=== PATIENT | male | born 1935 | race Caucasian/White ===

== ENCOUNTER 2017-10-14 17:50 | Inpatient (IN) ==
--- OUTSIDE RECORDS SUMMARY | 2017-10-14 18:04 | External Medical Summary | Referral Summary ---
:1935 Author Organization [facility] [place] [id number] Care Team Providers Name Role Phone Juan Luis Brewster Primary Care Physician Encounter VC Date(s): 11/13/14 - 11/13/14 [facility] [place] [phone] Discharge Diagnosis: Atrial fibrillation Discharge Diagnosis: Acute bronchitis Discharge Diagnosis: Benign essential hypertension Discharge Diagnosis: Disease Discharge Diagnosis: COPD (chronic obstructive pulmonary disease) Discharge Disposition: 01-Home or Self Care Attending Physician: Juan Luis Brewster MD Admitting Physician: Juan Luis Brewster MD Vital Signs Most recent to oldest [Reference Range]: 1 Temperature Tympanic [36.6-38.1 degC] 35.9 degC *LOW* (11/13/14 10:04 AM) Peripheral Pulse Rate [60-100 bpm] 80 bpm (11/13/14 10:04 AM) Respiratory Rate [14-20 br/min] 18 br/min (11/13/14 10:04 AM) Blood Pressure [90-140/60-90 mmHg] 100/64 mmHg (11/13/14 10:04 AM) Problem List Condition Effective Dates Status Health Status Informant Adenomatous colonic polyps(Confirmed) 2012 Active Arthritis(Confirmed) Active Benign essential hypertension Active (disorder)(Confirmed) BPH(Confirmed) Active Bronchitis, chronic(Confirmed) Active Cataracts(Confirmed) Active Chicken pox(Confirmed) Active Atrial fibrillation Active (disorder)(Confirmed) COPD (chronic obstructive pulmonary Active disease)(Confirmed) Colon diverticulosis(Confirmed) 2012 Active DDD (degenerative disc disease), Active lumbar(Confirmed) Depression(Confirmed) Active Depression(Confirmed) Active Cholesterolemia(Confirmed) Active Orthostasis(Confirmed) Active Emphysema(Confirmed) Active Generalised osteoarthritis(Confirmed) Active Hypertension(Confirmed) Active Hyperlipidemia(Confirmed) Active Obesity(Confirmed) Active patient Prostatitis(Confirmed) Active Pure hypercholesterolemia Active (disorder)(Confirmed) Recurrent sinus infections(Confirmed) Active RBBB(Confirmed) Active Scarlet fever(Confirmed) Active Syncope and collapse Active (disorder)(Confirmed) Allergies, Adverse Reactions, Alerts Substance Reaction Severity Status Camphor Swelling of face Active Menthol Active penicillin Active Phenol Swelling of face Active Salicylic Acid Swelling of face Active Medications alfuzosin 10 mg oral tablet, extended release 10 mg 1 tabs, Oral, Daily, # 90 tabs, 2 Refill(s), Pharmacy: [facility], 1 tabs Oral Daily Start Date: 03/07/15 Status: OrderedAspir 81 1 tabs, Oral, Daily, 0 Refill(s) Start Date: 12/25/13 Status: Orderedbudesonide 0.5 mg/2 mL inhalation suspension 2 mL, NEB, BID, # 120 mL, 0 Refill(s), Pharmacy: [facility], 2 mL NEB BID Start Date: 06/29/14 Status: OrderedDeep Sea Nasal 0.65% nasal spray 2 sprays, Nasal, QID, 0 Refill(s) Start Date: 06/29/14 Status: OrderedESOMEPRAZOLE MAG DR CAPS 40MG See Instructions, TAKE 1 CAPSULE DAILY, # 90 caps, 2 Refill(s), eRx: [facility], TAKE 1 CAPSULE DAILY Start Date: 10/25/14 Status: Orderedferrous sulfate 325 mg (65 mg elemental iron) oral tablet 325 mg 1 tabs, Oral, Daily, in place of the delayed release, # 90 tabs, 1 Refill (s), Pharmacy: [facility], 1 tabs Oral Daily,Instr:in place of the delayed release Start Date: 05/09/15 Status: Orderedfinasteride 5 mg oral tablet 5 mg 1 tabs, Oral, Daily, # 90 tabs, 4 Refill(s), Pharmacy: [facility], 1 tabs Oral Daily Start Date: 04/11/15 Status: OrderedHome Oxygen (DME) DME Item 2 LPM HS, See Instructions, # 1 Each, 0 Refill(s), Supply Start Date: 12/25/13 Status: OrderedHome Oxygen (DME) See Instructions, # 1 Each, 0 Refill(s), Supply Start Date: 02/13/15 Status: Orderedipratropium-albuterol 0.5 mg-2.5 mg/3 mLinhalation solution See Instructions, USE ONE VIAL IN NEBULIZER 4 TIMES DAILY, # 360 unknown unit, eRx: [facility], USE ONE VIAL IN NEBULIZER 4 TIMES DAILY Start Date: 10/18/14 Status: OrderedLasix 40 mg oral tablet 60 mg 1.5 tabs, Oral, Daily, # 135 tabs, 3 Refill(s), Pharmacy: [facility], 1.5 tabs Oral Daily Start Date: 12/27/14 Status: OrderedLipitor 10 mg oral tablet 1 tabs, Oral, Daily, # 30 tabs, 4 Refill(s), Pharmacy: [facility], 1 tabs Oral Daily Start Date: 06/28/14 Status: Orderedmetolazone 5 mg oral tablet 5 mg 1 tabs, Oral, Daily, # 30 tabs, 0 Refill(s), Pharmacy: [facility], 1 tabs Oral Daily Start Date: 11/23/14 Status: OrderedMiraLax 17 g, Oral, Daily, 0 Refill(s) Start Date: 06/29/14 Status: OrderedMiscellaneous DME DME Item Nebulizer with administration kit Use as directed, See Instructions, # 1 Each, 0 Refill(s), Supply Start Date: 06/29/14 Status: Orderedmultivitamins oral capsule 1 caps, Oral, Daily, # 30 caps, 0 Refill(s) Start Date: 12/25/13 Status: OrderedNexIUM 40 mg oral delayed release capsule 1 caps, Oral, Daily, # 30 caps, 0 Refill(s) Start Date: 12/25/13 Status: Orderedpotassium chloride 20 mEq oral tablet, extended release 20 mEq 1 tabs, Oral, Daily, # 30 tabs, 0 Refill(s), Pharmacy: [facility], 1 tabs Oral Daily Start Date: 11/23/14 Status: Orderedpotassium gluconate 595 mg oral tablet 1 tabs, Oral, Daily, 0 Refill(s) Start Date: 06/29/14 Status: OrderedpredniSONE 5 mg oral tablet 5 mg 1 tabs, Oral, Daily, 0 Refill(s) Start Date: 03/19/15 Status: Orderedsertraline 100 mg oral tablet See Instructions, TAKE 1 TABLET DAILY, # 120 tabs, 1 Refill(s), Pharmacy: [facility], TAKE 1 TABLET DAILY Start Date: 01/17/15 Status: OrderedSpiriva 18 mcg inhalation capsule 1 Each, Inhalation, Daily, use two inhalations of one capsule for each dose, # 30 Each, 10 Refill(s), Pharmacy: [facility], 1 Each Inhalation Daily,Instr:use two inhalations of one capsule for each dose Start Date: 06/06/14 Status: OrderedSymbicort 2 puffs, Inhalation, BID, 0 Refill(s) Start Date: 02/13/15 Status: OrderedViagra 100 mg oral tablet 1 tabs, Oral, Daily, as needed for erectile dysfunction, 0 Refill(s) Start Date: 12/25/13 Status: OrderedVitamin C 1000 mg oral tablet 1 tabs, Oral, Daily, # 30 tabs, 0 Refill(s) Start Date: 12/25/13 Status: OrderedVitamin D3 1000 intl units oral capsule 1 caps, Oral, Daily, # 100 caps, 0 Refill(s) Start Date: 12/25/13 Status: OrderedXarelto 20 mg oral tablet See Instructions, TAKE 1 TABLET DAILY WITH BREAKFAST, # 90 tabs, eRx: [facility],TAKE 1 TABLET DAILY WITH BREAKFAST Start Date: 05/13/15 Status: Ordered Results No data available for this section Immunizations Vaccine Date Refusal Reason influenza virus vaccine, inactivated 04/18/15 influenza virus vaccine, inactivated 04/19/14 influenza virus vaccine, live 04/20/13 influenza virus vaccine, live 04/15/11 pneumococcal 13-valent conjugate vaccine1 02/13/15 pneumococcal 23-polyvalent vaccine 04/28/10 pneumococcal 23-polyvalent vaccine 06/20/03 tetanus-diphth toxoids (Td) adult/adol 01/30/08 zoster vaccine live 09/07/13 1Early/Late Reason: Nursing Judgment Procedures Procedure Date Related Diagnosis Body Site Colonoscopy Repeat in 5 years 2012 Esophagogastroduodenoscopy 07/15/09 Biopsy of prostate Cataract extraction hernia repair Hiatal hernia left eye surgery Surgery, Lt eye Social History Social History Type Response Smoking Status Former smoker; Type: Cigarettes1 1Quit in 1981 Assessment and Plan Extracted from: Title: Office Visit Note Author: Juan Luis Brewster MD Date: 11/13/14 Assessment/Plan Acute bronchitis Begin Levaquin 500 mg daily for 10 days. If not improving he'll let me know. Ordered: Office Visit Level 4 Est 57211 Atrial fibrillation Stable chronic rate controlled. Continue current treatment plan. Ordered: Office Visit Level 4 Est 98630 Benign essential hypertension Blood pressure is adequately controlled no change in current treatment plan recommended. Ordered: Office Visit Level 4 Est 04559 COPD (chronic obstructive pulmonary disease) Overall stable perhaps very mild exacerbation with recent acute bronchitis. Continue current treatment without change. Ordered: Office Visit Level 4 Est 58156 Orders: levofloxacin, 1 tabs, Oral, q24hr, X 10 days, # 10 tabs, 0 Refill(s) , Pharmacy: [facility], 1 tabs Oral q24hr,x10 days
--- OUTSIDE RECORDS SUMMARY | 2017-10-14 18:04 | External Medical Summary | Referral Summary ---
:1935 Author Organization [facility] [place] [address] Care Team Providers Name Role Phone Juan Luis Brewster Primary Care Physician Encounter VC Date(s): 05/20/16 - 05/20/16 [facility] [place] [phone] [place] Discharge Diagnosis: Anemia Discharge Diagnosis: Chronic obstructive pulmonary disease Discharge Diagnosis: Mixed hyperlipidemia Discharge Diagnosis: Atrial fibrillation Discharge Diagnosis: Depression Discharge Diagnosis: Benign essential hypertension Discharge Disposition: 01-Home or Self Care Attending Physician: Juan Luis Brewster MD Admitting Physician: Juan Luis Brewster MD Vital Signs Most recent to oldest [Reference Range]: 1 Temperature Tympanic [36.6-38.1 degC] 36.3 degC *LOW* (05/20/16 8:39 AM) Peripheral Pulse Rate [60-100 bpm] 56 bpm *LOW* (05/20/16 8:39 AM) Respiratory Rate [14-20 br/min] 16 br/min (05/20/16 8:39 AM) Blood Pressure [90-140/60-90 mmHg] 130/62 mmHg (05/20/16 8:39 AM) SpO2 96 % (05/20/16 8:39 AM) Problem List Condition Effective Dates Status Health Status Informant Acute pain(Confirmed) Active Adenomatous colonic polyps(Confirmed) 2013 Active Arthritis(Confirmed) Active At risk for activity Active intolerance(Confirmed)1 At risk of pressure sore(Confirmed) Active Benign essential hypertension Active (disorder)(Confirmed) BPH(Confirmed) Active Bronchitis, chronic(Confirmed) Active Cataracts(Confirmed) Active Chicken pox(Confirmed) Active Atrial fibrillation Active (disorder)(Confirmed) COPD (chronic obstructive pulmonary Active disease)(Confirmed) Colon diverticulosis(Confirmed) 2012 Active DDD (degenerative disc disease), Active lumbar(Confirmed) Cholesterolemia(Confirmed) Active Orthostasis(Confirmed) Active Emphysema(Confirmed) Active Fluid imbalance(Confirmed)2 Active Generalised osteoarthritis(Confirmed) Active Hypertension(Confirmed) Active Impaired gas exchange(Confirmed)3 Active Knowledge deficit(Confirmed)4 Active Hyperlipidemia(Confirmed) Active Obesity(Confirmed) Active patient Prostatitis(Confirmed) Active Pure hypercholesterolemia Active (disorder)(Confirmed) Recurrent sinus infections(Confirmed) Active RBBB(Confirmed) Active Scarlet fever(Confirmed) Active Depression(Confirmed) Active Depression(Confirmed) Active Syncope and collapse Active (disorder)(Confirmed) Tissue perfusion Active alteration(Confirmed)5 Urinary retention(Confirmed)6 Active 1Problem added automatically by system based on initiation of At Risk for Activity Intolerance Plan of [id number] added automatically by system based on initiation of Fluid Volume Imbalance Plan of [id number] added automatically by system based on initiation of Impaired Gas Exchange Plan of [id number] added automatically by system based on initiation of Knowledge Deficit Plan of [id number] added automatically by system based on initiation of Tissue Perfusion Cerebral Plan of [id number] added automatically by system based on initiation of Urinary Retention Plan of Care Allergies, Adverse Reactions, Alerts Substance Reaction Severity Status Camphor Swelling of face Active Menthol Active penicillin Active Phenol Swelling of face Active Salicylic Acid Swelling of face Active Medications acetaminophen 325 mg oral tablet 650 mg 2 tabs, Oral, q4hr, Pain Mild (1-3), 0 Refill(s) Start Date: 05/30/15 Status: Orderedamiodarone 200 mg oral tablet See Instructions, TAKE ONE TABLET BY MOUTH TWICE DAILY, # 60 tabs, 2 Refill(s), eRx: [facility], TAKE ONE TABLET BY MOUTH TWICE DAILY Start Date: 02/12/16 Status: Orderedbudesonide 0.5 mg/2 mL inhalation suspension 0.5 mg 2 mL, NEB, BID, 0 Refill(s) Start Date: 05/30/15 Status: Ordereddoxepin 10 mg oral capsule 1-2 caps, Oral, Bedtime (once a day), as needed for sleep, 0 Refill(s) Start Date: 06/04/15 Status: Orderedesomeprazole 40 mg oral delayed release capsule See Instructions, TAKE 1 CAPSULE DAILY, # 90 caps, eRx: [facility], TAKE 1 CAPSULE DAILY Start Date: 10/15/15 Status: Orderedferrous sulfate 325 mg (65 mg elemental iron) oral tablet See Instructions, TAKE ONE TABLET BY MOUTH ONCE DAILY, # 90 tabs, 1 Refill(s), eRx: [facility], TAKE ONE TABLET BY MOUTH ONCE DAILY Start Date: 10/16/15 Status: Orderedfinasteride 5 mg oral tablet 5 mg 1 tabs, Oral, Daily, # 90 tabs, 4 Refill(s), Pharmacy: [facility], 1 tabs Oral Daily Start Date: 04/11/15 Status: OrderedFish Oil oral capsule 1 caps, Oral, Daily, # 100 caps, 0 Refill(s) Start Date: 08/29/15 Status: Orderedfolic acid 1 mg oral tablet 1 mg 1 tabs, Oral, Daily, # 90 tabs, 0 Refill(s) Start Date: 06/13/15 Status: Orderedfurosemide 40 mg oral tablet See Instructions, TAKE ONE TABLET BY MOUTH ONCE DAILY, # 30 tabs, 2 Refill(s), eRx: [facility], TAKE ONE TABLET BY MOUTH ONCE DAILY Start Date: 11/18/15 Status: OrderedHome Oxygen (DME) DME Item 2 LPM HS, See Instructions, # 1 Each, 0 Refill(s), Supply Start Date: 12/25/13 Status: OrderedKlor-Con M20 oral tablet, extended release See Instructions, TAKE ONE TABLET BY MOUTH ONCE DAILY, # 30 tabs, 2 Refill(s), eRx: [facility], TAKE ONE TABLET BY MOUTH ONCE DAILY Start Date: 01/28/16 Status: OrderedLipitor 10 mg oral tablet 10 mg 1 tabs, Oral, Daily, # 90 tabs, 4 Refill(s), Pharmacy: [facility], 1 tabs Oral Daily Start Date: 01/27/16 Status: Orderedlosartan 50 mg oral tablet 50 mg 1 tabs, Oral, Daily, 1/2 tab, # 30 tabs, 6 Refill(s), Pharmacy: [facility], 1 tabsOral Daily Start Date: 09/26/15 Status: Orderedmetoprolol tartrate 25 mg oral tablet 25 mg 1 tabs, Oral, BID, # 60 tabs, 1 Refill(s), Pharmacy: [facility] Start Date: 08/30/15 Status: OrderedPradaxa 150 mg oral capsule 150 mg 1 caps, Oral, BID, # 60 caps, 3 Refill(s), Pharmacy: [facility] Start Date: 07/01/15 Status: Orderedsertraline 100 mg oral tablet See Instructions, TAKE 1 TABLET DAILY, # 120 tabs, eRx: [facility], TAKE 1 TABLETDAILY Start Date: 01/27/16 Status: OrderedVitamin C 1000 mg oral tablet 1 tabs, Oral, Daily, # 30 tabs, 0 Refill(s) Start Date: 12/25/13 Status: OrderedVitamin D3 1000 intl units oral capsule 1 caps, Oral, Daily, # 100 caps, 0 Refill(s) Start Date: 12/25/13 Status: Ordered Results Hematology Most recent to oldest [Reference Range]: 1 WBC [4.8-10.8 10*3/uL] 7.8 10*3/uL (05/20/16 9:12 AM) RBC [4.60-6.20] 3.48 *LOW* (05/20/16 9:12 AM) Hgb [14.0-18.0 gm/dL] 12.3 gm/dL *LOW* (05/20/16 9:12 AM) Hct [42.0-52.0 %] 35.4 % *LOW* (05/20/16 9:12 AM) MCV [82.0-99.0 fL] 101.7 fL *HI* (05/20/16 9:12 AM) MCH [27.0-32.0 pg] 35.3 pg *HI* (05/20/16 9:12 AM) MCHC [32.0-36.0 gm/dL] 34.7 gm/dL (05/20/16 9:12 AM) RDW [11.5-14.5 %] 13.4 % (05/20/16 9:12 AM) Platelet [150-400 10*3/uL] 172 10*3/uL (05/20/16 9:12 AM) MPV [8.8-14.8 fL] 10.0 fL (05/20/16 9:12 AM) Immature Granulocytes [0.0-1.0 %] 0.1 % (05/20/16 9:12 AM) Neutrophils [51-75 %] 81 % *HI* (05/20/16 9:12 AM) Lymphocytes [20-46 %] 7 % *LOW* (05/20/16 9:12 AM) Monocytes [4-11 %] 11 % (05/20/16 9:12 AM) Eosinophils [0-4 %] 1 % (05/20/16 9:12 AM) Basophils [0-2 %] 0 % (05/20/16 9:12 AM) Neutro Absolute [1.90-7.00 10*3] 6.32 10*3 (05/20/16 9:12 AM) Lymph Absolute [0.80-3.30 10*3] 0.57 10*3 *LOW* (05/20/16 9:12 AM) Gonzales Absolute [0.30-1.00 10*3] 0.85 10*3 (05/20/16 9:12 AM) Eos Absolute [0.00-0.50 10*3] 0.09 10*3 (05/20/16 9:12 AM) Baso Absolute [0.00-0.20 10*3] 0.01 10*3 (05/20/16 9:12 AM) Chemistry Most recent to oldest [Reference Range]: 1 Sodium Lvl [135-144 mEq/L] 137 mEq/L (05/20/16 9:12 AM) Potassium Lvl [3.5-5.2 mEq/L] 4.5 mEq/L (05/20/16 9:12 AM) Chloride [99-111 mEq/L] 102 mEq/L (05/20/16 9:12 AM) CO2 [23-31 mEq/L] 27 mEq/L (05/20/16 9:12 AM) AGAP [3-20] 8 (05/20/16 9:12 AM) BUN [8-26 mg/dL] 11 mg/dL (05/20/16 9:12 AM) Glucose Lvl [70-99 mg/dL] 109 mg/dL *HI* (05/20/16 9:12 AM) Creatinine Lvl [0.72-1.25 mg/dL] 0.85 mg/dL (05/20/16 9:12 AM) eGFR [>60 mL/min] >60 mL/min 1 (05/20/16 9:12 AM) Calcium Lvl [8.9-10.5 mg/dL] 9.5 mg/dL (05/20/16 9:12 AM) Albumin Lvl [3.4-4.8 gm/dL] 3.7 gm/dL (05/20/16 9:12 AM) Total Protein [6.0-7.6 gm/dL] 6.6 gm/dL (05/20/16 9:12 AM) Globulin [1.8-4.0 gm/dL] 2.9 gm/dL (05/20/16 9:12 AM) ALT [0-55 U/L] 56 U/L *HI* (05/20/16 9:12 AM) AST [5-34 U/L] 62 U/L *HI* (05/20/16 9:12 AM) Alk Phos [40-150 U/L] 100 U/L (05/20/16 9:12 AM) Bili Total [0.2-1.2 mg/dL] 1.1 mg/dL (05/20/16 9:12 AM) 1Result Comment: Multiply eGFR results by 1.21 for race. Immunizations Vaccine Date Refusal Reason influenza virus vaccine, inactivated 04/06/16 influenza virus vaccine, inactivated 04/18/15 influenza virus vaccine, inactivated 04/19/14 influenza virus vaccine, live 04/20/13 influenza virus vaccine, live 04/15/11 pneumococcal 13-valent conjugate vaccine1 02/13/15 pneumococcal 23-polyvalent vaccine 04/28/10 pneumococcal 23-polyvalent vaccine 06/20/03 tetanus-diphth toxoids (Td) adult/adol 01/30/08 zoster vaccine live 09/07/13 1Early/Late Reason: Nursing Judgment Procedures Procedure Date Related Diagnosis Body Site Echo Transesophageal1 05/30/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 05/24/15 [place] Vein Endoscopic (Left)3 05/24/15 Catheterization Left Heart with Coronary 05/20/15 Angiography4 Catheterization Right Heart5 05/20/15 Colonoscopy Repeat in 5 years 2012 Esophagogastroduodenoscopy 07/15/09 Biopsy of prostate Cataract extraction hernia repair Hiatal hernia left eye surgery Surgery, Lt eye 1auto-populated from documented surgical [id number] from documented surgical [id number] from documented surgical [id number] from documented surgical [id number] from documented surgical case Social History Social History Type Response Smoking Status Former smoker; Type: Cigarettes1 1Quit in 1981 Assessment and Plan Extracted from: Title: Office Visit Note Author: Juan Luis Brewster MD Date: 05/20/16 Assessment/Plan 1.Benign essential hypertension Blood pressure appears to be well- controlled no change in current treatment is recommended. Recheck in 3 months. Ordered: Comprehensive Metabolic Panel Office Visit Level 4 Est 61798 2.Atrial fibrillation Chronic stable rate appears to be controlledno change in current treatmentcontinue chronic anticoagulation therapy. Recheck in 3 months. Ordered: Office Visit Level 4 Est 54886 3.Chronic obstructive pulmonary disease I think DuoNeb would be beneficial for him. We'll see if we can get him in a nebulizer and have him use his DuoNeb 3 times a day. She is not improving w e may have him follow up with Dr. Oseas weston. Recheck here in 3 months. Ordered: CBC w/ Differential Office Visit Level 4 Est 49621 4.Anemia Hemoglobin was 9.9 in mid March. We'll recheck a CBC today. Ordered: CBC w/ Differential Office Visit Level 4 Est 51171 5.Depression Chronic stable no change in current treatment. Ordered: Office Visit Level 4 Est 37058 6.Mixed hyperlipidemia Chronic and stable no change in current treatment. Ordered: Office Visit Level 4 Est 43529 He is up-to-date on all his vaccinations.
--- OUTSIDE RECORDS SUMMARY | 2017-10-14 18:05 | External Medical Summary | Summary of Care ---
:1935 Author Name Dennis Lyons M.D. Address [address] [place], [place] [address] Care Team Providers Name Role Phone Dennis Lyons M.D. Unavailable Unavailable Juan Luis Brewster Unavailable Unavailable Unavailable Unavailable Functional Status Functional Status Health Issues Name Dates Details Functional status health issues are not documented Status: Cognitive Status Health Issues Name Dates Details Cognitive status health issues are not documented Status: Problems Name Dates Details Prophylactic antibiotic (V58.62, Z79.2) Status: Active BPH (benign prostatic hypertrophy) (600.00, N40.0) Status: Active Prostate nodule (600.10, N40.2) Status: Active Medications Name Dates Details Acetaminophen 325 MG Oral Tablet TAKE 1 TO 2 TABLETS EVERY 4 HOURS NEEDED Refills: 0 Dennis Lyons M.D. Start 03-Dec-2015 Active Amiodarone HCl - 200 MG Oral Tablet TAKE 1 TABLET TWICE DAILY. Refills: 0 Dennis Lyons M.D. Start 03-Dec-2015 Active Budesonide 0.5 MG/2ML Inhalation Suspension USE DIRECTED. Refills: 0 Start 03-Dec-2015 Active Doxepin HCl - 10 MG Oral Capsule TAKE 1 TO 2 CAPSULES AT BEDTIME NEEDED FOR ITCHING. Refills: 0 Start 03-Dec-2015 Active Esomeprazole Magnesium 40 MG Oral Capsule Delayed Release TAKE 1 CAPSULE DAILY. Refills: 0 Start 03-Dec-2015 Active Ferrous Sulfate 325 (65 Fe) MG Oral Tablet TAKE 1 TABLET DAILY WITH FOOD. Refills: 0 Start 03-Dec-2015 Active Finasteride 5 MG Oral Tablet TAKE 1 TABLET DAILY DIRECTED. Refills: 0 Start 03-Dec-2015 Active Fish Oil 1000 MG Oral Capsule TAKE 1 CAPSULE DAILY. Refills: 0 Start 03-Dec-2015 Active Folic Acid 5 MG Oral Capsule TAKE 1 CAPSULE DAILY. Refills: 0 Start 03-Dec-2015 Active Furosemide 40 MG Oral Tablet TAKE 1 TABLET DAILY. Refills: 0 Start 03-Dec-2015 Active Oxygen Refills: 0 Start 03-Dec-2015 Active Lipitor 10 MG Oral Tablet TAKE 1 TABLET DAILY. Refills: 0 Start 03-Dec-2015 Active Losartan Potassium 50 MG Oral Tablet TAKE 1 TABLET DAILY. Refills: 0 Start 03-Dec-2015 Active Metoprolol Tartrate 25 MG Oral Tablet TAKE 1 TABLET DAILY. Refills: 0 Start 03-Dec-2015 Active Pradaxa 150 MG Oral Capsule TAKE 1 CAPSULE DAILY. Refills: 0 Start 03-Dec-2015 Active Sertraline HCl - 100 MG Oral Tablet TAKE 1 TABLET DAILY. Refills: 0 Start 03-Dec-2015 Active Vitamin C 1000 MG Oral Tablet TAKE 1 TABLET DAILY. Refills: 0 Start 03-Dec-2015 Active Vitamin D3 1000 UNIT Oral Capsule TAKE DIRECTED. Refills: 0 Start 03-Dec-2015 Active Potassium Gluconate 595 (99 K) MG Oral Tablet TAKE 1 TABLET DAILY. Refills: 0 Eloy Hagan.Dennis Noguera Start Active Sulfamethoxazole-Trimethoprim 800-160 MG Oral Tablet Take 1 tablet twice daily Quantity: 42 Refills: 0 Eloy M.DDennis Erickson Start 01-Dec-2016 End Active Allergies and Adverse Reactions Name Dates Details Camphor NUBIA (Allergy) Reaction: Swelling Status: Active Menthol Crystals (Allergy) Status: Active Penicillins (Allergy) Status: Active Phenol SOLN (Allergy) Reaction: Swelling Status: Active Salicylic Acid SOLN (Allergy) Reaction: Swelling Status: Active Past Medical History Name Dates Details History of arthritis (V13.4, Z87.39) Status: Resolved History of atrial fibrillation (V12.59, Z86.79) Status: Resolved History of Benign essential HTN (401.1, I10) Status: Resolved History of cataract (V12.49, Z86.69) Status: Resolved History of chronic bronchitis (V12.69, Z87.09) Status: Resolved History of chronic obstructive lung disease (V12.69, Z87.09) Status: Resolved History of Colon, diverticulosis (562.10, K57.30) Status: Resolved History of colonic polyps (V12.72, Z86.010) Status: Resolved History of degenerative disc disease (V13.59, Z87.39) Status: Resolved History of depression (V11.8, Z86.59) Status: Resolved 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, M15.9) Status: Resolved History of High cholesterol (272.0, E78.00) Status: Resolved History of hypercholesterolemia (V12.29, Z86.39) Status: Resolved History of hyperlipidemia (V12.29, Z86.39) Status: Resolved History of hypertension (V12.59, Z86.79) Status: Resolved History of osteoarthritis (V13.4, Z87.39) Status: Resolved History of prostatitis (V13.89, Z87.438) Status: Resolved History of pulmonary emphysema (V12.69, Z87.09) Status: Resolved History of Recurrent sinus infections (473.9, J32.9) Status: Resolved History of right bundle branch block (RBBB) (V15.1, Z98.890) Status: Resolved History of scarlet fever (V12.09, Z86.19) Status: Resolved History of Syncope and collapse (780.2, R55) Status: Resolved History of varicella (V12.09, Z86.19) Status: Resolved Procedures Procedure Dates Details History of Coronary Artery Surgery History of Arterial Catheterization History Of Prior Surgery History of Colonoscopy History of Diagnostic Esophagogastroduodenoscopy History of Needle Biopsy Of Prostate History of Cataract Surgery History of Hernia Repair History of Eye Surgery Procedures not documented Immunization Name Dates Details Immunizations not documented Family History Father Name Dates Details Family history of chronic obstructive pulmonary disease (V17.6, Z82.5) Status: Active Sister Name Dates Details Family history of Colon cancer (153.9, C18.9) Status: Active Family history of malignant neoplasm of kidney (V16.51, Z80.51) Status: Active Brother Name Dates Details Family history of CAD (coronary artery disease) (414.00, I25.10) Status: Active Family history of cardiac disorder (V17.49, Z82.49) Status: Active Social History Name Dates Details - Status: Smoking Status Name Dates Details Former smoker Vital Signs Date Test Result Details 01-Dec-2016 13:13 BP Systolic 99 mm[Hg] Status: Comments: Location: ; Position: BP Diastolic 56 mm[Hg] Status: Comments: Location: ; Position: Heart Rate 92 /min Status: Comments: Location: ; Results Date Description Value Details Results not documented Plan of Care Name Dates Details Planned Observations Planned Goals not documented Planned Encounters Appointment; Provider: Dennis Lyons M.D. On 10:00 Interventions Provided Medication ChangesSulfamethoxazole-Trimethoprim 800-160 MG Oral Tablet - Start Instructions Name Dates Details Instructions not documented Encounters Appointment; Dennis Lyons M.D. On Encounter Diagnosis: Problem not documented 09:00 Appointment; Dennis Lyons M.D. On Encounter Diagnosis: Problem not documented 14:30
--- OUTSIDE RECORDS SUMMARY | 2017-10-14 18:05 | External Medical Summary | Referral Summary ---
:1935 Author Organization [facility] [place] [address] Care Team Providers Name Role Phone Juan Luis Brewster Primary Care Physician Encounter VC Date(s): 11/13/14 - 11/13/14 [facility] [place] [address]- Discharge Diagnosis: Atrial fibrillation Discharge Diagnosis: Acute [...] Daily, # 90 tabs, 2 Refill(s), Pharmacy: [facility], 1 tabs Oral Daily Start Date: 03/07/15 Status: OrderedAspir 81 1 tabs, Oral, Daily, 0 Refill(s) Start Date: 12/25/13 Status: Orderedbudesonide 0.5 mg/2 mL inhalation suspension 2 mL, NEB, BID, # 120 mL, 0 Refill(s), Pharmacy: [id number], 2 mL NEB BID Start Date: 06/29/14 Status: OrderedDeep Sea Nasal 0.65% nasal spray 2 sprays, Nasal, QID, 0 Refill(s) Start Date: 06/29/14 Status: OrderedESOMEPRAZOLE MAG DR CAPS 40MG See Instructions, TAKE 1 CAPSULE DAILY, # 90 caps, 2 Refill(s), eRx: [facility], TAKE 1 CAPSULE DAILY Start Date: 10/25/14 Status: Orderedferrous sulfate 325 mg (65 mg elemental iron) oral tablet 325 mg 1 tabs, Oral, Daily, in place of the delayed release, # 90 tabs, 1 Refill (s), Pharmacy: [id number], 1 tabs Oral Daily,Instr:in place of the delayed release Start Date: 05/09/15 Status: Orderedfinasteride 5 mg oral tablet 5 mg 1 tabs, Oral, Daily, # 90 tabs, 4 Refill(s), Pharmacy: [facility], 1 tabs Oral Daily Start [...] TIMES DAILY, # 360 unknown unit, eRx: [id number], USE ONE VIAL IN NEBULIZER 4 TIMES DAILY Start Date: 10/18/14 Status: OrderedLasix 40 mg oral tablet 60 mg 1.5 tabs, Oral, Daily, # 135 tabs, 3 Refill(s), Pharmacy: [facility], 1.5 tabs Oral Daily Start Date: 12/27/14 Status: OrderedLipitor 10 mg oral tablet 1 tabs, Oral, Daily, # 30 tabs, 4 Refill(s), Pharmacy: [id number], 1 tabs Oral Daily Start Date: 06/28/14 Status: Orderedmetolazone 5 mg oral tablet 5 mg 1 tabs, Oral, Daily, # 30 tabs, 0 Refill(s), Pharmacy: [id number], 1 tabs Oral Daily Start [...] Daily, # 30 tabs, 0 Refill(s), Pharmacy: [id number], 1 tabs Oral Daily Start Date: 11/23/14 Status: Orderedpotassium gluconate 595 mg oral tablet 1 tabs, Oral, Daily, 0 Refill(s) Start Date: 06/29/14 Status: OrderedpredniSONE 5 mg oral tablet 5 mg 1 tabs, Oral, Daily, 0 Refill(s) Start Date: 03/19/15 Status: Orderedsertraline 100 mg oral tablet See Instructions, TAKE 1 TABLET DAILY, # 120 tabs, 1 Refill(s), Pharmacy: [facility], TAKE 1 TABLET DAILY Start Date: 01/17/15 Status: OrderedSpiriva 18 mcg inhalation capsule 1 Each, Inhalation, Daily, use two inhalations of one capsule for each dose, # 30 Each, 10 Refill(s), Pharmacy: [facility], 1 Each Inhalation Daily,Instr:use two [...] WITH BREAKFAST, # 90 tabs, eRx: [facility],TAKE 1 TABLET DAILY WITH BREAKFAST [...] know. Ordered: Office Visit Level 4 Est 15580 Atrial fibrillation Stable chronic rate controlled. Continue current treatment plan. Ordered: Office Visit Level 4 Est 96579 Benign essential hypertension Blood pressure is adequately controlled no change in current treatment plan recommended. Ordered: Office Visit Level 4 Est 87156 COPD (chronic obstructive pulmonary disease) Overall stable perhaps very mild exacerbation with recent acute bronchitis. Continue current treatment without change. Ordered: Office Visit Level 4 Est 46061 Orders: levofloxacin, 1 tabs, Oral, q24hr, X 10 days, # 10 tabs, 0 Refill(s) , Pharmacy: [facility], 1 tabs Oral q24hr,x10 days
--- OUTSIDE RECORDS SUMMARY | 2017-10-14 18:05 | External Medical Summary | Referral Summary ---
:1935 Author Organization [facility] [address] [place] [id number] Care Team Providers Name Role Phone Juan Luis Brwester Primary Care Physician Encounter VC Date(s): 11/23/14 - 11/23/14 [facility] [address] [place] [phone] Discharge Diagnosis: Bronchitis, chronic Discharge Diagnosis: Benign essential hypertension Discharge Diagnosis: Chronic CHF Discharge Diagnosis: Atrial fibrillation Discharge Diagnosis: COPD (chronic obstructive pulmonary disease) Discharge Disposition: 01-Home or Self Care Attending Physician: Juan Luis Brewster MD Admitting Physician: Juan Luis Brewster MD Vital Signs Most recent to oldest [Reference Range]: 1 Temperature Tympanic [36.6-38.1 degC] 36.0 degC *LOW* (11/23/14 9:36 AM) Peripheral Pulse Rate [60-100 bpm] 68 bpm (11/23/14 9:36 AM) Respiratory Rate [14-20 br/min] 16 br/min (11/23/14 9:36 AM) Blood Pressure [90-140/60-90 mmHg] 114/60 mmHg (11/23/14 9:36 AM) Problem List Condition Effective Dates Status [...] Active Cholesterolemia(Confirmed) Active Orthostasis(Confirmed) Active Emphysema(Confirmed) Active Fluid imbalance(Confirmed)2 Active Generalised osteoarthritis(Confirmed) Active Hypertension(Confirmed) Active Impaired gas exchange(Confirmed)3 Active Knowledge deficit(Confirmed)4 Active Hyperlipidemia(Confirmed) Active Obesity(Confirmed) Active patient Prostatitis(Confirmed) Active Pure hypercholesterolemia Active (disorder)(Confirmed) Recurrent sinus infections(Confirmed) Active RBBB(Confirmed) Active Scarlet fever(Confirmed) Active Syncope and collapse Active (disorder)(Confirmed) Tissue perfusion Active alteration(Confirmed)5 Urinary retention(Confirmed)6 Active 1Problem added automatically by system based on initiation of At Risk for Activity Intolerance Plan of [id number] added automatically by system based on initiation of Fluid Volume Imbalance Plan of [id number] added automatically by system based on initiation of Impaired Gas Exchange Plan of [id number] added automatically by system based on initiation of Knowledge Deficit Plan of [id number] added automatically by system based on initiation of Tissue Perfusion Cerebral Plan of [id number] added automatically by system based on initiation [...] Orderedamiodarone 200 mg oral tablet See Instructions, 200 mg Oral BID x 1 month then 200mg daily (to start 07/02/15) , 0 Refill(s) Start Date: 05/30/15 Status: OrderedAspir 81 1 tabs, Oral, Daily, 0 Refill(s) Start Date: 12/25/13 Status: Orderedbudesonide 0.5 mg/2 mL inhalation suspension 0.5 mg 2 mL, NEB, BID, 0 Refill(s) Start Date: 05/30/15 Status: Ordereddoxepin 10 mg oral capsule 1-2 caps, Oral, Bedtime (once a day), as needed for sleep, 0 Refill(s) Start Date: 06/04/15 Status: Orderedferrous sulfate 325 mg (65 mg elemental iron) oral tablet 325 mg 1 tabs, Oral, BID, in place of the delayed release, # 90 tabs, 1 Refill(s ), Pharmacy: [id number], 1 tabs Oral Daily,Instr:in place of the delayed release Start Date: 05/09/15 Status: Orderedfinasteride 5 mg oral tablet 5 mg 1 tabs, Oral, Daily, # 90 tabs, 4 Refill(s), Pharmacy: [facility], 1 tabs Oral Daily Start Date: 04/11/15 Status: Orderedfolic acid 1 mg oral tablet 1 mg 1 tabs, Oral, Daily, 0 Refill(s) Start Date: 05/30/15 Status: Orderedfurosemide 40 mg oral tablet 40 mg 1 tabs, Oral, Daily, # 30 tabs, 0 Refill(s), Pharmacy: [facility], 1 tabs Oral Daily Start Date: 05/30/15 Status: OrderedHome Oxygen (DME) DME Item 2 LPM HS, See Instructions, # 1 Each, 0 Refill(s), Supply Start Date: 12/25/13 Status: OrderedLipitor 10 mg oral tablet 1 tabs, Oral, Daily, # 30 tabs, 4 Refill(s), Pharmacy: [id number], 1 tabs Oral Daily Start Date: 06/28/14 Status: Orderedmetoprolol tartrate 25 mg oral tablet 25 mg 1 tabs, Oral, BID, 0 Refill(s) Start Date: 05/30/15 Status: OrderedMiraLax 17 g, Oral, Daily, 0 Refill(s) Start Date: 06/29/14 Status: OrderedNexIUM 40 mg oral delayed release capsule 1 caps, Oral, Daily, # 30 caps, 0 Refill(s) Start Date: 12/25/13 Status: Orderedpotassium chloride 20 mEq oral tablet, extended release 20 mEq 1 tabs, Oral, Daily, # 30 tabs, 0 Refill(s), Pharmacy: [id number], 1 tabs Oral Daily Start Date: 11/23/14 Status: Orderedpotassium gluconate 595 mg oral tablet 1 tabs, Oral, Daily, 0 Refill(s) Start Date: 06/29/14 Status: OrderedPradaxa 150 mg oral capsule 150 mg 1 caps, Oral, BID, 0 Refill(s) Start Date: 05/30/15 Status: Orderedsertraline 100 mg oral tablet See Instructions, TAKE 1 TABLET DAILY, # 120 tabs, 1 Refill(s), Pharmacy: [facility], TAKE 1 TABLET DAILY Start Date: 01/17/15 Status: OrderedVitamin C 1000 mg oral tablet 1 tabs, Oral, Daily, # 30 tabs, 0 Refill(s) Start Date: 12/25/13 Status: OrderedVitamin D3 1000 intl units oral capsule 1 caps, Oral, Daily, # 100 caps, 0 Refill(s) Start Date: 12/25/13 Status: Ordered Results No data available for [...] Transesophageal1 05/30/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 05/24/15 [place] Vein Endoscopic (Left)3 05/24/15 Catheterization Left Heart with Coronary 05/20/15 Angiography4 Catheterization Right Heart5 05/20/15 Colonoscopy Repeat in 5 years 2012 Esophagogastroduodenoscopy 07/15/09 Biopsy of prostate Cataract extraction hernia repair Hiatal hernia left eye surgery Surgery, Lt eye 1auto-populated from documented surgical [id number] from documented surgical [id number] from documented surgical [id number] from documented surgical [id number] from documented surgical case Social History Social History Type Response Smoking Status Former smoker; Type: Cigarettes1 1Quit in 1981 Assessment and Plan Extracted from: Title: Ambulatory Patient Education Author: Juan Luis Brewster MD Date: 11/23 Cardiovascular Heart Failure Heart failure is a condition in which the heart has trouble pumping blood. This means your heart does not pump blood efficiently for your body to work well. In some cases of heart failure, fluid may kamila k up into your lungs or you may have swelling (edema ) in your lower legs. Heart failure is usually a long-term (chronic ) condition. It is important for you to take good care of yourself and follow your caregiver's treatment plan. CAUSES Some health conditions can cause heart failure. Those health conditions include : High blood pressure (hypertension ) causes the heart muscle to work harder than normal. When pressure in the blood vessels is high, the heart needs to pump (contract ) with more force in order to c irculate blood throughout the body. High blood pressure eventually causes the heart to become stiff and weak. Coronary artery disease (CAD) is the buildup of cholesterol and fat ( plaque ) in the arteries of the heart. The blockage in the arteries deprives the heart muscle of oxygen and blood. This can caus e chest pain and may lead to a heart attack. High blood pressure can also contribute to CAD. Heart attack (myocardial infarction ) occurs when 1 or more arteries in the heart become blocked. The loss of oxygen damages the muscle tissue of the heart. When this happens, part of the heart mus herminio dies. The injured tissue does not contract as well and weakens the heart's ability to pump blood. Abnormal heart valves can cause heart failure when the heart valves do not open and close properly. This makes the heart muscle pump harder to keep the blood flowing. Heart muscle disease (cardiomyopathy or myocarditis ) is damage to the heart muscle from a variety of causes. These can include drug or alcohol abuse, infections, or unknown reasons. These can increase the risk of heart failure. Lung disease makes the heart work harder because the lungs do not work properly. This can cause a strain on the heart, leading it to fail. Diabetes increases the risk of heart failure. High blood sugar contributes to high fat (lipid ) levels in the blood. Diabetes can also cause slow damage to tiny blood vessels that carry important n utrients to the heart muscle. When the heart does not get enough oxygen and food, it can cause the heart to become weak and stiff. This leads to a heart that does not contract efficiently. Other conditions can contribute to heart failure. These include abnormal heart rhythms, thyroid problems, and low blood counts (anemia ). Certain unhealthy behaviors can increase the risk of heart failure. Those unhealthy behaviors include: Being overweight. Smoking or chewing tobacco. Eating foods high in fat and cholesterol. Abusing illicit drugs or alcohol. Lacking physical activity. SYMPTOMS Heart failure symptoms may vary and can be hard to detect. Symptoms may include : Shortness of breath with activity, such as climbing stairs. Persistent cough. Swelling of the feet, ankles, legs, or abdomen. Unexplained weight gain. Difficulty breathing when lying flat (orthopnea ). Waking from sleep because of the need to sit up and get more air. Rapid heartbeat. Fatigue and loss of energy. Feeling lightheaded, dizzy, or close to fainting. Loss of appetite. Nausea. Increased urination during the night (nocturia ). DIAGNOSIS A diagnosis of heart failure is based on your history, symptoms, physical examination, and diagnostic tests. Diagnostic tests for heart failure may include: Echocardiography. Electrocardiography. Chest X-ray. Blood tests. Exercise stress test. Cardiac angiography. Radionuclide scans. TREATMENT Treatment is aimed at managing the symptoms of heart failure. Medicines, behavioral changes, or surgical intervention may be necessary to treat heart failure. Medicines to help treat heart failure may include: Angiotensin-converting enzyme (PABLO) inhibitors. This type of medicine blocks the effects of a blood protein called angiotensin-converting enzyme. PABLO inhibitors relax (dilate ) the blood vessels and help lower blood pressure. Angiotensin receptor blockers. This type of medicine blocks the actions of a blood protein called angiotensin. Angiotensin receptor blockers dilate the blood vessels and help lower blood pressure. Water pills (diuretics ). Diuretics cause the kidneys to remove salt and water from the blood. The extra fluid is removed through urination. This loss of extra fluid lowers the volume of blood the heart pumps. Beta blockers. These prevent the heart from beating too fast and improve heart muscle strength. Digitalis. This increases the force of the heartbeat. Healthy behavior changes include: Obtaining and maintaining a healthy weight. Stopping smoking or chewing tobacco. Eating heart healthy foods. Limiting or avoiding alcohol. Stopping illicit drug use. Physical activity as directed by your caregiver. Surgical treatment for heart failure may include: A procedure to open blocked arteries, repair damaged heart valves, or remove damaged heart muscle tissue. A pacemaker to improve heart muscle function and control certain abnormal heart rhythms. An internal cardioverter defibrillator to treat certain serious abnormal heart rhythms. A left ventricular assist device to assist the pumping ability of the heart. HOME CARE INSTRUCTIONS Take your medicine as directed by your caregiver. Medicines are important in reducing the workload of your heart, slowing the progression of heart failure , and improving your symptoms. Do not stop taking your medicine unless directed by your caregiver. Do not skip any dose of medicine. Refill your prescriptions before you run out of medicine. Your medicines are needed every day. Take vnwx-qal-zjilqmb medicine only as directed by your caregiver or pharmacist. Engage in moderate physical activity if directed by your caregiver. Moderate physical activity can benefit some people. The elderly and people with severe heart failure should consult with a caregiver for physical activity recommendations. Eat heart healthy foods. Food choices should be free of trans fat and low in saturated fat, cholesterol, and salt (sodium ). Healthy choices include fresh or frozen fruits and vegetables, fish, ana lilia n meats, legumes, fat-free or low-fat dairy products, and whole grain or high fiber foods. Talk to a dietitian to learn more about heart healthy foods. Limit sodium if directed by your caregiver. Sodium restriction may reduce symptoms of heart failure in some people. Talk to a dietitian to learn more about heart healthy seasonings. Use healthy cooking methods. Healthy cooking methods include roasting, grilling, broiling, baking, poaching, steaming, or stir-frying. Talk to a dietitian to learn more about healthy cooking methods. Limit fluids if directed by your caregiver. Fluid restriction may reduce symptoms of heart failure in some people. Weigh yourself every day. Daily weights are important in the early recognition of excess fluid. You should weigh yourself every morning after you urinate and before you eat breakfast. Wear the same amount of clothing each time you weigh yourself. Record your daily weight. Provide your caregiver with your weight record. Monitor and record your blood pressure if directed by your caregiver. Check your pulse if directed by your caregiver. Lose weight if directed by your caregiver. Weight loss may reduce symptoms of heart failure in some people. Stop smoking or chewing tobacco. Nicotine makes your heart work harder by causing your blood vessels to constrict. Do not use nicotine gum or patches before talking to your caregiver. Schedule and attend follow-up visits as directed by your caregiver. It is important to keep all your appointments. Limit alcohol intake to no more than 1 drink per day for non women and 2 drinks per day for men. Drinking more than that is harmful to your heart. Tell your caregiver if you drink alcohol s everal times a week. Talk with your caregiver about whether alcohol is safe for you. If your heart has already been damaged by alcohol or you have severe heart failure, drinking alcohol should be stopped completely. Stop illicit drug use. Stay up-to-date with immunizations. It is especially important to prevent respiratory infections through current pneumococcal and influenza immunizations. Manage other health conditions such as hypertension, diabetes, thyroid disease, or abnormal heart rhythms as directed by your caregiver. Learn to manage stress. Plan rest periods when fatigued. Learn strategies to manage high temperatures. If the weather is extremely hot: Avoid vigorous physical activity. Use air conditioning or fans or seek a cooler location. Avoid caffeine and alcohol. Wear loose-fitting, lightweight, and light-colored clothing. Learn strategies to manage cold temperatures. If the weather is extremely cold: Avoid vigorous physical activity. Layer clothes. Wear mittens or gloves, a hat, and a scarf when going outside. Avoid alcohol. Obtain ongoing education and support as needed. Participate or seek rehabilitation as needed to maintain or improve independence and quality of life. SEEK MEDICAL CARE IF: Your weight increases by 03 lb/1.4 kg in 1 day or 05 lb/2.3 kg in a week. You have increasing shortness of breath that is unusual for you. You are unable to participate in your usual physical activities. You tire easily. You cough more than normal, especially with physical activity. You have any or more swelling in areas such as your hands, feet, ankles, or abdomen. You are unable to sleep because it is hard to breathe. You feel like your heart is beating fast (palpitations ). You become dizzy or lightheaded upon standing up. SEEK IMMEDIATE MEDICAL CARE IF: You have difficulty breathing. There is a change in mental status such as decreased alertness or difficulty with concentration. You have a pain or discomfort in your chest. You have an episode of fainting (syncope ). MAKE SURE YOU: Understand these instructions. Will watch your condition. Will get help right away if you are not doing well or get worse. Document Released: 06/28/2006 Document Revised: 10/23/2013 Document Reviewed: 07/20/2013 [facility] Information 2014 [employer]. No follow up information was provided. Extracted from: Title: Office Visit Note Author: Juan Luis Brewster MD Date: 11/23/14 Assessment/Plan Atrial fibrillation History appears to be stable. Continue anticoagulation therapy. Ordered: Office Visit Level 4 Est 55368 Benign essential hypertension Blood pressure is stable no change in treatment. Ordered: Office Visit Level 4 Est 66878 Bronchitis, chronic I've asked him to increase his breathing treatments with his ipratropium to 3 times a day and add Mucinex 1 tablet twice daily. Ordered: Office Visit Level 4 Est 83806 Chronic CHF He appears to be having increased problems with CHF. I'm going to begin metolazone 5 mg daily and potassium chloride 20 mEq daily recheck in 1 week. I've asked him to see Dr. Acuña in consultation. Ordered: Office Visit Level 4 Est 66557 COPD (chronic obstructive pulmonary disease) As mentioned above under chronic bronchitis. Ordered: Office Visit Level 4 Est 51836 Orders: metolazone, 5 mg 1 tabs, Oral, Daily, # 30 tabs, 0 Refill(s), Pharmacy: [facility], 1 tabs Oral Daily potassium chloride, 20 mEq 1 tabs, Oral, Daily, # 30 tabs, 0 Refill(s), Pharmacy: [facility], 1 tabs Oral Daily
--- OUTSIDE RECORDS SUMMARY | 2017-10-14 18:05 | External Medical Summary | Referral Summary ---
:1935 Author Organization [facility] [place] [address] Care Team Providers Name Role Phone Juan Luis Brewster Primary Care Physician Encounter VC Date(s): 04/25/15 - 04/25/15 [facility] [address] [place] [phone] [place] Discharge Diagnosis: Benign essential hypertension Discharge Diagnosis: Chronic CHF Discharge Diagnosis: Atrial fibrillation (disorder) Discharge Diagnosis: COPD (chronic obstructive pulmonary disease) Discharge Disposition: 01-Home or Self Care Attending Physician: Juan Luis Brewster MD Admitting Physician: Juan Luis Brewster MD Vital Signs Most recent to oldest [Reference Range]: 1 Temperature Tympanic [36.6-38.1 degC] 36.1 degC *LOW* (04/25/15 11:19 AM) Peripheral Pulse Rate [60-100 bpm] 88 bpm (04/25/15 11:19 AM) Respiratory Rate [14-20 br/min] 16 br/min (04/25/15 11:19 AM) Blood Pressure [90-140/60-90 mmHg] 70/46 mmHg *LOW* (04/25/15 11:19 AM) SpO2 98 % (04/25/15 11:19 AM) Problem List Condition Effective Dates Status [...] At Risk for Activity Intolerance Plan of [id number] added automatically by system based on initiation of Fluid Volume Imbalance Plan of [id number] added automatically by system based on initiation of Impaired Gas Exchange Plan of [id number] added automatically by system based on initiation of Knowledge Deficit Plan of [id number] added automatically by system based on initiation of Tissue Perfusion Cerebral Plan of [id number] added automatically by system based on initiation [...] 05/30/15 Status: Orderedamiodarone 200 mg oral tablet 200 mg 1 tabs, Oral, BID, # 60 tabs, 3 Refill(s), Pharmacy: [id number], 1 tabs Oral BID Start Date: 07/01/15 Status: Orderedbudesonide 0.5 mg/2 mL inhalation suspension [...] DAILY, # 90 tabs, 1 Refill(s), eRx: [id number], TAKE ONE TABLET BY MOUTH ONCE DAILY Start Date: 10/16/15 Status: Orderedfinasteride 5 mg oral tablet 5 mg 1 tabs, Oral, Daily, # 90 tabs, 4 Refill(s), Pharmacy: [facility], 1 tabs Oral Daily Start Date: 04/11/15 Status: OrderedFish Oil oral capsule 1 caps, Oral, Daily, # 100 caps, 0 Refill(s) Start Date: 08/29/15 Status: Orderedfolic acid 1 mg oral tablet 1 mg 1 tabs, Oral, Daily, # 90 tabs, 0 Refill(s) Start Date: 06/13/15 Status: Orderedfurosemide 40 mg oral tablet 40 mg 1 tabs, Oral, Daily, # 30 tabs, 0 Refill(s), Pharmacy: [facility], 1 tabs Oral Daily Start Date: 10/15/15 Status: Orderedfurosemide 40 mg oral tablet 40 mg 1 tabs, Oral, Daily, # 90 tabs, 4 Refill(s), Pharmacy: [facility], 1 tabs Oral Daily Start Date: 10/15/15 Status: OrderedHome Oxygen (DME) DME Item 2 LPM HS, See Instructions, # 1 Each, 0 Refill(s), Supply Start Date: 12/25/13 Status: OrderedLipitor 10 mg oral tablet 10 mg 1 tabs, Oral, Daily, # 30 tabs, 4 Refill(s), Pharmacy: [id number], 1 tabs Oral Daily Start Date: 07/01/15 Status: Orderedlosartan 50 mg oral tablet 50 mg 1 tabs, Oral, Daily, # 30 tabs, 6 Refill(s), Pharmacy: [facility], 1 tabs Oral Daily Start Date: 09/26/15 Status: Orderedmetoprolol tartrate 25 mg oral tablet 25 mg 1 tabs, Oral, BID, # 60 tabs, 1 Refill(s), Pharmacy: [facility] Start Date: 08/30/15 Status: Orderedpotassium chloride 20 mEq oral tablet, extended release 20 mEq 1 tabs, Oral, Daily, # 30 tabs, 3 Refill(s), Pharmacy: [facility], 1 tabs Oral Daily Start Date: 09/03/15 Status: OrderedPradaxa 150 mg oral capsule 150 mg 1 caps, Oral, BID, # 60 caps, 3 Refill(s), Pharmacy: [facility] Start Date: 07/01/15 Status: Orderedsertraline 100 mg oral tablet See Instructions, TAKE 1 TABLET DAILY, # 120 tabs, 1 Refill(s), eRx: [facility], TAKE 1 TABLET DAILY Start Date: 07/26/15 Status: OrderedVitamin C 1000 mg oral tablet [...] Transesophageal1 05/30/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 05/24/15 [place] [facility]in Endoscopic (Left)3 05/24/15 Catheterization Left Heart with Coronary 05/20/15 Angiography4 Catheterization Right Heart5 05/20/15 Colonoscopy Repeat in 5 years 2013 Esophagogastroduodenoscopy 07/15/09 Biopsy of prostate Cataract extraction hernia repair Hiatal hernia left eye surgery Surgery, Lt eye 1auto-populated from documented surgical [id number] from documented surgical [id number] from documented surgical [id number] from documented surgical [id number] from documented surgical case Social History Social History Type Response Smoking Status Former smoker; Type: Cigarettes1 1Quit in 1981 Assessment and Plan Extracted from: Title: Office Visit Note Author: Juan Luis Brewster MD Date: 04/25/15 Assessment/Plan Atrial fibrillation (disorder), Unspecified atrial fibrillation Chronic stable no change in current treatment at this time. Continue anticoagulation therapy Ordered: Office Visit Level 4 Est 21658 Benign essential hypertension, Essential (primary) hypertension Blood pressure is running low. I've asked him to reduce his benazepril and Bystolic dosage both in half. Recheck in 1 week. Ordered: Office Visit Level 4 Est 73373 Chronic CHF, Chronic diastolic (congestive) heart failure Appears to be compensated at this point no change in current treatment. Ordered: Office Visit Level 4 Est 26475 Chronic obstructive pulmonary disease, unspecified, COPD (chronic obstructive pulmonary disease) Chronic persistent and fairly advanced. Medications reviewed no changes recommended. Continue O2. Ordered: Office Visit Level 4 Est 37219
--- OUTSIDE RECORDS SUMMARY | 2017-10-14 18:05 | External Medical Summary | Referral Summary ---
:1935 Author Organization [facility] [place] [address] Care Team Providers Name Role Phone Juan Luis Brewster Primary Care Physician Encounter VC Date(s): 11/13/14 - 11/13/14 [facility] [place] [place] [phone] Discharge Diagnosis: [...] Daily, # 90 tabs, 2 Refill(s), [facility]: [facility], 1 tabs Oral Daily Start Date: 03/07/15 Status: OrderedAspir 81 1 tabs, Oral, Daily, 0 Refill(s) Start Date: 12/25/13 Status: Orderedbudesonide 0.5 mg/2 mL inhalation suspension 2 mL, NEB, BID, # 120 mL, 0 Refill(s), Pharmacy: [id number], 2 mL NEB BID Start Date: 06/29/14 Status: OrderedDeep Sea Nasal 0.65% nasal spray 2 sprays, Nasal, QID, 0 Refill(s) Start Date: 06/29/14 Status: OrderedESOMEPRAZOLE MAG DR CAPS 40MG See Instructions, TAKE 1 CAPSULE DAILY, # 90 caps, 2 Refill(s), [facility]: [facility], TAKE 1 CAPSULE DAILY Start Date: 10/25/14 Status: Orderedferrous sulfate 325 mg (65 mg elemental iron) oral tablet 325 mg 1 tabs, Oral, Daily, in place of the delayed release, # 90 tabs, 1 Refill (s), Pharmacy: [id number], 1 tabs Oral Daily,Instr:in place of the delayed release Start Date: 05/09/15 Status: Orderedfinasteride 5 mg oral tablet 5 mg 1 tabs, Oral, Daily, # 90 tabs, 4 Refill(s), [facility]: [facility], 1 tabs Oral Daily Start [...] TIMES DAILY, # 360 unknown unit, eRx: [id number], USE ONE VIAL IN NEBULIZER 4 TIMES DAILY Start Date: 10/18/14 Status: OrderedLasix 40 mg oral tablet 60 mg 1.5 tabs, Oral, Daily, # 135 tabs, 3 Refill(s), [facility]acy: [facility], 1.5 tabs Oral Daily Start Date: 12/27/14 Status: OrderedLipitor 10 mg oral tablet 1 tabs, Oral, Daily, # 30 tabs, 4 Refill(s), Pharmacy: [id number], 1 tabs Oral Daily Start Date: 06/28/14 Status: Orderedmetolazone 5 mg oral tablet 5 mg 1 tabs, Oral, Daily, # 30 tabs, 0 Refill(s), Pharmacy: [id number], 1 tabs Oral Daily [...] Daily, # 30 tabs, 0 Refill(s), Pharmacy: [facility], 1 tabs Oral Daily Start Date: 11/23/14 Status: Orderedpotassium gluconate 595 mg oral tablet 1 tabs, Oral, Daily, 0 Refill(s) Start Date: 06/29/14 Status: OrderedpredniSONE 5 mg oral tablet 5 mg 1 tabs, Oral, Daily, 0 Refill(s) Start Date: 03/19/15 Status: Orderedsertraline 100 mg oral tablet See Instructions, TAKE 1 TABLET DAILY, # 120 tabs, 1 Refill(s), Pharmacy: [facility], TAKE 1 TABLET DAILY Start Date: 01/17/15 Status: OrderedSpiriva 18 mcg inhalation capsule 1 Each, Inhalation, Daily, use two inhalations of one capsule for each dose, # 30 Each, 10 Refill(s), Pharmacy: [facility], 1 Each Inhalation Daily,Instr:use two [...] WITH BREAKFAST, # 90 tabs, eRx: [facility],TAKE 1 TABLET DAILY WITH BREAKFAST [...] know. Ordered: Office Visit Level 4 Est 98703 Atrial fibrillation Stable chronic rate controlled. Continue current treatment plan. Ordered: Office Visit Level 4 Est 43408 Benign essential hypertension Blood pressure is adequately controlled no change in current treatment plan recommended. Ordered: Office Visit Level 4 Est 90510 COPD (chronic obstructive pulmonary disease) Overall stable perhaps very mild exacerbation with recent acute bronchitis. Continue current treatment without change. Ordered: Office Visit Level 4 Est 30110 Orders: levofloxacin, 1 tabs, Oral, q24hr, X 10 days, # 10 tabs, 0 Refill(s) , Pharmacy: [id number], 1 tabs Oral q24hr,x10 days
--- OUTSIDE RECORDS SUMMARY | 2017-10-14 18:05 | External Medical Summary | Referral Summary ---
:1935 Author Organization [facility] [place] [place] [id number] Care Team Providers Name Role Phone Juan Luis Brewster Primary Care Physician Encounter VC Date(s): 12/23/16 - 12/23/16 [facility] [place] [place] [phone] [place] Discharge Diagnosis: Chronic respiratory failure Discharge Diagnosis: Benign essential hypertension Discharge Diagnosis: Atrial fibrillation Discharge Diagnosis: Chronic obstructive pulmonary disease Discharge Diagnosis: Diastolic CHF Discharge Diagnosis: Mixed hyperlipidemia Discharge Disposition: 01-Home or Self Care Attending Physician: Juan Luis Brewster MD Admitting Physician: Juan Luis Brewster MD Vital Signs Most recent to oldest [Reference Range]: 1 Temperature Tympanic [36.6-38.1 degC] 36.3 degC *LOW* (12/23/16 9:28 AM) Peripheral Pulse Rate [60-100 bpm] 68 bpm (12/23/16 9:28 AM) Respiratory Rate [14-20 br/min] 16 br/min (12/23/16 9:28 AM) Blood Pressure [90-140/60-90 mmHg] 120/60 mmHg (12/23/16 9:28 AM) SpO2 96 % (12/23/16 9:28 AM) Problem List Condition Effective Dates Status Health Status Informant Acute pain(Confirmed) Active Adenomatous colonic polyps(Confirmed) 2012 Active Arthritis(Confirmed) Active At risk for activity Active intolerance(Confirmed)1 At risk of pressure sore(Confirmed) Active Benign essential hypertension Active (disorder)(Confirmed) BPH(Confirmed) Active Bronchitis, chronic(Confirmed) Active Cataracts(Confirmed) Active Chicken pox(Confirmed) Active Atrial fibrillation Active (disorder)(Confirmed) Chronic respiratory failure(Confirmed) Active Colon diverticulosis(Confirmed) 2012 Active DDD (degenerative disc disease), Active lumbar(Confirmed) Diastolic CHF(Confirmed) Active Cholesterolemia(Confirmed) Active Orthostasis(Confirmed) Active Emphysema(Confirmed) Active Fluid imbalance(Confirmed)2 Active Generalised osteoarthritis(Confirmed) Active Hypertension(Confirmed) Active Impaired gas exchange(Confirmed)3 Active Knowledge deficit(Confirmed)4 Active Hyperlipidemia(Confirmed) Active Obesity(Confirmed) Active patient Prostatitis(Confirmed) Active COPD (chronic obstructive pulmonary Active disease)(Confirmed) Pure hypercholesterolemia Active (disorder)(Confirmed) Recurrent sinus infections(Confirmed) Active RBBB(Confirmed) Active Scarlet fever(Confirmed) Active Depression(Confirmed) Active Depression(Confirmed) Active Syncope and collapse Active (disorder)(Confirmed) Tissue perfusion Active alteration(Confirmed)5 Urinary retention(Confirmed)6 Active 1Problem added automatically by system based on initiation of At Risk for Activity Intolerance Plan of [id number] added automatically by system based on initiation of Fluid Volume Imbalance Plan of [id number] added automatically by system based on initiation of Impaired Gas Exchange Plan of [id number] added automatically by system based on initiation of Knowledge Deficit Plan of [id number] added automatically by system based on initiation of Tissue Perfusion Cerebral Plan of [id number] added automatically by system based on initiation of Urinary Retention Plan of Care Allergies, Adverse Reactions, Alerts Substance Reaction Severity Status Camphor Swelling of face Active Menthol Active penicillin Active Phenol Swelling of face Active Salicylic Acid Swelling of face Active Medications acetaminophen 325 mg oral tablet 650 mg 2 tabs, Oral, q4hr, Pain Mild (1-3), 0 Refill(s) Start Date: 05/30/15 Status: Orderedamiodarone 100 mg oral tablet 100 mg 1 tabs, Oral, Daily, # 30 tabs, 3 Refill(s), Pharmacy: [id number], 1 tabs Oral Daily Start Date: 08/17/16 Status: OrderedColace 100 mg oral capsule 100 mg 1 caps, Oral, BID, # 20 caps, 0 Refill(s) Start Date: 08/04/16 Status: OrderedDeep Sea Nasal 0.65% nasal spray 2 sprays, Nasal, QID, as needed for dry nasal passages, 0 Refill(s) Start Date: 08/04/16 Status: OrderedDuoNeb 0.5 mg-2.5 mg/3 mL inhalation solution 3 mL, NEB, QID, DX j44.9, # 20 Each, 1 Refill(s), Pharmacy: [facility] Start Date: 08/10/16 Status: Orderedesomeprazole 40 mg oral delayed release capsule See Instructions, TAKE 1 CAPSULE DAILY, # 90 caps, 1 Refill(s), [facility]Rx: [facility], TAKE 1 CAPSULE DAILY Start Date: 11/26/16 Status: Orderedferrous sulfate 325 mg (65 mg elemental iron) oral tablet 325 mg 1 tabs, Oral, Daily, # 90 tabs, 3 Refill(s), Pharmacy: [facility], 1 tabs Oral Daily Start Date: 09/08/16 Status: Orderedfinasteride 5 mg oral tablet See Instructions, TAKE 1 TABLET DAILY, # 90 tabs, 1 Refill(s), [facility]Rx: [facility] Start Date: 07/09/16 Status: Orderedfurosemide 20 mg oral tablet 20 mg 1 tabs, Oral, Daily, # 30 tabs, 3 Refill(s), Pharmacy: [facility], 1 tabs Oral Daily Start Date: 09/17/16 Status: OrderedHome Oxygen (DME) DME Item 2 LPM HS, See Instructions, # 1 Each, 0 Refill(s), Supply Start Date: 12/25/13 Status: OrderedKlor-Con M20 oral tablet, extended release See Instructions, TAKE ONE TABLET BY MOUTH ONCE DAILY, # 30 tabs, 2 Refill(s), eRx: [facility], TAKE ONE TABLET BY MOUTH ONCE DAILY Start Date: 12/17/16 Status: OrderedLipitor 10 mg oral tablet 10 mg 1 tabs, Oral, Daily, # 90 tabs, 3 Refill(s), Pharmacy: [facility], 1 tabs Oral Daily Start Date: 09/08/16 Status: Orderedmetoprolol tartrate 25 mg oral tablet 12.5 mg 0.5 tabs, Oral, Daily, take at noon, # 45 tabs, 3 Refill(s), Pharmacy: [facility] Start Date: 10/14/16 Status: Orderedmidodrine 5 mg oral tablet 5 mg 1 tabs, Oral, TID, # 270 tabs, 3 Refill(s), Pharmacy: [facility], 1 tabs Oral TID Start Date: 09/08/16 Status: OrderedMilk of Magnesia 30 mL, Oral, Bedtime (once a day), as needed for constipation, 0 Refill(s) Start Date: 08/04/16 Status: OrderedMucinex 600 mg oral tablet, extended release 600 mg, Oral, q12hr, # 180 tabs, 3 Refill(s), Pharmacy: [facility], 600 mg Oral q12hr Start Date: 09/08/16 Stop Date: 09/09/17 Status: Orderedsertraline 100 mg oral tablet See Instructions, TAKE 1 TABLET DAILY, # 120 tabs, 1 Refill(s), eRx: [facility] Start Date: 07/09/16 Status: OrderedSpiriva 18 mcg inhalation capsule 18 mcg 1 caps, Inhalation, Daily, use two inhalations of one capsule for each dose DX J44.9, # 90 Each, 3 Refill(s), Pharmacy: [facility] , 1 caps Inhalation Daily,Instr:use two inhalations of one capsule for each dose DX J44.9 Start Date: 08/03/16 Status: Ordered Results No data available for this section Immunizations Given and Recorded Vaccine Date Status Refusal Reason influenza virus vaccine, inactivated 04/06/16 Given influenza virus vaccine, inactivated 04/18/15 Recorded influenza virus vaccine, inactivated 04/19/14 Recorded influenza virus vaccine, live 04/20/13 Given influenza virus vaccine, live 04/15/11 Given pneumococcal 13-valent conjugate vaccine1 02/13/15 Given pneumococcal 23-polyvalent vaccine 04/28/10 Recorded pneumococcal 23-polyvalent vaccine 06/20/03 Recorded tetanus-diphth toxoids (Td) adult/adol 01/30/08 Given zoster vaccine live 09/07/13 Given 1Early/Late Reason: Nursing Judgment Procedures Procedure Date Related Diagnosis Body Site Echo Transesophageal1 05/30/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 05/24/15 Beecher Vein Endoscopic (Left)3 05/24/15 Catheterization Left Heart with Coronary 05/20/15 Angiography4 Catheterization Right Heart5 05/20/15 Colonoscopy 04/20/13 Colonoscopy Repeat in 5 years 2012 Esophagogastroduodenoscopy 07/15/09 Biopsy of prostate Cataract extraction hernia repair Hiatal hernia left eye surgery Surgery, Lt eye 1auto-populated from documented surgical [id number] from documented surgical [id number] from documented surgical [id number] from documented surgical [id number] from documented surgical case Social History Social History Type Response Smoking Status Former smoker; Type: Cigarettes1 1Quit in 1981 Assessment and Plan Extracted from: Title: Office Visit Note Author: Juan Luis Brewster MD Date: 12/23/16 Assessment/Plan 1.Benign essential hypertension Blood pressure is well controlled. Medications and treatments reviewed no changes are recommended. I suggested a follow-up in3 months. Fasting laboratory studies at that time. Ordered: Office Visit Level 4 Est 70011 2.Atrial fibrillation Rate is well-controlled no change in current treatment recommended. Three-month follow-up encouraged. Ordered: Office Visit Level 4 Est 55486 3.Chronic obstructive pulmonary disease Chronic stable no change in current treatment. Continue oxygen continuecurrent inhalers. Continue follow-up with pulmonarymedicine. Ordered: Office Visit Level 4 Est 16177 4.Chronic respiratory failure Overall stable no change in current treatment. Ordered: Office Visit Level 4 Est 29725 5.Diastolic CHF He appears euvolemic currently no change in current treatment. Encouraged to continue to avoid salt in his diet. Follow-up in 3 months. Ordered: Office Visit Level 4 Est 21912 6.Mixed hyperlipidemia Chronic relatively stable no change in current treatment. Follow-up in 3 months with fasting lab prior to that appointment. Ordered: Office Visit Level 4 Est 04369
--- OUTSIDE RECORDS SUMMARY | 2017-10-14 18:06 | External Medical Summary | Summary of Care ---
:1935 Author Name Dennis Lyons M.D. Address [address] [place] [address] Care Team Providers Name Role Phone Dennis Lyons M.D. Unavailable Unavailable Juan Luis Brewster Primary Care Provider Unavailable Unavailable Unavailable Unavailable Functional Status Functional Status Health Issues Name Dates Details Functional status health issues are not documented Status: Cognitive Status Health Issues Name Dates Details Cognitive status health issues are not documented Status: Problems Name Dates Details BPH (benign prostatic hypertrophy) (600.00, N40.0) Status: Active Prostate nodule (600.10, N40.2) Status: Active Prophylactic antibiotic (V58.62, Z79.2) Status: Active Medications Name Dates Details Acetaminophen 325 MG Oral Tablet TAKE 1 TO 2 TABLETS EVERY 4 HOURS NEEDED Refills: 0 Dennis Lyons M.D. Started 03-Dec-2015 ActiveAmiodarone HCl - 200 MG Oral Tablet TAKE 1 TABLET TWICE DAILY. Refills: 0 Dennis Lyons M.D. Started 03-Dec-2015 ActiveBudesonide 0.5 MG/2ML Inhalation Suspension USE DIRECTED. Refills: 0 Started 03-Dec-2015 ActiveDoxepin HCl - 10 MG Oral Capsule TAKE 1 TO 2 CAPSULES AT BEDTIME NEEDED FOR ITCHING. Refills: 0 Started 03-Dec-2015 ActiveEsomeprazole Magnesium 40 MG Oral Capsule Delayed Release TAKE 1 CAPSULE DAILY. Refills: 0 Started 03-Dec-2015 ActiveFerrous Sulfate 325 (65 Fe) MG Oral Tablet TAKE 1 TABLET DAILY WITH FOOD. Refills: 0 Started 03-Dec-2015 ActiveFinasteride 5 MG Oral Tablet TAKE 1 TABLET DAILY DIRECTED. Refills: 0 Started 03-Dec-2015 ActiveFish Oil 1000 MG Oral Capsule TAKE 1 CAPSULE DAILY. Refills: 0 Started 03-Dec-2015 ActiveFolic Acid 5 MG Oral Capsule TAKE 1 CAPSULE DAILY. Refills: 0 Started 03-Dec-2015 ActiveFurosemide 40 MG Oral Tablet TAKE 1 TABLET DAILY. Refills: 0 Started 03-Dec-2015 ActiveOxygen Refills: 0 Started 03-Dec-2015 ActiveLipitor 10 MG Oral Tablet TAKE 1 TABLET DAILY. Refills: 0 Started 03-Dec-2015 ActiveLosartan Potassium 50 MG Oral Tablet TAKE 1 TABLET DAILY. Refills: 0 Started 03-Dec-2015 ActiveMetoprolol Tartrate 25 MG Oral Tablet TAKE 1 TABLET DAILY. Refills: 0 Started 03-Dec-2015 ActivePradaxa 150 MG Oral Capsule TAKE 1 CAPSULE DAILY. Refills: 0 Started 03-Dec-2015 ActiveSertraline HCl - 100 MG Oral Tablet TAKE 1 TABLET DAILY. Refills: 0 Started 03-Dec-2015 ActiveVitamin C 1000 MG Oral Tablet TAKE 1 TABLET DAILY. Refills: 0 Started 03-Dec-2015 ActiveVitamin D3 1000 UNIT Oral Capsule TAKE DIRECTED. Refills: 0 Started 03-Dec-2015 ActivePotassium Gluconate 595 MG Oral Tablet TAKE 1 TABLET DAILY. Refills: 0 Dennis Lyons M.D. Started ActiveMinocycline HCl - 100 MG Oral Tablet TAKE 1 TABLET TWICE DAILY, STARTING 3 DAYS PRIOR TO BIOPSY WITH DR. LYONS. Quantity: 14 Refills: 0 Dennis Lyons M.D. Started Active Allergies and Adverse Reactions Name Dates Details Camphor NUBIA Reaction: Swelling Status: Active Menthol Crystals Status: Active Penicillins Status: Active Phenol SOLN Reaction: Swelling Status: Active Salicylic Acid SOLN Reaction: Swelling Status: Active Past Medical History [...] Status: Resolved History of High cholesterol (272.0, E78.0) Status: Resolved History Of Hypercholesterolemia (V12.29, Z86.39) Status: Resolved History of hyperlipidemia (V12.29, Z86.39) Status: Resolved History of hypertension (V12.59, Z86.79) Status: Resolved History of osteoarthritis (V13.4, Z87.39) Status: Resolved History of prostatitis (V13.89, Z87.438) Status: Resolved History of pulmonary emphysema (V12.69, Z87.09) Status: Resolved History of Recurrent sinus infections (473.9, J32.9) Status: Resolved History of right bundle branch block (RBBB) (V15.1, Z98.89) Status: Resolved History of scarlet fever (V12.09, Z86.19) Status: Resolved History of Syncope and collapse (780.2, R55) Status: Resolved History of varicella (V12.09, Z86.19) Status: Resolved Procedures Procedure Dates Details History of Coronary Artery Surgery History of Arterial Catheterization History Of Prior Surgery History of Colonoscopy History of Diagnostic Esophagogastroduodenoscopy History of Biopsy Of The Prostate Needle History of Cataract Surgery History of Hernia [...] Status: Active Social History Name Dates Details Smoking StatusFormer smoker Vital Signs Date Test Result Details 08:49 BP Systolic 187 mm[Hg] Status: BP Diastolic 93 mm[Hg] Status: Heart Rate 77 /min Status: Height 73 in Status: Weight 210 lb Status: Body Mass Index Calculated 27.71 kg/m2 Status: Body Surface Area Calculated 2.2 m2 Status: 14:43 BP Systolic 149 mm[Hg] Status: BP Diastolic 75 mm[Hg] Status: Heart Rate 57 /min Status: Height 73 in Status: Weight 210 lb Status: Body Mass Index Calculated 27.71 kg/m2 Status: Body Surface Area Calculated 2.2 m2 Status: Results Date Description Value Details Results not documented Plan of Care Planned Observations Name Dates Details Planned Goals not documented Goal Instructions Instructions not documented Encounters Appointment; Dennis Lyons On Encounter Diagnosis: Problem not documented 09:00 Appointment; Dennis Lyons On Encounter Diagnosis: Problem not documented 14:30
--- OUTSIDE RECORDS SUMMARY | 2017-10-14 18:06 | External Medical Summary | Referral Summary ---
:1935 Author Organization Via [facility] Address [address] [place] [address] Care Team Providers Name Role Phone Juan Luis Brewster Primary Care Physician Encounter VC Date(s): 05/20/15 - 05/30/15 [facility] [address] [place] [address] Discharge Disposition: 01-Home or Self Care Attending Physician: Flaquita Tolliver MD Admitting Physician: Robin Acuña MD Vital Signs Most recent to oldest [Reference Range]: 1 Temperature Oral [35.8-37.3 degC] 36.8 degC (05/30/15 2:00 PM) Temperature Tympanic [36.6-38.1 degC] 36.6 degC (05/20/15 8:41 AM) Temperature Temporal Artery [36.3-37.8 degC] 37.2 degC (05/28/15 8:00 PM) Peripheral Pulse Rate [60-100 bpm] 89 bpm (05/30/15 2:00 PM) Peripheral Pulse Rate with Activity 81 bpm (05/28/15 10:34 AM) Heart Rate Monitored [60-100 bpm] 80 bpm (05/30/15 10:12 AM) Respiratory Rate [14-20 br/min] 18 br/min (05/30/15 3:39 PM) Respiratory Rate with Activity 17 br/min (05/27/15 8:32 AM) Blood Pressure [90-140/60-90 mmHg] 95/61 mmHg (05/30/15 2:00 PM) Systolic Blood Pressure with Activity 108 mmHg (05/28/15 10:34 AM) Diastolic Blood Pressure with Activity 65 mmHg (05/28/15 10:34 AM) Mean Arterial Pressure, Cuff 92 mmHg (05/28/15 8:00 PM) Blood Pressure Invasive [90-140/60-90 mmHg] 97/48 mmHg (05/25/15 4:00 PM) Mean Arterial Pressure, Invasive 65 mmHg (05/25/15 4:00 PM) Pulse Rate [60-100 bpm] 72 bpm (05/30/15 3:39 PM) SpO2 80 % (05/30/15 2:00 PM) Problem List Condition Effective Dates Status Health [...] At Risk for Activity Intolerance Plan of [id number] added automatically by system based on initiation of Fluid Volume Imbalance Plan of [id number] added automatically by system based on initiation of Impaired Gas Exchange Plan of [id number] added automatically by system based on initiation of Knowledge Deficit Plan of [id number] added automatically by system based on initiation of Tissue Perfusion Cerebral Plan of [id number] added automatically by system based on initiation [...] Status: Orderedamiodarone 200 mg oral tablet 200 mg, Oral, BID, 0 Refill(s) Start Date: 05/30/15 Status: OrderedAspir 81 1 tabs, Oral, Daily, 0 Refill(s) Start Date: 12/25/13 Status: Orderedbudesonide 0.5 mg/2 mL inhalation suspension 0.5 mg 2 mL, NEB, BID, 0 Refill(s) Start Date: 05/30/15 Status: Orderedcalcium carbonate 1250 mg (500 mg elemental calcium) oral tablet 1,250 mg 1 tabs, Oral, TID, Other (See Comment), 0 Refill(s) Start Date: 05/30/15 Status: OrderedDulcolax Laxative 5 mg oral delayed release tablet 10 mg 2 tabs, Oral, Daily, Constipation, 0 Refill(s) Start Date: 05/30/15 Status: Orderedferrous sulfate 325 mg (65 mg elemental iron) oral tablet 325 mg 1 tabs, Oral, Daily, in place of the delayed release, # 90 tabs, 1 Refill (s), Pharmacy: [id number], 1 tabs Oral Daily,Instr:in place of the delayed release Start Date: 05/09/15 Status: Orderedfinasteride 5 mg oral tablet 5 mg 1 tabs, Oral, Daily, # 90 tabs, 4 Refill(s), Pharmacy: [facility], 1 tabs Oral Daily Start Date: 04/11/15 Status: Orderedfolic acid 1 mg oral tablet 1 mg 1 tabs, Oral, Daily, 0 Refill(s) Start Date: 05/30/15 Status: Orderedfurosemide 40 mg oral tablet 40 mg 1 tabs, Oral, Daily, # 30 tabs, 0 Refill(s), Pharmacy: [facility], 1 tabs Oral Daily Start Date: 05/30/15 Status: OrderedHome Oxygen (DME) DME Item 2 LPM HS, See Instructions, # 1 Each, 0 Refill(s), Supply Start Date: 12/25/13 Status: OrderedLipitor 10 mg oral tablet 1 tabs, Oral, Daily, # 30 tabs, 4 Refill(s), Pharmacy: [id number], 1 tabs Oral Daily Start [...] Daily, # 30 tabs, 0 Refill(s), [id number], 1 tabs Oral Daily Start Date: 11/23/14 Status: Orderedpotassium gluconate 595 mg oral tablet 1 tabs, Oral, Daily, 0 Refill(s) Start Date: 06/29/14 Status: OrderedPradaxa 150 mg oral capsule 150 mg 1 caps, Oral, BID, 0 Refill(s) Start Date: 05/30/15 Status: Orderedsertraline 100 mg oral tablet See Instructions, TAKE 1 TABLET DAILY, # 120 tabs, 1 Refill(s), Pharmacy: [facility], TAKE 1 TABLET DAILY Start Date: 01/17/15 Status: OrderedSymbicort 2 puffs, Inhalation, BID, 0 Refill(s) Start Date: 02/13/15 Status: OrderedVitamin C 1000 mg oral tablet 1 tabs, Oral, Daily, # 30 tabs, 0 Refill(s) Start Date: 12/25/13 Status: OrderedVitamin D3 1000 intl units oral capsule 1 caps, Oral, Daily, # 100 caps, 0 Refill(s) Start Date: 12/25/13 Status: OrderedZaroxolyn 5 mg oral tablet 5 mg 1 tabs, Oral, Daily, severe swelling, PRN SEVERE SWELLING, # 30 tabs, 0 Refill(s), [facility]: [facility], 1 tabs Oral Daily,PRN: severe swelling,Instr:PRN SEVERE SWELLING Start Date: 05/30/15 Status: Ordered Results Blood Gases Most recent to oldest [Reference Range]: 1 pH [7.35-7.45] 7.32 *LOW* (05/24/15 8:55 PM) PCO2 Arterial POC [35-45 mmHg] 48 mmHg *HI* (05/24/15 3:55 PM) pCO2 Art [35-45 mmHg] 48 mmHg *HI* (05/24/15 8:55 PM) CO2 Totl Art [23-27 mEq/L] 29 mEq/L *HI* (05/24/15 3:55 PM) Bicarbonate [22-26 mEq/L] 24 mEq/L (05/24/15 8:55 PM) Bicarbonate Arterial POC [22-26 mEq/L] 28 mEq/L *HI* (05/24/15 3:55 PM) Base Excess Arterial POC [0-2] 3 *HI* (05/24/15 3:55 PM) Base Excess Art [0-2] -2 *LOW* (05/24/15 8:55 PM) O2 Sat Art [90.0-97.0 %] 97.3 % *HI* (05/24/15 8:55 PM) pO2 Art [80-100 mmHg] 104 mmHg *HI* (05/24/15 8:55 PM) O2 Saturation Arterial POC [90.0-97.0 %] 100.0 % *HI* (05/24/15 3:55 PM) pH Arterial POC [7.35-7.45] 7.37 (05/24/15 3:55 PM) PO2 Arterial POC [80-100 mmHg] 197 mmHg *HI* (05/24/15 3:55 PM) O2 Panel Spont.Vent Mode (05/24/15 8:55 PM) Vent Mode AC (05/24/15 5:22 PM) Set Vt 500 mL (05/24/15 5:22 PM) Set Rate 14 br/min (05/24/15 5:22 PM) FiO2 Art [0-100] 40 (05/24/15 8:55 PM) PEEP 5.0 (05/24/15 8:55 PM) Inspiratory Time Art 0.90 seconds (05/24/15 5:22 PM) Tubing Compensation 100 % (05/24/15 8:55 PM) Total Rate 18 br/min (05/24/15 8:55 PM) Spon Vt 636 mL (05/24/15 8:55 PM) Spec Site A-Line (05/24/15 8:55 PM) Hematology Most recent to oldest [Reference Range]: 1 WBC [4.8-10.8 10*3/uL] 6.1 10*3/uL (05/29/15 5:37 AM) RBC [4.60-6.20] 2.52 *LOW* (05/29/15 5:37 AM) Hgb [14.0-18.0 gm/dL] 8.4 gm/dL *LOW* (05/29/15 5:37 AM) Hct [42.0-52.0 %] 24.6 % *LOW* (05/29/15 5:37 AM) MCV [82.0-99.0 fL] 97.6 fL (05/29/15 5:37 AM) MCH [27.0-32.0 pg] 33.3 pg *HI* (05/29/15 5:37 AM) MCHC [32.0-36.0 gm/dL] 34.1 gm/dL (05/29/15 5:37 AM) RDW [11.5-14.5 %] 15.0 % *HI* (05/29/15 5:37 AM) Platelet [150-400 10*3/uL] 172 10*3/uL (05/29/15 5:37 AM) MPV [9.4-12.3 fL] 9.1 fL *LOW* (05/29/15 5:37 AM) Immature Granulocytes [0.0-1.0 %] 0.4 % (05/25/15 3:44 AM) Neutrophils [51-75 %] 90 % *HI* (05/25/15 3:44 AM) Lymphocytes [20-46 %] 2 % *LOW* (05/25/15 3:44 AM) Monocytes [4-11 %] 8 % (05/25/15 3:44 AM) Eosinophils [0-4 %] 0 % (05/25/15 3:44 AM) Basophils [0-2 %] 0 % (05/25/15 3:44 AM) Neutro Absolute [1.90-7.00 10*3] 8.56 10*3 *HI* (05/25/15 3:44 AM) Lymph Absolute [0.80-3.30 10*3] 0.17 10*3 *LOW* (05/25/15 3:44 AM) Liberty Absolute [0.30-1.00 10*3] 0.78 10*3 (05/25/15 3:44 AM) Eos Absolute [0.00-0.50 10*3] 0.01 10*3 (05/25/15 3:44 AM) Baso Absolute [0.00-0.20 10*3] 0.00 10*3 (05/25/15 3:44 AM) Nucleated RBC Automated [0 /100 WBC] 0.0 /100 WBC (05/25/15 3:44 AM) Coagulation Most recent to oldest [Reference Range]: 1 INR [0.9-1.2] 1.4 *HI* (05/24/15 3:32 PM) PTT [25.0-35.0 seconds] 32.2 seconds (05/24/15 3:32 PM) Fibrinogen Lvl [187-520 mg/dL] 239 mg/dL (05/24/15 3:32 PM) Chemistry Most recent to oldest [Reference Range]: 1 Sodium Lvl [136-144 mEq/L] 136 mEq/L (05/29/15 5:37 AM) Potassium Lvl [3.6-5.1 mEq/L] 3.8 mEq/L (05/29/15 5:37 AM) Chloride [99-109 mEq/L] 103 mEq/L (05/29/15 5:37 AM) CO2 [22-32 mEq/L] 25 mEq/L (05/29/15 5:37 AM) AGAP [3-20] 8 (05/29/15 5:37 AM) BUN [4-20 mg/dL] 11 mg/dL (05/29/15 5:37 AM) Glucose Lvl [70-100 mg/dL] 117 mg/dL *HI* (05/29/15 5:37 AM) Creatinine Lvl [0.64-1.27 mg/dL] 0.91 mg/dL (05/29/15 5:37 AM) eGFR [>60] >60 1 (05/29/15 5:37 AM) Calcium Lvl [8.6-10.0 mg/dL] 8.7 mg/dL (05/29/15 5:37 AM) Albumin Lvl [3.5-4.8 gm/dL] 3.2 gm/dL *LOW* (05/23/15 2:14 PM) Total Protein [6.1-7.9 gm/dL] 6.0 gm/dL *LOW* (05/23/15 2:14 PM) Globulin [1.9-4.3 gm/dL] 2.8 gm/dL (05/23/15 2:14 PM) ALT [17-63 U/L] 12 U/L *LOW* (05/23/15 2:14 PM) AST [15-41 U/L] 17 U/L (05/23/15 2:14 PM) Alk Phos [26-104 U/L] 58 U/L (05/23/15 2:14 PM) Bili Total [0.2-1.2 mg/dL] 0.9 mg/dL 2 (05/23/15 2:14 PM) Magnesium Lvl [1.8-2.5 mg/dL] 1.9 mg/dL (05/29/15 5:37 AM) Calcium Ionized [1.19-1.41 mmol/L] 1.34 mmol/L (05/26/15 4:22 AM) Prealbumin [18-38 mg/dL] 19 mg/dL (05/23/15 2:14 PM) Sodium Arterial NPT [136-144 mEq/L] 140 mEq/L (05/24/15 3:55 PM) Potassium Arterial NPT [3.6-5.1 mEq/L] 4.5 mEq/L 3 (05/24/15 3:55 PM) Calcium Ionized Arterial NPT [1.19-1.41 mmol/L] 1.33 mmol/L (05/24/15 3:55 PM) HCT Arterial NPT 25.0 % (05/24/15 3:55 PM) HGB Arterial NPT 8.5 gm/dL (05/24/15 3:55 PM) Arterial Glucose NPT [70-100 mg/dL] 149 mg/dL *HI* (05/24/15 3:55 PM) Activated Clotting Time NPT [100-146 seconds] 122 seconds (05/24/15 3:35 PM) Blood Glucose, Capillary [70-100 mg/dL] 100 mg/dL (05/30/15 7:56 AM) Hgb A1c [4.1-5.6 %] 5.1 % (05/23/15 2:14 PM) eAvg Glucose 99.7 mg/dL (05/23/15 2:01 PM) 1Result Comment: Multiply eGFR results by 1.21 for race.2Result Comment: Naproxen, specifically the metabolite O-desmethylnaproxen, may cause spurious elevation in Total Bilirubin levels.3Result Comment: This test was performed on a whole blood specimen. The presence or absence of hemolysis cannot be assessed. Hemolysis can falsely elevate potassium levels. Normals are for venous specimens only.Urinalysis Most recent to oldest [Reference Range]: 1 UA Color Lt Yellow (05/23/15 2:21 PM) UA Appear Clear (05/23/15 2:21 PM) UA pH [5.0-8.0] 6.5 (05/23/15 2:21 PM) UA Leuk Est [Negative] Negative (05/23/15 2:21 PM) UA Nitrite [Negative] Negative (05/23/15 2:21 PM) UA Protein [Negative] Negative (05/23/15 2:21 PM) UA Glucose [Negative] Negative (05/23/15 2:21 PM) UA Ketones [Negative] Negative (05/23/15 2:21 PM) UA Urobilinogen [<1.0] Negative (05/23/15 2:21 PM) UA Bili [Negative] Negative (05/23/15 2:21 PM) UA Blood [Negative] Negative (05/23/15 2:21 PM) UA Spec Grav [1.003-1.030] 1.006 (05/23/15 2:21 PM) Type Clean Catch (05/23/15 2:21 PM) Blood Bank Results Most recent to oldest [Reference Range]: 1 ABO/Rh A POS (05/23/15 2:14 PM) Antibody Screen Tube NEG (05/23/15 2:14 PM) Microbiology Reports TEST:MRSA Screen Culture STATUS:Auth (Verified) BODY SITE: SOURCE:[facility]ares COLLECTED DATE/TIME:05/23/15 2:21 PMMRSA Screen CultureNo Methicillin Resistant Staphylococcus aureus isolated. Immunizations Vaccine Date Refusal Reason influenza virus [...] Transesophageal1 05/30/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 05/24/15 [place] [facility] Endoscopic (Left)3 05/24/15 Catheterization Left Heart with Coronary 05/20/15 Angiography4 Catheterization Right Heart5 05/20/15 Colonoscopy Repeat in 5 years 2012 Esophagogastroduodenoscopy 07/15/09 Biopsy of prostate Cataract extraction hernia repair Hiatal hernia left eye surgery Surgery, Lt eye 1auto-populated from documented surgical [id number] from documented surgical [id number]-svtyldrwv from documented surgical [id number] from documented surgical [id number] from documented surgical case Social History Social History Type Response Smoking Status Former smoker; Type: Cigarettes1 1Quit in 1981 Assessment and Plan No data available for this section
--- OUTSIDE RECORDS SUMMARY | 2017-10-14 18:06 | External Medical Summary | Referral Summary ---
:1935 Author Organization [facility] [place] [address] Care Team Providers Name Role Phone Juan Luis Brewster Primary Care Physician Encounter VC Date(s): 10/21/16 - 10/21/16 [facility] [place] [phone] [place] Discharge Diagnosis: Atrial fibrillation Discharge Diagnosis: Benign essential hypertension Discharge Diagnosis: Chronic obstructive pulmonary disease Discharge Diagnosis: Diastolic CHF Discharge Diagnosis: Chronic respiratory failure Discharge Disposition: 01-Home or Self Care Attending Physician: Juan Luis Brewster MD Admitting Physician: Juan Luis Brewster MD Vital Signs Most recent to oldest [Reference Range]: 1 Temperature Oral [35.8-37.3 degC] 36.9 degC (10/21/16 9:46 AM) Peripheral Pulse Rate [60-100 bpm] 74 bpm (10/21/16 9:46 AM) Respiratory Rate [14-20 br/min] 16 br/min (10/21/16 9:46 AM) Blood Pressure [90-140/60-90 mmHg] 116/78 mmHg (10/21/16 9:46 AM) Problem List Condition Effective Dates Status [...] At Risk for Activity Intolerance Plan of [id number] added automatically by system based on initiation of Fluid Volume Imbalance Plan of [id number] added automatically by system based on initiation of Impaired Gas Exchange Plan of [id number] added automatically by system based on initiation of Knowledge Deficit Plan of [id number] added automatically by system based on initiation of Tissue Perfusion Cerebral Plan of [id number] added automatically by system based on initiation [...] Daily, # 30 tabs, 3 Refill(s), Pharmacy: [facility], 1 tabs Oral Daily Start Date: 08/17/16 [...] j44.9, # 20 Each, 1 Refill(s), Pharmacy: [facility] Start Date: 08/10/16 Status: Orderedesomeprazole 40 mg oral delayed release capsule See Instructions, TAKE 1 CAPSULE DAILY, # 90 caps, eRx: [facility], TAKE 1 CAPSULE DAILY Start Date: 10/15/15 Status: Orderedferrous sulfate 325 mg (65 mg elemental iron) oral tablet 325 mg 1 tabs, Oral, Daily, # 90 tabs, 3 Refill(s), Pharmacy: [facility], 1 tabs Oral Daily Start Date: 09/08/16 Status: Orderedfinasteride 5 mg oral tablet See Instructions, TAKE 1 TABLET DAILY, # 90 tabs, 1 Refill(s), eRx: [facility] Start Date: 07/09/16 Status: Orderedfurosemide 20 mg oral tablet 20 mg 1 tabs, Oral, Daily, # 30 tabs, 3 Refill(s), Pharmacy: [facility], 1 tabs Oral Daily Start Date: 09/17/16 Status: OrderedHome Oxygen (DME) DME Item 2 LPM HS, See Instructions, # 1 Each, 0 Refill(s), Supply Start Date: 12/25/13 Status: OrderedLipitor 10 mg oral tablet 10 mg 1 tabs, Oral, Daily, # 90 tabs, 3 Refill(s), Pharmacy: [facility], 1 tabs Oral Daily Start Date: 09/08/16 Status: Orderedmetoprolol tartrate 25 mg oral tablet 12.5 mg 0.5 tabs, Oral, Daily, take at noon, # 45 tabs, 3 Refill(s), Pharmacy: [facility] Start Date: 10/14/16 Status: Orderedmidodrine 5 mg oral tablet 5 mg 1 tabs, Oral, TID, # 270 tabs, 3 Refill(s), Pharmacy: [facility], 1 tabs Oral TID Start Date: 09/08/16 Status: OrderedMilk of Magnesia 30 mL, Oral, Bedtime (once a day), as needed for constipation, 0 Refill(s) Start Date: 08/04/16 Status: OrderedMucinex 600 mg oral tablet, extended release 600 mg, Oral, q12hr, # 180 tabs, 3 Refill(s), Pharmacy: [facility], 600 mg Oral q12hr Start Date: 09/08/16 Stop Date: 09/09/17 Status: OrderedpredniSONE 10 mg oral tablet See Instructions, Take 5 tabs for 2 days, then 4 for 2 days, then 3 for 2 days then 2 for 2 days, then 1 for 2 days, # 30 Each, 0 Refill(s), Pharmacy: [id number], Take 5 tabs for 2 days, then 4 for 2 days, then 3 for 2 days then 2 for 2 da... Start Date: 09/09/16 Status: Orderedsertraline 100 mg oral tablet See Instructions, TAKE 1 TABLET DAILY, # 120 tabs, 1 Refill(s), [facility]: [facility] Start Date: 07/09/16 Status: OrderedSpiriva 18 mcg inhalation capsule 18 mcg 1 caps, Inhalation, Daily, use two inhalations of one capsule for each dose DX J44.9, # 90 Each, 3 Refill(s), Pharmacy: [facility] , 1 caps Inhalation Daily,Instr:use two inhalations of one capsule for each dose DX J44.9 Start Date: 08/03/16 Status: OrderedVitamin D3 1000 intl units oral capsule 1 caps, Oral, Daily, # 100 caps, 0 Refill(s) Start Date: 12/25/13 Status: Ordered Results Chemistry Most recent to oldest [Reference Range]: 1 Sodium Lvl [135-144 mEq/L] 143 mEq/L (10/21/16 10:25 AM) Potassium Lvl [3.5-5.2 mEq/L] 4.1 mEq/L (10/21/16 10:25 AM) Chloride [99-111 mEq/L] 106 mEq/L (10/21/16 10:25 AM) CO2 [23-31 mEq/L] 29 mEq/L (10/21/16 10:25 AM) AGAP [3-20] 8 (10/21/16 10:25 AM) BUN [8-26 mg/dL] 12 mg/dL (10/21/16 10:25 AM) Glucose Lvl [70-99 mg/dL] 101 mg/dL *HI* (10/21/16 10:25 AM) Creatinine Lvl [0.72-1.25 mg/dL] 0.79 mg/dL (10/21/16 10:25 AM) eGFR [>60 mL/min] >60 mL/min 1 (10/21/16 10:25 AM) Calcium Lvl [8.4-10.2 mg/dL] 9.0 mg/dL (10/21/16 10:25 AM) Albumin Lvl [3.4-4.8 gm/dL] 3.5 gm/dL (10/21/16 10:25 AM) Total Protein [6.0-7.6 gm/dL] 6.4 gm/dL (10/21/16 10:25 AM) Globulin [1.8-4.0 gm/dL] 2.9 gm/dL (10/21/16 10:25 AM) ALT [0-55 U/L] 75 U/L *HI* (10/21/16 10:25 AM) AST [5-34 U/L] 105 U/L *HI* (10/21/16 10:25 AM) Alk Phos [40-150 U/L] 105 U/L (10/21/16 10:25 AM) Bili Total [0.2-1.2 mg/dL] 0.7 mg/dL (10/21/16 10:25 AM) 1Result Comment: Multiply eGFR results by 1.21 for race. Immunizations Given and Recorded Vaccine Date Status [...] Transesophageal1 05/30/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 05/24/15 [place] [facility] Endoscopic (Left)3 05/24/15 Catheterization Left Heart with Coronary 05/20/15 Angiography4 Catheterization Right Heart5 05/20/15 Colonoscopy 04/20/13 Colonoscopy Repeat in 5 years 2012 Esophagogastroduodenoscopy 07/15/09 Biopsy of prostate Cataract extraction hernia repair Hiatal hernia left eye surgery Surgery, Lt eye 1auto-populated from documented surgical [id number] from documented surgical [id number] from documented surgical [id number] from documented surgical [id number] from documented surgical case Social History Social History Type Response Smoking Status Former smoker; Type: Cigarettes1 1Quit in 1981 Assessment and Plan Extracted from: Title: Office Visit Note Author: Juan Luis Brewster MD Date: 10/21/16 Assessment/Plan 1.Atrial fibrillation Chronic rate controlled on anticoagulationtherapy. Overall stable no change in current treatment at this time. Ordered: Office Visit Level 4 Est 08461 2.Benign essential hypertension Blood pressure appears to be adequately controlled no change in treatment at this time CMP ordered today. Recheck in 2 months. Ordered: Comprehensive Metabolic Panel Office Visit Level 4 Est 20056 3.Chronic obstructive pulmonary disease Chronic relatively stablecontinue oxygen therapy. Recheck in 2 months. Ordered: Comprehensive Metabolic Panel Office Visit Level 4 Est 29903 4.Chronic respiratory failure Chronic persistent overall stable no change in current treatment recommended. Continuecurrent medications. Ordered: Comprehensive Metabolic Panel Office Visit Level 4 Est 33485 5.Diastolic CHF Weight is been stable actually down 7 pounds from the last time we saw him a month ago. Continue current dose of diuretic. CMP ordered today recheck in 2 months. Ordered: Comprehensive Metabolic Panel Office Visit Level 4 Est 39799
--- OUTSIDE RECORDS SUMMARY | 2017-10-14 18:06 | External Medical Summary | Referral Summary ---
:1935 Author Organization [facility] [place] [address] Care Team Providers Name Role Phone Juan Luis Brewster Primary Care Physician Encounter VC Date(s): 05/02/15 - 05/02/15 [facility] [place] [phone]- Discharge Diagnosis: Atrial fibrillation (disorder) Discharge Diagnosis: Hyperlipidemia Discharge Diagnosis: COPD (chronic obstructive pulmonary disease) Discharge Diagnosis: Benign essential hypertension Discharge Disposition: 01-Home or Self Care Attending Physician: Juan Luis Brewster MD Admitting Physician: Juan Luis Brewster MD Vital Signs Most recent to oldest [Reference Range]: 1 Temperature Tympanic [36.6-38.1 degC] 36.3 degC *LOW* (05/02/15 10:15 AM) Peripheral Pulse Rate [60-100 bpm] 92 bpm (05/02/15 10:15 AM) Respiratory Rate [14-20 br/min] 18 br/min (05/02/15 10:15 AM) Blood Pressure [90-140/60-90 mmHg] 102/56 mmHg (05/02/15 10:15 AM) SpO2 95 % (05/02/15 10:15 AM) Problem List Condition Effective Dates Status [...] Daily, # 90 tabs, 2 Refill(s), Pharmacy: [id number], 1 tabs Oral Daily Start Date: 03/07/15 Status: OrderedAspir 81 1 tabs, Oral, Daily, 0 Refill(s) Start Date: 12/25/13 Status: Orderedbudesonide 0.5 mg/2 mL inhalation suspension 2 mL, NEB, BID, # 120 mL, 0 Refill(s), Pharmacy: [facility], 2 mL NEB BID Start Date: 06/29/14 Status: OrderedDeep Sea Nasal 0.65% nasal spray 2 sprays, Nasal, QID, 0 Refill(s) Start Date: 06/29/14 Status: OrderedESOMEPRAZOLE MAG DR CAPS 40MG See Instructions, TAKE 1 CAPSULE DAILY, # 90 caps, 2 Refill(s), eRx: [facility], TAKE 1 CAPSULE DAILY Start Date: 10/25/14 Status: Orderedferrous sulfate 325 mg (65 mg elemental iron) oral delayed release tablet 1 tabs, Oral, Daily, 0 Refill(s) Start Date: 12/25/13 Status: Orderedfinasteride 5 mg oral tablet 5 mg 1 tabs, Oral, Daily, # 90 tabs, 4 Refill(s), Pharmacy: [id number], 1 tabs Oral Daily Start [...] TIMES DAILY, # 360 unknown unit, eRx: [facility], USE ONE VIAL IN NEBULIZER 4 TIMES DAILY Start Date: 10/18/14 Status: OrderedLasix 40 mg oral tablet 60 mg 1.5 tabs, Oral, Daily, # 135 tabs, 3 Refill(s), Pharmacy: [id number], 1.5 tabs Oral Daily Start Date: 12/27/14 Status: OrderedLipitor 10 mg oral tablet 1 tabs, Oral, Daily, # 30 tabs, 4 Refill(s), Pharmacy: [facility], 1 tabs Oral Daily Start Date: 06/28/14 Status: Orderedmetolazone 5 mg oral tablet 5 mg 1 tabs, Oral, Daily, # 30 tabs, 0 Refill(s), Pharmacy: [facility], 1 tabs Oral Daily [...] Daily, # 30 tabs, 0 Refill(s), Pharmacy: [facility], 1 tabs Oral Daily Start Date: 11/23/14 Status: Orderedpotassium gluconate 595 mg oral tablet 1 tabs, Oral, Daily, 0 Refill(s) Start Date: 06/29/14 Status: OrderedpredniSONE 5 mg oral tablet 5 mg 1 tabs, Oral, Daily, 0 Refill(s) Start Date: 03/19/15 Status: Orderedsertraline 100 mg oral tablet See Instructions, TAKE 1 TABLET DAILY, # 120 tabs, 1 Refill(s), Pharmacy: [id number], TAKE 1 TABLET DAILY Start Date: 01/17/15 Status: OrderedSpiriva 18 mcg inhalation capsule 1 Each, Inhalation, Daily, use two inhalations of one capsule for each dose, # 30 Each, 10 Refill(s), Pharmacy: [id number], 1 Each Inhalation Daily,Instr:use two [...] TABLET DAILY WITH BREAKFAST, # 90 tabs, 1 Refill(s), eRx: [facility], TAKE 1 TABLET DAILY WITH BREAKFAST Start Date: 10/22/14 Status: Ordered Results Chemistry Most recent to oldest [Reference Range]: 1 Sodium Lvl [135-144 mEq/L] 138 mEq/L (05/02/15 10:55 AM) Potassium Lvl [3.5-5.2 mEq/L] 4.3 mEq/L (05/02/15 10:55 AM) Chloride [99-111 mEq/L] 105 mEq/L (05/02/15 10:55 AM) CO2 [23-31 mEq/L] 26 mEq/L (05/02/15 10:55 AM) AGAP [3-20] 7 (05/02/15 10:55 AM) BUN [8-26 mg/dL] 28 mg/dL *HI* (05/02/15 10:55 AM) Glucose Lvl [70-99 mg/dL] 126 mg/dL *HI* (05/02/15 10:55 AM) Creatinine Lvl [0.72-1.25 mg/dL] 1.08 mg/dL (05/02/15 10:55 AM) eGFR [>60 mL/min] >60 mL/min 1 (05/02/15 10:55 AM) Calcium Lvl [8.9-10.5 mg/dL] 9.8 mg/dL (05/02/15 10:55 AM) 1Result Comment: Multiply eGFR results by [...] Note Author: Juan Luis Brewster MD Date: 05/02/15 Assessment/Plan Atrial fibrillation (disorder), Chronic atrial fibrillation Chronic stable rate control. No change in current treatment at this time. Ordered: Office Visit Level 4 Est 83111 Benign essential hypertension, Essential (primary) hypertension Blood pressures shown some improvement off the benazepril and Bystolic. We'll keep him off of those for the time being. BMP and CBC ordered today. Recheck in 1 month. Ordered: Office Visit Level 4 Est 73204 Chronic obstructive pulmonary disease, unspecified, COPD (chronic obstructive pulmonary disease) Chronic stable relatively severe. Continue oxygen therapy continue other medications. Recheck in 1 month. Ordered: Office Visit Level 4 Est 04053 Hyperlipidemia, Mixed hyperlipidemia Chronic stable no change in current treatment. Ordered: Office Visit Level 4 Est 23912
--- OUTSIDE RECORDS SUMMARY | 2017-10-14 18:06 | External Medical Summary | Referral Summary ---
:1935 Author Organization [facility] Address [address] [place] [address] Care Team Providers Name Role Phone Juan Luis Brewster Primary Care Physician Encounter VC Date(s): 03/30/16 - 03/30/16 [facility] [address] [place] [address] [place] Discharge Disposition: 01-Home or Self Care Attending Physician: Familia Jarrell MD Admitting Physician: Familia Jarrell MD Vital Signs Most recent to oldest [Reference Range]: 1 Peripheral Pulse Rate [60-100 bpm] 61 bpm (03/30/16 7:09 PM) Respiratory Rate [14-20 br/min] 20 br/min (03/30/16 7:09 PM) Blood Pressure [90-140/60-90 mmHg] 114/72 mmHg (03/30/16 7:09 PM) SpO2 99 % (03/30/16 7:09 PM) Problem List Condition Effective Dates Status [...] At Risk for Activity Intolerance Plan of [id number] added automatically by system based on initiation of Fluid Volume Imbalance Plan of [id number] added automatically by system based on initiation of Impaired Gas Exchange Plan of [id number] added automatically by system based on initiation of Knowledge Deficit Plan of [id number] added automatically by system based on initiation of Tissue Perfusion Cerebral Plan of [id number] added automatically by system based on initiation [...] DAILY, # 60 tabs, 2 Refill(s), eRx: [facility], TAKE ONE TABLET BY MOUTH TWICE DAILY [...] DAILY, # 90 tabs, 1 Refill(s), eRx: [facility], TAKE ONE TABLET BY MOUTH ONCE DAILY Start Date: 10/16/15 Status: Orderedfinasteride 5 mg oral tablet 5 mg 1 tabs, Oral, Daily, # 90 tabs, 4 Refill(s), Pharmacy: [facility], 1 tabs Oral Daily Start [...] DAILY, # 30 tabs, 2 Refill(s), eRx: [place] [address], TAKE ONE TABLET BY MOUTH ONCE DAILY Start Date: 11/18/15 Status: OrderedHome Oxygen (DME) DME Item 2 LPM HS, See Instructions, # 1 Each, 0 Refill(s), Supply Start Date: 12/25/13 Status: OrderedKlor-Con M20 oral tablet, extended release See Instructions, TAKE ONE TABLET BY MOUTH ONCE DAILY, # 30 tabs, 2 Refill(s), eRx: [place] [address], TAKE ONE TABLET BY MOUTH ONCE DAILY Start Date: 01/28/16 Status: OrderedLipitor 10 mg oral tablet 10 mg 1 tabs, Oral, Daily, # 90 tabs, 4 Refill(s), Pharmacy: [facility], 1 tabs Oral Daily Start Date: 01/27/16 Status: Orderedlosartan 50 mg oral tablet 50 mg 1 tabs, Oral, Daily, # 30 tabs, 6 Refill(s), Pharmacy: [facility], 1 tabs Oral Daily Start Date: 09/26/15 Status: Orderedmetoprolol tartrate 25 mg oral tablet 25 mg 1 tabs, Oral, BID, # 60 tabs, 1 Refill(s), Pharmacy: [facility] Start Date: 08/30/15 Status: OrderedPradaxa 150 mg oral capsule 150 mg 1 caps, Oral, BID, # 60 caps, 3 Refill(s), Pharmacy: [place] [address] Start Date: 07/01/15 Status: Orderedsertraline 100 mg [...] oldest [Reference Range]: 1 WBC [4.8-10.8 10*3/uL] 6.3 10*3/uL (03/30/16 3:50 PM) RBC [4.60-6.20] 2.82 *LOW* (03/30/16 3:50 PM) Hgb [14.0-18.0 gm/dL] 9.9 gm/dL *LOW* (03/30/16 3:50 PM) Hct [42.0-52.0 %] 28.8 % *LOW* (03/30/16 3:50 PM) MCV [82.0-99.0 fL] 102.1 fL *HI* (03/30/16 3:50 PM) MCH [27.0-32.0 pg] 35.1 pg *HI* (03/30/16 3:50 PM) MCHC [32.0-36.0 gm/dL] 34.4 gm/dL (03/30/16 3:50 PM) RDW [11.5-14.5 %] 13.9 % (03/30/16 3:50 PM) Platelet [150-400 10*3/uL] 162 10*3/uL (03/30/16 3:50 PM) MPV [9.4-12.3 fL] 8.6 fL *LOW* (03/30/16 3:50 PM) Chemistry Most recent to oldest [Reference Range]: 1 Sodium Lvl [136-144 mEq/L] 137 mEq/L (03/30/16 3:50 PM) Potassium Lvl [3.6-5.1 mEq/L] 3.8 mEq/L 1 (03/30/16 3:50 PM) Chloride [99-109 mEq/L] 104 mEq/L (03/30/16 3:50 PM) CO2 [22-32 mEq/L] 21 mEq/L *LOW* (03/30/16 3:50 PM) AGAP [3-20] 12 (03/30/16 3:50 PM) BUN [4-20 mg/dL] 15 mg/dL (03/30/16 3:50 PM) Glucose Lvl [70-100 mg/dL] 92 mg/dL (03/30/16 3:50 PM) Creatinine Lvl [0.64-1.27 mg/dL] 1.44 mg/dL *HI* (03/30/16 3:50 PM) eGFR [>60] 47 2 *ABN* (03/30/16 3:50 PM) Calcium Lvl [8.6-10.0 mg/dL] 8.5 mg/dL *LOW* (03/30/16 3:50 PM) Lactic Acid Lvl [0.5-2.2 mEq/L] 2.3 mEq/L *HI* (03/30/16 6:29 PM) 1Result Comment: Hemolyzed specimen. The following tests may be affected: ALT, AST, Ammonia, Iron, Potassium, LDH, Amylase, CPK, and Total Bilirubin.2Result Comment : Multiply eGFR results by 1.21 for race.Toxicology Most recent to oldest [Reference Range]: 1 Ethanol Lvl 74 mg/dL (03/30/16 3:50 PM) Immunizations Vaccine Date Refusal Reason influenza virus [...] Transesophageal1 05/30/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 05/24/15 [place] [facility] Endoscopic (Left)3 05/24/15 Catheterization Left Heart with Coronary 05/20/15 Angiography4 Catheterization Right Heart5 05/20/15 Colonoscopy Repeat in 5 years 2012 Esophagogastroduodenoscopy 07/15/09 Biopsy of prostate Cataract extraction hernia repair Hiatal hernia left eye surgery Surgery, Lt eye 1auto-populated from documented surgical [id number] from documented surgical [id number] from documented surgical [id number] from documented surgical [id number] from documented surgical case Social History Social History Type Response Smoking Status Former smoker; Type: Cigarettes1 1Quit in 1981 Assessment and Plan No data available for this section
--- OUTSIDE RECORDS SUMMARY | 2017-10-14 18:06 | External Medical Summary | Referral Summary ---
:1935 Author Organization [facility] [place] [address] Care Team Providers Name Role Phone Juan Luis Brewster Primary Care Physician Encounter VC Date(s): 09/17/16 - 09/17/16 [facility] [place] [id number] [place] Discharge Diagnosis: Chronic diastolic (congestive) heart failure Discharge Diagnosis: Atrial fibrillation Discharge Diagnosis: Hypertension Discharge Diagnosis: Mixed hyperlipidemia Discharge Diagnosis: Chronic respiratory failure Discharge Diagnosis: Chronic obstructive pulmonary disease Discharge Diagnosis: Congestive heart failure Discharge Disposition: 01-Home or Self Care Attending Physician: Juan Luis Brewster MD Admitting Physician: Juan Luis Brewster MD Vital Signs Most recent to oldest [Reference Range]: 1 Temperature Tympanic [36.6-38.1 degC] 36.0 degC *LOW* (09/17/16 9:59 AM) Peripheral Pulse Rate [60-100 bpm] 56 bpm *LOW* (09/17/16 9:59 AM) Blood Pressure [90-140/60-90 mmHg] 138/76 mmHg (09/17/16 9:59 AM) SpO2 93 % (09/17/16 9:59 AM) Problem List Condition Effective Dates Status Health Status Informant Acute pain(Confirmed) Active Adenomatous colonic polyps(Confirmed) 2012 Active Arthritis(Confirmed) Active At risk for activity Active intolerance(Confirmed)1 At risk of pressure sore(Confirmed) Active Benign essential hypertension Active (disorder)(Confirmed) BPH(Confirmed) Active Bronchitis, chronic(Confirmed) Active Cataracts(Confirmed) Active Chicken pox(Confirmed) Active Atrial fibrillation Active (disorder)(Confirmed) Colon diverticulosis(Confirmed) 2012 Active DDD (degenerative disc [...] At Risk for Activity Intolerance Plan of [id number] added automatically by system based on initiation of Fluid Volume Imbalance Plan of [id number] added automatically by system based on initiation of Impaired Gas Exchange Plan of [id number] added automatically by system based on initiation of Knowledge Deficit Plan of Xhtr4Lrzhmcp added automatically by system based on initiation of Tissue Perfusion Cerebral Plan of Cljx6Megnnds added automatically by system based on initiation [...] Daily, # 30 tabs, 3 Refill(s), Pharmacy: [facility], 1 tabs Oral Daily Start Date: 08/17/16 Status: OrderedCeftin 500 mg oral tablet 500 mg 1 tabs, Oral, BID, X 10 days, # 20 tabs, 0 Refill(s), Pharmacy: [facility], 1 tabs Oral BID,x10 days Start Date: 09/09/16 Stop Date: 09/19/16 Status: OrderedColace 100 mg oral capsule 100 mg 1 caps, Oral, BID, # 20 caps, 0 Refill(s) Start Date: 08/04/16 Status: OrderedDeep Sea Nasal 0.65% nasal spray 2 sprays, Nasal, QID, as needed for dry nasal passages, 0 Refill(s) Start Date: 08/04/16 Status: OrderedDuoNeb 0.5 mg-2.5 mg/3 mL inhalation solution 3 mL, NEB, QID, DX j44.9, # 20 Each, 1 Refill(s), Pharmacy: [facility] Start Date: 08/10/16 Status: Orderedesomeprazole 40 mg oral delayed release capsule See Instructions, TAKE 1 CAPSULE DAILY, # 90 caps, eRx: [facility], TAKE 1 CAPSULE DAILY Start Date: 10/15/15 Status: Orderedferrous sulfate 325 mg (65 mg elemental iron) oral tablet 325 mg 1 tabs, Oral, Daily, # 90 tabs, 3 Refill(s), Pharmacy: [facility], 1 tabs Oral Daily Start Date: 09/08/16 Status: Orderedfinasteride 5 mg oral tablet See Instructions, TAKE 1 TABLET DAILY, # 90 tabs, 1 Refill(s), eRx: [facility] Start Date: 07/09/16 Status: Orderedfurosemide 20 mg oral tablet 20 mg 1 tabs, Oral, Daily, # 30 tabs, 3 Refill(s), Pharmacy: [facility], 1 tabs Oral Daily Start Date: 09/17/16 Status: OrderedHome Oxygen (DME) DME Item 2 LPM HS, See Instructions, # 1 Each, 0 Refill(s), Supply Start Date: 12/25/13 Status: OrderedLipitor 10 mg oral tablet 10 mg 1 tabs, Oral, Daily, # 90 tabs, 3 Refill(s), Pharmacy: [facility], 1 tabs Oral Daily Start Date: 09/08/16 Status: Orderedmetoprolol tartrate 25 mg oral tablet 12.5 mg 0.5 tabs, Oral, Daily, take at noon, # 45 tabs, 3 Refill(s), Pharmacy: [facility] Start Date: 09/08/16 Status: Orderedmidodrine 5 mg oral tablet 5 mg 1 tabs, Oral, TID, # 270 tabs, 3 Refill(s), Pharmacy: [facility], 1 tabs Oral TID Start Date: 09/08/16 Status: OrderedMilk of Magnesia 30 mL, Oral, Bedtime (once a day), as needed for constipation, 0 Refill(s) Start Date: 08/04/16 Status: OrderedMucinex 600 mg oral tablet, extended release 600 mg, Oral, q12hr, # 180 tabs, 3 Refill(s), Pharmacy: [facility], 600 mg Oral q12hr Start Date: 09/08/16 Stop Date: 09/09/17 Status: OrderedpredniSONE 10 mg oral tablet See Instructions, Take 5 tabs for 2 days, then 4 for 2 days, then 3 for 2 days then 2 for 2 days, then 1 for 2 days, # 30 Each, 0 Refill(s), Pharmacy: [facility], Take 5 tabs for 2 days, then 4 for 2 days, then 3 for 2 days then 2 for 2 da... Start Date: 09/09/16 Status: Orderedsertraline 100 mg oral tablet See Instructions, TAKE 1 TABLET DAILY, # 120 tabs, 1 Refill(s), eRx: [facility] Start Date: 07/09/16 Status: OrderedSpiriva 18 mcg inhalation capsule 18 mcg 1 caps, Inhalation, Daily, use two inhalations of one capsule for each dose DX J44.9, # 90 Each, 3 Refill(s), Pharmacy: [facility] , 1 caps Inhalation Daily,Instr:use [...] Transesophageal1 05/30/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 05/24/15 [facility] Endoscopic (Left)3 05/24/15 Catheterization Left Heart with Coronary 05/20/15 Angiography4 Catheterization Right Heart5 05/20/15 Colonoscopy 04/20/13 Colonoscopy Repeat in 5 years 2012 Esophagogastroduodenoscopy 07/15/09 Biopsy of prostate Cataract extraction hernia repair Hiatal hernia left eye surgery Surgery, Lt eye 1auto-populated from documented surgical [id number] from documented surgical [id number] from documented surgical [id number]-[id number] from documented surgical [id number] from documented surgical case Social History Social History Type Response Smoking Status Former smoker; Type: Cigarettes1 1Quit in 1981 Assessment and Plan Extracted from: Title: Office Visit Note Author: Juan Luis Brewster MD Date: 09/17/16 Assessment/Plan 1.Chronic obstructive pulmonary disease Overall this appears relatively stable. He'll finish up his prednisone and see his driller helper tomorrow no change in current treatment recommended. Recheck in 1 month. Ordered: Office Visit Level 4 Est 93300 2.Chronic respiratory failure Chronic relatively stable continue oxygen and his currentlevel continue current medications. Follow up with pulmonology as mentioned above. Recheck in 1 month. Ordered: Office Visit Level 4 Est 28708 3.Atrial fibrillation Chronic and stable on anticoagulation therapyrate controlled no change in current treatment. Ordered: Office Visit Level 4 Est 76921 4.Hypertension Blood pressures well-controlled no change in current treatment. Ordered: Office Visit Level 4 Est 48568 5.Mixed hyperlipidemia Chronic and stable on atorvastatin no change in current treatment. Ordered: Office Visit Level 4 Est 32974 6.Congestive heart failure, He has gained 45 poundswhich is concerning. I've asked him to be more careful with the salt and have elected to startfurosemide 20 mg by mouth every morning. Recheck in1 monthwithCMPas well. Chronic diastolic (congestive) heart failure Ordered: Office Visit Level 4 Est 69833
--- OUTSIDE RECORDS SUMMARY | 2017-10-14 18:06 | External Medical Summary | Referral Summary ---
:1935 Author Organization [facility] [place] [address] Care Team Providers Name Role Phone Juan Luis Brewster Primary Care Physician Encounter VC Date(s): 07/15/15 - 07/15/15 [facility] [place] [phone] Discharge Diagnosis: COPD (chronic obstructive pulmonary disease) Discharge Diagnosis: Depression Discharge Diagnosis: Chronic atrial fibrillation Discharge Diagnosis: Benign essential hypertension Discharge Diagnosis: Mixed hyperlipidemia Discharge Disposition: 01-Home or Self Care Attending Physician: Juan Luis Brewster MD Admitting Physician: Juan Luis Brewster MD Vital Signs Most recent to oldest [Reference Range]: 1 Temperature Tympanic [36.6-38.1 degC] 35.8 degC *LOW* (07/15/15 9:50 AM) Peripheral Pulse Rate [60-100 bpm] 56 bpm *LOW* (07/15/15 9:50 AM) Respiratory Rate [14-20 br/min] 18 br/min (07/15/15 9:50 AM) Blood Pressure [90-140/60-90 mmHg] 134/64 mmHg (07/15/15 9:50 AM) Problem List Condition Effective Dates Status [...] At Risk for Activity Intolerance Plan of [id number] added automatically by system based on initiation of Fluid Volume Imbalance Plan of [id number] added automatically by system based on initiation of Impaired Gas Exchange Plan of Iugn1Vbymoes added automatically by system based on initiation of Knowledge Deficit Plan of [id number] added automatically by system based on initiation of Tissue Perfusion Cerebral Plan of [id number] added automatically by system based on initiation [...] BID, # 60 tabs, 3 Refill(s), Pharmacy: [facility], 1 tabs Oral BID Start [...] # 90 tabs, 1 Refill(s ), Pharmacy: [facility], 1 tabs Oral Daily,Instr:in place of the delayed release Start Date: 05/09/15 Status: Orderedfinasteride 5 mg oral tablet 5 mg 1 tabs, Oral, Daily, # 90 tabs, 4 Refill(s), Pharmacy: [facility], 1 tabs Oral Daily Start Date: 04/11/15 Status: Orderedfolic acid 1 mg oral tablet 1 mg 1 tabs, Oral, Daily, # 90 tabs, 0 Refill(s) Start Date: 06/13/15 Status: Orderedfurosemide 40 mg oral tablet 40 mg 1 tabs, Oral, Daily, # 30 tabs, 0 Refill(s), Pharmacy: [facility], 1 tabs Oral Daily Start Date: 05/30/15 Status: OrderedHome Oxygen (DME) DME Item 2 LPM HS, See Instructions, # 1 Each, 0 Refill(s), Supply Start Date: 12/25/13 Status: OrderedLipitor 10 mg oral tablet 10 mg 1 tabs, Oral, Daily, # 30 tabs, 4 Refill(s), Pharmacy: [facility], 1 tabs Oral Daily Start Date: 07/01/15 Status: Orderedmetoprolol tartrate 25 mg oral tablet 25 mg 1 tabs, Oral, BID, # 60 tabs, 5 Refill(s), Pharmacy: [facility] Start Date: 07/01/15 Status: OrderedNexIUM 40 mg oral delayed release capsule 1 caps, Oral, Daily, # 30 caps, 0 Refill(s) Start Date: 12/25/13 Status: Orderedpotassium chloride 20 mEq oral tablet, extended release 20 mEq 1 tabs, Oral, Daily, # 30 tabs, 0 Refill(s), Pharmacy: [facility], 1 tabs Oral Daily Start Date: 11/23/14 Status: Orderedpotassium gluconate 595 mg oral tablet 1 tabs, Oral, Daily, 0 Refill(s) Start Date: 06/29/14 Status: OrderedPradaxa 150 mg oral capsule 150 mg 1 caps, Oral, BID, # 60 caps, 3 Refill(s), Pharmacy: [facility] Start Date: 07/01/15 Status: Orderedsertraline 100 mg oral tablet See Instructions, TAKE 1 TABLET DAILY, # 120 tabs, 1 Refill(s), Pharmacy: [facility], TAKE 1 TABLET [...] oldest [Reference Range]: 1 WBC [4.8-10.8 10*3/uL] 7.0 10*3/uL (07/15/15 10:20 AM) RBC [4.60-6.20] 3.55 *LOW* (07/15/15 10:20 AM) Hgb [14.0-18.0 gm/dL] 11.6 gm/dL *LOW* (07/15/15 10:20 AM) Hct [42.0-52.0 %] 34.8 % *LOW* (07/15/15 10:20 AM) MCV [82.0-99.0 fL] 98.0 fL (07/15/15 10:20 AM) MCH [27.0-32.0 pg] 32.7 pg *HI* (07/15/15 10:20 AM) MCHC [32.0-36.0 gm/dL] 33.3 gm/dL (07/15/15 10:20 AM) RDW [11.5-14.5 %] 15.9 % *HI* (07/15/15 10:20 AM) Platelet [150-400 10*3/uL] 214 10*3/uL (07/15/15 10:20 AM) MPV [8.8-14.8 fL] 10.6 fL (07/15/15 10:20 AM) Immature Granulocytes [0.0-1.0 %] 0.1 % (07/15/15 10:20 AM) Neutrophils [51-75 %] 71 % (07/15/15 10:20 AM) Lymphocytes [20-46 %] 12 % *LOW* (07/15/15 10:20 AM) Monocytes [4-11 %] 13 % *HI* (07/15/15 10:20 AM) Eosinophils [0-4 %] 3 % (07/15/15 10:20 AM) Basophils [0-2 %] 0 % (07/15/15 10:20 AM) Neutro Absolute [1.90-7.00 10*3] 4.94 10*3 (07/15/15 10:20 AM) Lymph Absolute [0.80-3.30 10*3] 0.86 10*3 (07/15/15 10:20 AM) Dawson Absolute [0.30-1.00 10*3] 0.93 10*3 (07/15/15 10:20 AM) Eos Absolute [0.00-0.50 10*3] 0.23 10*3 (07/15/15 10:20 AM) Baso Absolute [0.00-0.20 10*3] 0.01 10*3 (07/15/15 10:20 AM) Chemistry Most recent to oldest [Reference Range]: 1 Sodium Lvl [135-144 mEq/L] 140 mEq/L (07/15/15 10:20 AM) Potassium Lvl [3.5-5.2 mEq/L] 4.0 mEq/L (07/15/15 10:20 AM) Chloride [99-111 mEq/L] 104 mEq/L (07/15/15 10:20 AM) CO2 [23-31 mEq/L] 27 mEq/L (07/15/15 10:20 AM) AGAP [3-20] 9 (07/15/15 10:20 AM) BUN [8-26 mg/dL] 10 mg/dL (07/15/15 10:20 AM) Glucose Lvl [70-99 mg/dL] 91 mg/dL (07/15/15 10:20 AM) Creatinine Lvl [0.72-1.25 mg/dL] 0.90 mg/dL (07/15/15 10:20 AM) eGFR [>60 mL/min] >60 mL/min 1 (07/15/15 10:20 AM) Calcium Lvl [8.9-10.5 mg/dL] 9.2 mg/dL (07/15/15 10:20 AM) Albumin Lvl [3.4-4.8 gm/dL] 3.5 gm/dL (07/15/15 10:20 AM) Total Protein [6.2-8.1 gm/dL] 6.2 gm/dL (07/15/15 10:20 AM) Globulin [1.8-4.0 gm/dL] 2.7 gm/dL (07/15/15 10:20 AM) ALT [0-55 U/L] 14 U/L (07/15/15 10:20 AM) AST [5-34 U/L] 20 U/L (07/15/15 10:20 AM) Alk Phos [40-150 U/L] 80 U/L (07/15/15 10:20 AM) Bili Total [0.2-1.2 mg/dL] 0.7 mg/dL (07/15/15 10:20 AM) 1Result Comment: Multiply eGFR results by [...] Transesophageal1 05/30/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 05/24/15 [place] [facility]in Endoscopic (Left)3 05/24/15 Catheterization Left Heart with Coronary 05/20/15 Angiography4 Catheterization Right Heart5 05/20/15 Colonoscopy Repeat in 5 years 2012 Esophagogastroduodenoscopy 07/15/09 Biopsy of prostate Cataract extraction hernia repair Hiatal hernia left eye surgery Surgery, Lt eye 1auto-populated from documented surgical [id number] from documented surgical [id number]-wwntsuikd from documented surgical [id number]-[id number] from documented surgical [id number]-fdninlzxo from documented surgical case Social History Social History Type Response Smoking Status Former smoker; Type: Cigarettes1 1Quit in 1981 Assessment and Plan Extracted from: Title: Office Visit Note Author: Juan Luis Brewster MD Date: 07/15/15 Assessment/Plan Benign essential hypertension The pressureis a little high today but overall seems to be stable. He had been running low previously. We'll continue to monitor but make no changes at this time. Recheck in 2 months. Laboratory studies ordered today. Ordered: CBC w/ Differential Comprehensive Metabolic Panel Office Visit Level 4 Est 94842 Chronic atrial fibrillation Chronic stable rate controlled no change in current treatment recommended. Ordered: Office Visit Level 4 Est 06864 COPD (chronic obstructive pulmonary disease) Overall this appears cristi better controlled. No change in current treatment recommended recheck in 2 months. Ordered: Office Visit Level 4 Est 71587 Depression Chronic stable no change in current treatment. Ordered: Office Visit Level 4 Est 25174 Mixed hyperlipidemia Chronic and stable no change in current treatment.
--- OUTSIDE RECORDS SUMMARY | 2017-10-14 18:07 | External Medical Summary | Summary of Care ---
:1935 Author Name Dennis Lyons M.D. Address [address] [place] [address] Care Team Providers Name Role Phone Dennis [...] DAILY. Refills: 0 Dennis Lyons M.D. Started ActiveCiprofloxacin HCl - 500 MG Oral Tablet TAKE 1 TABLET Twice daily Start 2 days before biopsy Quantity: 10 Refills: 0 Dennis Lyons M.D. Started Active [...] smoker Vital Signs Date Test Result Details 14:43 BP Systolic 149 mm[Hg] Status: BP Diastolic 75 mm[Hg] Status: Heart Rate 57 /min Status: Height 73 in Status: Weight 210 lb Status: Body Mass Index Calculated 27.71 kg/m2 Status: Body Surface Area Calculated 2.2 m2 Status: Results Date Description Value Details Results not documented Plan of Care Planned Observations Name Dates Details Planned Goals not documented Goal Planned Encounters Appointment; Provider: eDnnis Lyons On 09:00 Instructions Instructions not documented Encounters Appointment; Dennis Lyons On Encounter Diagnosis: Problem not documented 14:30
--- OUTSIDE RECORDS SUMMARY | 2017-10-14 18:07 | External Medical Summary | Referral Summary ---
:1935 Author Organization [facility] [place] [address] Care Team Providers Name Role Phone Juan Luis Brewster Primary Care Physician Encounter VC Date(s): 11/01/15 - 11/01/15 [facility] [place] [phone] [place] Discharge Diagnosis: Chronic atrial fibrillation Discharge Diagnosis: Mixed hyperlipidemia Discharge Diagnosis: Chronic obstructive pulmonary disease Discharge Diagnosis: Benign essential hypertension Discharge Disposition: 01-Home or Self Care Attending Physician: Juan Luis Brewster MD Admitting Physician: Juan Luis Brewster MD Referring Physician: Juan Luis Brewster MD Vital Signs Most recent to oldest [Reference Range]: 1 Temperature Tympanic [36.6-38.1 degC] 36.4 degC *LOW* (11/01/15 10:04 AM) Peripheral Pulse Rate [60-100 bpm] 52 bpm *LOW* (11/01/15 10:04 AM) Respiratory Rate [14-20 br/min] 14 br/min (11/01/15 10:04 AM) Blood Pressure [90-140/60-90 mmHg] 136/66 mmHg (11/01/15 10:04 AM) Problem List Condition Effective Dates [...] At Risk for Activity Intolerance Plan of [id number] added automatically by system based on initiation of Fluid Volume Imbalance Plan of [id number] added automatically by system based on initiation of Impaired Gas Exchange Plan of [id number] added automatically by system based on initiation of Knowledge Deficit Plan of Wzvs3Iipilya added automatically by system based on initiation of Tissue Perfusion Cerebral Plan of [id number] added automatically by system based on initiation [...] BID, # 60 tabs, 3 Refill(s), Pharmacy: [facility], 1 tabs Oral BID [...] DAILY, # 90 tabs, 1 Refill(s), eRx: [facility], TAKE ONE TABLET BY MOUTH ONCE DAILY Start Date: 10/16/15 Status: Orderedfinasteride 5 mg oral tablet 5 mg 1 tabs, Oral, Daily, # 90 tabs, 4 Refill(s), Pharmacy: [facility], 1 tabs Oral Daily Start [...] Daily, # 30 tabs, 0 Refill(s), Pharmacy: [facility], 1 tabs Oral Daily Start Date: 10/15/15 Status: Orderedfurosemide 40 mg oral tablet 40 mg 1 tabs, Oral, Daily, # 90 tabs, 4 Refill(s), Pharmacy: [facility], 1 tabs Oral Daily Start Date: 10/15/15 Status: OrderedHome Oxygen (DME) DME Item 2 LPM HS, See Instructions, # 1 Each, 0 Refill(s), Supply Start Date: 12/25/13 Status: OrderedLipitor 10 mg oral tablet 10 mg 1 tabs, Oral, Daily, # 30 tabs, 4 Refill(s), Pharmacy: [facility], 1 tabs Oral Daily Start Date: 07/01/15 Status: Orderedlosartan 50 mg oral tablet 50 mg 1 tabs, Oral, Daily, # 30 tabs, 6 Refill(s), Pharmacy: [facility], 1 tabs Oral Daily Start Date: 09/26/15 Status: Orderedmetoprolol tartrate 25 mg oral tablet 25 mg 1 tabs, Oral, BID, # 60 tabs, 1 Refill(s), Pharmacy: [facility] Start Date: 08/30/15 Status: Orderedpotassium chloride 20 mEq oral tablet, extended release 20 mEq 1 tabs, Oral, Daily, # 30 tabs, 3 Refill(s), Pharmacy: [facility], 1 tabs Oral Daily Start Date: 09/03/15 Status: OrderedPradaxa 150 mg oral capsule 150 mg 1 caps, Oral, BID, # 60 caps, 3 Refill(s), Pharmacy: [facility] Start Date: 07/01/15 Status: [...] Transesophageal1 05/30/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 05/24/15 [place] Vein Endoscopic (Left)3 05/24/15 Catheterization Left Heart with Coronary 05/20/15 Angiography4 Catheterization Right Heart5 05/20/15 Colonoscopy Repeat in 5 years 2013 Esophagogastroduodenoscopy 07/15/09 Biopsy of prostate Cataract extraction hernia repair Hiatal hernia left eye surgery Surgery, Lt eye 1auto-populated from documented surgical [id number]-idzhqnqtv from documented surgical vyjc2xqzz-qfglnltrz from documented surgical nwaw8hbgx-jbxmjuvxq from documented surgical [id number]-dcuuhjone from documented surgical case Social History Social History Type Response Smoking Status Former smoker; Type: Cigarettes1 1Quit in 1981 Assessment and Plan Extracted from: Title: Office Visit Note Author: Juan Luis Brewster MD Date: 11/01/15 Assessment/Plan Benign essential hypertension Blood pressureshows improved control with the addition of losartan. No changes are recommended. Recheck in 3 months. Follow-up if further problems or concerns occur. Ordered: Office Visit Level 3 Est 21219 Chronic atrial fibrillation Chronic stable appears to be in normal sinus rhythm today. No change in current treatment. Ordered: Office Visit Level 3 Est 20002 Chronic obstructive pulmonary disease Chronic and stable. Lung nodule is new and a PET scan as scheduled. He'll continue to follow-up with Dr. Farooq. Ordered: Office Visit Level 3 Est 90459 Mixed hyperlipidemia Chronic stable no change in current treatment recommended. Ordered: Office Visit Level 3 Est 76272
--- OUTSIDE RECORDS SUMMARY | 2017-10-14 18:07 | External Medical Summary | Referral Summary ---
:1935 Author Organization [facility] [place] [address] Care Team Providers Name Role Phone Juan Luis Brewster Primary Care Physician Encounter VC Date(s): 02/13/15 - 02/13/15 [facility] [place] [phone] [place] Discharge Diagnosis: Benign essential hypertension Discharge Diagnosis: COPD (chronic obstructive pulmonary disease) Discharge Diagnosis: Atrial fibrillation Discharge Diagnosis: Pure hypercholesterolemia Discharge Diagnosis: Bronchitis, chronic Discharge Disposition: 01-Home or Self Care Attending Physician: Juan Luis Brewster MD Admitting Physician: Juan Luis Brewster MD Vital Signs Most recent to oldest [Reference Range]: 1 Temperature Tympanic [36.6-38.1 degC] 36.5 degC *LOW* (02/13/15 9:54 AM) Peripheral Pulse Rate [60-100 bpm] 92 bpm (02/13/15 9:54 AM) Respiratory Rate [14-20 br/min] 12 br/min *LOW* (02/13/15 9:54 AM) Blood Pressure [90-140/60-90 mmHg] 114/50 mmHg (02/13/15 9:54 AM) Problem List Condition Effective Dates Status [...] At Risk for Activity Intolerance Plan of [id number] added automatically by system based on initiation of Fluid Volume Imbalance Plan of Zegy0Wgvmqjc added automatically by system based on initiation of Impaired Gas Exchange Plan of [id number] added automatically by system based on initiation of Knowledge Deficit Plan of Noik9Oyckasc added automatically by system based on initiation of Tissue Perfusion Cerebral Plan of [id number] added automatically by system based on initiation [...] BID, # 60 tabs, 3 Refill(s), Pharmacy: [facility], 1 tabs Oral BID Start [...] # 90 tabs, 1 Refill(s ), Pharmacy: [facility], 1 tabs Oral Daily,Instr:in place of the delayed release Start Date: 05/09/15 Status: Orderedfinasteride 5 mg oral tablet 5 mg 1 tabs, Oral, Daily, # 90 tabs, 4 Refill(s), Pharmacy: [facility], 1 tabs Oral Daily Start Date: 04/11/15 Status: Orderedfolic acid 1 mg oral tablet 1 mg 1 tabs, Oral, Daily, # 90 tabs, 0 Refill(s) Start Date: 06/13/15 Status: Orderedfurosemide 40 mg oral tablet 40 mg 1 tabs, Oral, Daily, # 30 tabs, 0 Refill(s), Pharmacy: [facility], 1 tabs Oral Daily Start Date: 05/30/15 Status: OrderedHome Oxygen (DME) DME Item 2 LPM HS, See Instructions, # 1 Each, 0 Refill(s), Supply Start Date: 12/25/13 Status: OrderedLipitor 10 mg oral tablet 10 mg 1 tabs, Oral, Daily, # 30 tabs, 4 Refill(s), Pharmacy: [facility], 1 tabs Oral Daily Start Date: 07/01/15 Status: Orderedmetoprolol tartrate 25 mg oral tablet 25 mg 1 tabs, Oral, BID, # 60 tabs, 5 Refill(s), Pharmacy: [facility] Start Date: 07/01/15 Status: OrderedNexIUM 40 mg oral delayed release capsule 1 caps, Oral, Daily, # 30 caps, 0 Refill(s) Start Date: 12/25/13 Status: Orderedpotassium chloride 20 mEq oral tablet, extended release 20 mEq 1 tabs, Oral, Daily, # 30 tabs, 0 Refill(s), Pharmacy: [facility], 1 tabs Oral Daily Start Date: 11/23/14 Status: Orderedpotassium gluconate 595 mg oral tablet 1 tabs, Oral, Daily, 0 Refill(s) Start Date: 06/29/14 Status: OrderedPradaxa 150 mg oral capsule 150 mg 1 caps, Oral, BID, # 60 caps, 3 Refill(s), Pharmacy: [facility] Start Date: 07/01/15 Status: [...] Transesophageal1 05/30/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 05/24/15 [place] Vein Endoscopic (Left)3 05/24/15 Catheterization Left Heart with Coronary 05/20/15 Angiography4 Catheterization Right Heart5 05/20/15 Colonoscopy Repeat in 5 years 2012 Esophagogastroduodenoscopy 07/15/09 Biopsy of prostate Cataract extraction hernia repair Hiatal hernia left eye surgery Surgery, Lt eye 1auto-populated from documented surgical [id number]-awlybhohq from documented surgical [id number]-jlfbipvzn from documented surgical ihkj5qagg-ejsqkoicx from documented surgical jtds2glpj-dohsqmuqj from documented surgical case Social History Social History Type Response Smoking Status Former smoker; Type: Cigarettes1 1Quit in 1981 Assessment and Plan Extracted from: Title: Office Visit Note Author: Juan Luis Brewster MD Date: 02/13/15 Assessment/Plan Atrial fibrillation Chronic stable rate controlled. No change in current treatment is recommended. Ordered: Office Visit Level 4 Est 35458 Benign essential hypertension Blood pressures well-controlled no change in current treatment recommended. Ordered: pneumococcal 13-valent conjugate vaccine, 0.5 mL, IntraMuscular, Once, First Dose: 02/13/15 11:00:00 CDT, Stop Date: 02/13/15 11:00:00 CDT, Form: Injection Office Visit Level 4 Est 58648 Bronchitis, chronic He'll continue to follow-up with pulmonology. Upon return 1 month for recheck. No antibiotics needed at this time. Ordered: pneumococcal 13-valent conjugate vaccine, 0.5 mL, IntraMuscular, Once, First Dose: 02/13/15 11:00:00 CDT, Stop Date: 02/13/15 11:00:00 CDT, Form: Injection Office Visit Level 4 Est 30446 COPD (chronic obstructive pulmonary disease) Chronic and rather severe. Continue to follow-up with pulmonology recheck here in one month. Continue current prednisone dosage. Ordered: Office Visit Level 4 Est 14796 Pure hypercholesterolemia Chronic area lab check in 1 month. Ordered: Office Visit Level 4 Est 30699
--- OUTSIDE RECORDS SUMMARY | 2017-10-14 18:07 | External Medical Summary | Referral Summary ---
:1935 Author Organization [facility] [place] [address] Care Team Providers Name Role Phone Juan Luis Brewster Primary Care Physician Encounter VC Date(s): 08/20/16 - 08/20/16 [facility] [place] [phone] Discharge Diagnosis: Benign essential hypertension Discharge Diagnosis: Depression Discharge Diagnosis: Atrial fibrillation Discharge Diagnosis: Chronic obstructive pulmonary disease Discharge Diagnosis: Orthostatic hypotension Discharge Diagnosis: Mixed hyperlipidemia Discharge Disposition: 01-Home or Self Care Attending Physician: Juan Luis Brewster MD Admitting Physician: Juan Luis Brewster MD Vital Signs Most recent to oldest [Reference Range]: 1 Temperature Tympanic [36.6-38.1 degC] 36.0 degC *LOW* (08/20/16 10:27 AM) Peripheral Pulse Rate [60-100 bpm] 64 bpm (08/20/16 10:27 AM) Respiratory Rate [14-20 br/min] 16 br/min (08/20/16 10:27 AM) Blood Pressure [90-140/60-90 mmHg] 126/64 mmHg (08/20/16 10:27 AM) SpO2 100 % (08/20/16 10:27 AM) Problem List Condition Effective Dates Status [...] At Risk for Activity Intolerance Plan of [id number] added automatically by system based on initiation of Fluid Volume Imbalance Plan of [id number] added automatically by system based on initiation of Impaired Gas Exchange Plan of Vkxt2Mojepri added automatically by system based on initiation of Knowledge Deficit Plan of Rtpb4Kqpskhi added automatically by system based on initiation of Tissue Perfusion Cerebral Plan of Vtfb4Rvnuqfy added automatically by system based on initiation [...] Daily, # 30 tabs, 3 Refill(s), Pharmacy: [facility], 1 tabs Oral Daily Start [...] j44.9, # 20 Each, 1 Refill(s), Pharmacy: [facility] Start Date: 08/10/16 Status: Orderedesomeprazole 40 mg oral delayed release capsule See Instructions, TAKE 1 CAPSULE DAILY, # 90 caps, eRx: [facility], TAKE 1 CAPSULE DAILY Start Date: 10/15/15 Status: Orderedferrous sulfate 325 mg (65 mg elemental iron) oral tablet See Instructions, TAKE ONE TABLET BY MOUTH ONCE DAILY, # 90 tabs, 1 Refill(s), eRx: [facility], TAKE ONE TABLET BY MOUTH ONCE DAILY Start Date: 10/16/15 Status: Orderedfinasteride 5 mg oral tablet See Instructions, TAKE 1 TABLET DAILY, # 90 tabs, 1 Refill(s), [facility]Rx: [facility] Start Date: 07/09/16 Status: OrderedHome Oxygen (DME) DME Item 2 LPM HS, See Instructions, # 1 Each, 0 Refill(s), Supply Start Date: 12/25/13 Status: OrderedLipitor 10 mg oral tablet 10 mg 1 tabs, Oral, Daily, # 90 tabs, 4 Refill(s), Pharmacy: [facility], 1 tabs Oral Daily Start Date: 01/27/16 Status: Orderedmetoprolol tartrate 25 mg oral tablet 12.5 mg 0.5 tabs, Oral, BID, 0 Refill(s) Start Date: 08/04/16 Status: Orderedmidodrine 5 mg oral tablet 5 mg 1 tabs, Oral, TID, 0 Refill(s) Start Date: 08/04/16 Status: OrderedMilk of Magnesia 30 mL, Oral, Bedtime (once a day), as needed for constipation, 0 Refill(s) Start Date: 08/04/16 Status: OrderedMucinex 600 mg, Oral, q12hr, 0 Refill(s) Start Date: 08/04/16 Status: Orderedsertraline 100 mg oral tablet See Instructions, TAKE 1 TABLET DAILY, # 120 tabs, 1 Refill(s), eRx: [facility] Start Date: 07/09/16 Status: OrderedSpiriva 18 mcg inhalation capsule 18 mcg 1 caps, Inhalation, Daily, use two inhalations of one capsule for each dose DX J44.9, # 90 Each, 3 Refill(s), Pharmacy: [facility] , 1 caps Inhalation Daily,Instr:use [...] Transesophageal1 05/30/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 05/24/15 [facility] Endoscopic (Left)3 05/24/15 Catheterization Left Heart with Coronary 05/20/15 Angiography4 Catheterization Right Heart5 05/20/15 Colonoscopy 04/20/13 Colonoscopy Repeat in 5 years 2012 Esophagogastroduodenoscopy 07/15/09 Biopsy of prostate Cataract extraction hernia repair Hiatal hernia left eye surgery Surgery, Lt eye 1auto-populated from documented surgical [id number]-fpyrossbu from documented surgical [id number]-eqbfkoomg from documented surgical [id number]-[id number] from documented surgical [id number]-jpcduttqq from documented surgical case Social History Social History Type Response Smoking Status Former smoker; Type: Cigarettes1 1Quit in 1981 Assessment and Plan Extracted from: Title: Office Visit Note Author: Juan Luis Brewster MD Date: 08/20/16 Assessment/Plan 1.Atrial fibrillation Chronic and rate controlled. During recent hospitalization Pradaxa was discontinued because of concerns over increased fall risk. He does see Dr. Acuña is his cardiologistlast follow-up with him 2.Benign essential hypertension Blood pressure appears controlled and recently has had more trouble with orthostatic hypotension as mentioned below. For the time being no change in current treatment is recommended. 3.Chronic obstructive pulmonary disease This is fairly advanced and severe. Chronic oxygen therapyis ongoing. Other medications and treatments reviewed. Overall his respiratory status appearsrelatively stable for him. He mayo s see hispulmonologist tomorrow. No changes are recommended at this time. 4.Depression Chronic stable on current treatment no changes are recommended. 5.Orthostatic hypotension ContinueMidodrineat its current dosage. I encouraged him totake time when he goes from lying orsitting to standing before he starts walking. We emphasized importance of avoiding falls. She feels likehe is having worsening symptomswith dizziness or lightheadedness with standinghe should let me now. 6.Mixed hyperlipidemia Chronic relatively stable no change in current treatment. I've asked to see him back in one month. If he's having problems or concerns he'll let us know. Continue home healthassistance.
--- OUTSIDE RECORDS SUMMARY | 2017-10-14 18:07 | External Medical Summary | Referral Summary ---
:1935 Author Organization [facility] Address [address] [place] [address] Care Team Providers Name Role Phone Juan Luis Brewster Primary Care Physician Encounter VC Date(s): 11/11/16 - 11/11/16 [facility] [address] [place] [address] Discharge Disposition: 01-Home or Self Care Attending Physician: Boone Farooq MD Vital Signs No data available for this section Problem List Condition Effective Dates Status Health [...] At Risk for Activity Intolerance Plan of Awnr6Brrukqb added automatically by system based on initiation of Fluid Volume Imbalance Plan of Zdrr4Fwnwhzn added automatically by system based on initiation of Impaired Gas Exchange Plan of Wxmp5Lklkybn added automatically by system based on initiation of Knowledge Deficit Plan of Buxj0Lqtvfvr added automatically by system based on initiation of Tissue Perfusion Cerebral Plan of [id number] added automatically by system based on initiation [...] Daily, # 30 tabs, 3 Refill(s), Pharmacy: [facility], 1 tabs Oral Daily Start [...] j44.9, # 20 Each, 1 Refill(s), Pharmacy: [facility] Start Date: 08/10/16 Status: Orderedesomeprazole 40 mg oral delayed release capsule See Instructions, TAKE 1 CAPSULE DAILY, # 90 caps, [facility]Rx: [facility], TAKE 1 CAPSULE DAILY Start Date: 10/15/15 Status: Orderedferrous sulfate 325 mg (65 mg elemental iron) oral tablet 325 mg 1 tabs, Oral, Daily, # 90 tabs, 3 Refill(s), Pharmacy: [facility], 1 tabs Oral Daily Start Date: 09/08/16 Status: Orderedfinasteride 5 mg oral tablet See Instructions, TAKE 1 TABLET DAILY, # 90 tabs, 1 Refill(s), [facility]Rx: [facility] Start Date: 07/09/16 Status: Orderedfurosemide 20 mg oral tablet 20 mg 1 tabs, Oral, Daily, # 30 tabs, 3 Refill(s), Pharmacy: [facility], 1 tabs Oral Daily Start Date: 09/17/16 Status: OrderedHome Oxygen (DME) DME Item 2 LPM HS, See Instructions, # 1 Each, 0 Refill(s), Supply Start Date: 12/25/13 Status: OrderedKlor-Con M20 oral tablet, extended release 20 mEq 1 tabs, Oral, BID, # 60 tabs, 1 Refill(s), Pharmacy: [facility], 1 tabs Oral BID Start Date: 11/10/16 Status: OrderedLipitor 10 mg oral tablet 10 mg 1 tabs, Oral, Daily, # 90 tabs, 3 Refill(s), Pharmacy: [facility], 1 tabs Oral Daily Start Date: 09/08/16 Status: Orderedmetoprolol tartrate 25 mg oral tablet 12.5 mg 0.5 tabs, Oral, Daily, take at noon, # 45 tabs, 3 Refill(s), Pharmacy: [facility] Start Date: 10/14/16 Status: Orderedmidodrine 5 mg oral tablet 5 mg 1 tabs, Oral, TID, # 270 tabs, 3 Refill(s), Pharmacy: [facility], 1 tabs Oral TID Start Date: 09/08/16 Status: OrderedMilk of Magnesia 30 mL, Oral, Bedtime (once a day), as needed for constipation, 0 Refill(s) Start Date: 08/04/16 Status: OrderedMucinex 600 mg oral tablet, extended release 600 mg, Oral, q12hr, # 180 tabs, 3 Refill(s), Pharmacy: [facility], 600 mg Oral q12hr Start [...] Transesophageal1 05/30/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 05/24/15 [place] [facility] Endoscopic (Left)3 05/24/15 Catheterization Left Heart with Coronary 05/20/15 Angiography4 Catheterization Right Heart5 05/20/15 Colonoscopy 04/20/13 Colonoscopy Repeat in 5 years 2012 Esophagogastroduodenoscopy 07/15/09 Biopsy of prostate Cataract extraction hernia repair Hiatal hernia left eye surgery Surgery, Lt eye 1auto-populated from documented surgical pame4pjdf-bgrysmvfw from documented surgical ywvp2dmha-tczwwecnu from documented surgical nglr5pglm-qapbrlqqh from documented surgical oysb7quck-zyakjkobf from documented surgical case Social History Social History Type Response Smoking Status Former smoker; Type: Cigarettes1 1Quit in 1981 Assessment and Plan No data available for this section
--- OUTSIDE RECORDS SUMMARY | 2017-10-14 18:07 | External Medical Summary | Referral Summary ---
:1935 Author Organization [facility] [place] [address] Care Team Providers Name Role Phone Juan Luis Brewster Primary Care Physician Encounter VC Date(s): 11/30/14 - 11/30/14 [facility] [place] [phone] [place] Discharge Diagnosis: Benign essential hypertension Discharge Diagnosis: Bronchitis, chronic Discharge Diagnosis: Atrial fibrillation Discharge Diagnosis: Chronic CHF Discharge Diagnosis: COPD (chronic obstructive pulmonary disease) Discharge Disposition: 01-Home or Self Care Attending Physician: Juan Luis Brewster MD Admitting Physician: Juan Luis Brewster MD Vital Signs Most recent to oldest [Reference Range]: 1 Temperature Tympanic [36.6-38.1 degC] 36.2 degC *LOW* (11/30/14 9:44 AM) Peripheral Pulse Rate [60-100 bpm] 84 bpm (11/30/14 9:44 AM) Blood Pressure [90-140/60-90 mmHg] 104/66 mmHg (11/30/14 9:44 AM) Problem List Condition Effective Dates Status [...] At Risk for Activity Intolerance Plan of Xsuo2Ihnmqzn added automatically by system based on initiation of Fluid Volume Imbalance Plan of Cdzx6Thatnyw added automatically by system based on initiation of Impaired Gas Exchange Plan of Bcbu4Pvswwtl added automatically by system based on initiation of Knowledge Deficit Plan of Igva0Irihftz added automatically by system based on initiation of Tissue Perfusion Cerebral Plan of Eqee1Rbrxfrf added automatically by system based on initiation [...] # 90 tabs, 1 Refill(s ), Pharmacy: [facility], 1 tabs Oral Daily,Instr:in place of the delayed release Start Date: 05/09/15 Status: Orderedfinasteride 5 mg oral tablet 5 mg 1 tabs, Oral, Daily, # 90 tabs, 4 Refill(s), Pharmacy: [facility], 1 tabs Oral Daily Start Date: 04/11/15 Status: Orderedfolic acid 1 mg oral tablet 1 mg 1 tabs, Oral, Daily, 0 Refill(s) Start Date: 05/30/15 Status: Orderedfurosemide 40 mg oral tablet 40 mg 1 tabs, Oral, Daily, # 30 tabs, 0 Refill(s), Pharmacy: [facility], 1 tabs Oral Daily Start Date: 05/30/15 Status: OrderedHome Oxygen (DME) DME Item 2 LPM HS, See Instructions, # 1 Each, 0 Refill(s), Supply Start Date: 12/25/13 Status: OrderedLipitor 10 mg oral tablet 1 tabs, Oral, Daily, # 30 tabs, 4 Refill(s), Pharmacy: [facility], 1 tabs Oral Daily Start [...] Daily, # 30 tabs, 0 Refill(s), Pharmacy: [facility], 1 tabs Oral Daily Start Date: 11/23/14 Status: Orderedpotassium gluconate 595 mg oral tablet 1 tabs, Oral, Daily, 0 Refill(s) Start Date: 06/29/14 Status: OrderedPradaxa 150 mg oral capsule 150 mg 1 caps, Oral, BID, 0 Refill(s) Start Date: 05/30/15 Status: Orderedsertraline 100 mg oral tablet See Instructions, TAKE 1 TABLET DAILY, # 120 tabs, 1 Refill(s), Pharmacy: [facility], TAKE 1 TABLET DAILY Start Date: 01/17/15 Status: OrderedVitamin C 1000 mg oral tablet 1 tabs, Oral, Daily, # 30 tabs, 0 Refill(s) Start Date: 12/25/13 Status: OrderedVitamin D3 1000 intl units oral capsule 1 caps, Oral, Daily, # 100 caps, 0 Refill(s) Start Date: 12/25/13 Status: Ordered Results Chemistry Most recent to oldest [Reference Range]: 1 Sodium Lvl [135-144 mEq/L] 142 mEq/L (11/30/14 10:12 AM) Potassium Lvl [3.5-5.2 mEq/L] 3.9 mEq/L (11/30/14 10:12 AM) Chloride [99-111 mEq/L] 102 mEq/L (11/30/14 10:12 AM) CO2 [23-31 mEq/L] 28 mEq/L (11/30/14 10:12 AM) AGAP [3-20] 12 (11/30/14 10:12 AM) BUN [8-26 mg/dL] 36 mg/dL *HI* (11/30/14 10:12 AM) Glucose Lvl [70-99 mg/dL] 100 mg/dL *HI* (11/30/14 10:12 AM) Creatinine Lvl [0.72-1.25 mg/dL] 1.81 mg/dL *HI* (11/30/14 10:12 AM) eGFR [>60 mL/min] 36 mL/min 1 *ABN* (11/30/14 10:12 AM) Calcium Lvl [8.9-10.5 mg/dL] 9.9 mg/dL (11/30/14 10:12 AM) BNP [0-99 pg/mL] 95 pg/mL (11/30/14 10:12 AM) 1Result Comment: Multiply eGFR results by [...] Transesophageal1 05/30/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 05/24/15 [facility] Endoscopic (Left)3 05/24/15 Catheterization Left Heart with Coronary 05/20/15 Angiography4 Catheterization Right Heart5 05/20/15 Colonoscopy Repeat in 5 years 2012 Esophagogastroduodenoscopy 07/15/09 Biopsy of prostate Cataract extraction hernia repair Hiatal hernia left eye surgery Surgery, Lt eye 1auto-populated from documented surgical hjny6fjjt-azzewppgn from documented surgical fmbl4pbnu-dhxvxfqtt from documented surgical bays0ixep-osannxwos from documented surgical nsni6yjfd-gbseddqnf from documented surgical case Social History Social History Type Response Smoking Status Former smoker; Type: Cigarettes1 1Quit in 1981 Assessment and Plan Extracted from: Title: Ambulatory Patient Education Author: Juan Luis Brewster MD Date: 11/30 Family Medicine Chronic Obstructive Pulmonary Disease Chronic obstructive pulmonary disease (COPD) is a common lung condition in which airflow from the lungs is limited. COPD is a general term that can be used to describe many different lung problems that limit airflow, including both chronic bronchitis and emphysema. If you have COPD, your lung function will probably never return to normal, but there are measures you can take to improve lung function and make yourself feel better. CAUSES Smoking (common). Exposure to secondhand smoke. Genetic problems. Chronic inflammatory lung diseases or recurrent infections. SYMPTOMS Shortness of breath, especially with physical activity. Deep, persistent (chronic ) cough with a large amount of thick mucus. Wheezing. Rapid breaths (tachypnea ). Madrigal or bluish discoloration (cyanosis ) of the skin, especially in fingers, toes, or lips. Fatigue. Weight loss. Frequent infections or episodes when breathing symptoms become much worse (exacerbations ). Chest tightness. DIAGNOSIS Your healthcare provider will take a medical history and perform a physical examination to make the initial diagnosis. Additional tests for COPD may include: Lung (pulmonary ) function tests. Chest X-ray. CT scan. Blood tests. TREATMENT Treatment available to help you feel better when you have COPD include: Inhaler and nebulizer medicines. These help manage the symptoms of COPD and make your breathing more comfortable Supplemental oxygen. Supplemental oxygen is only helpful if you have a low oxygen level in your blood. Exercise and physical activity. These are beneficial for nearly all people with COPD. Some people may also benefit from a pulmonary rehabilitation program. HOME CARE INSTRUCTIONS Take all medicines (inhaled or pills) as directed by your health care provider. Only take sjhh-lna-aaksotx or prescription medicines for pain, fever, or discomfort as directed by your health care provider. Avoid imgw-koj-pptjhtj medicines or cough syrups that dry up your airway ( such as antihistamines) and slow down the elimination of secretions unless instructed otherwise by your healthcare provider. If you are a smoker, the most important thing that you can do is stop smoking. Continuing to smoke will cause further lung damage and breathing trouble. Ask your health care provider for help with quitting smoking. He or she can direct you to community resources or hospitals that provide support. Avoid exposure to irritants such as smoke, chemicals, and fumes that aggravate your breathing. Use oxygen therapy and pulmonary rehabilitation if directed by your health care provider. If you require home oxygen therapy, ask your healthcare provider whether you should purchase a pulse oximeter to measure your oxygen level at home. Avoid contact with individuals who have a contagious illness. Avoid extreme temperature and humidity changes. Eat healthy foods. Eating smaller, more frequent meals and resting before meals may help you maintain your strength. Stay active, but balance activity with periods of rest. Exercise and physical activity will help you maintain your ability to do things you want to do. Preventing infection and hospitalization is very important when you have COPD. Make sure to receive all the vaccines your health care provider recommends , especially the pneumococcal and influenza vaccines. Ask your healthcare provider whether you need a pneumonia vaccine. Learn and use relaxation techniques to manage stress. Learn and use controlled breathing techniques as directed by your health care provider. Controlled breathing techniques include: Pursed lip breathing. Start by breathing in (inhaling ) through your nose for 1 second. Then, purse your lips as if you were going to whistle and breathe out (exhale ) through the pursed lips for 2 seconds. Diaphragmatic breathing. Start by putting one hand on your abdomen just above your waist. Inhale slowly through your nose. The hand on your abdomen should move out. Then purse your lips and exhale slowly. You should be able to feel the hand on your abdomen moving in as you exhale. Learn and use controlled coughing to clear mucus from your lungs. Controlled coughing is a series of short, progressive coughs. The steps of controlled coughing are: 1. Lean your head slightly forward. 2. Breathe in deeply using diaphragmatic breathing. 3. Try to hold your breath for 3 seconds. 4. Keep your mouth slightly open while coughing twice. 5. Spit any mucus out into a tissue. 6. Rest and repeat the steps once or twice as needed. SEEK MEDICAL CARE IF: You are coughing up more mucus than usual. There is a change in the color or thickness of your mucus. Your breathing is more labored than usual. Your breathing is faster than usual. SEEK IMMEDIATE MEDICAL CARE IF: You have shortness of breath while you are resting. You have shortness of breath that prevents you from: Being able to talk. Performing your usual physical activities. You have chest pain lasting longer than 5 minutes. Your skin color is more cyanotic than usual. You measure low oxygen saturations for longer than 5 minutes with a pulse oximeter. MAKE SURE YOU: Understand these instructions. Will watch your condition. Will get help right away if you are not doing well or get worse. Document Released: 04/07/2006 Document Revised: 04/18/2014 Document Reviewed: 02/22/2014 [facility] [place] Patient Information 2014 Z2. No follow up information was provided. Extracted from: Title: Office Visit Note Author: Juan Luis Brewster MD Date: 11/30/14 Assessment/Plan Atrial fibrillation Rate is controlled no change in current treatment. Ordered: Office Visit Level 4 Est 25997 Benign essential hypertension Blood pressure appears to be stable no change in current treatment Ordered: Basic Metabolic Panel Office Visit Level 4 Est 77951 Bronchitis, chronic Continues to have productive cough. Recommended Ceftin 500 mg twice a day 10 days. Continue current dose of prednisone. Follow-up in 2 weeks. Ordered: Office Visit Level 4 Est 40262 Chronic CHF Laboratory studies ordered for today. See what show. He has an appointment with Dr. Acuña early December. BNP and BMP ordered today. Ordered: Office Visit Level 4 Est 54533 COPD (chronic obstructive pulmonary disease) Chronic relatively stable recheck in 2 weeks. Ordered: Office Visit Level 4 Est 96836 Orders: cefuroxime, 500 mg 1 tabs, Oral, BID, X 10 days, # 20 tabs, 0 Refill( s), Pharmacy: [facility], 1 tabs Oral BID,x10 days
[2017-10-14] MEDS ORDERED: ALBUTEROL/IPRATROPIUM 2.5mg-0.5mg/3ml NEB AEROSOL ONE ×2 (18:08)
--- OUTSIDE RECORDS SUMMARY | 2017-10-14 18:08 | External Medical Summary | Referral Summary ---
:1935 Author [facility] Address [address] [place] [address] [place] [address] Care Team Providers Name Role Phone Juan Luis Brewster Primary Care Physician Encounter VC Date(s): 12/14/14 - 12/14/14 [facility] [place] [phone] Discharge Diagnosis: Atrial fibrillation Discharge Diagnosis: Benign essential hypertension Discharge Diagnosis: Bronchitis, chronic Discharge Diagnosis: COPD (chronic obstructive pulmonary disease) Discharge Disposition: 01-Home or Self Care Attending Physician: Juan Luis Brewster MD Admitting Physician: Juan Luis Brewster MD Vital Signs Most recent to oldest [Reference Range]: 1 Temperature Tympanic [36.6-38.1 degC] 36.2 degC *LOW* (12/14/14 9:59 AM) Peripheral Pulse Rate [60-100 bpm] 84 bpm (12/14/14 9:59 AM) Respiratory Rate [14-20 br/min] 16 br/min (12/14/14 9:59 AM) Blood Pressure [90-140/60-90 mmHg] 132/70 mmHg (12/14/14 9:59 AM) Problem List Condition Effective Dates [...] At Risk for Activity Intolerance Plan of [id number] added automatically by system based on initiation of Fluid Volume Imbalance Plan of Jtni1Yjlimkz added automatically by system based on initiation of Impaired Gas Exchange Plan of Ircf4Anklpcc added automatically by system based on initiation of Knowledge Deficit Plan of Dqug6Tsulbbc added automatically by system based on initiation of Tissue Perfusion Cerebral Plan of [id number] added automatically by system based on initiation of Urinary Retention Plan of Care Allergies, Adverse Reactions, Alerts Substance Reaction Severity Status Camphor Swelling of face Active Menthol Active penicillin Active Phenol Swelling of face Active Salicylic Acid Swelling of face Active Medications acetaminophen 325 mg oral tablet 650 mg 2 tabs, Oral, q4hr, Pain Mild (1-3), 0 Refill(s) Start Date: 05/30/15 Status: Orderedaspirin 81 mg oral tablet, chewable 81 mg 1 tabs, Oral, Daily, # 90 tabs, 0 Refill(s) Start Date: 06/13/15 Status: Orderedbudesonide 0.5 mg/2 mL inhalation suspension [...] # 90 tabs, 1 Refill(s ), Pharmacy: [id number], 1 tabs Oral Daily,Instr:in place of the delayed release Start Date: 05/09/15 Status: Orderedfinasteride 5 mg oral tablet 5 mg 1 tabs, Oral, Daily, # 90 tabs, 4 Refill(s), Pharmacy: [facility], 1 tabs Oral Daily Start Date: 04/11/15 Status: Orderedfolic acid 1 mg oral tablet 1 mg 1 tabs, Oral, Daily, # 90 tabs, 0 Refill(s) Start Date: 06/13/15 Status: Orderedfurosemide 40 mg oral tablet 40 mg 1 tabs, Oral, Daily, # 30 tabs, 0 Refill(s), Pharmacy: [facility], 1 tabs Oral Daily Start Date: 05/30/15 Status: OrderedHome Oxygen (DME) DME Item 2 LPM HS, See Instructions, # 1 Each, 0 Refill(s), Supply Start Date: 12/25/13 Status: OrderedLipitor 10 mg oral tablet 1 tabs, Oral, Daily, # 30 tabs, 4 Refill(s), Pharmacy: [facility], 1 tabs Oral Daily Start Date: 06/28/14 Status: Orderedmetoprolol tartrate 25 mg oral tablet 25 mg 1 tabs, Oral, BID, # 180 tabs, 0 Refill(s) Start Date: 06/13/15 Status: OrderedNexIUM 40 mg oral delayed release capsule 1 caps, Oral, Daily, # 30 caps, 0 Refill(s) Start Date: 12/25/13 Status: Orderedpotassium chloride 20 mEq oral tablet, extended release 20 mEq 1 tabs, Oral, Daily, # 30 tabs, 0 Refill(s), Pharmacy: [facility], 1 tabs Oral Daily Start Date: 11/23/14 Status: Orderedpotassium gluconate 595 mg oral tablet 1 tabs, Oral, Daily, 0 Refill(s) Start Date: 06/29/14 Status: OrderedPradaxa 150 mg oral capsule 150 mg 1 caps, Oral, BID, 0 Refill(s) Start Date: 05/30/15 Status: Orderedsertraline 100 mg oral tablet See Instructions, TAKE 1 TABLET DAILY, # 120 tabs, 1 Refill(s), Pharmacy: [facility], TAKE 1 TABLET DAILY Start [...] Transesophageal1 05/30/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 05/24/15 [place] [facility] Endoscopic (Left)3 05/24/15 Catheterization Left Heart with Coronary 05/20/15 Angiography4 Catheterization Right Heart5 05/20/15 Colonoscopy Repeat in 5 years 2012 Esophagogastroduodenoscopy 07/15/09 Biopsy of prostate Cataract extraction hernia repair Hiatal hernia left eye surgery Surgery, Lt eye 1auto-populated from documented surgical afiv5qjpy-exwooaoam from documented surgical fvvu9ader-dphgalobh from documented surgical ioyb1zucf-qbafuyjrh from documented surgical wyhv9yodx-nuebgzgqr from documented surgical case Social History Social History Type Response Smoking Status Former smoker; Type: Cigarettes1 1Quit in 1981 Assessment and Plan Extracted from: Title: Ambulatory Patient Education Author: Juan Luis Brewster MD Date: Family Medicine Chronic Obstructive Pulmonary Disease Chronic [...] by your health care provider. Only take proa-vqb-rrnjbav or prescription medicines for pain, fever, or discomfort as directed by your health care provider. Avoid quzg-ecv-pftbvqv medicines or cough syrups that dry up [...] 04/07/2006 Document Revised: 04/18/2014 Document Reviewed: 02/22/2014 [employer] Patient Information 2014 [employer]. No follow up information was provided. Extracted from: Title: Office Visit Note Author: Juan Luis Brewster MD Date: 12/14/14 Assessment/Plan Atrial fibrillation This appears to be stable rate controlled continue anticoagulation. Ordered: Office Visit Level 4 Est 01627 Benign essential hypertension Blood pressures well-controlled no change in current treatment. Ordered: Office Visit Level 4 Est 85404 Bronchitis, chronic I think he continues to have ongoing problems with his chronic bronchitis and COPD. We tried several rounds of antibiotics and steroids. He is on a number of medications to h mati. I've recommended a pulmonary consultation and will see if we can get that scheduled. Ordered: Office Visit Level 4 Est 69892 COPD (chronic obstructive pulmonary disease) Continue current treatment pulmonary consult as mentioned above. Ordered: Office Visit Level 4 Est 86180
--- OUTSIDE RECORDS SUMMARY | 2017-10-14 18:08 | External Medical Summary | Referral Summary ---
:1935 Author Organization [facility]3] Address [address] [place] [address] Care Team Providers Name Role Phone Juan Luis Brewster Primary Care Physician Encounter [facility] [id number] Date(s): 02/22/15 - 02/22/15 [facility]3] [address] [place] [address] Final: SHORTNESS OF BREATH Final: CHRONIC AIRWAY OBSTRUCTION, NOT ELSEWHERE CLASSIFIED Discharge Disposition: 01-Home or Self Care Attending Physician: Boone Farooq MD Admitting Physician: Boone Farooq MD Vital Signs No [...] At Risk for Activity Intolerance Plan of [id number] added automatically by system based on initiation of Fluid Volume Imbalance Plan of [id number] added automatically by system based on initiation of Impaired Gas Exchange Plan of Kzky7Hiiiuvt added automatically by system based on initiation of Knowledge Deficit Plan of Zlqo4Cnjzwzh added automatically by system based on initiation of Tissue Perfusion Cerebral Plan of Utqv8Vjtqhxq added automatically by system based on initiation [...] BID, # 60 tabs, 3 Refill(s), Pharmacy: [facility], 1 tabs Oral BID Start [...] # 90 tabs, 1 Refill(s ), Pharmacy: [facility], 1 tabs Oral Daily,Instr:in place of the delayed release Start Date: 05/09/15 Status: Orderedfinasteride 5 mg oral tablet 5 mg 1 tabs, Oral, Daily, # 90 tabs, 4 Refill(s), Pharmacy: [facility], 1 tabs Oral Daily Start [...] Daily, # 30 tabs, 0 Refill(s), Pharmacy: [facility], 1 tabs Oral Daily Start Date: 05/30/15 Status: OrderedHome Oxygen (DME) DME Item 2 LPM HS, See Instructions, # 1 Each, 0 Refill(s), Supply Start Date: 12/25/13 Status: OrderedLipitor 10 mg oral tablet 10 mg 1 tabs, Oral, Daily, # 30 tabs, 4 Refill(s), Pharmacy: [facility], 1 tabs Oral Daily Start Date: 07/01/15 Status: Orderedmetoprolol tartrate 25 mg oral tablet 25 mg 1 tabs, Oral, BID, # 60 tabs, 1 Refill(s), Pharmacy: [facility] Start Date: 08/30/15 Status: OrderedNexIUM 40 mg oral delayed release capsule 1 caps, Oral, Daily, # 30 caps, 0 Refill(s) Start Date: 12/25/13 Status: Orderedpotassium chloride 20 mEq oral tablet, extended release 20 mEq 1 tabs, Oral, Daily, # 30 tabs, 3 Refill(s), Pharmacy: [facility], 1 tabs Oral Daily Start Date: 09/03/15 Status: OrderedPradaxa 150 mg oral capsule 150 mg 1 caps, Oral, BID, # 60 caps, 3 Refill(s), Pharmacy: [facility] Start Date: 07/01/15 Status: Orderedsertraline 100 mg oral tablet See Instructions, TAKE 1 TABLET DAILY, # 120 tabs, 1 Refill(s), eRx: [facility], TAKE 1 TABLET DAILY Start [...] Transesophageal1 05/30/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 05/24/15 [place] [facility]in Endoscopic (Left)3 05/24/15 Catheterization Left Heart with Coronary 05/20/15 Angiography4 Catheterization Right Heart5 05/20/15 Colonoscopy Repeat in 5 years 2012 Esophagogastroduodenoscopy 07/15/09 Biopsy of prostate Cataract extraction hernia repair Hiatal hernia left eye surgery Surgery, Lt eye 1auto-populated from documented surgical ekhs0sana-lpnfxvugf from documented surgical yczr0yiwf-mhvotpver from documented surgical dtrm8ygcv-jakzdeovz from documented surgical ocbq5wvmz-ebvallqby from documented surgical case Social History Social History Type Response Smoking Status Former smoker; Type: Cigarettes1 1Quit in 1981 Assessment and Plan No data available for this section
--- OUTSIDE RECORDS SUMMARY | 2017-10-14 18:08 | External Medical Summary | Summary of Care ---
:1935 Author Name Dennis Lyons M.D. Address [address] [place] [address] Care Team Providers Name Role Phone Dennis Lyons M.D. Unavailable Unavailable Juan Luis Brewster Unavailable Unavailable Unavailable Unavailable Unavailable Functional Status Functional Status Health Issues Name Dates Details Functional status health issues are not documented Status: Cognitive Status Health Issues Name Dates Details Cognitive status health issues are not documented Status: Problems Name Dates Details Prophylactic antibiotic (V58.62, Z79.2) Status: Active BPH (benign prostatic hypertrophy) (600.00, N40.0) Status: Active Prostate nodule (600.10, N40.2) Status: Active BPH with obstruction/lower urinary tract symptoms (600.01, N40.1) Status: Active Incomplete bladder emptying (788.21, R33.9) Status: Active Medications Name Dates Details Acetaminophen [...] TAKE 1 TABLET DAILY. Refills: 0 Dennis Loyns M.D. Start Active Sulfamethoxazole-Trimethoprim 800-160 MG Oral Tablet Take 1 tablet twice daily Quantity: 42 Refills: 0 Eloy Hagan.Dennis Noguera Start 01-Dec-2016 End Active Allergies and Adverse [...] Encounters Appointment; Provider: Dennis Lyons M.D. On 16-Jun-2017 09:15 Instructions Name Dates Details Instructions not documented Encounters Appointment; Dennis Lyons M.D. On 01-Dec-2016 Encounter Diagnosis: Problem not documented 13:15 Appointment; Dennis Lyons M.D. On Encounter Diagnosis: Problem not documented 09:00 Appointment; Dennis Lyons M.D. On Encounter Diagnosis: Problem not documented 14:30
--- OUTSIDE RECORDS SUMMARY | 2017-10-14 18:08 | External Medical Summary | Referral Summary ---
:1935 Author Organization [facility] [place] [address] Care Team Providers Name Role Phone Juan Luis Brewster Primary Care Physician Encounter [facility] Date(s): 11/05/16 - 11/05/16 [facility] [place] [address] [place] Discharge Diagnosis: Effusion of left olecranon bursa Discharge Disposition: 01-Home or Self Care Attending Physician: Leisa Manzanares APRN Admitting Physician: Leisa Manzanares APRN Vital Signs Most recent to oldest [Reference Range]: 1 Temperature Tympanic [36.6-38.1 degC] 36.4 degC *LOW* (11/05/16 9:33 AM) Peripheral Pulse Rate [60-100 bpm] 80 bpm (11/05/16 9:33 AM) Blood Pressure [90-140/60-90 mmHg] 118/76 mmHg (11/05/16 9:33 AM) Problem List Condition Effective Dates Status [...] At Risk for Activity Intolerance Plan of Qivx5Plzpjgo added automatically by system based on initiation of Fluid Volume Imbalance Plan of Mfpo8Mfummhf added automatically by system based on initiation of Impaired Gas Exchange Plan of Puyx6Bvrcxdf added automatically by system based on initiation of Knowledge Deficit Plan of Marj2Bqkcuuq added automatically by system based on initiation of Tissue Perfusion Cerebral Plan of Xgrg0Rcabnvc added automatically by system based on initiation [...] Daily, # 30 tabs, 3 Refill(s), Pharmacy: [facility], 1 tabs Oral Daily Start [...] j44.9, # 20 Each, 1 Refill(s), Pharmacy: [facility] Start Date: 08/10/16 Status: Orderedesomeprazole 40 mg oral delayed release capsule See Instructions, TAKE 1 CAPSULE DAILY, # 90 caps, eRx: [facility], TAKE 1 CAPSULE DAILY Start Date: 10/15/15 Status: Orderedferrous sulfate 325 mg (65 mg elemental iron) oral tablet 325 mg 1 tabs, Oral, Daily, # 90 tabs, 3 Refill(s), Pharmacy: [facility], 1 tabs Oral Daily Start Date: 09/08/16 Status: Orderedfinasteride 5 mg oral tablet See Instructions, TAKE 1 TABLET DAILY, # 90 tabs, 1 Refill(s), [facility]Rx: [facility] Start Date: 07/09/16 Status: Orderedfurosemide 20 mg oral tablet 20 mg 1 tabs, Oral, Daily, # 30 tabs, 3 Refill(s), Pharmacy: [facility], 1 tabs Oral Daily Start Date: 09/17/16 Status: OrderedHome Oxygen (DME) DME Item 2 LPM HS, See Instructions, # 1 Each, 0 Refill(s), Supply Start Date: 12/25/13 Status: OrderedLipitor 10 mg oral tablet 10 mg 1 tabs, Oral, Daily, # 90 tabs, 3 Refill(s), Pharmacy: [facility], 1 tabs Oral Daily Start Date: 09/08/16 Status: Orderedmetoprolol tartrate 25 mg oral tablet 12.5 mg 0.5 tabs, Oral, Daily, take at noon, # 45 tabs, 3 Refill(s), Pharmacy: [facility] Start Date: 10/14/16 Status: Orderedmidodrine 5 mg oral tablet 5 mg 1 tabs, Oral, TID, # 270 tabs, 3 Refill(s), Pharmacy: [facility], 1 tabs Oral TID Start Date: 09/08/16 Status: OrderedMilk of Magnesia 30 mL, Oral, Bedtime (once a day), as needed for constipation, 0 Refill(s) Start Date: 08/04/16 Status: OrderedMucinex 600 mg oral tablet, extended release 600 mg, Oral, q12hr, # 180 tabs, 3 Refill(s), Pharmacy: [facility], 600 mg Oral q12hr Start [...] J44.9, # 90 Each, 3 Refill(s), Pharmacy: [facility] , 1 caps Inhalation Daily,Instr:use [...] Transesophageal1 05/30/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 05/24/15 [place] [employer] [employer] Vein Endoscopic (Left)3 05/24/15 Catheterization Left Heart with Coronary 05/20/15 Angiography4 Catheterization Right Heart5 05/20/15 Colonoscopy 04/20/13 Colonoscopy Repeat in 5 years 2012 Esophagogastroduodenoscopy 07/15/09 Biopsy of prostate Cataract extraction hernia repair Hiatal hernia left eye surgery Surgery, Lt eye 1auto-populated from documented surgical omsq1lpuc-cnzalblnu from documented surgical jiwp8tcdg-hrnqvyfqc from documented surgical bskz8abss-qbygaxzuc from documented surgical ncgj3sdzq-bnbfyiqpv from documented surgical case Social History Social History Type Response Smoking Status Former smoker; Type: Cigarettes1 1Quit in 1981 Assessment and Plan Extracted from: Title: Office Visit Note-olecranon Author: Leisa Manzanares APRN Date: 11/05 effusion Assessment/Plan 1.Effusion of left olecranon bursa Patient counseled regarding diagnosis, natural history, pathophysiology, typical treatment, and expected results. Questions and concerns answered. Sahil wrap with mild compression applied. Encouraged him to wear this in the morning and take off at night. Avoid utilizing the elbow to change positions with. Monitor it closely for any signs o f increased redness, warmth, tenderness. If that occurs needs to return to the office for recheck. This will gradually improve over the next month. Discussed at timesthis needs to be drained.He voices understanding.
--- OUTSIDE RECORDS SUMMARY | 2017-10-14 18:08 | External Medical Summary | Referral Summary ---
:1935 Author Organization [facility] Address [address] [place] [address] Care Team Providers Name Role Phone Juan Luis Brewster Primary Care Physician Encounter [facility] Date(s): 10/22/15 - 10/22/15 [facility] [address] [place] [address] Discharge Disposition: 01-Home or Self Care Attending [...] At Risk for Activity Intolerance Plan of Mcqz3Cbfincb added automatically by system based on initiation of Fluid Volume Imbalance Plan of Rgsh9Memdsnm added automatically by system based on initiation of Impaired Gas Exchange Plan of Mtvc4Mteuubm added automatically by system based on initiation of Knowledge Deficit Plan of Zfcu4Andoemr added automatically by system based on initiation of Tissue Perfusion Cerebral Plan of Dtku7Stfexbh added automatically by system based on initiation [...] BID, # 60 tabs, 3 Refill(s), Pharmacy: [facility], 1 tabs Oral BID Start [...] 1 CAPSULE DAILY, # 90 caps, eRx: [facility], TAKE 1 CAPSULE DAILY Start Date: 10/15/15 Status: Orderedferrous sulfate 325 mg (65 mg elemental iron) oral tablet See Instructions, TAKE ONE TABLET BY MOUTH ONCE DAILY, # 90 tabs, 1 Refill(s), eRx: [facility], TAKE ONE TABLET BY MOUTH ONCE DAILY Start Date: 10/16/15 Status: Orderedfinasteride 5 mg oral tablet 5 mg 1 tabs, Oral, Daily, # 90 tabs, 4 Refill(s), Pharmacy: [facility], 1 tabs Oral Daily Start [...] Daily, # 30 tabs, 0 Refill(s), Pharmacy: [facility], 1 tabs Oral Daily Start Date: 10/15/15 Status: Orderedfurosemide 40 mg oral tablet 40 mg 1 tabs, Oral, Daily, # 90 tabs, 4 Refill(s), Pharmacy: [facility], 1 tabs Oral Daily Start Date: 10/15/15 Status: OrderedHome Oxygen (DME) DME Item 2 LPM HS, See Instructions, # 1 Each, 0 Refill(s), Supply Start Date: 12/25/13 Status: OrderedLipitor 10 mg oral tablet 10 mg 1 tabs, Oral, Daily, # 30 tabs, 4 Refill(s), Pharmacy: [facility], 1 tabs Oral Daily Start Date: 07/01/15 Status: Orderedlosartan 50 mg oral tablet 50 mg 1 tabs, Oral, Daily, # 30 tabs, 6 Refill(s), Pharmacy: [facility], 1 tabs Oral Daily Start Date: 09/26/15 Status: Orderedmetoprolol tartrate 25 mg oral tablet 25 mg 1 tabs, Oral, BID, # 60 tabs, 1 Refill(s), Pharmacy: [facility] [address] Start Date: 08/30/15 Status: Orderedpotassium chloride 20 mEq oral tablet, extended release 20 mEq 1 tabs, Oral, Daily, # 30 tabs, 3 Refill(s), Pharmacy: [facility], 1 tabs Oral Daily Start Date: 09/03/15 Status: OrderedPradaxa 150 mg oral capsule 150 mg 1 caps, Oral, BID, # 60 caps, 3 Refill(s), Pharmacy: [facility] Start Date: 07/01/15 Status: Orderedsertraline 100 mg oral tablet See Instructions, TAKE 1 TABLET DAILY, # 120 tabs, 1 Refill(s), eRx: [facility], TAKE 1 TABLET DAILY Start Date: 07/26/15 Status: OrderedVitamin C 1000 mg oral tablet 1 tabs, Oral, Daily, # 30 tabs, 0 Refill(s) Start Date: 12/25/13 Status: OrderedVitamin D3 1000 intl units oral capsule 1 caps, Oral, Daily, # 100 caps, 0 Refill(s) Start Date: 12/25/13 Status: Ordered Results Chemistry Most recent to oldest [Reference Range]: 1 BUN [4-20 mg/dL] 21 mg/dL *HI* (10/22/15 10:38 AM) Creatinine Lvl [0.64-1.27 mg/dL] 1.30 mg/dL *HI* (10/22/15 10:38 AM) eGFR [>60] 53 1 *ABN* (10/22/15 10:38 AM) 1Result Comment: Multiply eGFR results by [...] Procedures Procedure Date Related Diagnosis Body Site Collection of venous blood by venipuncture 10/22/15 Echo Transesophageal1 05/30/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 05/24/15 [place] [facility]in Endoscopic (Left)3 05/24/15 Catheterization Left Heart with Coronary 05/20/15 Angiography4 Catheterization Right Heart5 05/20/15 Colonoscopy Repeat in 5 years 2012 Esophagogastroduodenoscopy 07/15/09 Biopsy of prostate Cataract extraction hernia repair Hiatal hernia left eye surgery Surgery, Lt eye 1auto-populated from documented surgical etgw0lgya-xjhgbvzat from documented surgical mikj8yiri-bknyreelf from documented surgical xoff0mqni-jjztidhed from documented surgical sjhq9wyfe-berekudnq from documented surgical case Social History Social History Type Response Smoking Status Former smoker; Type: Cigarettes1 1Quit in 1982 Assessment and Plan No data available for this section
--- OUTSIDE RECORDS SUMMARY | 2017-10-14 18:08 | External Medical Summary | Referral Summary ---
:1935 Author Organization [facility] [address] [place] [address] Care Team Providers Name Role Phone Juan Luis Brewster Primary Care Physician Encounter VC Date(s): 11/13/14 - 11/13/14 [facility] [address] [place] [id number] [place] Discharge Diagnosis: [...] At Risk for Activity Intolerance Plan of [id number] added automatically by system based on initiation of Fluid Volume Imbalance Plan of [id number] added automatically by system based on initiation of Impaired Gas Exchange Plan of [id number] added automatically by system based on initiation of Knowledge Deficit Plan of [id number] added automatically by system based on initiation of Tissue Perfusion Cerebral Plan of [id number] added automatically by system based on initiation of Urinary Retention Plan of Care Allergies, Adverse Reactions, Alerts Substance Reaction Severity Status Camphor Swelling of face Active Menthol Active penicillin Active Phenol Swelling of face Active Salicylic Acid Swelling of face Active Medications alfuzosin 10 mg oral tablet, extended release 10 mg 1 tabs, Oral, Daily, # 90 tabs, 2 Refill(s), Pharmacy: [facility], 1 tabs Oral Daily Start Date: 03/07/15 Status: OrderedAspir 81 1 tabs, Oral, Daily, 0 Refill(s) Start Date: 12/25/13 Status: Orderedbudesonide 0.5 mg/2 mL inhalation suspension 2 mL, NEB, BID, # 120 mL, 0 Refill(s), Pharmacy: [facility], 2 mL NEB BID Start Date: 06/29/14 Status: OrderedDeep Sea Nasal 0.65% nasal spray 2 sprays, Nasal, QID, 0 Refill(s) Start Date: 06/29/14 Status: OrderedESOMEPRAZOLE MAG DR CAPS 40MG See Instructions, TAKE 1 CAPSULE DAILY, # 90 caps, 2 Refill(s), eRx: [facility], TAKE 1 CAPSULE DAILY Start Date: 10/25/14 Status: Orderedferrous sulfate 325 mg (65 mg elemental iron) oral tablet 325 mg 1 tabs, Oral, Daily, in place of the delayed release, # 90 tabs, 1 Refill (s), Pharmacy: [facility], 1 tabs Oral Daily,Instr:in place of the delayed release Start Date: 05/09/15 Status: Orderedfinasteride 5 mg oral tablet 5 mg 1 tabs, Oral, Daily, # 90 tabs, 4 Refill(s), Pharmacy: [facility], 1 tabs Oral Daily Start [...] TIMES DAILY, # 360 unknown unit, eRx: [facility], USE ONE VIAL IN NEBULIZER 4 TIMES DAILY Start Date: 10/18/14 Status: OrderedLasix 40 mg oral tablet 60 mg 1.5 tabs, Oral, Daily, # 135 tabs, 3 Refill(s), Pharmacy: [facility], 1.5 tabs Oral Daily Start Date: 12/27/14 Status: OrderedLipitor 10 mg oral tablet 1 tabs, Oral, Daily, # 30 tabs, 4 Refill(s), Pharmacy: [facility], 1 tabs Oral Daily Start Date: 06/28/14 Status: Orderedmetolazone 5 mg oral tablet 5 mg 1 tabs, Oral, Daily, # 30 tabs, 0 Refill(s), Pharmacy: [facility], 1 tabs Oral Daily [...] Daily, # 30 tabs, 0 Refill(s), Pharmacy: [facility], 1 tabs Oral Daily Start Date: 11/23/14 Status: Orderedpotassium gluconate 595 mg oral tablet 1 tabs, Oral, Daily, 0 Refill(s) Start Date: 06/29/14 Status: OrderedpredniSONE 5 mg oral tablet 5 mg 1 tabs, Oral, Daily, 0 Refill(s) Start Date: 03/19/15 Status: Orderedsertraline 100 mg oral tablet See Instructions, TAKE 1 TABLET DAILY, # 120 tabs, 1 Refill(s), Pharmacy: [facility], TAKE 1 TABLET DAILY Start Date: 01/17/15 Status: OrderedSpiriva 18 mcg inhalation capsule 1 Each, Inhalation, Daily, use two inhalations of one capsule for each dose, # 30 Each, 10 Refill(s), Pharmacy: [facility], 1 Each Inhalation Daily,Instr:use two [...] DAILY WITH BREAKFAST, # 90 tabs, eRx: [facility],TAKE 1 TABLET DAILY WITH BREAKFAST Start Date: 05/13/15 Status: Ordered Results No data available for this section Immunizations Vaccine Date Refusal Reason influenza virus vaccine, inactivated 10/8/15 influenza virus vaccine, inactivated 04/19/14 influenza virus vaccine, live 04/20/13 influenza virus vaccine, live 04/15/11 pneumococcal 13-valent conjugate vaccine1 02/13/15 pneumococcal 23-polyvalent vaccine 04/28/10 pneumococcal 23-polyvalent vaccine 06/20/03 tetanus-diphth toxoids (Td) adult/adol 01/30/08 zoster vaccine live 09/07/13 1Early/Late Reason: Nursing Judgment Procedures Procedure Date Related Diagnosis Body Site Bypass Graft Coronary Artery1 05/24/15 [place] Vein Endoscopic (Left)2 05/24/15 Catheterization Left Heart with Coronary 05/20/15 Angiography3 Catheterization Right Heart4 05/20/15 Colonoscopy Repeat in 5 years 2012 Esophagogastroduodenoscopy 07/15/09 Biopsy of prostate Cataract extraction hernia repair Hiatal hernia left eye surgery Surgery, Lt eye 1auto-populated from documented surgical [id number] from documented surgical [id number] from documented surgical [id number] from documented surgical case Social History Social History Type Response Smoking Status Former smoker; Type: Cigarettes1 1Quit in 1981 Assessment and Plan Extracted from: Title: Office Visit Note Author: Juan Luis Brewster MD Date: 11/13/14 Assessment/Plan Acute bronchitis Begin Levaquin 500 mg daily for 10 days. If not improving he'll let me know. Ordered: Office Visit Level 4 Est 69186 Atrial fibrillation Stable chronic rate controlled. Continue current treatment plan. Ordered: Office Visit Level 4 Est 32351 Benign essential hypertension Blood pressure is adequately controlled no change in current treatment plan recommended. Ordered: Office Visit Level 4 Est 91776 COPD (chronic obstructive pulmonary disease) Overall stable perhaps very mild exacerbation with recent acute bronchitis. Continue current treatment without change. Ordered: Office Visit Level 4 Est 93262 Orders: levofloxacin, 1 tabs, Oral, q24hr, X 10 days, # 10 tabs, 0 Refill(s) , Pharmacy: [facility], 1 tabs Oral q24hr,x10 days
--- OUTSIDE RECORDS SUMMARY | 2017-10-14 18:08 | External Medical Summary | Referral Summary ---
:1935 Author Care Team Providers Name Role Phone Juan Luis Brewster Primary Care Physician Encounter VC Date(s): 10/24/14 - 10/24/14 [facility], [address] [place] [id number] Discharge Diagnosis: Benign essential hypertension Discharge Diagnosis: CHF, chronic Discharge Diagnosis: COPD (chronic obstructive pulmonary disease) Discharge Diagnosis: Pure hypercholesterolemia Discharge Diagnosis: Atrial fibrillation Discharge Disposition: Home or Self Care Attending Physician: Juan Luis Brewster MD Admitting Physician: Juan Luis Brewster MD Vital Signs Most recent to oldest [Reference Range]: 1 Temperature Tympanic [36.6-38.1 degC] 36.1 degC *LOW* (10/24/14 9:36 AM) Peripheral Pulse Rate [60-100 bpm] 84 bpm (10/24/14 9:36 AM) Respiratory Rate [14-20 br/min] 14 br/min (10/24/14 9:36 AM) Blood Pressure [90-140/60-90 mmHg] 104/70 mmHg (10/24/14 9:36 AM) Most recent to oldest [Reference Range]: 1 SpO2 94 % (10/24/14 9:36 AM) Problem List Condition Effective Dates Status Health Status Informant Adenomatous colonic polyps(Confirmed) 2012 Active Arthritis(Confirmed) Active Atrial fibrillation Active (disorder)(Confirmed) Benign essential hypertension Active (disorder)(Confirmed) BPH(Confirmed) Active Bronchitis, chronic(Confirmed) Active Cataracts(Confirmed) Active Chicken pox(Confirmed) Active COPD (chronic obstructive pulmonary Active disease)(Confirmed) Colon diverticulosis(Confirmed) 2012 Active DDD (degenerative disc disease), Active lumbar(Confirmed) Depression(Confirmed) Active Depression(Confirmed) Active Cholesterolemia(Confirmed) Active Orthostasis(Confirmed) Active Emphysema(Confirmed) Active Generalised osteoarthritis(Confirmed) Active Hyperlipidemia(Confirmed) Active Hypertension(Confirmed) Active Obesity(Confirmed) Active patient Prostatitis(Confirmed) Active Pure hypercholesterolemia Active (disorder)(Confirmed) Recurrent sinus infections(Confirmed) Active RBBB(Confirmed) Active Scarlet fever(Confirmed) Active Syncope and collapse Active (disorder)(Confirmed) Allergies, Adverse Reactions, Alerts Substance Reaction Severity Status Camphor Swelling of face Active Menthol Active penicillin Active Phenol Swelling of face Active Salicylic Acid Swelling of face Active Medications alfuzosin 10 mg oral tablet, extended release 1 tabs, Oral, Daily, 0 Refill(s) Start Date: 06/29/14 Status: OrderedamLODIPine 10 mg oral tablet 1 tabs, Oral, Daily, 0 Refill(s) Start Date: 06/29/14 Status: OrderedAspir 81 1 tabs, Oral, Daily, 0 Refill(s) Start Date: 12/25/13 Status: Orderedbenazepril 20 mg oral tablet 1 tabs, Oral, Daily, # 90 tabs, 4 Refill(s), Pharmacy: [facility], 1 tabs Oral Daily,x90 days Start Date: 01/10/14 Stop Date: 04/05/15 Status: Orderedbudesonide 0.5 mg/2 mL inhalation suspension 2 mL, NEB, BID, # 120 mL, 0 Refill(s), Pharmacy: [facility], 2 mL NEB BID Start Date: 06/29/14 Status: OrderedDeep Sea Nasal 0.65% nasal spray 2 sprays, Nasal, QID, 0 Refill(s) Start Date: 06/29/14 Status: Orderedferrous sulfate 325 mg (65 mg elemental iron) oral delayed release tablet 1 tabs, Oral, Daily, 0 Refill(s) Start Date: 12/25/13 Status: Orderedfinasteride 1 mg oral tablet 1 tabs, Oral, Daily, # 30 tabs, 0 Refill(s) Start Date: 12/25/13 Status: OrderedHome Oxygen (DME) DME Item 2 LPM HS, See Instructions, # 1 Each, 0 Refill(s), Supply Special Instructions: 2 LPM HS Start Date: 12/25/13 Status: Orderedipratropium-albuterol 0.5 mg-2.5 mg/3 mLinhalation solution See Instructions, USE ONE VIAL IN NEBULIZER 4 TIMES DAILY, # 360 unknown unit, eRx: [facility], USE ONE VIAL IN NEBULIZER 4 TIMES DAILY Special Instructions: USE ONE VIAL IN NEBULIZER 4 TIMES DAILY Start Date: 10/18/14 Status: OrderedLasix 40 mg oral tablet 1 tabs, Oral, Daily, # 30 tabs, 3 Refill(s), Pharmacy: [facility], 1 tabs Oral Daily Start Date: 10/09/14 Status: OrderedLipitor 10 mg oral tablet 1 tabs, Oral, Daily, # 30 tabs, 4 Refill(s), Pharmacy: [facility], 1 tabs Oral Daily Start Date: 06/28/14 Status: Orderedmetoprolol succinate 50 mg oral tablet, extended release 1 tabs, Oral, BID, 0 Refill(s) Start Date: 12/25/13 Status: OrderedMiraLax 17 g, Oral, Daily, 0 Refill(s) Start Date: 06/29/14 Status: OrderedMiscellaneous DME DME Item Nebulizer with administration kit Use as directed, See Instructions, # 1 Each, 0 Refill(s), Supply Special Instructions: Nebulizer with administration kit Use as directed Start Date: 06/29/14 Status: Orderedmultivitamins oral capsule 1 caps, Oral, Daily, # 30 caps, 0 Refill(s) Start Date: 12/25/13 Status: OrderedNexIUM 40 mg oral delayed release capsule 1 caps, Oral, Daily, # 30 caps, 0 Refill(s) Start Date: 12/25/13 Status: Orderedpotassium gluconate 595 mg oral tablet 1 tabs, Oral, Daily, 0 Refill(s) Start Date: 06/29/14 Status: OrderedpredniSONE 10 mg oral tablet 1 tabs, Oral, Daily, # 90 tabs, 1 Refill(s), Pharmacy: [facility], 1 tabs Oral Daily Start Date: 09/05/14 Stop Date: 09/05/15 Status: Orderedsertraline 100 mg oral tablet See Instructions, TAKE 1 TABLET DAILY, # 120 tabs, eRx: [facility], TAKE 1 TABLETDAILY Special Instructions: TAKE 1 TABLET DAILY Start Date: 08/14/14 Status: OrderedSpiriva 18 mcg inhalation capsule 1 Each, Inhalation, Daily, use two inhalations of one capsule for each dose, # 30 Each, 10 Refill(s), Pharmacy: [facility], 1 Each Inhalation Daily,Instr:use two inhalations of one capsule for each dose Special Instructions: use two inhalations of one capsule for each dose Start Date: 06/06/14 Status: OrderedViagra 100 mg oral tablet 1 [...] BREAKFAST, # 90 tabs, 1 Refill(s), eRx: [facility], TAKE 1 TABLET DAILY WITH BREAKFAST Special Instructions: TAKE 1 TABLET DAILY WITH BREAKFAST Start Date: 10/22/14 Status: Ordered Results No data available for this section Immunizations Vaccine Date Refusal Reason influenza virus vaccine, inactivated 04/19/14 influenza virus vaccine, live 04/20/13 influenza virus vaccine, live 04/15/11 pneumococcal 23-polyvalent vaccine 04/28/10 pneumococcal 23-polyvalent vaccine 06/20/03 tetanus-diphth toxoids (Td) adult/adol 01/30/08 zoster vaccine live 09/07/13 Procedures Procedure Date Related Diagnosis Body Site Colonoscopy Repeat in 5 years 2012 Esophagogastroduodenoscopy 07/15/09 Biopsy of prostate Cataract extraction hernia repair Hiatal hernia left eye surgery Surgery, Lt eye Social History Social History Type Response Smoking Status Former smoker; Type: Cigarettes1 1Quit in 1981 Assessment and Plan Extracted from: Title: Ambulatory Patient Education Author: Juan Luis Brewster MD Date: 10/24 Family Medicine Chronic Obstructive Pulmonary Disease Chronic obstructive pulmonary disease (COPD) is a common lung problem. In COPD , the flow of air from the lungs is limited. The way your lungs work will probably never return to normal, but there are thi ngs you can do to improve you lungs and make yourself feel better. HOME CARE Take all medicines as told by your doctor. Only take knwi-aof-uyiktko or prescription medicines as told by your doctor. Avoid medicines or cough syrups that dry up your airway (such as antihistamines) and do not allow you to get rid of thick spit. You do not need to avoid them if told differently by your doctor. If you smoke, stop. Smoking makes the problem worse. Avoid being around things that make your breathing worse (like smoke, chemicals, and fumes). Use oxygen therapy and therapy to help improve your lungs (pulmonary rehabilitation ) if told by your doctor. If you need home oxygen therapy, ask your doctor if you should buy a tool to measure your oxygen level (oximeter ). Avoid people who have a sickness you can catch (contagious ). Avoid going outside when it is very hot, cold, or humid. Eat healthy foods. Eat smaller meals more often. Rest before meals. Stay active, but remember to also rest. Make sure to get all the shots (vaccines ) your doctor recommends. Ask your doctor if you need a pneumonia shot. Learn and use tips on how to relax. Learn and use tips on how to control your breathing as told by your doctor. Try: Breathing in (inhaling ) through your nose for 1 second. Then, pucker your lips and breath out (exhale ) through your lips for 2 seconds. Putting one hand on your belly (abdomen ). Breathe in slowly through your nose for 1 second. Your hand on your belly should move out. Pucker your lips and breathe out slowly through your lips. You r hand on your belly should move in as you breathe out. Learn and use controlled coughing to clear thick spit from your lungs. 1. Lean your head a little forward. 2. Breathe in deeply. 3. Try to hold your breath for 3 seconds. 4. Keep your mouth slightly open while coughing 2 times. 5. Spit any thick spit out into a tissue. 6. Rest and do the steps again 1 or 2 times as needed. GET HELP IF: You cough up more thick spit than usual. There is a change in the color or thickness of the spit. It is harder to breathe than usual. Your breathing is faster than usual. GET HELP RIGHT AWAY IF: You have shortness of breath while resting. You have shortness of breath that stops you from: Being able to talk. Doing normal activities. You chest hurts for longer than 5 minutes. Your skin color is more blue than usual. Your pulse oximeter shows that you have low oxygen for longer than 5 minutes. MAKE SURE YOU: Understand these instructions. Will watch your condition. Will get help right away if you are not doing well or get worse. Document Released: 12/14/2008 Document Revised: 04/18/2014 Document Reviewed: 02/22/2014 [id number]. No follow up information was provided. Extracted from: Title: Office Visit Note Author: Juan Luis Brewster MD Date: 10/24/14 Assessment/Plan Atrial fibrillation Rate is controlled and stable. Continue current treatment without change. Ordered: Office Visit Level 4 Est 78721 Benign essential hypertension The pressures adequately controlled. No change in current treatment. Follow-up in one month. Ordered: Office Visit Level 4 Est 89431 CHF, chronic Overall stable. With his ongoing edema on going to increase his furosemide to 1-1/2 tablets or 60 mg daily. Recheck in 1 month. Ordered: Office Visit Level 4 Est 33649 COPD (chronic obstructive pulmonary disease) Stable continue current treatment plan without change. If his cough worsens or is becomes more productive or starts running a fever he'll let me know. Ordered: Office Visit Level 4 Est 45409 Pure hypercholesterolemia Stable no change in current treatment. Ordered: Office Visit Level 4 Est 58693
--- OUTSIDE RECORDS SUMMARY | 2017-10-14 18:09 | External Medical Summary | Referral Summary ---
:1935 Author Organization [facility] [place] [place] [address] Care Team Providers Name Role Phone Juan Luis Brewster Primary Care Physician Encounter VC Date(s): 11/13/14 - 11/13/14 [facility] [address] [place] [id number]- Discharge Diagnosis: Atrial fibrillation Discharge Diagnosis: Acute [...] Daily, # 90 tabs, 2 Refill(s), Pharmacy: [facility], 1 tabs Oral Daily Start Date: 03/07/15 Status: OrderedAspir 81 1 tabs, Oral, Daily, 0 Refill(s) Start Date: 12/25/13 Status: Orderedbudesonide 0.5 mg/2 mL inhalation suspension 2 mL, NEB, BID, # 120 mL, 0 Refill(s), Pharmacy: [facility], 2 mL NEB BID Start Date: 06/29/14 Status: OrderedDeep Sea Nasal 0.65% nasal spray 2 sprays, Nasal, QID, 0 Refill(s) Start Date: 06/29/14 Status: OrderedESOMEPRAZOLE MAG DR CAPS 40MG See Instructions, TAKE 1 CAPSULE DAILY, # 90 caps, 2 Refill(s), eRx: [facility], TAKE 1 CAPSULE DAILY Start Date: 10/25/14 Status: Orderedferrous sulfate 325 mg (65 mg elemental iron) oral tablet 325 mg 1 tabs, Oral, Daily, in place of the delayed release, # 90 tabs, 1 Refill (s), Pharmacy: [facility], 1 tabs Oral Daily,Instr:in place of the delayed release Start Date: 05/09/15 Status: Orderedfinasteride 5 mg oral tablet 5 mg 1 tabs, Oral, Daily, # 90 tabs, 4 Refill(s), Pharmacy: [facility], 1 tabs Oral Daily [...] TIMES DAILY, # 360 unknown unit, eRx: [facility], USE ONE VIAL IN NEBULIZER 4 TIMES DAILY Start Date: 10/18/14 Status: OrderedLasix 40 mg oral tablet 60 mg 1.5 tabs, Oral, Daily, # 135 tabs, 3 Refill(s), Pharmacy: [facility], 1.5 tabs Oral Daily Start Date: 12/27/14 Status: OrderedLipitor 10 mg oral tablet 1 tabs, Oral, Daily, # 30 tabs, 4 Refill(s), Pharmacy: [facility], 1 tabs Oral Daily Start Date: 06/28/14 Status: Orderedmetolazone 5 mg oral tablet 5 mg 1 tabs, Oral, Daily, # 30 tabs, 0 Refill(s), Pharmacy: [facility], 1 tabs Oral Daily [...] # 30 tabs, 0 Refill(s), Pharmacy: [facility], 1 tabs Oral Daily Start Date: 11/23/14 Status: Orderedpotassium gluconate 595 mg oral tablet 1 tabs, Oral, Daily, 0 Refill(s) Start Date: 06/29/14 Status: OrderedpredniSONE 5 mg oral tablet 5 mg 1 tabs, Oral, Daily, 0 Refill(s) Start Date: 03/19/15 Status: Orderedsertraline 100 mg oral tablet See Instructions, TAKE 1 TABLET DAILY, # 120 tabs, 1 Refill(s), Pharmacy: [facility], TAKE 1 TABLET DAILY Start Date: 01/17/15 Status: OrderedSpiriva 18 mcg inhalation capsule 1 Each, Inhalation, Daily, use two inhalations of one capsule for each dose, # 30 Each, 10 Refill(s), Pharmacy: [facility], 1 Each Inhalation Daily,Instr:use two [...] WITH BREAKFAST, # 90 tabs, eRx: [facility],TAKE 1 TABLET DAILY WITH BREAKFAST [...] know. Ordered: Office Visit Level 4 Est 79805 Atrial fibrillation Stable chronic rate controlled. Continue current treatment plan. Ordered: Office Visit Level 4 Est 20970 Benign essential hypertension Blood pressure is adequately controlled no change in current treatment plan recommended. Ordered: Office Visit Level 4 Est 34128 COPD (chronic obstructive pulmonary disease) Overall stable perhaps very mild exacerbation with recent acute bronchitis. Continue current treatment without change. Ordered: Office Visit Level 4 Est 99681 Orders: levofloxacin, 1 tabs, Oral, q24hr, X 10 days, # 10 tabs, 0 Refill(s) , Pharmacy: [facility], 1 tabs Oral q24hr,x10 days
--- OUTSIDE RECORDS SUMMARY | 2017-10-14 18:09 | External Medical Summary | Referral Summary ---
:1935 Author [facility] Address [address] [place] [address] [place] [address] Care Team Providers Name Role Phone Juan Luis Brewster Primary Care Physician Encounter VC Date(s): 08/29/15 - 08/29/15 [facility] [place] [phone] Discharge Diagnosis: Chronic obstructive pulmonary disease Discharge Diagnosis: Chronic atrial fibrillation Discharge Diagnosis: Mixed hyperlipidemia Discharge Diagnosis: Benign essential hypertension Discharge Disposition: 01-Home or Self Care Attending Physician: Juan Luis Brewster MD Admitting Physician: Juan Luis Brewster MD Vital Signs Most recent to oldest [Reference Range]: 1 Temperature Tympanic [36.6-38.1 degC] 36.6 degC (08/29/15 2:29 PM) Peripheral Pulse Rate [60-100 bpm] 72 bpm (08/29/15 2:29 PM) Respiratory Rate [14-20 br/min] 16 br/min (08/29/15 2:29 PM) Blood Pressure [90-140/60-90 mmHg] 144/70 mmHg *HI* (08/29/15 2:29 PM) Problem List Condition Effective Dates Status [...] At Risk for Activity Intolerance Plan of [id number] added automatically by system based on initiation of Fluid Volume Imbalance Plan of [id number] added automatically by system based on initiation of Impaired Gas Exchange Plan of Kunn9Knlaome added automatically by system based on initiation of Knowledge Deficit Plan of Gmzu7Vhfxwlm added automatically by system based on initiation of Tissue Perfusion Cerebral Plan of [id number] added automatically by system based on initiation [...] BID, # 60 tabs, 3 Refill(s), Pharmacy: [facility], 1 tabs Oral BID Start [...] # 90 tabs, 1 Refill(s ), Pharmacy: [facility], 1 tabs Oral Daily,Instr:in place of the delayed release Start Date: 05/09/15 Status: Orderedfinasteride 5 mg oral tablet 5 mg 1 tabs, Oral, Daily, # 90 tabs, 4 Refill(s), Pharmacy: [facility], 1 tabs Oral Daily Start [...] Daily, # 30 tabs, 0 Refill(s), Pharmacy: [facility], 1 tabs Oral Daily Start Date: 05/30/15 Status: OrderedHome Oxygen (DME) DME Item 2 LPM HS, See Instructions, # 1 Each, 0 Refill(s), Supply Start Date: 12/25/13 Status: OrderedLipitor 10 mg oral tablet 10 mg 1 tabs, Oral, Daily, # 30 tabs, 4 Refill(s), Pharmacy: [facility], 1 tabs Oral Daily Start Date: 07/01/15 Status: OrderedNexIUM 40 mg oral delayed release capsule 1 caps, Oral, Daily, # 30 caps, 0 Refill(s) Start Date: 12/25/13 Status: Orderedpotassium chloride 20 mEq oral tablet, extended release 20 mEq 1 tabs, Oral, Daily, # 30 tabs, 0 Refill(s), Pharmacy: [facility], 1 tabs Oral Daily Start Date: 11/23/14 Status: OrderedPradaxa 150 mg oral capsule 150 mg 1 caps, Oral, BID, # 60 caps, 3 Refill(s), Pharmacy: [facility] Start Date: 07/01/15 Status: Orderedsertraline 100 mg oral tablet See Instructions, TAKE 1 TABLET DAILY, # 120 tabs, 1 Refill(s), eRx: [facility], TAKE 1 TABLET DAILY Start [...] Transesophageal1 05/30/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 05/24/15 [place] [facility] Endoscopic (Left)3 05/24/15 Catheterization Left Heart with Coronary 05/20/15 Angiography4 Catheterization Right Heart5 05/20/15 Colonoscopy Repeat in 5 years 2012 Esophagogastroduodenoscopy 07/15/09 Biopsy of prostate Cataract extraction hernia repair Hiatal hernia left eye surgery Surgery, Lt eye 1auto-populated from documented surgical bucl2vrlf-mcjjqikir from documented surgical [id number]-brncdkoaq from documented surgical wpur3jfim-yubpietqb from documented surgical hlvl6nfvl-grfkwuwdb from documented surgical case Social History Social History Type Response Smoking Status Former smoker; Type: Cigarettes1 1Quit in 1981 Assessment and Plan Extracted from: Title: Office Visit Note Author: Juan Luis Brewster MD Date: 08/29/15 Assessment/Plan Benign essential hypertension Blood pressure is running high here today as well. Had back and metoprolol 50 mg daily. He'll monitor over the next few weeks and let me know how that's working. Keep his regular scheduled appointment for early October. If he needs to be seen before then he'll let us now. Continue with cardiac rehabilitation. Ordered: Office Visit Level 4 Est 24988 Chronic atrial fibrillation Chronic stable on anticoagulation therapy no change in current treatment. Ordered: Office Visit Level 4 Est 13506 Chronic obstructive pulmonary disease Overall this appears to be relatively stable no change in current treatment recommended. Ordered: Office Visit Level 4 Est 45500 Mixed hyperlipidemia Chronic and stable no change in current treatment. Ordered: Office Visit Level 4 Est 57603
--- OUTSIDE RECORDS SUMMARY | 2017-10-14 18:09 | External Medical Summary | Referral Summary ---
:1935 Author Organization [facility] Address [address] [place] [address] Care Team Providers Name Role Phone Ney Juan Luis Lizz Primary Care Physician Encounter Date(s): 09/18/16 - 09/18/16 [facility] [address] [place] [address] Discharge Disposition: 01-Home or Self Care Attending [...] At Risk for Activity Intolerance Plan of [id number] added automatically by system based on initiation of Fluid Volume Imbalance Plan of [id number] added automatically by system based on initiation of Impaired Gas Exchange Plan of Lcnz7Vxbufhn added automatically by system based on initiation of Knowledge Deficit Plan of [id number] added automatically by system based on initiation of Tissue Perfusion Cerebral Plan of [id number] added automatically by system based on initiation [...] Daily, # 30 tabs, 3 Refill(s), Pharmacy: [facility], 1 tabs Oral Daily Start Date: 08/17/16 Status: OrderedCeftin 500 mg oral tablet 500 mg 1 tabs, Oral, BID, X 10 days, # 20 tabs, 0 Refill(s), Pharmacy: [facility], 1 tabs Oral BID,x10 days [...] j44.9, # 20 Each, 1 Refill(s), Pharmacy: [facility] Start Date: 08/10/16 Status: Orderedesomeprazole 40 mg oral delayed release capsule See Instructions, TAKE 1 CAPSULE DAILY, # 90 caps, eRx: [facility], TAKE 1 CAPSULE DAILY Start Date: 10/15/15 Status: Orderedferrous sulfate 325 mg (65 mg elemental iron) oral tablet 325 mg 1 tabs, Oral, Daily, # 90 tabs, 3 Refill(s), Pharmacy: [facility], 1 tabs Oral Daily Start Date: 09/08/16 Status: Orderedfinasteride 5 mg oral tablet See Instructions, TAKE 1 TABLET DAILY, # 90 tabs, 1 Refill(s), eRx: [facility] Start Date: 07/09/16 Status: Orderedfurosemide 20 mg oral tablet 20 mg 1 tabs, Oral, Daily, # 30 tabs, 3 Refill(s), Pharmacy: [facility], 1 tabs Oral Daily Start Date: 09/17/16 Status: OrderedHome Oxygen (DME) DME Item 2 LPM HS, See Instructions, # 1 Each, 0 Refill(s), Supply Start Date: 12/25/13 Status: OrderedLipitor 10 mg oral tablet 10 mg 1 tabs, Oral, Daily, # 90 tabs, 3 Refill(s), Pharmacy: [facility], 1 tabs Oral Daily Start Date: 09/08/16 Status: Orderedmetoprolol tartrate 25 mg oral tablet 12.5 mg 0.5 tabs, Oral, Daily, take at noon, # 45 tabs, 3 Refill(s), Pharmacy: [facility] Start Date: 09/08/16 Status: Orderedmidodrine 5 mg oral tablet 5 mg 1 tabs, Oral, TID, # 270 tabs, 3 Refill(s), Pharmacy: [facility], 1 tabs Oral TID Start Date: 09/08/16 Status: OrderedMilk of Magnesia 30 mL, Oral, Bedtime (once a day), as needed for constipation, 0 Refill(s) Start Date: 08/04/16 Status: OrderedMucinex 600 mg oral tablet, extended release 600 mg, Oral, q12hr, # 180 tabs, 3 Refill(s), Pharmacy: [facility], 600 mg Oral q12hr Start Date: 09/08/16 Stop Date: 09/09/17 Status: OrderedpredniSONE 10 mg oral tablet See Instructions, Take 5 tabs for 2 days, then 4 for 2 days, then 3 for 2 days then 2 for 2 days, then 1 for 2 days, # 30 Each, 0 Refill(s), Pharmacy: [facility], Take 5 tabs for 2 days, then [...] # 90 Each, 3 Refill(s), [facility]acy: [facility] , 1 caps Inhalation Daily,Instr:use [...] Transesophageal1 05/30/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 05/24/15 [place] [facility]in Endoscopic (Left)3 05/24/15 Catheterization Left Heart with Coronary 05/20/15 Angiography4 Catheterization Right Heart5 05/20/15 Colonoscopy 04/20/13 Colonoscopy Repeat in 5 years 2012 Esophagogastroduodenoscopy 07/15/09 Biopsy of prostate Cataract extraction hernia repair Hiatal hernia left eye surgery Surgery, Lt eye 1auto-populated from documented surgical ggzu1vtum-rmvaurqpc from documented surgical dbkc1lkbv-zatgfspwu from documented surgical fhtd9elhc-cxaxtfziw from documented surgical ggyn8dkog-gfznvevdb from documented surgical case Social History Social History Type Response Smoking Status Former smoker; Type: Cigarettes1 1Quit in 1981 Assessment and Plan No data available for this section
--- OUTSIDE RECORDS SUMMARY | 2017-10-14 18:09 | External Medical Summary | Referral Summary ---
:1935 Author Organization [facility] [place] [address] Care Team Providers Name Role Phone Juan Luis Brewster Primary Care Physician Encounter VC Date(s): 09/26/15 - 09/26/15 [facility] [place] [phone] Discharge Diagnosis: Muscle soreness Discharge Diagnosis: Hypertension Discharge Diagnosis: Chronic atrial fibrillation Discharge Diagnosis: Arthritis Discharge Diagnosis: Chronic obstructive pulmonary disease Discharge Disposition: 01-Home or Self Care Attending Physician: Juan Luis Brewster MD Admitting Physician: Juan Luis Brewster MD Vital Signs Most recent to oldest [Reference Range]: 1 Temperature Tympanic [36.6-38.1 degC] 36.0 degC *LOW* (09/26/15 8:43 AM) Peripheral Pulse Rate [60-100 bpm] 56 bpm *LOW* (09/26/15 8:43 AM) Respiratory Rate [14-20 br/min] 14 br/min (09/26/15 8:43 AM) Blood Pressure [90-140/60-90 mmHg] 160/74 mmHg *HI* (09/26/15 8:43 AM) Problem List Condition Effective Dates Status [...] At Risk for Activity Intolerance Plan of Loih2Vhhatai added automatically by system based on initiation of Fluid Volume Imbalance Plan of Rfem4Pqhnglp added automatically by system based on initiation of Impaired Gas Exchange Plan of Ydeg9Oxdwysb added automatically by system based on initiation of Knowledge Deficit Plan of Smpr7Temfmir added automatically by system based on initiation of Tissue Perfusion Cerebral Plan of Meqj0Ksotmro added automatically by system based on initiation [...] BID, # 60 tabs, 3 Refill(s), Pharmacy: [facility], 1 tabs Oral BID Start [...] # 90 tabs, 1 Refill(s ), Pharmacy: [facility], 1 tabs Oral Daily,Instr:in place of the delayed release Start Date: 05/09/15 Status: Orderedfinasteride 5 mg oral tablet 5 mg 1 tabs, Oral, Daily, # 90 tabs, 4 Refill(s), Pharmacy: [facility], 1 tabs Oral Daily Start [...] Daily, # 30 tabs, 0 Refill(s), Pharmacy: [facility], 1 tabs Oral Daily Start Date: 05/30/15 Status: OrderedHome Oxygen (DME) DME Item 2 LPM HS, See Instructions, # 1 Each, 0 Refill(s), Supply Start Date: 12/25/13 Status: OrderedLipitor 10 mg oral tablet 10 mg 1 tabs, Oral, Daily, # 30 tabs, 4 Refill(s), [facility]: [facility], 1 tabs Oral Daily Start Date: 07/01/15 Status: Orderedlosartan 50 mg oral tablet 50 mg 1 tabs, Oral, Daily, # 30 tabs, 6 Refill(s), Pharmacy: [facility], 1 tabs Oral Daily Start Date: 09/26/15 Status: Orderedmetoprolol tartrate 25 mg oral tablet 25 mg 1 tabs, Oral, BID, # 60 tabs, 1 Refill(s), [facility] Start Date: 08/30/15 Status: OrderedNexIUM 40 mg oral delayed release capsule 1 caps, Oral, Daily, # 30 caps, 0 Refill(s) Start Date: 12/25/13 Status: Orderedpotassium chloride 20 mEq oral tablet, extended release 20 mEq 1 tabs, Oral, Daily, # 30 tabs, 3 Refill(s), Pharmacy: [facility], 1 tabs Oral Daily Start Date: 09/03/15 Status: OrderedPradaxa 150 mg oral capsule 150 mg 1 caps, Oral, BID, # 60 caps, 3 Refill(s), Pharmacy: [id number] Start Date: 07/01/15 Status: Orderedsertraline 100 mg [...] Most recent to oldest [Reference Range]: 1 Sed Rate [0-15] 23 *HI* (09/26/15 9:06 AM) Chemistry Most recent to oldest [Reference Range]: 1 Sodium Lvl [135-144 mEq/L] 139 mEq/L (09/26/15 9:06 AM) Potassium Lvl [3.5-5.2 mEq/L] 4.2 mEq/L (09/26/15 9:06 AM) Chloride [99-111 mEq/L] 104 mEq/L (09/26/15 9:06 AM) CO2 [23-31 mEq/L] 29 mEq/L (09/26/15 9:06 AM) AGAP [3-20] 6 (09/26/15 9:06 AM) BUN [8-26 mg/dL] 17 mg/dL (09/26/15 9:06 AM) Glucose Lvl [70-99 mg/dL] 93 mg/dL (09/26/15 9:06 AM) Creatinine Lvl [0.72-1.25 mg/dL] 1.06 mg/dL (09/26/15 9:06 AM) eGFR [>60 mL/min] >60 mL/min 1 (09/26/15 9:06 AM) Calcium Lvl [8.9-10.5 mg/dL] 9.7 mg/dL (09/26/15 9:06 AM) 1Result Comment: Multiply eGFR results by [...] Transesophageal1 05/30/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 05/24/15 [place] Vein Endoscopic (Left)3 05/24/15 Catheterization Left Heart with Coronary 05/20/15 Angiography4 Catheterization Right Heart5 05/20/15 Colonoscopy Repeat in 5 years 2012 Esophagogastroduodenoscopy 07/15/09 Biopsy of prostate Cataract extraction hernia repair Hiatal hernia left eye surgery Surgery, Lt eye 1auto-populated from documented surgical cuwj5usqo-fbyipxhxx from documented surgical zyoe3rkzv-qgmgqhefh from documented surgical uutl8qklc-rgtwdtdzd from documented surgical odvp3hzsg-kefcbackd from documented surgical case Social History Social History Type Response Smoking Status Former smoker; Type: Cigarettes1 1Quit in 1981 Assessment and Plan Extracted from: Title: Office Visit Note Author: Juan Luis Brewster MD Date: 09/26/15 Assessment/Plan Arthritis Chronic may well be contributing to his muscular pain or discomfort. We'll check a sedimentation rate today and see what that shows. Chronic atrial fibrillation Chronic stable no change in current treatment recommended. Continueanticoagulation therapy Ordered: Office Visit Level 4 Est 83188 Chronic obstructive pulmonary disease Chronic appears relatively stable no change in current treatment. Ordered: Office Visit Level 4 Est 02222 Hypertension Blood pressure is high here and at high at home. I've recommended adding losartan 50 mg daily. Recheck in 1 month. Continue other medications without change Ordered: Basic Metabolic Panel Office Visit Level 4 Est 24534 Muscle soreness I've recommended a sedimentation rate. He has a history of PMR in the past we will seeif that may berecurring. Ordered: Office Visit Level 4 Est 84912 Sedimentation Rate Orders: losartan, 50 mg 1 tabs, Oral, Daily, # 30 tabs, 6 Refill(s), Pharmacy : [facility], 1 tabs Oral Daily
--- OUTSIDE RECORDS SUMMARY | 2017-10-14 18:09 | External Medical Summary | Referral Summary ---
:1935 Author Organization [facility] [place] [address] Care Team Providers Name Role Phone Juan Luis Brewster Primary Care Physician Encounter VC Date(s): 01/31/16 - 01/31/16 [facility] [place] [phone] Discharge Diagnosis: Mixed hyperlipidemia Discharge Diagnosis: Chronic atrial fibrillation Discharge Diagnosis: Atrial fibrillation Discharge Diagnosis: Chronic obstructive pulmonary disease Discharge Diagnosis: CAD (coronary artery disease) Discharge Diagnosis: Iron deficiency anemia Discharge Diagnosis: Benign essential hypertension Discharge Disposition: 01-Home or Self Care Attending Physician: Juan Luis Brewster MD Admitting Physician: Juan Luis Brewster MD Vital Signs Most recent to oldest [Reference Range]: 1 Temperature Tympanic [36.6-38.1 degC] 36 degC *LOW* (01/31/16 9:01 AM) Peripheral Pulse Rate [60-100 bpm] 67 bpm (01/31/16 9:01 AM) Blood Pressure [90-140/60-90 mmHg] 136/62 mmHg (01/31/16 9:01 AM) SpO2 91 % (01/31/16 9:01 AM) Problem List Condition Effective Dates Status [...] At Risk for Activity Intolerance Plan of [id number] added automatically by system based on initiation of Fluid Volume Imbalance Plan of [id number] added automatically by system based on initiation of Impaired Gas Exchange Plan of [id number] added automatically by system based on initiation of Knowledge Deficit Plan of [id number] added automatically by system based on initiation of Tissue Perfusion Cerebral Plan of Evav6Hiedwaf added automatically by system based on initiation [...] BID, # 60 tabs, 3 Refill(s), Pharmacy: [facility], 1 tabs Oral BID Start [...] DAILY, # 90 tabs, 1 Refill(s), eRx: [facility], TAKE ONE TABLET BY MOUTH ONCE DAILY Start Date: 10/16/15 Status: Orderedfinasteride 5 mg oral tablet 5 mg 1 tabs, Oral, Daily, # 90 tabs, 4 Refill(s), Pharmacy: [facility], 1 tabs Oral Daily Start [...] DAILY, # 30 tabs, 2 Refill(s), eRx: [place] [id number], TAKE ONE TABLET BY MOUTH ONCE DAILY Start Date: 11/18/15 Status: OrderedHome Oxygen (DME) DME Item 2 LPM HS, See Instructions, # 1 Each, 0 Refill(s), Supply Start Date: 12/25/13 Status: OrderedKlor-Con M20 oral tablet, extended release See Instructions, TAKE ONE TABLET BY MOUTH ONCE DAILY, # 30 tabs, 2 Refill(s), eRx: [facility], TAKE ONE TABLET BY MOUTH ONCE DAILY Start Date: 01/28/16 Status: OrderedLipitor 10 mg oral tablet 10 mg 1 tabs, Oral, Daily, # 90 tabs, 4 Refill(s), Pharmacy: [place] [id number], 1 tabs Oral Daily Start Date: 01/27/16 Status: Orderedlosartan 50 mg oral tablet 50 mg 1 tabs, Oral, Daily, # 30 tabs, 6 Refill(s), Pharmacy: [facility], 1 tabs Oral Daily Start Date: 09/26/15 Status: Orderedmetoprolol tartrate 25 mg oral tablet 25 mg 1 tabs, Oral, BID, # 60 tabs, 1 Refill(s), Pharmacy: [place] [id number] Start Date: 08/30/15 Status: OrderedPradaxa 150 mg oral capsule 150 mg 1 caps, Oral, BID, # 60 caps, 3 Refill(s), Pharmacy: [facility] Start Date: 07/01/15 Status: Orderedsertraline 100 mg [...] oldest [Reference Range]: 1 WBC [4.8-10.8 10*3/uL] 7.1 10*3/uL (01/31/16 9:37 AM) RBC [4.60-6.20] 3.22 *LOW* (01/31/16 9:37 AM) Hgb [14.0-18.0 gm/dL] 11.5 gm/dL *LOW* (01/31/16 9:37 AM) Hct [42.0-52.0 %] 32.4 % *LOW* (01/31/16 9:37 AM) MCV [82.0-99.0 fL] 100.6 fL *HI* (01/31/16 9:37 AM) MCH [27.0-32.0 pg] 35.7 pg *HI* (01/31/16 9:37 AM) MCHC [32.0-36.0 gm/dL] 35.5 gm/dL (01/31/16 9:37 AM) RDW [11.5-14.5 %] 13.2 % (01/31/16 9:37 AM) Platelet [150-400 10*3/uL] 207 10*3/uL (01/31/16 9:37 AM) MPV [8.8-14.8 fL] 9.6 fL (01/31/16 9:37 AM) Immature Granulocytes [0.0-1.0 %] 0.6 % (01/31/16 9:37 AM) Neutrophils [51-75 %] 77 % *HI* (01/31/16 9:37 AM) Lymphocytes [20-46 %] 12 % *LOW* (01/31/16 9:37 AM) Monocytes [4-11 %] 9 % (01/31/16 9:37 AM) Eosinophils [0-4 %] 2 % (01/31/16 9:37 AM) Basophils [0-2 %] 0 % (01/31/16 9:37 AM) Neutro Absolute [1.90-7.00 10*3] 5.50 10*3 (01/31/16 9:37 AM) Lymph Absolute [0.80-3.30 10*3] 0.83 10*3 (01/31/16 9:37 AM) [place] Absolute [0.30-1.00 10*3] 0.62 10*3 (01/31/16 9:37 AM) Eos Absolute [0.00-0.50 10*3] 0.11 10*3 (01/31/16 9:37 AM) Baso Absolute [0.00-0.20 10*3] 0.01 10*3 (01/31/16 9:37 AM) Chemistry Most recent to oldest [Reference Range]: 1 Sodium Lvl [135-144 mEq/L] 139 mEq/L (01/31/16 9:37 AM) Potassium Lvl [3.5-5.2 mEq/L] 3.7 mEq/L (01/31/16 9:37 AM) Chloride [99-111 mEq/L] 103 mEq/L (01/31/16 9:37 AM) CO2 [23-31 mEq/L] 26 mEq/L (01/31/16 9:37 AM) AGAP [3-20] 10 (01/31/16 9:37 AM) BUN [8-26 mg/dL] 20 mg/dL (01/31/16 9:37 AM) Glucose Lvl [70-99 mg/dL] 101 mg/dL *HI* (01/31/16 9:37 AM) Creatinine Lvl [0.72-1.25 mg/dL] 1.38 mg/dL *HI* (01/31/16 9:37 AM) eGFR [>60 mL/min] 49 mL/min 1 *ABN* (01/31/16 9:37 AM) Calcium Lvl [8.9-10.5 mg/dL] 9.4 mg/dL (01/31/16 9:37 AM) Albumin Lvl [3.4-4.8 gm/dL] 3.8 gm/dL (01/31/16 9:37 AM) Total Protein [6.0-7.6 gm/dL] 6.4 gm/dL 2 (01/31/16 9:37 AM) Globulin [1.8-4.0 gm/dL] 2.6 gm/dL (01/31/16 9:37 AM) ALT [0-55 U/L] 66 U/L *HI* (01/31/16 9:37 AM) AST [5-34 U/L] 76 U/L *HI* (01/31/16 9:37 AM) Alk Phos [40-150 U/L] 91 U/L (01/31/16 9:37 AM) Bili Total [0.2-1.2 mg/dL] 0.7 mg/dL (01/31/16 9:37 AM) Chol [0-199 mg/dL] 197 mg/dL (01/31/16 9:37 AM) Trig [0-149 mg/dL] 90 mg/dL (01/31/16 9:37 AM) HDL [40-84 mg/dL] 77 mg/dL (01/31/16 9:37 AM) LDL [0-130 mg/dL] 102 mg/dL (01/31/16 9:37 AM) VLDL Cholesterol [0-28 mg/dL] 18 mg/dL (01/31/16 9:37 AM) Cardiac Risk [0.0-5.7] 2.6 (01/31/16 9:37 AM) 1Result Comment: Multiply eGFR results by 1.21 for race.2Result Comment: Please note new reference range for adult Protein. Immunizations Vaccine Date Refusal Reason influenza virus [...] Transesophageal1 05/30/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 05/24/15 [place] [facility] Endoscopic (Left)3 05/24/15 Catheterization Left Heart with Coronary 05/20/15 Angiography4 Catheterization Right Heart5 05/20/15 Colonoscopy Repeat in 5 years 2012 Esophagogastroduodenoscopy 07/15/09 Biopsy of prostate Cataract extraction hernia repair Hiatal hernia left eye surgery Surgery, Lt eye 1auto-populated from documented surgical [id number] from documented surgical [id number]-[id number] from documented surgical [id number]-[id number] from documented surgical [id number]-[id number] from documented surgical case Social History Social History Type Response Smoking Status Former smoker; Type: Cigarettes1 1Quit in 1981 Assessment and Plan Extracted from: Title: Office Visit Note Author: Juan Luis Brewster MD Date: 01/31/16 Assessment/Plan 1.Benign essential hypertension, Essential (primary) hypertension Blood pressure shows good control. Continue losartan at its current dosage. Fasting laboratory studies ordered today. Follow-up in 3 months. Ordered: Comprehensive Metabolic Panel Lipid Panel Office Visit Level 4 Est 78136 2.Chronic obstructive pulmonary disease, Chronic obstructive pulmonary disease, unspecified Chronic and relatively stable no change in current treatment at this time. Follow-up in 3 months. Ordered: CBC w/ Differential Comprehensive Metabolic Panel Office Visit Level 4 Est 15265 3.Mixed hyperlipidemia, Mixed hyperlipidemia Laboratory studies fasting are ordered today will see what those show and make further recommendations if needed from there. Ordered: Comprehensive Metabolic Panel Lipid Panel Office Visit Level 4 Est 88392 4.Chronic atrial fibrillation, Atrial fibrillation, Chronic atrial fibrillation Chronic stable. Rate controlled. He is on anticoagulation therapy no change in that at this time. Ordered: Comprehensive Metabolic Panel Lipid Panel Office Visit Level 4 Est 54748 6.CAD (coronary artery disease), Atherosclerotic heart disease of [place] coronary artery without angina pectoris No signs of angina no change in current treatment recommended. Recheck in 3 months. Ordered: Comprehensive Metabolic Panel Lipid Panel 7.Iron deficiency anemia, Iron deficiency anemia, unspecified CBC is ordered today will see what that shows.Perhaps we can Discontinue iron therapy Ordered: CBC w/ Differential Extracted from: Title: Ambulatory Patient Education Author: Juan Luis Brewster MD Date: 01/30 Emergency Medicine Chronic Obstructive Pulmonary Disease Chronic obstructive [...] breath, especially with physical activity. Deep, persistent (chronic) cough with a large amount of thick mucus. Wheezing. Rapid breaths (tachypnea). Madrigal or bluish discoloration (cyanosis) of the skin, especially in your fingers, toes, or lips. Fatigue. Weight loss. Frequent infections or episodes when breathing symptoms become much worse (exacerbations). Chest tightness. DIAGNOSIS Your health care provider will take a medical history and perform a physical examination to diagnose COPD. Additional tests for COPD may include: Lung (pulmonary) function tests. Chest X-ray. CT scan. Blood tests. TREATMENT Treatment for COPD may include: Inhaler and nebulizer medicines. These help manage the symptoms of COPD and make your breathing more comfortable. Supplemental oxygen. Supplemental oxygen is only helpful if you have a low oxygen level in your blood. Exercise and physical activity. These are beneficial for nearly all people with COPD. Lung surgery or transplant. Nutrition therapy to gain weight, if you are underweight. Pulmonary rehabilitation. This may involve working with a team of health care providers and specialists, such as respiratory, occupational, and physical therapists. HOME CARE INSTRUCTIONS Take all medicines (inhaled or pills) as directed by your health care provider. Avoid kbay-tjy-lxdxwfe medicines or cough syrups that dry up your airway (such as antihistamines) and slow down the elimination of secretions unless instructed otherwise by your health care provider. If you are a smoker, the most important thing that you can do is stop smoking. Continuing to smoke will cause further lung damage and breathing trouble. Ask your health care provider for help wit h quitting smoking. He or she can direct you to community resources or hospitals that provide support. Avoid exposure to irritants such as smoke, chemicals, and fumes that aggravate your breathing. Use oxygen therapy and pulmonary rehabilitation if directed by your health care provider. If you require home oxygen therapy, ask your health care provider whether you should purchase a pulse [...] all the vaccines your health care provider recommends, especially the pneumococcal and influenz a vaccines. Ask your health care provider whether you need a pneumonia vaccine. Learn and use relaxation techniques to manage stress. Learn and use controlled breathing techniques as directed by your health care provider. Controlled breathing techniques include: Pursed lip breathing. Start by breathing in (inhaling) through your nose for 1 second. Then, purse your lips as if you were going to whistle and breathe out (exhale) through the pursed lips for 2 seconds. Diaphragmatic breathing. Start by putting one hand on your abdomen just above your waist. Inhale slowly through your nose. The hand on your abdomen should move out. Then purse your lips and exhal e slowly. You should be able to feel the hand on your abdomen moving in as you exhale. Learn and use controlled coughing to clear mucus from your lungs. Controlled coughing is a series of short, progressive coughs. The steps of controlled coughing are: 1.Lean your head slightly forward. 2.Breathe in deeply using diaphragmatic breathing. 3.Try to hold your breath for 3 seconds. 4.Keep your mouth slightly open while coughing twice. 5.Spit any mucus out into a tissue. 6.Rest and repeat the steps once or twice [...] are not doing well or get worse. This information is not intended to replace advice given to you by your health care provider. Make sure you discuss any questions you have with your health care provider. Document Released: 04/07/2006 Document Revised: 07/19/2015 Document Reviewed: 02/22/2014 [facility] [place] Patient Information 2016 [facility], [facility]. No follow up information was provided.
--- OUTSIDE RECORDS SUMMARY | 2017-10-14 18:09 | External Medical Summary | Referral Summary ---
:1935 Author [facility] [address] [place] [address] [place] [address] Care Team Providers Name Role Phone Juan Luis Brewster Primary Care Physician Encounter VC Date(s): 11/23/14 - 11/23/14 [facility] [place] [phone] [place] Discharge Diagnosis: Bronchitis, chronic Discharge Diagnosis: Benign essential hypertension Discharge Diagnosis: Chronic CHF Discharge Diagnosis: Atrial fibrillation Discharge Diagnosis: COPD (chronic obstructive pulmonary disease) Discharge Disposition: 01-Home or Self Care Attending Physician: Juna Luis Brewster MD Admitting Physician: Juan Luis [...] Daily, # 90 tabs, 2 Refill(s), Pharmacy: [facility], 1 tabs Oral Daily Start Date: 03/07/15 Status: OrderedAspir 81 1 tabs, Oral, Daily, 0 Refill(s) Start Date: 12/25/13 Status: Orderedbudesonide 0.5 mg/2 mL inhalation suspension 2 mL, NEB, BID, # 120 mL, 0 Refill(s), Pharmacy: [facility], 2 mL NEB BID Start Date: 06/29/14 Status: OrderedDeep Sea Nasal 0.65% nasal spray 2 sprays, Nasal, QID, 0 Refill(s) Start Date: 06/29/14 Status: OrderedESOMEPRAZOLE MAG DR CAPS 40MG See Instructions, TAKE 1 CAPSULE DAILY, # 90 caps, 2 Refill(s), eRx: [facility], TAKE 1 CAPSULE DAILY Start Date: 10/25/14 Status: Orderedferrous sulfate 325 mg (65 mg elemental iron) oral tablet 325 mg 1 tabs, Oral, Daily, in place of the delayed release, # 90 tabs, 1 Refill (s), Pharmacy: [facility], 1 tabs Oral Daily,Instr:in place of the delayed release Start Date: 05/09/15 Status: Orderedfinasteride 5 mg oral tablet 5 mg 1 tabs, Oral, Daily, # 90 tabs, 4 Refill(s), Pharmacy: [facility], 1 tabs Oral Daily Start [...] TIMES DAILY, # 360 unknown unit, eRx: [facility], USE ONE VIAL IN NEBULIZER 4 TIMES DAILY Start Date: 10/18/14 Status: OrderedLasix 40 mg oral tablet 60 mg 1.5 tabs, Oral, Daily, # 135 tabs, 3 Refill(s), Pharmacy: [facility], 1.5 tabs Oral Daily Start Date: 12/27/14 Status: OrderedLipitor 10 mg oral tablet 1 tabs, Oral, Daily, # 30 tabs, 4 Refill(s), Pharmacy: [facility], 1 tabs Oral Daily Start Date: 06/28/14 Status: Orderedmetolazone 5 mg oral tablet 5 mg 1 tabs, Oral, Daily, # 30 tabs, 0 Refill(s), Pharmacy: [facility], 1 tabs Oral Daily [...] Daily, # 30 tabs, 0 Refill(s), Pharmacy: [facility], 1 tabs Oral Daily Start Date: 11/23/14 Status: Orderedpotassium gluconate 595 mg oral tablet 1 tabs, Oral, Daily, 0 Refill(s) Start Date: 06/29/14 Status: OrderedpredniSONE 5 mg oral tablet 5 mg 1 tabs, Oral, Daily, 0 Refill(s) Start Date: 03/19/15 Status: Orderedsertraline 100 mg oral tablet See Instructions, TAKE 1 TABLET DAILY, # 120 tabs, 1 Refill(s), Pharmacy: [facility], TAKE 1 TABLET DAILY Start Date: 01/17/15 Status: OrderedSpiriva 18 mcg inhalation capsule 1 Each, Inhalation, Daily, use two inhalations of one capsule for each dose, # 30 Each, 10 Refill(s), Pharmacy: [facility], 1 Each Inhalation Daily,Instr:use two [...] WITH BREAKFAST, # 90 tabs, eRx: [facility],TAKE 1 TABLET DAILY WITH BREAKFAST [...] Body Site Colonoscopy Repeat in 5 years 2013 Esophagogastroduodenoscopy [...] Your medicines are needed every day. Take iejh-ebk-jdhlglm medicine only as directed by your caregiver [...] 06/28/2006 Document Revised: 10/23/2013 Document Reviewed: 07/20/2013 [employer] Patient Information 2014 [facility]. No follow up information was provided. Extracted from: Title: Office Visit Note Author: Juan Luis Brewster MD Date: 11/23/14 Assessment/Plan Atrial fibrillation History appears to be stable. Continue anticoagulation therapy. Ordered: Office Visit Level 4 Est 92011 Benign essential hypertension Blood pressure is stable no change in treatment. Ordered: Office Visit Level 4 Est 04879 Bronchitis, chronic I've asked him to increase his breathing treatments with his ipratropium to 3 times a day and add Mucinex 1 tablet twice daily. Ordered: Office Visit Level 4 Est 51544 Chronic CHF He appears to be having increased problems with CHF. I'm going to begin metolazone 5 mg daily and potassium chloride 20 mEq daily recheck in 1 week. I've asked him to see Dr. Acuña in consultation. Ordered: Office Visit Level 4 Est 75616 COPD (chronic obstructive pulmonary disease) As mentioned above under chronic bronchitis. Ordered: Office Visit Level 4 Est 35690 Orders: metolazone, 5 mg 1 tabs, Oral, Daily, # 30 tabs, 0 Refill(s), Pharmacy: [facility], 1 tabs Oral Daily potassium chloride, 20 mEq 1 tabs, Oral, Daily, # 30 tabs, 0 Refill(s), Pharmacy: [facility], 1 tabs Oral Daily
--- OUTSIDE RECORDS SUMMARY | 2017-10-14 18:09 | External Medical Summary | Referral Summary ---
:1935 Author Organization [facility] [place] [address] Care Team Providers Name Role Phone Juan Luis Brewster Primary Care Physician Encounter VC Date(s): 06/13/15 - 06/13/15 [facility] [place] [phone] [place] Discharge Diagnosis: Chronic atrial fibrillation Discharge Diagnosis: Benign essential hypertension Discharge Diagnosis: Mixed hyperlipidemia Discharge Diagnosis: CAD (coronary artery disease) Discharge Diagnosis: Chronic obstructive pulmonary disease Discharge Disposition: 01-Home or Self Care Attending Physician: Juan Luis Brewster MD Admitting Physician: Juan Luis Brewster MD Vital Signs Most recent to oldest [Reference Range]: 1 Temperature Tympanic [36.6-38.1 degC] 36.7 degC (06/13/15 3:00 PM) Peripheral Pulse Rate [60-100 bpm] 68 bpm (06/13/15 3:00 PM) Blood Pressure [90-140/60-90 mmHg] 104/60 mmHg (06/13/15 3:00 PM) SpO2 99 % (06/13/15 3:00 PM) Problem List Condition Effective Dates Status [...] At Risk for Activity Intolerance Plan of [id number] added automatically by system based on initiation of Fluid Volume Imbalance Plan of Rypn1Lpbgqcu added automatically by system based on initiation of Impaired Gas Exchange Plan of Ofqc2Uwefker added automatically by system based on initiation of Knowledge Deficit Plan of Ngnf3Wqsbbam added automatically by system based on initiation of Tissue Perfusion Cerebral Plan of Ddzr5Otwfisz added automatically by system based on initiation [...] # 90 tabs, 1 Refill(s ), Pharmacy: [facility], 1 tabs Oral Daily,Instr:in place of the delayed release Start Date: 05/09/15 Status: Orderedfinasteride 5 mg oral tablet 5 mg 1 tabs, Oral, Daily, # 90 tabs, 4 Refill(s), Pharmacy: [facility], 1 tabs Oral Daily Start Date: 04/11/15 Status: Orderedfolic acid 1 mg oral tablet 1 mg 1 tabs, Oral, Daily, # 90 tabs, 0 Refill(s) Start Date: 06/13/15 Status: Orderedfurosemide 40 mg oral tablet 40 mg 1 tabs, Oral, Daily, # 30 tabs, 0 Refill(s), Pharmacy: [facility], 1 tabs Oral Daily Start Date: 05/30/15 Status: OrderedHome Oxygen (DME) DME Item 2 LPM HS, See Instructions, # 1 Each, 0 Refill(s), Supply Start Date: 12/25/13 Status: OrderedLipitor 10 mg oral tablet 1 tabs, Oral, Daily, # 30 tabs, 4 Refill(s), [facility]: [facility], 1 tabs Oral Daily Start [...] Daily, # 30 tabs, 0 Refill(s), Pharmacy: [facility], 1 tabs Oral Daily Start Date: 11/23/14 Status: Orderedpotassium gluconate 595 mg oral tablet 1 tabs, Oral, Daily, 0 Refill(s) Start Date: 06/29/14 Status: OrderedPradaxa 150 mg oral capsule 150 mg 1 caps, Oral, BID, 0 Refill(s) Start Date: 05/30/15 Status: Orderedsertraline 100 mg oral tablet See Instructions, TAKE 1 TABLET DAILY, # 120 tabs, 1 Refill(s), Pharmacy: [facility], TAKE 1 TABLET DAILY Start [...] Transesophageal1 05/30/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 05/24/15 [place] [facility] Endoscopic (Left)3 05/24/15 Catheterization Left Heart with Coronary 05/20/15 Angiography4 Catheterization Right Heart5 05/20/15 Colonoscopy Repeat in 5 years 2012 Esophagogastroduodenoscopy 07/15/09 Biopsy of prostate Cataract extraction hernia repair Hiatal hernia left eye surgery Surgery, Lt eye 1auto-populated from documented surgical [id number]-aulogbdre from documented surgical [id number]-wneshblwi from documented surgical ppkl2ayif-bmfjkulbr from documented surgical [id number]-stsnnjlxj from documented surgical case Social History Social History Type Response Smoking Status Former smoker; Type: Cigarettes1 1Quit in 1981 Assessment and Plan Extracted from: Title: Office Visit Note Author: Juan Luis Brewster MD Date: 06/13/15 Assessment/Plan Benign essential hypertension No changes in current treatment recommended. Ordered: Office Visit Level 4 Est 05602 CAD (coronary artery disease) He seems to be recovering fairly well from his surgery. We'll see if we can get him plugged into cardiac rehabilitation. I encouraged follow-up with Dr. Acuña and will call schedule for him. Ordered: Office Visit Level 4 Est 05467 Chronic atrial fibrillation He appears to be in normal sinus rhythm today continue to monitor and follow. Ordered: Office Visit Level 4 Est 97349 Chronic obstructive pulmonary disease Chronic relatively stable no change in current treatment recommended. Ordered: Office Visit Level 4 Est 58139 Mixed hyperlipidemia Chronic stable lab work with next appointment.
--- OUTSIDE RECORDS SUMMARY | 2017-10-14 18:10 | External Medical Summary | Referral Summary ---
:1935 Author Organization [facility] [address] [place] [address] Care Team Providers Name Role Phone Juan Luis Brewster Primary Care Physician Encounter VC Date(s): 03/19/15 - 03/19/15 [facility] [place] [address] Discharge Diagnosis: Pure hypercholesterolemia Discharge Diagnosis: Atrial fibrillation Discharge Diagnosis: COPD (chronic obstructive pulmonary disease) Discharge Diagnosis: Benign essential hypertension Discharge Diagnosis: Hypertension Discharge Disposition: 01-Home or Self Care Attending Physician: Juan Luis Brewster MD Admitting Physician: Juan Luis Brewster MD Vital Signs Most recent to oldest [Reference Range]: 1 Temperature Tympanic [36.6-38.1 degC] 36.5 degC *LOW* (03/19/15 8:16 AM) Peripheral Pulse Rate [60-100 bpm] 80 bpm (03/19/15 8:16 AM) Respiratory Rate [14-20 br/min] 16 br/min (03/19/15 8:16 AM) Blood Pressure [90-140/60-90 mmHg] 152/80 mmHg *HI* (03/19/15 8:16 AM) Problem List Condition Effective Dates Status [...] At Risk for Activity Intolerance Plan of [id number] added automatically by system based on initiation of Fluid Volume Imbalance Plan of Aazi1Aelmfmb added automatically by system based on initiation of Impaired Gas Exchange Plan of Tqdk2Ngpauhs added automatically by system based on initiation of Knowledge Deficit Plan of Enhr5Utjreio added automatically by system based on initiation of Tissue Perfusion Cerebral Plan of Gcld0Pzhcaqv added automatically by system based on initiation [...] BID, # 60 tabs, 3 Refill(s), Pharmacy: [facility], 1 tabs Oral BID Start [...] # 90 tabs, 1 Refill(s ), Pharmacy: [facility], 1 tabs Oral Daily,Instr:in place of the delayed release Start Date: 05/09/15 Status: Orderedfinasteride 5 mg oral tablet 5 mg 1 tabs, Oral, Daily, # 90 tabs, 4 Refill(s), Pharmacy: [facility], 1 tabs Oral Daily Start [...] Daily, # 30 tabs, 0 Refill(s), Pharmacy: [facility], 1 tabs Oral Daily Start Date: 05/30/15 Status: OrderedHome Oxygen (DME) DME Item 2 LPM HS, See Instructions, # 1 Each, 0 Refill(s), Supply Start Date: 12/25/13 Status: OrderedLipitor 10 mg oral tablet 10 mg 1 tabs, Oral, Daily, # 30 tabs, 4 Refill(s), [facility], 1 tabs Oral Daily Start Date: 07/01/15 Status: Orderedlosartan 50 mg oral tablet 50 mg 1 tabs, Oral, Daily, # 30 tabs, 6 Refill(s), Pharmacy: [facility], 1 tabs Oral Daily Start Date: 09/26/15 Status: Orderedmetoprolol tartrate 25 mg oral tablet 25 mg 1 tabs, Oral, BID, # 60 tabs, 1 Refill(s), [facility] Start Date: 08/30/15 Status: OrderedNexIUM 40 mg oral delayed release capsule 1 caps, Oral, Daily, # 30 caps, 0 Refill(s) Start Date: 12/25/13 Status: Orderedpotassium chloride 20 mEq oral tablet, extended release 20 mEq 1 tabs, Oral, Daily, # 30 tabs, 3 Refill(s), Pharmacy: [facility], 1 tabs Oral Daily Start Date: 09/03/15 Status: OrderedPradaxa 150 mg oral capsule 150 mg 1 caps, Oral, BID, # 60 caps, 3 Refill(s), Pharmacy: [facility] Start Date: 07/01/15 Status: Orderedsertraline 100 mg [...] Transesophageal1 05/30/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 05/24/15 [place] [facility] Endoscopic (Left)3 05/24/15 Catheterization Left Heart with Coronary 05/20/15 Angiography4 Catheterization Right Heart5 05/20/15 Colonoscopy Repeat in 5 years 2012 Esophagogastroduodenoscopy 07/15/09 Biopsy of prostate Cataract extraction hernia repair Hiatal hernia left eye surgery Surgery, Lt eye 1auto-populated from documented surgical fuze7klbf-jcluvlixm from documented surgical ctsu1hauu-jkokpqkrz from documented surgical [id number]-sfmfixudy from documented surgical qrcw3pmss-inqergmkh from documented surgical case Social History Social History Type Response Smoking Status Former smoker; Type: Cigarettes1 1Quit in 1981 Assessment and Plan Extracted from: Title: Office Visit Note Author: Juan Luis Brewster MD Date: 03/19/15 Assessment/Plan Atrial fibrillation Chronic stable no change in current treatment is recommended. Recheck in 3 months. Ordered: Office Visit Level 4 Est 31792 Benign essential hypertension I'm going to switch from metoprolol to Bystolic and see if that doesn't help some with his COPD. Hopefully will continue to control his blood pressure. It him sampl es of 10 mg tablets to be taken once daily. Rest and stop in for blood pressure check in a couple weeks. Recheck in 3 months. Ordered: Office Visit Level 4 Est 03649 COPD (chronic obstructive pulmonary disease) Continue current treatment including oxygen. Follow-up with his radiator core tester next week. If he has further problems or concerns he will let us know. Follow-up in 3 months. Ordered: Office Visit Level 4 Est 20777 Pure hypercholesterolemia Chronic stable. Laboratory studies ordered prior to next visit. Ordered: Office Visit Level 4 Est 87047 Depression Continue current treatment plan without change.
--- OUTSIDE RECORDS SUMMARY | 2017-10-14 18:10 | External Medical Summary | Referral Summary ---
:1935 [facility] Address [address] [place] [address] [place] [address] Care Team Providers Name Role Phone Juan Luis Brewster Primary Care Physician Encounter VC Date(s): 02/20/16 - 02/20/16 [facility] [place] [place] [address] [place] Discharge Diagnosis: Right hip pain Discharge Disposition: 01-Home or Self Care Attending Physician: Juan Luis Brewster MD Admitting Physician: Juan Luis Brewster MD Vital Signs Most recent to oldest [Reference Range]: 1 Temperature Tympanic [36.6-38.1 degC] 36.0 degC *LOW* (02/20/16 10:17 AM) Peripheral Pulse Rate [60-100 bpm] 72 bpm (02/20/16 10:17 AM) Respiratory Rate [14-20 br/min] 16 br/min (02/20/16 10:17 AM) Blood Pressure [90-140/60-90 mmHg] 130/64 mmHg (02/20/16 10:17 AM) Problem List Condition Effective Dates Status [...] At Risk for Activity Intolerance Plan of [id number] added automatically by system based on initiation of Fluid Volume Imbalance Plan of [id number] added automatically by system based on initiation of Impaired Gas Exchange Plan of Xnfm4Ivrimxw added automatically by system based on initiation of Knowledge Deficit Plan of Nhxa1Vbjipuu added automatically by system based on initiation of Tissue Perfusion Cerebral Plan of Zvyn6Cczfqtw added automatically by system based on initiation [...] DAILY, # 60 tabs, 2 Refill(s), eRx: [facility], TAKE ONE TABLET BY MOUTH TWICE DAILY [...] DAILY, # 90 tabs, 1 Refill(s), eRx: [facility], TAKE ONE TABLET BY MOUTH ONCE DAILY Start Date: 10/16/15 Status: Orderedfinasteride 5 mg oral tablet 5 mg 1 tabs, Oral, Daily, # 90 tabs, 4 Refill(s), Pharmacy: [facility], 1 tabs Oral Daily Start [...] DAILY, # 30 tabs, 2 Refill(s), eRx: [place] [address], TAKE ONE TABLET BY MOUTH ONCE DAILY Start Date: 11/18/15 Status: OrderedHome Oxygen (DME) DME Item 2 LPM HS, See Instructions, # 1 Each, 0 Refill(s), Supply Start Date: 12/25/13 Status: OrderedKlor-Con M20 oral tablet, extended release See Instructions, TAKE ONE TABLET BY MOUTH ONCE DAILY, # 30 tabs, 2 Refill(s), eRx: [place] [address], TAKE ONE TABLET BY MOUTH ONCE DAILY Start Date: 01/28/16 Status: OrderedLipitor 10 mg oral tablet 10 mg 1 tabs, Oral, Daily, # 90 tabs, 4 Refill(s), Pharmacy: [place] [address], 1 tabs Oral Daily Start Date: 01/27/16 Status: Orderedlosartan 50 mg oral tablet 50 mg 1 tabs, Oral, Daily, # 30 tabs, 6 Refill(s), Pharmacy: [place] [address], 1 tabs Oral Daily Start Date: 09/26/15 Status: Orderedmetoprolol tartrate 25 mg oral tablet 25 mg 1 tabs, Oral, BID, # 60 tabs, 1 Refill(s), Pharmacy: [place] [address] Start Date: 08/30/15 Status: OrderedPradaxa 150 mg oral capsule 150 mg 1 caps, Oral, BID, # 60 caps, 3 Refill(s), Pharmacy: [facility]68 Start Date: 07/01/15 Status: Orderedsertraline 100 mg [...] Most recent to oldest [Reference Range]: 1 Estimated Creatinine Clearance 44.53 mL/min (02/20/16 10:22 AM) Immunizations Vaccine Date Refusal Reason influenza virus [...] Transesophageal1 05/30/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 05/24/15 [place] [facility] Endoscopic (Left)3 05/24/15 Catheterization Left Heart with Coronary 05/20/15 Angiography4 Catheterization Right Heart5 05/20/15 Colonoscopy Repeat in 5 years 2012 Esophagogastroduodenoscopy 07/15/09 Biopsy of prostate Cataract extraction hernia repair Hiatal hernia left eye surgery Surgery, Lt eye 1auto-populated from documented surgical qlcw7auai-oyepdtppf from documented surgical xcin7kvzd-cjqsljvej from documented surgical vfaf3wdwf-xqhpifqmt from documented surgical wczv1vxql-gvrqiatfp from documented surgical case Social History Social History Type Response Smoking Status Former smoker; Type: Cigarettes1 1Quit in 1981 Assessment and Plan Extracted from: Title: Office Visit Note Author: Juan Luis Brewster MD Date: 02/20/16 Assessment/Plan 1.Right hip pain Pelvic x-ray was done and no obvious fracture is noted. Treatment isactivity as tolerated. He wants to just use Tylenol for pain. Some heat to the area may be beneficial. If symptoms persist or worsen or he's having further problems she'll let us know. Continue other medications and treatments without change. Ordered: Office Visit Level 3 Est 68168 XR Pelvis 1 or 2 Views
--- OUTSIDE RECORDS SUMMARY | 2017-10-14 18:10 | External Medical Summary | Referral Summary ---
:1935 Author Organization [facility] [place] [place] [address] Care Team Providers Name Role Phone Juan Luis Brewster Primary Care Physician Encounter VC Date(s): 11/13/14 - 11/13/14 [facility] [place] [place] [address] [place] Discharge Diagnosis: [...] Daily, # 90 tabs, 2 Refill(s), Pharmacy: [facility], 1 tabs Oral Daily Start Date: 03/07/15 Status: OrderedAspir 81 1 tabs, Oral, Daily, 0 Refill(s) Start Date: 12/25/13 Status: Orderedbudesonide 0.5 mg/2 mL inhalation suspension 2 mL, NEB, BID, # 120 mL, 0 Refill(s), Pharmacy: [facility], 2 mL NEB BID Start Date: 06/29/14 Status: OrderedDeep Sea Nasal 0.65% nasal spray 2 sprays, Nasal, QID, 0 Refill(s) Start Date: 06/29/14 Status: OrderedESOMEPRAZOLE MAG DR CAPS 40MG See Instructions, TAKE 1 CAPSULE DAILY, # 90 caps, 2 Refill(s), eRx: [facility], TAKE 1 CAPSULE DAILY Start Date: 10/25/14 Status: Orderedferrous sulfate 325 mg (65 mg elemental iron) oral tablet 325 mg 1 tabs, Oral, Daily, in place of the delayed release, # 90 tabs, 1 Refill (s), Pharmacy: [facility], 1 tabs Oral Daily,Instr:in place of the delayed release Start Date: 05/09/15 Status: Orderedfinasteride 5 mg oral tablet 5 mg 1 tabs, Oral, Daily, # 90 tabs, 4 Refill(s), Pharmacy: [facility], 1 tabs Oral Daily Start [...] TIMES DAILY, # 360 unknown unit, eRx: [facility], USE ONE VIAL IN NEBULIZER 4 TIMES DAILY Start Date: 10/18/14 Status: OrderedLasix 40 mg oral tablet 60 mg 1.5 tabs, Oral, Daily, # 135 tabs, 3 Refill(s), Pharmacy: [facility], 1.5 tabs Oral Daily Start Date: 12/27/14 Status: OrderedLipitor 10 mg oral tablet 1 tabs, Oral, Daily, # 30 tabs, 4 Refill(s), Pharmacy: [facility], 1 tabs Oral Daily Start Date: 06/28/14 Status: Orderedmetolazone 5 mg oral tablet 5 mg 1 tabs, Oral, Daily, # 30 tabs, 0 Refill(s), Pharmacy: [facility], 1 tabs Oral Daily [...] Daily, # 30 tabs, 0 Refill(s), Pharmacy: [facility], 1 tabs Oral Daily Start Date: 11/23/14 Status: Orderedpotassium gluconate 595 mg oral tablet 1 tabs, Oral, Daily, 0 Refill(s) Start Date: 06/29/14 Status: OrderedpredniSONE 5 mg oral tablet 5 mg 1 tabs, Oral, Daily, 0 Refill(s) Start Date: 03/19/15 Status: Orderedsertraline 100 mg oral tablet See Instructions, TAKE 1 TABLET DAILY, # 120 tabs, 1 Refill(s), Pharmacy: [facility], TAKE 1 TABLET DAILY Start Date: 01/17/15 Status: OrderedSpiriva 18 mcg inhalation capsule 1 Each, Inhalation, Daily, use two inhalations of one capsule for each dose, # 30 Each, 10 Refill(s), Pharmacy: [facility], 1 Each Inhalation Daily,Instr:use two [...] WITH BREAKFAST, # 90 tabs, eRx: [facility],TAKE 1 TABLET DAILY WITH BREAKFAST [...] know. Ordered: Office Visit Level 4 Est 63136 Atrial fibrillation Stable chronic rate controlled. Continue current treatment plan. Ordered: Office Visit Level 4 Est 53707 Benign essential hypertension Blood pressure is adequately controlled no change in current treatment plan recommended. Ordered: Office Visit Level 4 Est 62024 COPD (chronic obstructive pulmonary disease) Overall stable perhaps very mild exacerbation with recent acute bronchitis. Continue current treatment without change. Ordered: Office Visit Level 4 Est 45487 Orders: levofloxacin, 1 tabs, Oral, q24hr, X 10 days, # 10 tabs, 0 Refill(s) , Pharmacy: [facility], 1 tabs Oral q24hr,x10 days
--- OUTSIDE RECORDS SUMMARY | 2017-10-14 18:10 | External Medical Summary | Referral Summary ---
:1935 Author Organization [facility] [place] [address] Care Team Providers Name Role Phone Juan Luis Brewster Primary Care Physician Encounter VC Date(s): 11/13/14 - 11/13/14 [facility] [place] [place] [phone] [place] Discharge Diagnosis: [...] Daily, # 90 tabs, 2 Refill(s), Pharmacy: [facility], 1 tabs Oral Daily Start Date: 03/07/15 Status: OrderedAspir 81 1 tabs, Oral, Daily, 0 Refill(s) Start Date: 12/25/13 Status: Orderedbudesonide 0.5 mg/2 mL inhalation suspension 2 mL, NEB, BID, # 120 mL, 0 Refill(s), Pharmacy: [facility], 2 mL NEB BID Start Date: 06/29/14 Status: OrderedDeep Sea Nasal 0.65% nasal spray 2 sprays, Nasal, QID, 0 Refill(s) Start Date: 06/29/14 Status: OrderedESOMEPRAZOLE MAG DR CAPS 40MG See Instructions, TAKE 1 CAPSULE DAILY, # 90 caps, 2 Refill(s), eRx: [facility], TAKE 1 CAPSULE DAILY Start Date: 10/25/14 Status: Orderedferrous sulfate 325 mg (65 mg elemental iron) oral tablet 325 mg 1 tabs, Oral, Daily, in place of the delayed release, # 90 tabs, 1 Refill (s), Pharmacy: [facility], 1 tabs Oral Daily,Instr:in place of the delayed release Start Date: 05/09/15 Status: Orderedfinasteride 5 mg oral tablet 5 mg 1 tabs, Oral, Daily, # 90 tabs, 4 Refill(s), Pharmacy: [facility], 1 tabs Oral Daily Start [...] TIMES DAILY, # 360 unknown unit, [facility]Rx[facility], USE ONE VIAL IN NEBULIZER 4 TIMES DAILY Start Date: 10/18/14 Status: OrderedLasix 40 mg oral tablet 60 mg 1.5 tabs, Oral, Daily, # 135 tabs, 3 Refill(s), Pharmacy: [facility], 1.5 tabs Oral Daily Start Date: 12/27/14 Status: OrderedLipitor 10 mg oral tablet 1 tabs, Oral, Daily, # 30 tabs, 4 Refill(s), Pharmacy: [facility], 1 tabs Oral Daily Start Date: 06/28/14 Status: Orderedmetolazone 5 mg oral tablet 5 mg 1 tabs, Oral, Daily, # 30 tabs, 0 Refill(s), Pharmacy: [facility], 1 tabs Oral [...] Daily, # 30 tabs, 0 Refill(s), Pharmacy: [facility], 1 tabs Oral Daily Start Date: 11/23/14 Status: Orderedpotassium gluconate 595 mg oral tablet 1 tabs, Oral, Daily, 0 Refill(s) Start Date: 06/29/14 Status: OrderedpredniSONE 5 mg oral tablet 5 mg 1 tabs, Oral, Daily, 0 Refill(s) Start Date: 03/19/15 Status: Orderedsertraline 100 mg oral tablet See Instructions, TAKE 1 TABLET DAILY, # 120 tabs, 1 Refill(s), Pharmacy: [facility], TAKE 1 TABLET DAILY Start Date: 01/17/15 Status: OrderedSpiriva 18 mcg inhalation capsule 1 Each, Inhalation, Daily, use two inhalations of one capsule for each dose, # 30 Each, 10 Refill(s), Pharmacy: [facility], 1 Each Inhalation Daily,Instr:use two [...] WITH BREAKFAST, # 90 tabs, eRx: [facility],TAKE 1 TABLET DAILY WITH BREAKFAST [...] know. Ordered: Office Visit Level 4 Est 34480 Atrial fibrillation Stable chronic rate controlled. Continue current treatment plan. Ordered: Office Visit Level 4 Est 66033 Benign essential hypertension Blood pressure is adequately controlled no change in current treatment plan recommended. Ordered: Office Visit Level 4 Est 90884 COPD (chronic obstructive pulmonary disease) Overall stable perhaps very mild exacerbation with recent acute bronchitis. Continue current treatment without change. Ordered: Office Visit Level 4 Est 84139 Orders: levofloxacin, 1 tabs, Oral, q24hr, X 10 days, # 10 tabs, 0 Refill(s) , Pharmacy: [facility], 1 tabs Oral q24hr,x10 days
--- OUTSIDE RECORDS SUMMARY | 2017-10-14 18:10 | External Medical Summary | Referral Summary ---
:1935 Author Organization [facility] [place] [address] Care Team Providers Name Role Phone Juan Luis Brewster Primary Care Physician Encounter VC Date(s): 09/09/16 - 09/09/16 [facility] [place] [place] [address] [place] Discharge Diagnosis: Acute bronchitis Discharge Diagnosis: Acute bronchitis due to other specified organisms Discharge Diagnosis: Benign essential hypertension Discharge Diagnosis: COPD exacerbation Discharge Diagnosis: Atrial fibrillation Discharge Disposition: 01-Home or Self Care Attending Physician: Juan Luis Brewster MD Admitting Physician: Juan Luis Brewster MD Vital Signs Most recent to oldest [Reference Range]: 1 Temperature Tympanic [36.6-38.1 degC] 36.6 degC (09/09/16 10:22 AM) Peripheral Pulse Rate [60-100 bpm] 76 bpm (09/09/16 10:22 AM) Respiratory Rate [14-20 br/min] 18 br/min (09/09/16 10:22 AM) Blood Pressure [90-140/60-90 mmHg] 130/64 mmHg (09/09/16 10:22 AM) SpO2 94 % (09/09/16 10:22 AM) Problem List Condition Effective Dates Status [...] At Risk for Activity Intolerance Plan of Iglr1Nygbnwu added automatically by system based on initiation of Fluid Volume Imbalance Plan of Jxup5Jbjzvam added automatically by system based on initiation of Impaired Gas Exchange Plan of Eakd1Nqtsfbm added automatically by system based on initiation of Knowledge Deficit Plan of Fwsa3Oujafww added automatically by system based on initiation of Tissue Perfusion Cerebral Plan of Cjwh6Lpgpkxj added automatically by system based on initiation [...] Daily, # 30 tabs, 3 Refill(s), Pharmacy: [facility], 1 tabs Oral Daily Start Date: 08/17/16 Status: OrderedCeftin 500 mg oral tablet 500 mg 1 tabs, Oral, BID, X 10 days, # 20 tabs, 0 Refill(s), Pharmacy: [facility], 1 tabs Oral BID,x10 days [...] j44.9, # 20 Each, 1 Refill(s), Pharmacy: [facility] Start Date: 08/10/16 Status: Orderedesomeprazole 40 mg oral delayed release capsule See Instructions, TAKE 1 CAPSULE DAILY, # 90 caps, eRx: [facility], TAKE 1 CAPSULE DAILY Start Date: 10/15/15 Status: Orderedferrous sulfate 325 mg (65 mg elemental iron) oral tablet 325 mg 1 tabs, Oral, Daily, # 90 tabs, 3 Refill(s), Pharmacy: [facility], 1 tabs Oral Daily Start Date: 09/08/16 Status: Orderedfinasteride 5 mg oral tablet See Instructions, TAKE 1 TABLET DAILY, # 90 tabs, 1 Refill(s), eRx: [facility] Start Date: 07/09/16 Status: OrderedHome Oxygen (DME) DME Item 2 LPM HS, See Instructions, # 1 Each, 0 Refill(s), Supply Start Date: 12/25/13 Status: OrderedLipitor 10 mg oral tablet 10 mg 1 tabs, Oral, Daily, # 90 tabs, 3 Refill(s), Pharmacy: [facility], 1 tabs Oral Daily Start Date: 09/08/16 Status: Orderedmetoprolol tartrate 25 mg oral tablet 12.5 mg 0.5 tabs, Oral, Daily, take at noon, # 45 tabs, 3 Refill(s), Pharmacy: [facility] Start Date: 09/08/16 Status: Orderedmidodrine 5 mg oral tablet 5 mg 1 tabs, Oral, TID, # 270 tabs, 3 Refill(s), Pharmacy: [facility], 1 tabs Oral TID Start Date: 09/08/16 Status: OrderedMilk of Magnesia 30 mL, Oral, Bedtime (once a day), as needed for constipation, 0 Refill(s) Start Date: 08/04/16 Status: OrderedMucinex 600 mg oral tablet, extended release 600 mg, Oral, q12hr, # 180 tabs, 3 Refill(s), Pharmacy: [facility], 600 mg Oral q12hr Start Date: 09/08/16 Stop Date: 09/09/17 Status: OrderedpredniSONE 10 mg oral tablet See Instructions, Take 5 tabs for 2 days, then 4 for 2 days, then 3 for 2 days then 2 for 2 days, then 1 for 2 days, # 30 Each, 0 Refill(s), Pharmacy: [facility], Take 5 tabs for 2 days, then 4 for 2 days, then 3 for 2 days then 2 for 2 da... Start Date: 09/09/16 Status: Orderedsertraline 100 mg oral tablet See Instructions, TAKE 1 TABLET DAILY, # 120 tabs, 1 Refill(s), eRx: [facility] Start Date: 07/09/16 Status: OrderedSpiriva 18 mcg inhalation capsule 18 mcg 1 caps, Inhalation, Daily, use two inhalations of one capsule for each dose DX J44.9, # 90 Each, 3 Refill(s), Pharmacy: [facility] , 1 caps Inhalation Daily,Instr:use [...] Transesophageal1 05/30/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 05/24/15 [place] [facility] Endoscopic (Left)3 05/24/15 Catheterization Left Heart with Coronary 05/20/15 Angiography4 Catheterization Right Heart5 05/20/15 Colonoscopy 04/20/13 Colonoscopy Repeat in 5 years 2012 Esophagogastroduodenoscopy 07/15/09 Biopsy of prostate Cataract extraction hernia repair Hiatal hernia left eye surgery Surgery, Lt eye 1auto-populated from documented surgical nmnl7knbz-oldffnunc from documented surgical fkse2emje-zbijqaadv from documented surgical pxar8wpus-nhopmnuhd from documented surgical ugbl7pslf-souifhanq from documented surgical case Social History Social History Type Response Smoking Status Former smoker; Type: Cigarettes1 1Quit in 1981 Assessment and Plan Extracted from: Title: Office Visit Note Author: Juan Luis Brewster MD Date: 09/09/16 Assessment/Plan 1.Acute bronchitis, I think he has a bronchitis possibly early pneumonitis. His sats are stable. I've recommended beginning cefuroxime 500 mg by mouth twice a day 10 days. If not improving or symptoms progress or worsen he should follow-up. Acute bronchitis due to other specified organisms Ordered: Office Visit Level 4 Est 36805 2.COPD exacerbation I think his COPD is exacerbated withthis infection. I'm placing him on a round of prednisone will hopefully calm things down again if symptoms progress or worsen follow-up. Ordered: Office Visit Level 4 Est 65926 3.Atrial fibrillation Chronic relatively stable rate isreasonable no change in current treatment. Ordered: Office Visit Level 4 Est 22499 4.Benign essential hypertension Blood pressures reasonably well-controlled no change in current treatment at this time. Ordered: Office Visit Level 4 Est 17378
--- OUTSIDE RECORDS SUMMARY | 2017-10-14 18:10 | External Medical Summary | Referral Summary ---
:1935 Author Organization [facility] Address [address] [place] [address] Care Team Providers Name Role Phone Juan Luis Brewster Primary Care Physician Encounter VC Date(s): 03/05/16 - 03/05/16 [facility] [address] [place] [address] Discharge Disposition: 01-Home or Self Care Attending [...] At Risk for Activity Intolerance Plan of [id number] added automatically by system based on initiation of Fluid Volume Imbalance Plan of Sedh4Pemponx added automatically by system based on initiation of Impaired Gas Exchange Plan of [id number] added automatically by system based on initiation of Knowledge Deficit Plan of [id number] added automatically by system based on initiation of Tissue Perfusion Cerebral Plan of Vywu1Enylbhm added automatically by system based on initiation [...] DAILY, # 60 tabs, 2 Refill(s), eRx: [facility], TAKE ONE TABLET BY MOUTH [...] 1 CAPSULE DAILY, # 90 caps, eRx: [facility], TAKE 1 CAPSULE DAILY Start Date: 10/15/15 Status: Orderedferrous sulfate 325 mg (65 mg elemental iron) oral tablet See Instructions, TAKE ONE TABLET BY MOUTH ONCE DAILY, # 90 tabs, 1 Refill(s), eRx: [facility], TAKE ONE TABLET BY MOUTH ONCE DAILY Start Date: 10/16/15 Status: Orderedfinasteride 5 mg oral tablet 5 mg 1 tabs, Oral, Daily, # 90 tabs, 4 Refill(s), Pharmacy: [facility], 1 tabs Oral Daily Start [...] DAILY, # 30 tabs, 2 Refill(s), eRx: [place] [facility] [id number], TAKE ONE TABLET BY MOUTH ONCE DAILY Start Date: 11/18/15 Status: OrderedHome Oxygen (DME) DME Item 2 LPM HS, See Instructions, # 1 Each, 0 Refill(s), Supply Start Date: 12/25/13 Status: OrderedKlor-Con M20 oral tablet, extended release See Instructions, TAKE ONE TABLET BY MOUTH ONCE DAILY, # 30 tabs, 2 Refill(s), eRx: [facility] [id number], TAKE ONE TABLET BY MOUTH ONCE DAILY Start Date: 01/28/16 Status: OrderedLipitor 10 mg oral tablet 10 mg 1 tabs, Oral, Daily, # 90 tabs, 4 Refill(s), Pharmacy: [facility] [id number], 1 tabs Oral Daily Start Date: 01/27/16 Status: Orderedlosartan 50 mg oral tablet 50 mg 1 tabs, Oral, Daily, # 30 tabs, 6 Refill(s), Pharmacy: [facility] [address], 1 tabs Oral Daily Start Date: 09/26/15 Status: Orderedmetoprolol tartrate 25 mg oral tablet 25 mg 1 tabs, Oral, BID, # 60 tabs, 1 Refill(s), Pharmacy: [facility] [id number] Start Date: 08/30/15 Status: OrderedPradaxa 150 mg oral capsule 150 mg 1 caps, Oral, BID, # 60 caps, 3 Refill(s), Pharmacy: [facility] [id number] Start Date: 07/01/15 Status: Orderedsertraline 100 mg [...] Transesophageal1 05/30/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 05/24/15 [facility] Endoscopic (Left)3 05/24/15 Catheterization Left Heart with Coronary 05/20/15 Angiography4 Catheterization Right Heart5 05/20/15 Colonoscopy Repeat in 5 years 2012 Esophagogastroduodenoscopy 07/15/09 Biopsy of prostate Cataract extraction hernia repair Hiatal hernia left eye surgery Surgery, Lt eye 1auto-populated from documented surgical eixo0rgik-lzzbtulog from documented surgical [id number]-[id number] from documented surgical [id number] from documented surgical [id number]-[id number] from documented surgical case Social History Social History Type Response Smoking Status Former smoker; Type: Cigarettes1 1Quit in 1981 Assessment and Plan No data available for this section
--- OUTSIDE RECORDS SUMMARY | 2017-10-14 18:10 | External Medical Summary | Referral Summary ---
:1935 Author Organization [facility] [place] [address] Care Team Providers Name Role Phone Juan Luis Brewster Primary Care Physician Encounter VC Date(s): 04/25/15 - 04/25/15 [facility] [place] [id number]- Discharge Diagnosis: Benign essential hypertension Discharge Diagnosis: [...] Daily, # 90 tabs, 2 Refill(s), Pharmacy: [facility], 1 tabs Oral Daily Start Date: 03/07/15 Status: OrderedAspir 81 1 tabs, Oral, Daily, 0 Refill(s) Start Date: 12/25/13 Status: Orderedbenazepril 20 mg oral tablet 20 mg 1 tabs, Oral, Daily, # 90 tabs, 1 Refill(s), Pharmacy: [facility], 1 tabs Oral Daily,x90 days Start Date: 02/11/15 Stop Date: 08/10/15 Status: Orderedbudesonide 0.5 mg/2 mL inhalation suspension 2 mL, NEB, BID, # 120 mL, 0 Refill(s), Pharmacy: [facility], 2 mL NEB BID Start Date: 06/29/14 Status: OrderedDeep Sea Nasal 0.65% nasal spray 2 sprays, Nasal, QID, 0 Refill(s) Start Date: 06/29/14 Status: OrderedESOMEPRAZOLE MAG DR CAPS 40MG See Instructions, TAKE 1 CAPSULE DAILY, # 90 caps, 2 Refill(s), eRx: [facility], TAKE 1 CAPSULE DAILY Start Date: 10/25/14 Status: Orderedferrous sulfate 325 mg (65 mg elemental iron) oral delayed release tablet 1 tabs, Oral, Daily, 0 Refill(s) Start Date: 12/25/13 Status: Orderedfinasteride 5 mg oral tablet 5 mg 1 tabs, Oral, Daily, # 90 tabs, 4 Refill(s), Pharmacy: [facility], 1 tabs Oral Daily [...] TIMES DAILY, # 360 unknown unit, eRx: [facility], USE ONE VIAL IN NEBULIZER 4 TIMES DAILY Start Date: 10/18/14 Status: OrderedLasix 40 mg oral tablet 60 mg 1.5 tabs, Oral, Daily, # 135 tabs, 3 Refill(s), Pharmacy: [facility], 1.5 tabs Oral Daily Start Date: 12/27/14 Status: OrderedLipitor 10 mg oral tablet 1 tabs, Oral, Daily, # 30 tabs, 4 Refill(s), Pharmacy: [facility], 1 tabs Oral Daily Start Date: 06/28/14 Status: Orderedmetolazone 5 mg oral tablet 5 mg 1 tabs, Oral, Daily, # 30 tabs, 0 Refill(s), Pharmacy: [facility], 1 tabs Oral Daily Start Date: 11/23/14 Status: Orderedmetoprolol succinate 50 mg oral tablet, [...] Daily, # 30 tabs, 0 Refill(s), Pharmacy: [facility], 1 tabs Oral Daily Start Date: 11/23/14 Status: Orderedpotassium gluconate 595 mg oral tablet 1 tabs, Oral, Daily, 0 Refill(s) Start Date: 06/29/14 Status: OrderedpredniSONE 5 mg oral tablet 5 mg 1 tabs, Oral, Daily, 0 Refill(s) Start Date: 03/19/15 Status: Orderedsertraline 100 mg oral tablet See Instructions, TAKE 1 TABLET DAILY, # 120 tabs, 1 Refill(s), Pharmacy: [facility], TAKE 1 TABLET DAILY Start Date: 01/17/15 Status: OrderedSpiriva 18 mcg inhalation capsule 1 Each, Inhalation, Daily, use two inhalations of one capsule for each dose, # 30 Each, 10 Refill(s), Pharmacy: [facility], 1 Each Inhalation Daily,Instr:use two [...] BREAKFAST, # 90 tabs, 1 Refill(s), eRx: [facility], TAKE 1 TABLET DAILY WITH [...] Title: Office Visit Note Author: Juan Luis rBewster MD Date: 04/25/15 Assessment/Plan Atrial fibrillation (disorder), Unspecified atrial fibrillation Chronic stable no change in current treatment at this time. Continue anticoagulation therapy Ordered: Office Visit Level 4 Est 65524 Benign essential hypertension, Essential (primary) hypertension Blood pressure is running low. I've asked him to reduce his benazepril and Bystolic dosage both in half. Recheck in 1 week. Ordered: Office Visit Level 4 Est 87344 Chronic CHF, Chronic diastolic (congestive) heart failure Appears to be compensated at this point no change in current treatment. Ordered: Office Visit Level 4 Est 52943 Chronic obstructive pulmonary disease, unspecified, COPD (chronic obstructive pulmonary disease) Chronic persistent and fairly advanced. Medications reviewed no changes recommended. Continue O2. Ordered: Office Visit Level 4 Est 08923
--- OUTSIDE RECORDS SUMMARY | 2017-10-14 18:10 | External Medical Summary | Referral Summary ---
:1935 Author Organization [facility] [place] [address] Care Team Providers Name Role Phone Juan Luis Brewster Primary Care Physician Encounter VC Date(s): 04/06/16 - 04/06/16 [facility] [place] [address] [place] Discharge Diagnosis: Syncope and collapse (disorder) Discharge Diagnosis: Tachycardia Discharge Diagnosis: Atrial fibrillation Discharge Diagnosis: Poor Balance Discharge Diagnosis: Anemia Discharge Diagnosis: Laceration of scalp Discharge Diagnosis: Renal insufficiency Discharge Disposition: 01-Home or Self Care Attending Physician: Leisa Manzanares APRN Admitting Physician: Leisa Manzanares APRN Vital Signs Most recent to oldest [Reference Range]: 1 Temperature Tympanic [36.6-38.1 degC] 36.1 degC *LOW* (04/06/16 8:38 AM) Peripheral Pulse Rate [60-100 bpm] 66 bpm (04/06/16 8:38 AM) Blood Pressure [90-140/60-90 mmHg] 122/72 mmHg (04/06/16 8:38 AM) SpO2 95 % (04/06/16 8:38 AM) Problem List Condition Effective Dates Status [...] At Risk for Activity Intolerance Plan of [id number] added automatically by system based on initiation of Fluid Volume Imbalance Plan of [id number] added automatically by system based on initiation of Impaired Gas Exchange Plan of [id number] added automatically by system based on initiation of Knowledge Deficit Plan of Lmtv8Kbixmpt added automatically by system based on initiation of Tissue Perfusion Cerebral Plan of Dgam1Gslsczp added automatically by system based on initiation [...] DAILY, # 60 tabs, 2 Refill(s), eRx: [facility], TAKE ONE TABLET BY MOUTH TWICE DAILY [...] DAILY, # 90 tabs, 1 Refill(s), eRx: [facility], TAKE ONE TABLET BY MOUTH ONCE DAILY Start Date: 10/16/15 Status: Orderedfinasteride 5 mg oral tablet 5 mg 1 tabs, Oral, Daily, # 90 tabs, 4 Refill(s), Pharmacy: [facility], 1 tabs Oral Daily Start [...] DAILY, # 30 tabs, 2 Refill(s), eRx: [place] [address], TAKE ONE TABLET BY MOUTH ONCE DAILY Start Date: 11/18/15 Status: OrderedHome Oxygen (DME) DME Item 2 LPM HS, See Instructions, # 1 Each, 0 Refill(s), Supply Start Date: 12/25/13 Status: OrderedKlor-Con M20 oral tablet, extended release See Instructions, TAKE ONE TABLET BY MOUTH ONCE DAILY, # 30 tabs, 2 Refill(s), eRx: [place] [address], TAKE ONE TABLET BY MOUTH ONCE DAILY Start Date: 01/28/16 Status: OrderedLipitor 10 mg oral tablet 10 mg 1 tabs, Oral, Daily, # 90 tabs, 4 Refill(s), Pharmacy: [facility] [address], 1 tabs Oral Daily Start Date: 01/27/16 Status: Orderedlosartan 50 mg oral tablet 50 mg 1 tabs, Oral, Daily, 1/2 tab, # 30 tabs, 6 Refill(s), Pharmacy: [place] [address], 1 tabsOral Daily Start Date: 09/26/15 Status: Orderedmetoprolol tartrate 25 mg oral tablet 25 mg 1 tabs, Oral, BID, # 60 tabs, 1 Refill(s), Pharmacy: [place] [address] Start Date: 08/30/15 Status: OrderedPradaxa 150 mg oral capsule 150 mg 1 caps, Oral, BID, # 60 caps, 3 Refill(s), Pharmacy: [facility] Start Date: 07/01/15 Status: Orderedsertraline 100 mg [...] Transesophageal1 05/30/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 05/24/15 [place] [facility] Endoscopic (Left)3 05/24/15 Catheterization Left Heart with Coronary 05/20/15 Angiography4 Catheterization Right Heart5 05/20/15 Colonoscopy Repeat in 5 years 2012 Esophagogastroduodenoscopy 07/15/09 Biopsy of prostate Cataract extraction hernia repair Hiatal hernia left eye surgery Surgery, Lt eye 1auto-populated from documented surgical ywxv0slqf-hadnohlfl from documented surgical dteq2kkqt-yyplnromx from documented surgical rucv2fqvr-alqmwtvfa from documented surgical ayrg4eeor-sfdfeasou from documented surgical case Social History Social History Type Response Smoking Status Former smoker; Type: Cigarettes1 1Quit in 1981 Assessment and Plan Extracted from: Title: Office Visit Note-syncope/staple Author: Leisa Manzanares SALES ORDER ADMINISTRATOR Date : 04/06/16 removal Assessment/Plan 1. Syncope and collapse (disorder) Unknown etiology. Suspect more cardiac in nature. 24-hour Holter monitor. Carotid Doppler Appointment made for patient to see Dr. Acuña on for evaluation. Patient call the office with any problems. 2. Tachycardia Episodic. 3. Laceration of scalp Has healed well. 3 tee removed without difficulty. No bleeding. Incisions did well approximated. 4. Atrial fibrillation Managed by Dr. Acuña. 5. Poor Balance Recommend physical therapy for strengthening and balance. May decrease his risk for falls in the future. Referral sent to advanced physical therapy. 6. Renal insufficiency Decrease losartan to 25 mg daily. Encourage patient to continue checking his blood pressures taken Dr. Acuña later this week. Patient has follow-up in the office with Dr. Topher contreras on April 26. They'll be a good time to recheck renal function and blood pressures. 7. Anemia Decreased from last check in January. Plan to recheck in 2 weeks for stability. Need for influenza vaccination Counseled on flu vaccine. Given by nursing.
--- OUTSIDE RECORDS SUMMARY | 2017-10-14 18:11 | External Medical Summary | Referral Summary ---
:1935 [facility] Address [address] [place] [address] [place] [address] Care Team Providers Name Role Phone Juan Luis Brewster Primary Care Physician Encounter VC Date(s): 05/02/15 - 05/02/15 [facility] [place] [address] [place] Discharge Diagnosis: Atrial fibrillation (disorder) Discharge Diagnosis: [...] At Risk for Activity Intolerance Plan of [id number] added automatically by system based on initiation of Fluid Volume Imbalance Plan of Yiws7Bigrzop added automatically by system based on initiation of Impaired Gas Exchange Plan of Lbah7Rxhfmsy added automatically by system based on initiation of Knowledge Deficit Plan of Nhuq3Djovzqs added automatically by system based on initiation of Tissue Perfusion Cerebral Plan of Hodr2Xrpsexz added automatically by system based on initiation [...] BID, # 60 tabs, 3 Refill(s), Pharmacy: [facility], 1 tabs Oral BID [...] DAILY, # 90 tabs, 1 Refill(s), eRx: [facility], TAKE ONE TABLET BY MOUTH ONCE DAILY Start Date: 10/16/15 Status: Orderedfinasteride 5 mg oral tablet 5 mg 1 tabs, Oral, Daily, # 90 tabs, 4 Refill(s), Pharmacy: [facility], 1 tabs Oral Daily Start [...] Daily, # 30 tabs, 0 Refill(s), Pharmacy: [facility], 1 tabs Oral Daily Start Date: 10/15/15 Status: Orderedfurosemide 40 mg oral tablet 40 mg 1 tabs, Oral, Daily, # 90 tabs, 4 Refill(s), Pharmacy: [facility], 1 tabs Oral Daily Start Date: 10/15/15 Status: OrderedHome Oxygen (DME) DME Item 2 LPM HS, See Instructions, # 1 Each, 0 Refill(s), Supply Start Date: 12/25/13 Status: OrderedLipitor 10 mg oral tablet 10 mg 1 tabs, Oral, Daily, # 30 tabs, 4 Refill(s), Pharmacy: [facility], 1 tabs Oral Daily Start Date: 07/01/15 Status: Orderedlosartan 50 mg oral tablet 50 mg 1 tabs, Oral, Daily, # 30 tabs, 6 Refill(s), Pharmacy: [facility], 1 tabs Oral Daily Start Date: 09/26/15 Status: Orderedmetoprolol tartrate 25 mg oral tablet 25 mg 1 tabs, Oral, BID, # 60 tabs, 1 Refill(s), Pharmacy: [facility] Start Date: 08/30/15 Status: Orderedpotassium chloride 20 mEq oral tablet, extended release 20 mEq 1 tabs, Oral, Daily, # 30 tabs, 3 Refill(s), Pharmacy: [facility], 1 tabs Oral Daily Start Date: 09/03/15 Status: OrderedPradaxa 150 mg oral capsule 150 mg 1 caps, Oral, BID, # 60 caps, 3 Refill(s), Pharmacy: [facility] Start Date: 07/01/15 Status: [...] Transesophageal1 05/30/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 05/24/15 [place] [facility] Endoscopic (Left)3 05/24/15 Catheterization Left Heart with Coronary 05/20/15 Angiography4 Catheterization Right Heart5 05/20/15 Colonoscopy Repeat in 5 years 2012 Esophagogastroduodenoscopy 07/15/09 Biopsy of prostate Cataract extraction hernia repair Hiatal hernia left eye surgery Surgery, Lt eye 1auto-populated from documented surgical eycw9cwks-atgmfhmgu from documented surgical gmgz2hrzy-lixnrmpwu from documented surgical auxf8smvw-dkmhslvfc from documented surgical ydxv4zild-ocfohdahs from documented surgical case Social History Social History Type Response Smoking Status Former smoker; Type: Cigarettes1 1Quit in 1981 Assessment and Plan Extracted from: Title: Office Visit Note Author: Juan Luis Brewster MD Date: 05/02/15 Assessment/Plan Atrial fibrillation (disorder), Chronic atrial fibrillation Chronic stable rate control. No change in current treatment at this time. Ordered: Office Visit Level 4 Est 96147 Benign essential hypertension, Essential (primary) hypertension Blood pressures shown some improvement off the benazepril and Bystolic. We'll keep him off of those for the time being. BMP and CBC ordered today. Recheck in 1 month. Ordered: Office Visit Level 4 Est 35899 Chronic obstructive pulmonary disease, unspecified, COPD (chronic obstructive pulmonary disease) Chronic stable relatively severe. Continue oxygen therapy continue other medications. Recheck in 1 month. Ordered: Office Visit Level 4 Est 00545 Hyperlipidemia, Mixed hyperlipidemia Chronic stable no change in current treatment. Ordered: Office Visit Level 4 Est 22251
--- OUTSIDE RECORDS SUMMARY | 2017-10-14 18:11 | External Medical Summary | Continuity of Care Document ---
:1935 Author Organization [facility] Allergies Active Description Code Type Severity Reaction Onset Reported/ Identified Relationship Clinical to Patient Status Yes CAMPHOR 1952 N/A N/A Yes MENTHOL 6750 N/A N/A Yes PENICILLINS N/A N/A Yes PHENOL 93874 N/A N/A Yes SALICYLIC 9525 N/A N/A ACID Yes penicillin NKMA N/A N/A 11/09/2013 Yes penicillin NKMA N/A N/A 11/09/2013 Yes Camphor Other N/A AZEGxwEmL 03/20/2014 [id number] gAAg Yes Menthol Other N/A N/A 03/20/2014 Yes Phenol NKMA N/A AZEGxwEmL 03/20/2014 [id number] gAAg Yes Salicylic NKMA N/A AZEGxwEmL 03/20/2014 Acid [id number] gAAg Yes Camphor 403 N/A AZEGxwEmL 03/20/2014 [id number] gAAg Yes Menthol 403 N/A N/A 03/20/2014 Yes Phenol NKMA N/A AZEGxwEmL 03/20/2014 [id number] gAAg Yes Salicylic NKMA N/A AZEGxwEmL 03/20/2014 Acid [id number] gAAg Yes camphor-ment Drug Unknown N/A 12/10/2015 hol Aller gy Yes penicillin Drug Unknown N/A 12/10/2015 Aller gy Yes salicylic Drug Unknown N/A 12/10/2015 acid Aller gy Medications Medication Packaging Start Stop Route Dosage Sig Date Date Nexium 07/15/19 PO 40 mg 10 DAILY 07/15/19 PO 100 mg Sertraline HCl 10 DAILY 1 tabs 12/26/19 Oral 325 mg 1 ferrous 14 015 tabs, Oral, sulfate(ferrous Daily sulfate 325 mg (65 mg elemental iron) oral delayed release tablet) 1 tabs 12/26/19 Oral 1 mg 1 finasteride(finast 14 015 tabs, Oral, eride 1 mg oral Daily, 30 tabs tablet) 1 tabs 12/26/19 Oral 10 mg 1 atorvastatin(Lipit 14 014 tabs, Oral, or 10 mg oral Daily, 30 tabs tablet) 1 tabs 12/26/19 Oral 100 mg 1 sertraline(sertral 14 015 tabs, Oral, ine 100 mg oral Daily, 30 tabs tablet) 1 tabs 12/26/19 Oral 2.5 mg 1 amLODIPine(amLODIP 14 014 tabs, Oral, ine 2.5 mg oral Daily, 30 tabs tablet) 1 tabs 12/26/19 Oral 20 mg 1 rivaroxaban(Xarelt 14 015 tabs, Oral, o 20 mg oral qPM, 30 tabs tablet) 1 tabs 12/26/19 Oral 50 mg 1 metoprolol(metopro 14 015 tabs, Oral, BID lol succinate 50 mg oral tablet, extended release) 1 Each 12/26/19 Inhalation 18 mcg 1 tiotropium(Spiriva 14 014 Each, 18 mcg inhalation Inhalation, capsule) Daily, use two inhalations of one capsule for each dose, 30 Each 1 tabs 12/26/19 Oral 1 benazepril-hydroch 14 014 tabs, Oral, lorothiazide(benaz Daily, 30 tabs epril-hydrochlorot hiazide 20 mg-12.5 mg oral tablet) 1 caps 12/26/19 Oral 40 mg 1 esomeprazole(NexIU 14 016 caps, Oral, M 40 mg oral Daily, 30 caps delayed release capsule) 0.5 tabs 12/26/19 Oral 2.5 mg 0.5 predniSONE(predniS 14 014 tabs, Oral, ONE 5 mg oral Daily tablet) 1 tabs 12/26/19 Oral 100 mg 1 sildenafil(Viagra 14 015 tabs, Oral, 100 mg oral Daily, PRN: as tablet) needed for erectile dysfunction 1 tabs 12/30/19 Oral 1 mg 1 bumetanide(bumetan 14 014 tabs, Oral, brian 1 mg oral Daily, 30 tabs tablet) 1 tabs 01/11/20 Oral 20 mg 1 benazepril(benazep 14 014 tabs, Oral, ril 20 mg oral Daily, 90 tabs tablet) 1 tabs 01/11/20 Oral 20 mg 1 benazepril(benazep 14 014 tabs, Oral, ril 20 mg oral Daily, 14 tabs tablet) 1 tabs 01/11/20 Oral 20 mg 1 benazepril(benazep 14 015 tabs, Oral, ril 20 mg oral Daily, 90 tabs tablet) 1 tabs 01/18/20 Oral 1 benazepril-hydroch 14 014 tabs, Oral, lorothiazide(benaz Daily, 90 tabs epril-hydrochlorot hiazide 20 mg-12.5 mg oral tablet) 1 tabs 02/07/20 Oral 2.5 mg 1 amLODIPine(amLODIP 14 014 tabs, Oral, ine 2.5 mg oral Daily, express tablet) rx [phone], 90 tabs 1 tabs 02/17/20 Oral 5 mg 1 amLODIPine(amLODIP 14 014 tabs, Oral, ine 5 mg oral Daily, 30 tabs tablet) 06/06/20 See predniSONE(predniS 14 014 Instructions, ONE 10 mg oral Take 2 tablets tablet) daily, 60 tabs 1 Each 06/06/20 Inhalation 18 mcg 1 tiotropium(Spiriva 14 015 Each, 18 mcg inhalation Inhalation, capsule) Daily, use two inhalations of one capsule for each dose, 30 Each 1 tabs 07/16/19 Oral 10 mg 1 predniSONE(predniS 15 015 tabs, Oral, ONE 10 mg oral Once, 30 tabs tablet) 1 tabs 09/05/19 Oral 10 mg 1 predniSONE(predniS 15 015 tabs, Oral, ONE 10 mg oral Daily, 90 tabs tablet) 09/28/19 See predniSONE(predniS 15 015 Instructions, ONE 10 mg oral Take 5 tabs for tablet) 2 days, then 4 for 2 days, then 3 for 2 days then 2 for 2 days, then 1 for 2 days, 30 Each 1 tabs 10/10/19 Oral 40 mg 40 furosemide(Lasix 15 015 mg=1 tabs, 40 mg oral tablet) Oral, Daily, 30 tabs, 3 Refill(s) 1 tabs 11/14/19 Oral 500 mg 1 levofloxacin(Levaq 15 015 tabs, Oral, uin 500 mg oral q24hr, 10 tabs tablet) 1 tabs 11/24/19 Oral 5 mg 5 metolazone(metolaz 15 015 mg=1 tabs, one 5 mg oral Oral, Daily, 30 tablet) tabs, 0 Refill(s) 1 tabs 11/24/19 Oral 20 mEq 20 potassium 15 016 mEq=1 tabs, chloride(potassium Oral, Daily, 30 chloride 20 mEq tabs, 0 oral tablet, Refill(s) extended release) 1 tabs 12/01/19 Oral 500 mg 500 cefuroxime(Ceftin 15 015 mg=1 tabs, 500 mg oral Oral, BID, for tablet) 10 days, 20 tabs, 0 Refill(s) Tablet 01/22/20 10 mg predniSONE 10 mg 15 017 take 1 (one) tablet Tablet by Oral route daily 1 tabs 02/12/20 Oral 20 mg 20 benazepril(benazep 15 015 mg=1 tabs, ril 20 mg oral Oral, Daily, tablet) for 90 days, 90 tabs, 1 Refill(s) 2 puffs 02/14/20 Inhalation 2 budesonide-formote 15 015 puffs, rol(Symbicort) Inhalation, BID, 0 Refill(s) 0.5 mL 02/14/20 IntraMuscular 0.5 pneumococcal 15 015 mL, 13-valent IntraMuscular, conjugate Once vaccine(Prevnar 13 intramuscular suspension) 1 tabs 03/19/20 Oral 5 mg 5 predniSONE(predniS 15 015 mg=1 tabs, ONE 5 mg oral Oral, Daily, 0 tablet) Refill(s) Sodium 1,000 mL 05/20/20 IV 75 Chloride 15 015 mL/hr, IV 0.9%(Sodium Chloride 0.9% 1,000 mL) 40 mL 05/20/20 IV Piggyback 120 mg 120 adenosine(adenosin 15 015 mg=40 mL, IV e) Piggyback, Once 1 tabs 05/20/20 Oral 81 mg 81 aspirin(aspirin) 15 015 mg=1 tabs, Oral, Daily 2.5 mL 05/20/20 NEB 0.5 mg 0.5 ipratropium(ipratr 15 015 mg=2.5 mL, NEB, opium 500 mcg/2.5 Once mL inhalation solution) 1 tabs 05/20/20 Oral 10 mg 10 atorvastatin(atorv 15 015 mg=1 tabs, astatin) Oral, Daily 0.5 mL 05/20/20 NEB 2.5 mg 2.5 albuterol(albutero 15 015 mg=0.5 mL, NEB, l 5 mg/mL Once (0.5%) inhalation solution) 1 mL 05/20/20 SubCutaneous 5,000 heparin(heparin) 15 015 units 5,000 units=1 mL, SubCutaneous, q8hr (scheduled) 3 tabs 05/20/20 Oral 60 mg 60 furosemide(furosem 15 015 mg=3 tabs, brian) Oral, Daily 1 tabs 05/20/20 Oral 100 mg 100 sertraline(sertral 15 015 mg=1 tabs, ine) Oral, qAM 1 tabs 05/20/20 Oral 5 mg 5 metolazone(metolaz 15 015 mg=1 tabs, one 5 mg oral Oral, Once tablet) 1 tabs 05/20/20 Oral 5 mg 5 finasteride(finast 15 015 mg=1 tabs, eride) Oral, Daily 1 tabs 05/20/20 Oral 20 mEq 20 potassium 15 015 mEq=1 tabs, chloride(potassium Oral, Daily chloride 20 mEq oral tablet, extended release) 1 tabs 05/20/20 Oral 325 mg 325 ferrous 15 015 mg=1 tabs, sulfate(ferrous Oral, Daily sulfate) 1 tabs 05/20/20 Oral 81 mg 81 aspirin(aspirin) 15 015 mg=1 tabs, Oral, Daily 1 tabs 05/20/20 Oral 5 mg 5 predniSONE(predniS 15 015 mg=1 tabs, ONE) Oral, Daily sodium 2 sprays 05/20/20 Nasal 2 chloride 15 015 sprays, Nasal, nasal(sodium q6hr, PRN: Dry chloride 0.65% Nasal Passages nasal spray) 1 tabs 05/20/20 Oral 40 mg 40 pantoprazole(Lisa 15 015 mg=1 tabs, nix) Oral, Once 1 packets 05/20/20 Oral 17 g 17 polyethylene 15 015 g=1 packets, glycol Oral, Daily 3350(MiraLax) 1 tabs 05/20/20 Oral 1,000 cholecalciferol(ch 15 015 Intl_Unit 1,000 olecalciferol) s Intl_Units=1 tabs, Oral, Daily 2.5 mL 05/20/20 NEB 0.5 mg 0.5 ipratropium(ipratr 15 015 mg=2.5 mL, NEB, opium 500 mcg/2.5 q2hr mL inhalation (scheduled), solution) PRN: Other (See Comment) 2 mL 05/20/20 NEB 0.5 mg 0.5 budesonide(budeson 15 015 mg=2 mL, NEB, brian 0.5 mg/2 mL BID inhalation suspension) 0.5 mL 05/20/20 NEB 2.5 mg 2.5 albuterol(albutero 15 015 mg=0.5 mL, NEB, l 5 mg/mL q2hr (0.5%) (scheduled), inhalation PRN: Other (See solution) Comment) 1 tabs 05/20/20 Oral 5 mg 5 lisinopril(lisinop 15 015 mg=1 tabs, ril) Oral, Daily 1 mL 05/21/20 SubCutaneous 100 mg 100 enoxaparin(Lovenox 15 015 mg=1 mL, ) SubCutaneous, q12hr 11/10/20 11/13/2 Oral metoprolol(Lopress 15 015 12.5, Oral, BID or) 1 ronald 05/23/20 Nasal 1 mupirocin 15 015 ronald, Nasal, BID topical(Bactroban) 2 tabs 05/23/20 Oral 600 mg 600 allopurinol(Zylopr 15 015 mg=2 tabs, im) Oral, Daily 1 supp 05/23/20 Rectal 650 mg 650 acetaminophen(acet 15 015 mg=1 supp, aminophen) Rectal, q4hr, PRN: Pain Mild (1-3) 1 tabs 05/23/20 Oral 5 mg 5 zolpidem(Ambien) 15 015 mg=1 tabs, Oral, Bedtime (once a day), PRN: Insomnia 2 mL 05/24/20 IV Push 10 mg 10 metoclopramide(Reg 15 015 mg=2 mL, IV ana) Push, q6hr, PRN: Nausea 05/24/20 Oral 1-2 HYDROcodone-acetam 15 015 tabs, Oral, inophen([place] 5 q4hr, PRN: Pain mg-325 mg oral Moderate (4-6) tablet) 6 puffs 05/24/20 Inhalation 540 mcg 540 albuterol(albutero 15 015 mcg=6 puffs, l CFC free 90 Inhalation, mcg/inh inhalation q4hr aerosol) (scheduled), PRN: Wheezing 1 mL 05/24/20 IV Push 2 mg 2 morphine(morphine) 15 015 mg=1 mL, IV Push, q2hr, PRN: Pain Severe (7-10) 2 mL 05/24/20 IV Push 4 mg 4 ondansetron(Zofran 15 015 mg=2 mL, IV ) Push, q6hr, PRN: Nausea 1 mL 05/24/20 IntraMuscular 1 mg 1 glucagon(glucagon) 15 015 mg=1 mL, IntraMuscular, As Indicated, PRN: Hypoglycemia/Lo w Blood Sugar Al 15 mL 05/24/20 Oral 15 hydroxide/Mg 15 015 mL, Oral, q4hr, hydroxide/simethic PRN: one(Maalox GERD/Heartburn Advanced Maximum Strength oral suspension) Sodium 250 mL 05/24/20 IV 10 Chloride 15 015 mL/hr, IV 0.9%(Sodium Chloride 0.9% 250 mL) 0.5 mL 05/24/20 NEB 2.5 mg 2.5 albuterol(albutero 15 015 mg=0.5 mL, NEB, l 5 mg/mL q4hr (0.5%) (scheduled), inhalation PRN: Wheezing solution) 25 mL 05/24/20 IV Push 12.5 g Dextrose 50% 15 015 12.5 g=25 mL, in Water(Dextrose IV Push, 50% in Water q15min, PRN: Injection) Hypoglycemia/Lo w Blood Sugar 250 mL 05/24/20 IV 50 Dextrose 10% 15 015 mL/hr, IV in Water(Dextrose 10% in Water 250 mL) 1 mL 05/24/20 SubCutaneous 5,000 heparin(heparin) 15 015 units 5,000 units=1 mL, SubCutaneous, TID 1 tabs 05/24/20 Oral 8.6 mg 8.6 senna(Senokot) 15 015 mg=1 tabs, Oral, BID 2 mL 05/24/20 IV Push 20 mg 20 famotidine(Pepcid) 15 015 mg=2 mL, IV Push, q12hr 1 supp 05/24/20 Rectal 650 mg 650 acetaminophen(acet 15 015 mg=1 supp, aminophen) Rectal, q4hr, PRN: Fever 1 tabs 05/24/20 Oral 81 mg 81 aspirin(aspirin) 15 015 mg=1 tabs, Oral, Daily 500 mL 05/24/20 IV Piggyback 25 g 25 albumin 15 015 g=500 mL, 500 human(albumin mL/hr, IV human 5% Piggyback, Once intravenous solution) 2 mL 05/24/20 NEB 0.5 mg 0.5 budesonide(budeson 15 015 mg=2 mL, NEB, brian 0.5 mg/2 mL BID inhalation suspension) 0.5 mL 05/24/20 NEB 2.5 mg 2.5 albuterol(albutero 15 015 mg=0.5 mL, NEB, l 5 mg/mL TID (0.5%) inhalation solution) 0.5 mL 05/24/20 NEB 2.5 mg 2.5 albuterol(albutero 15 015 mg=0.5 mL, NEB, l 5 mg/mL q2hr (0.5%) (scheduled), inhalation PRN: solution) Bronchospasms 250 mL 05/25/20 IV Piggyback 12.5 g albumin 15 015 12.5 g=250 mL, human(albumin IV Piggyback, human 5% Once intravenous solution) folic 1 tabs 05/25/20 Oral 1 mg 1 acid(folic acid) 15 015 mg=1 tabs, Oral, Daily 1 tabs 05/25/20 Oral 325 mg 325 ferrous 15 015 mg=1 tabs, sulfate(ferrous Oral, BID sulfate) 2 mL 05/25/20 IV Push 20 mg 20 furosemide(furosem 15 015 mg=2 mL, IV brian) Push, Daily 1 tabs 05/25/20 Oral 3.125 mg carvedilol(Coreg) 15 015 3.125 mg=1 tabs, Oral, BIDWM 1 tabs 05/25/20 Oral 20 mg 20 famotidine(famotid 15 015 mg=1 tabs, ine) Oral, q12hr 2 packets 05/27/20 Oral 40 mEq 40 potassium 15 015 mEq=2 packets, chloride(potassium Oral, q2hr, chloride 20 mEq PRN: Other (See oral powder for Comment) reconstitution) 2 tabs 05/27/20 Oral 40 mEq 40 potassium 15 015 mEq=2 tabs, chloride(potassium Oral, q2hr, chloride 20 mEq PRN: Other (See oral tablet, Comment) extended release) 2 tabs 05/27/20 Oral 2,500 mg calcium 15 015 2,500 mg=2 carbonate(calcium tabs, Oral, carbonate) TID, PRN: Other (See Comment) 2 tabs 05/27/20 Oral 2 potassium 15 015 tabs, Oral, phosphate-sodium TID, PRN: Other phosphate(K-Phos (See Comment) Neutral oral tablet) 3 mL 05/27/20 IV Piggyback 150 mg 150 amiodarone(amiodar 15 015 mg=3 mL, 618 one) mL/hr, IV Piggyback, Once 1 tabs 05/28/20 Oral 200 mg 200 amiodarone(amiodar 15 015 mg=1 tabs, one) Oral, BID 50 mL 05/28/20 IV Piggyback 2 g 2 magnesium 15 015 g=50 mL, 25 sulfate(magnesium mL/hr, IV sulfate) Piggyback, Once 1 tabs 05/28/20 Oral 25 mg 25 metoprolol(metopro 15 015 mg=1 tabs, lol tartrate 25 mg Oral, BID oral tablet) 2 mL 05/28/20 IV Push 20 mg 20 furosemide(furosem 15 015 mg=2 mL, IV brian) Push, BID 1 tabs 05/28/20 Oral 20 mEq 20 potassium 15 015 mEq=1 tabs, chloride(potassium Oral, Daily chloride 20 mEq oral tablet, extended release) 1 tabs 05/28/20 SubLingual 0.4 mg 0.4 nitroglycerin(Nitr 15 015 mg=1 tabs, ostat 0.4 mg SubLingual, sublingual tablet) q5min, PRN: Angina/Chest Pain 1 caps 05/29/20 Oral 150 mg 150 dabigatran(Pradaxa 15 015 mg=1 caps, ) Oral, BID 2 mL 05/30/20 NEB 0.5 mg 0.5 budesonide(budeson 15 017 mg=2 mL, NEB, brian 0.5 mg/2 mL BID, 0 inhalation Refill(s) suspension) 2 tabs 05/30/20 Oral 650 mg 650 acetaminophen(acet 15 mg=2 tabs, aminophen 325 mg Oral, q4hr, oral tablet) PRN: Pain Mild (1-3), 0 Refill(s) 05/30/20 See amiodarone(amiodar 15 015 Instructions, one 200 mg oral 200 mg Oral BID tablet) x 1 month then 200mg daily (to start 07/02/15), 0 Refill(s) 1 tabs 05/30/20 Oral 1,250 mg calcium 15 015 1,250 mg=1 carbonate(calcium tabs, Oral, carbonate 1250 mg TID, PRN: Other (500 mg elemental (See Comment), calcium) oral 0 Refill(s) tablet) 2 tabs 05/30/20 Oral 10 mg 10 bisacodyl(Dulcolax 15 015 mg=2 tabs, Laxative 5 mg oral Oral, Daily, delayed release PRN: tablet) Constipation, 0 Refill(s) 1 tabs 05/30/20 Oral 25 mg 25 metoprolol(metopro 15 015 mg=1 tabs, lol tartrate 25 mg Oral, BID, 0 oral tablet) Refill(s) folic 1 tabs 05/30/20 Oral 1 mg 1 acid(folic acid 1 15 015 mg=1 tabs, mg oral tablet) Oral, Daily, 0 Refill(s) 1 caps 05/30/20 Oral 150 mg 150 dabigatran(Pradaxa 15 015 mg=1 caps, 150 mg oral Oral, BID, 0 capsule) Refill(s) 1 tabs 05/30/20 Oral 40 mg 40 furosemide(furosem 15 016 mg=1 tabs, brian 40 mg oral Oral, Daily, 30 tablet) tabs, 0 Refill(s) 1 tabs 05/30/20 Oral 5 mg 5 metolazone(Zaroxol 15 015 mg=1 tabs, yn 5 mg oral Oral, Daily, tablet) PRN SEVERE SWELLING, PRN: severe swelling, 30 tabs, 0 Refill(s) Vit. 05/31/20 PO 1,000 D-3 15 unit DAILY 05/31/20 PO 5 mg Finasteride 15 DAILY 05/31/20 PO 10 mg HS Lipitor 15 1 tabs 06/13/20 Oral 200 mg 200 amiodarone(Paceron 15 015 mg=1 tabs, e 200 mg oral Oral, BID, 180 tablet) tabs, 0 Refill(s) 1 tabs 06/13/20 Oral 81 mg 81 aspirin(aspirin 81 15 016 mg=1 tabs, mg oral tablet, Oral, Daily, 90 chewable) tabs, 0 Refill(s) folic 1 tabs 06/13/20 Oral 1 mg 1 acid(folic acid 1 15 017 mg=1 tabs, mg oral tablet) Oral, Daily, 90 tabs, 0 Refill(s) 1 tabs 06/13/20 Oral 25 mg 25 metoprolol(metopro 15 015 mg=1 tabs, lol tartrate 25 mg Oral, BID, 180 oral tablet) tabs, 0 Refill(s) 1 tabs 09/26/19 Oral 50 mg 50 losartan(losartan 16 017 mg=1 tabs, 50 mg oral tablet) Oral, Daily, 1/2 tab, 30 tabs, 6 Refill(s) 1 tabs 10/08/19 Oral 10 mg 10 predniSONE(predniS 16 016 mg=1 tabs, ONE 10 mg oral Oral, Daily, tablet) for 14 days, with food, 14 tabs, 0 Refill(s) Fish Capsule 12/10/19 100-160-1 Oil 100 mg-160 16 ,000 mg take 1 (one) mg-1,000 mg Capsule by Oral capsule route every morning 12/10/19 595 mg 1 potassium 16 (99 mg) (one) by Oral gluconate 595 mg route every (99 mg) tablet morning Tablet 12/10/19 25 mg metoprolol 16 take 1 (one) tartrate 25 mg Tablet by Oral tablet route two times per day Capsule 12/10/19 150 mg Pradaxa 150 mg 16 take 1 (one) capsule Capsule by Oral route every morning 12/10/19 325 mg 1 ferrous sulfate 16 (65 mg (one) by Oral 325 mg (65 mg iron) route two times iron) tablet per day NexIUM 12/10/19 40 mg 40 mg 16 take 1 (one) by capsule,delayed Oral route release every morning Tablet 12/10/19 10 mg atorvastatin 10 mg 16 take 1 (one) tablet Tablet by Oral route every evening 12/10/19 20 mEq 1 Klor-Con M20 mEq 16 (one) by Oral tablet,extended route every release evening 12/10/19 1,000 1 Vitamin D3 1,000 16 unit (one) by Oral unit capsule route every morning Tablet 12/10/19 100 mg sertraline 100 mg 16 take 1 (one) tablet Tablet by Oral route every morning Tablet 12/10/19 200 mg amiodarone 200 mg 16 take 1 (one) tablet Tablet by Oral route every morning Tablet 12/10/19 5 mg finasteride 5 mg 16 take 1 (one) tablet Tablet by Oral route every evening 12/10/19 0.5 mg/2 1 budesonide 0.5 16 mL (one) daily mg/2 mL suspension for nebulization Tablet 12/10/19 40 mg furosemide 40 mg 16 take 1 (one) tablet Tablet by Oral route every morning 1,000 mL 03/30/20 Bolus IV Electrolyte 16 016 1,000 mL, Bolus Solution IV, Once (Plasma-Lyte/Normo s(Normosol-R Bolus) 0.5 mL 04/06/20 IntraMuscular 0.5 influenza virus 16 016 mL, vaccine, IntraMuscular, inactivated(influe Once nza virus vaccine, inactivated) 07/15/19 ORAL INH Spiriva 17 DAILY 07/15/19 PO 325 mg Ferrous Sulfate 17 DAILY MG 07/20/19 100 Sertraline Hcl 17 DAILY MEQ 07/20/19 20 Potassium Chloride 17 DAILY MG 07/20/19 600 Guaifenesin 17 Q12HR Colace MG 07/20/19 PO 100 mg BID 17 MG 07/20/19 PO 600 mg Mucinex 17 Q12HR UNIT 07/20/19 1000 Cholecalciferol 17 DAILY Deep SPRAY 07/20/19 EA NOSTRIL 2 QID Sea 17 CAP 07/20/19 1 Tiotropium [place] 17 DAILY MG 07/20/19 10 Bisacodyl 17 DAILY MG 07/20/19 PO 500 mg Q6H Tylenol Extra 17 Strength CAP 07/20/19 PO 40 mg ACB Omeprazole 17 MG 07/20/19 10 Alfuzosin HCl 17 DAILY MG 07/20/19 12.5 Metoprolol 17 DAILY Tartrate MG 07/20/19 100 Amiodarone HCl 17 DAILY MG 07/20/19 325 Ferrous Sulfate 17 DAILY MG 07/20/19 40 Esomeprazole Mag 17 DAILY Trihydrate MG 07/20/19 0.5 BID Budesonide 17 MG 07/20/19 5 Metolazone 17 DAILY MG 07/20/19 5 Midodrine HCl 17 TIDWM Milk ML 07/20/19 PO 400 mg/5 of Magnesia 17 ml DAILY MG 07/20/19 200 Amiodarone HCl 17 DAILY MG 07/20/19 5 Finasteride 17 DAILY ML 07/20/19 3 QID Ipratropium/[place] 17 rol Sulfate MG 07/20/19 300 BID Cefdinir 17 MG 07/20/19 40 Enoxaparin Sodium 17 DAILY MG 07/20/19 10 HS Atorvastatin 17 Calcium MG 07/20/19 20 WB Prednisone 17 MG 07/31/19 100 Sertraline Hcl 17 DAILY MG 07/31/19 600 Guaifenesin 17 Q12HR MG 07/31/19 100 BID Docusate Sodium 17 UNIT 07/31/19 1000 Cholecalciferol 17 DAILY Sodium SPRAY 07/31/19 2 QID Chloride 17 CAP 07/31/19 1 Tiotropium [place] 17 DAILY MG 07/31/19 500 Q6H Acetaminophen 17 CAP 07/31/19 1 ACB Omeprazole 17 MG 07/31/19 PO 25 mg Metoprolol 17 DAILY Tartrate MG 07/31/19 PO 200 mg Pacerone 17 DAILY MG 07/31/19 325 Ferrous Sulfate 17 DAILY MG 07/31/19 40 Esomeprazole Mag 17 DAILY Trihydrate MG 07/31/19 PO 5 mg Midodrine HCl 17 TIDWM ML 07/31/19 30 Magnesium 17 DAILY Hydroxide MG 07/31/19 5 Finasteride 17 DAILY MG 07/31/19 10 HS Atorvastatin 17 Calcium MG 07/31/19 PO 20 mg WB Deltasone 20 mg 17 1 tabs 09/10/19 Oral 500 mg 500 cefuroxime(Ceftin 17 017 mg=1 tabs, 500 mg oral Oral, BID, for tablet) 10 days, 20 tabs, 0 Refill(s) 09/10/19 See predniSONE(predniS 17 017 Instructions, ONE 10 mg oral Take 5 tabs for tablet) 2 days, then 4 for 2 days, then 3 for 2 days then 2 for 2 days, then 1 for 2 days, 30 Each, 0 Refill(s) 1 tabs 09/18/19 Oral 20 mg 20 furosemide(furosem 17 mg=1 tabs, brian 20 mg oral Oral, Daily, 30 tablet) tabs, 3 Refill(s) Tablet 12/02/19 Tablet 42 Sulfamethoxazole-T 17 017 Take 1 tablet rimethoprim twice daily 800-160 MG Oral Tablet 09/28/19 1 Q1D fluticasone 18 furoate 0.2 MG/ACTUAT / vilanterol 0.025 MG/ACTUAT Dry Powder Inhaler Problems Date Dx Attending Type Code Diagnosis Diagnosed By Coded 01/29/2015 OSEAS COLE, SON 496 Chronic Airway OSEAS COLE, SON Obstruction Not Elsewhere Classified 01/29/2015 OSEAS COLE, SON 518.84 Acute And Chronic OSEAS COLE, SON Respiratory Failure 01/29/2015 OSEAS COLE, SON 786.05 Shortness Of Breath OSEAS COLE, SON 01/29/2015 OSEAS COLE, SON 799.02 Hypoxemia OSEAS COLE, SON 02/09/2015 OSEAS COLE, SON 496 Chronic Airway OSEAS COLE, SON Obstruction Not Elsewhere Classified 02/26/2015 Oseas COLE, Son Final 496 CHRONIC AIRWAY OBSTRUCTION, NOT ELSEWHERE CLASSIFIED 02/26/2015 Oseas COLE, Son Reason 786.05 SHORTNESS OF BREATH 03/02/2015 OSEAS COLE, SON 428.0 Congestive Heart OSEAS COLE, SON Failure Unspecified 03/02/2015 OSEAS COLE, SON 486 Pneumonia Organism OSEAS COLE, SON Unspecified 03/02/2015 OSEAS COLE, SON 496 Chronic Airway OSEAS COLE, SON Obstruction Not Elsewhere Classified 03/02/2015 OSEAS COLE, SON 786.2 Cough OSEAS COLE, SON 03/30/2015 OSEAS COLE, SON 496 Chronic Airway OSEAS COLE, SON Obstruction Not Elsewhere Classified 03/30/2015 OSEAS COLE, SON 518.84 Acute And Chronic OSEAS COLE, SON Respiratory Failure 03/30/2015 OSEAS COLE, SON 786.05 Shortness Of Breath OSEAS COLE, SON 03/30/2015 OSEAS COLE, SON 799.02 Hypoxemia OSEAS COLE, SON 04/05/2015 OSEAS COLE, SON 496 Chronic Airway OSEAS COLE, SON Obstruction Not Elsewhere Classified 04/05/2015 OSEAS COLE, SON 518.84 Acute And Chronic OSEAS COLE, SON Respiratory Failure 04/05/2015 OSEAS COLE, SON 786.05 Shortness Of Breath OSEAS COLE, SON 04/05/2015 OSEAS COLE, SON 799.02 Hypoxemia OSEAS COLE, SON 05/24/2015 OSEAS COLE, SON J44.9 Chronic obstructive OSEAS COLE, SON pulmonary disease, unspecified 05/24/2015 OSEAS COLE, SON J96.10 Chronic respiratory OSEAS COLE, SON failure, unspecified whether with hypoxia or hypercapnia 05/24/2015 OSEAS COLE, SON R09.02 Hypoxemia OSEAS COLE, SON 05/24/2015 OSEAS COLE, SON R91.8 Other nonspecific OSEAS COLE, SON abnormal finding of lung field 05/27/2015 OSEAS COLE, SON J44.9 Chronic obstructive OSEAS COLE, SON pulmonary disease, unspecified 05/31/2015 Unruly COLE, Final D62 Acute Abid K posthemorrhagic anemia 05/31/2015 Unruly COLE, Final D64.9 Anemia, unspecified Abid K 05/31/2015 Unruly COLE, Final 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 05/31/2015 Unruly COLE, Final 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 05/31/2015 Unruly COLE, Final 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 05/31/2015 Unruly COLE, Final I48.2 Chronic atrial Abid K fibrillation 05/31/2015 Unruly COLE, Final I50.32 Chronic diastolic Abid K (congestive) heart failure 05/31/2015 Unruly COLE, Final I95.81 Postprocedural Abid K hypotension 05/31/2015 Unruly COLE, Final J44.9 Chronic obstructive Abid K pulmonary disease, unspecified 05/31/2015 Unruly COLE, Final M19.90 Unspecified Abid K osteoarthritis, unspecified site 05/31/2015 Unruly COLE, Final N18.9 Chronic kidney Abid K disease, unspecified 05/31/2015 Unruly COLE, Admitting R06.00 Dyspnea, unspecified Abid K 05/31/2015 Unruyl COLE, Final Z98.49 Cataract extraction Abid K status, unspecified eye 05/31/2015 Unruly COLE, Final 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 08/13/2015 OSEAS COLE, SON J44.9 Chronic obstructive OSEAS COLE, SON pulmonary disease, unspecified 08/13/2015 OSEAS COLE, SON J69.0 Pneumonitis due to OSEAS COLE, SON inhalation of food and vomit 08/13/2015 OSEAS COLE, SON J96.11 Chronic respiratory OSEAS COLE, SON failure with hypoxia 08/13/2015 OSEAS COLE, SON R91.8 Other nonspecific OSEAS COLE, SON abnormal finding of lung field 10/24/2015 Oseas COLE, Son Final J43.8 Other emphysema 10/24/2015 Oseas COLE, Son Final J92.9 Pleural plaque 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 10/24/2015 Oseas COLE, Son Final J94.8 Other specified pleural conditions 10/24/2015 Oseas COLE, Son Reason J98.4 Other disorders of lung 10/24/2015 Oseas COLE, Son Final R91.8 Other nonspecific abnormal finding of lung field 11/08/2015 OSEAS COLE, SON J18.9 Pneumonia, OSEAS COLE, SON unspecified organism 11/08/2015 OSEAS COLE, SON J44.9 Chronic obstructive OSEAS COLE, SON pulmonary disease, unspecified 11/08/2015 OSEAS COLE, SON J96.10 Chronic respiratory OSEAS COLE, SON failure, unspecified whether with hypoxia or hypercapnia 11/08/2015 OSEAS COLE, SON R91.8 Other nonspecific OSEAS COLE, SON abnormal finding of lung field 12/03/2015 Dennis Lyons Working N40.0 BPH (benign Dennis Lyons prostatic hypertrophy) 12/05/2015 OSEAS COLE, SON J18.9 Pneumonia, OSEAS COLE, SON unspecified organism 12/05/2015 OSEAS COLE, SON J44.9 Chronic obstructive OSEAS COLE, SON pulmonary disease, unspecified 12/05/2015 OSEAS COLE, SON J96.10 Chronic respiratory OSEAS COLE, SON failure, unspecified whether with hypoxia or hypercapnia 12/05/2015 OSEAS COLE, SON R09.02 Hypoxemia OSEAS COLE, SON 12/05/2015 OSEAS COLE, SON R91.8 Other nonspecific OSEAS COLE, SON abnormal finding of lung field 12/10/2015 OSEAS COLE, SON J44.9 Chronic obstructive OSEAS COLE, SON pulmonary disease, unspecified 12/13/2015 Eloy, Dennis Working N40.2 Prostate nodule Cho, Dennis 12/13/2015 Cho, Dennis Working Z79.2 Prophylactic Cho, Dennis antibiotic 12/13/2015 Cho, Dennis Working N40.2 Nodular prostate Cho, Dennis without lower urinary tract symptoms 12/31/2015 Ben Cheek I10 Essential (primary) Khicha, Jorge C hypertension 12/31/2015 Ben Cheek 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, 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 12/31/2015 Ben Cheek I48.91 Unspecified atrial Khicha, Jorge C fibrillation 12/31/2015 Ben Cheek R91.8 Other nonspecific Khicha, Jorge C abnormal finding of lung field 01/01/2016 Eloy, Dennis Working N40.2 Prostate nodule Cho, Dennis 01/01/2016 Cho, Dennis Working Z79.2 Prophylactic Cho, Dennis antibiotic 01/01/2016 Eloy, Dennis Working Z79.2 Prophylactic Eloy, Dennis antibiotic 01/01/2016 Eloy, Dennis Working N40.2 Nodular prostate Eloy, Dennis without lower urinary tract symptoms 01/01/2016 Eloy, Dennis Working Z79.2 oil heaterman (current) Dennis Lyons use of antibiotics 01/02/2016 Ben Cheek I10 Essential (primary) Khicha, Jorge C hypertension 01/02/2016 Ben Cheek 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, 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 01/02/2016 Ben Cheek I48.91 Unspecified atrial Khicha, Jorge C fibrillation 01/02/2016 Ben Cheek R91.8 Other nonspecific Khicha, Jorge C abnormal finding of lung field 01/24/2016 Ben Cheek 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, Joreg C heart disease of inupiat coronary artery without angina pectoris 01/24/2016 Ben Cheek I48.91 Unspecified atrial Khicha, Jorge C fibrillation 01/24/2016 Ben Cheek R91.1 Solitary pulmonary Khicha, Jorge C nodule 01/24/2016 Ben Cheek Z87.891 Personal history of Khicha, Jorge C nicotine dependence 01/27/2016 Ben Cheek 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, 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 01/27/2016 Ben Cheek I48.91 Unspecified atrial Khicha, Jorge C fibrillation 01/27/2016 Ben Cheek R91.1 Solitary pulmonary Khicha, Jorge C nodule 01/27/2016 Ben Cheek Z87.891 Personal history of Khicha, Jorge C nicotine dependence 01/31/2016 Ney, Final E78.2 Mixed hyperlipidemia Annetta K 01/31/2016 Ney, Final I10 Essential (primary) Annetta K hypertension 01/31/2016 Ney, Final I48.2 Chronic atrial Annetta K fibrillation 01/31/2016 Ney, Final J44.9 Chronic obstructive Annetta K pulmonary disease, unspecified 01/31/2016 Ney, Final 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 01/31/2016 Ney, Final I48.2 Chronic atrial Annetta K fibrillation 01/31/2016 Ney, Final I48.91 Unspecified atrial Annetta K fibrillation 01/31/2016 Ney, Final D50.9 Iron deficiency Annetta K anemia, unspecified 02/20/2016 Ney, Final M25.551 Pain in right hip Annetta K 03/06/2016 Oseas,, Son Final J43.9 Emphysema, unspecified 03/06/2016 Oseas,, Son Reason R05 Cough 03/13/2016 OSEAS COLE, SON J18.9 Pneumonia, OSEAS COLE, SON unspecified organism 03/13/2016 OSEAS COLE, SON J44.9 Chronic obstructive OSEAS COLE, SON pulmonary disease, unspecified 03/13/2016 OSEAS COLE, SON J96.10 Chronic respiratory OSEAS COLE, SON failure, unspecified whether with hypoxia or hypercapnia 03/13/2016 OSEAS COLE, SON R09.02 Hypoxemia OSEAS COLE, SON 03/13/2016 OSEAS COLE, SON R91.8 Other nonspecific OSEAS COLE, SON abnormal finding of lung field 04/02/2016 Jarrell Todd Final I10 Essential (primary) hypertension 04/02/2016 Jarrell Todd Final 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 angina pect 04/02/2016 Jarrell Todd Final J44.9 Chronic obstructive pulmonary disease, unspecified 04/02/2016 Jarrell Todd Final M43.02 Spondylolysis, cervical region 04/02/2016 Jarrell Todd Reason S01.01XA Laceration without foreign body of scalp, initial encounter 04/02/2016 Jarrell Todd Final W01.198A Fall on same level from slipping, tripping and stumbling with subsequent st 04/02/2016 Jarrell Todd Final Y92.[address] in unspecified non-institutional (private) residence [place] 04/02/2016 Jarrell Todd Final Z79.899 Other oil heaterman (current) drug therapy 04/02/2016 Jarrell Todd Final Z87.891 Personal history of nicotine dependence 04/02/2016 Jarrell Todd Final Z95.1 Presence of aortocoronary bypass graft 04/06/2016 Leighton, Final R55 Syncope and collapse Leisa D 04/06/2016 Leighton, Final I48.2 Chronic atrial Leisa D fibrillation 04/06/2016 Leighton, Final R00.0 Tachycardia, Leisa D unspecified 04/06/2016 Leighton, Final R26.89 Other abnormalities Leisa D of gait and mobility 04/06/2016 Leighton, Final S01.01XA Laceration without Leisa D foreign body of scalp, initial encounter 04/06/2016 Leighton, Final D64.9 Anemia, unspecified Leisa D 04/06/2016 Leighton, Final 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, unspecified 04/21/2016 Ben Cheek S01.00XA Unspecified open Alirio Cheek wound of scalpBen initial encounter 04/21/2016 Ben Cheek W19.XXXA Unspecified fallHam C initial encounter Ben Amezquita 04/24/2016 Ben Cheek S01.00XA Unspecified open Alirio Cheek wound of scalpBen initial encounter 04/24/2016 Ben Cheek W19.XXXA Unspecified fall, Ham, C initial encounter Ben C 05/20/2016 Ney, Final I10 Essential (primary) Annetta K hypertension 05/20/2016 Ney, Final D50.9 Iron deficiency Annetta K anemia, unspecified 05/20/2016 Ney, Final D64.9 Anemia, unspecified Annetta K 05/20/2016 Ney, Final E78.2 Mixed hyperlipidemia Annetta K 05/20/2016 Ney, Final 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, single episode, mild 05/20/2016 Ney, Final I48.2 Chronic atrial Annetta K fibrillation 05/20/2016 Ney, Final J44.9 Chronic obstructive Annetta K pulmonary disease, unspecified 08/20/2016 Ney, Final 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, single episode, mild 08/20/2016 Ney, Final I10 Essential (primary) Annetta K hypertension 08/20/2016 Ney, Final I48.2 Chronic atrial Annetta K fibrillation 08/20/2016 Ney, Final I95.1 Orthostatic Annetta K hypotension 08/20/2016 Ney, Final J44.9 Chronic obstructive Annetta K pulmonary disease, unspecified 08/20/2016 Ney, Final E78.2 Mixed hyperlipidemia Annetta K 09/02/2016 OSEAS COLE, SON I50.9 Heart failure, OSEAS COLE, SON unspecified 09/02/2016 FAROOQKRISTYN COLE, SON J18.9 Pneumonia, OSEAS COLE, SON unspecified organism 09/02/2016 OSEAS COLE, SON J44.9 Chronic obstructive OSEAS COLE, SON pulmonary disease, unspecified 09/02/2016 OSEAS COLE, SON J96.21 Acute and chronic OSEAS COLE, SON respiratory failure with hypoxia 09/02/2016 OSEAS COLE, SON R05 Cough OSEAS COLE, SON 09/02/2016 OSEAS COLE, SON R91.8 Other nonspecific OSEAS COLE, SON abnormal finding of lung field 09/09/2016 Ney, Final J20.8 Acute bronchitis due Annetta K to other specified organisms 09/09/2016 Ney, Final J44.1 Chronic obstructive Annetta K pulmonary disease with (acute) exacerbation 09/09/2016 Ney, Final I10 Essential (primary) Annetta K hypertension 09/09/2016 Ney, Final I48.2 Chronic atrial Annetta K fibrillation 09/09/2016 Ney, Final J20.8 Acute bronchitis due Annetta K to other specified organisms 09/17/2016 Ney, Final J43.8 Other emphysema Annetta K 09/17/2016 Ney, Final E78.2 Mixed hyperlipidemia Annetta K 09/17/2016 Ney, Final I10 Essential (primary) Annetta K hypertension 09/17/2016 Ney, Final I48.2 Chronic atrial Annetta K fibrillation 09/17/2016 Ney, Final J96.11 Chronic respiratory Annetta K failure with hypoxia 09/17/2016 Ney, Final I50.32 Chronic diastolic Annetta K (congestive) heart failure 09/17/2016 Ney, Final I50.32 Chronic diastolic Annetta K (congestive) heart failure 09/22/2016 OSEAS COLE, SON J44.9 Chronic obstructive OSEAS COLE, SON pulmonary disease, unspecified 09/23/2016 Oseas,, Son Final J94.8 Other specified pleural conditions 09/23/2016 Oseas, Son Reason R91.1 Solitary pulmonary nodule 09/23/2016 Oseas,, Son Final R91.8 Other nonspecific abnormal finding of lung field 09/28/2016 OSEAS COLE, SON J44.9 Chronic obstructive OSEAS COLE, SON pulmonary disease, unspecified 09/28/2016 OSEAS COLE, SON J90 Pleural effusion, OSEAS COLE, SON not elsewhere classified 09/28/2016 OSEAS COLE, SON J96.20 Acute and chronic OSEAS COLE, SON respiratory failure, unspecified whether with hypoxia or hypercapnia 09/28/2016 OSEAS COLE, SON R91.8 Other nonspecific OSEAS COLE, SON abnormal finding of lung field 10/05/2016 Jarrell Todd Final Y92.[address] in unspecified non-institutional (private) residence as the [facility] 10/21/2016 Ney, Final I48.2 Chronic atrial Annetta K fibrillation 10/21/2016 Ney, Final I10 Essential (primary) Annetta K hypertension 10/21/2016 Ney, Final I50.32 Chronic diastolic Annetta K (congestive) heart failure 10/21/2016 Ney, Final J43.8 Other emphysema Annetta K 10/21/2016 Ney, Final J96.11 Chronic respiratory Annetta K failure with hypoxia 11/05/2016 Leighton, Final M25.422 Effusion, left elbow Leisa D 11/18/2016 OSEAS COLE, SON J18.9 Pneumonia, OSEAS COLE, SON unspecified organism 11/18/2016 OSEAS COLE, SON J44.9 Chronic obstructive OSEAS COLE, SON pulmonary disease, unspecified 11/18/2016 OSEAS COLE, SON J96.11 Chronic respiratory OSEAS COLE, SON failure with hypoxia 11/18/2016 OSEAS COLE, SON R91.8 Other nonspecific OSEAS COLE, SON abnormal finding of lung field 11/26/2016 Ney, Final H61.23 Impacted cerumen, Annetta K bilateral 11/26/2016 Ney, Final M70.22 Olecranon bursitis, Annetta K left elbow 11/26/2016 Ney, Final I10 Essential (primary) Annetta K hypertension 11/26/2016 Ney, Final J43.8 Other emphysema Annetta K 11/26/2016 Ney, Final J96.10 Chronic respiratory Annetta K failure, unspecified whether with hypoxia or hypercapnia 11/26/2016 Ney, Final N40.0 Benign prostatic Annetta Zamudio hyperplasia without lower urinary tract symptoms 12/01/2016 Dennis Lyons Working N40.0 BPH (benign Gale Rosmery prostatic hypertrophy) 12/01/2016 Dennis Lyons Working N40.2 Prostate nodule Baljinder Rosmery 12/01/2016 Dennis Lyons Working N40.0 Benign prostatic Dennis Lyons hyperplasia without lower urinry tract symp 12/01/2016 Dennis Lyons Working N40.2 Nodular prostate Dennis Lyons without lower urinary tract symptoms 12/01/2016 Dennis Lyons Working Z87.438 Personal history of Dennis Lyons other diseases of male genital organs 12/23/2016 Ney, Final I10 Essential (primary) Annetta K hypertension 12/23/2016 Ney, Final I48.2 Chronic atrial Annetta K fibrillation 12/23/2016 Ney, Final J43.8 Other emphysema Annetta K 12/23/2016 Ney, Final J96.10 Chronic respiratory Annetta K failure, unspecified whether with hypoxia or hypercapnia 12/23/2016 Ney, Final E78.2 Mixed hyperlipidemia Annetta K 12/23/2016 Ney, Final I50.30 Unspecified Annetta K diastolic (congestive) heart failure 03/31/2017 Ney, Final 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, single episode, mild 03/31/2017 Ney, Final I10 Essential (primary) Annetta K hypertension 03/31/2017 Ney, Final I48.2 Chronic atrial Annetta K fibrillation 03/31/2017 Ney, Final I50.30 Unspecified Annetta Zamudio diastolic (congestive) heart failure 03/31/2017 Ney, Final J43.8 Other emphysema Annetta Zamudio 03/31/2017 Ney, Final J96.10 Chronic respiratory Annetta Zamudio failure, unspecified whether with hypoxia or hypercapnia 03/31/2017 Ney, Final E78.2 Mixed hyperlipidemia Annetta Zamudio 09/27/2017 F J44.9 Chronic obstructive pulmonary disease, unspecified Procedures Code Description Performed By Performed On Performance of 05/24/2015 [id number] Cardiac Output, Continuous Bronchodilation APURVA FAROOQ MD 12/10/2015 97703 responsiveness[place] [address], pre- and post-bronchodilator administration Gas dilution or APURVA FAROOQ MD 12/10/2015 75961 washout for determination of lung volumes and, when performed, distribution of venti Diffusing capacity APURVA FAROOQ MD 12/10/2015 63099 (eg, carbon monoxide, membrane) (List separately in addition to code for primary Demonstration APURVA FAROOQ MD 12/10/2015 76896 and/or evaluation of patient utilization of an aerosol generator, nebulizer, metered d Office or other APURVA FAROOQ MD 12/10/2015 72607 outpatient visit for the evaluation and management of an established patient, which APURVA Jiménez MD 12/12/2015 32787 and/or evaluation of patient utilization of an aerosol generator, nebulizer, metered d Office or other APURVA FAROOQ MD 12/12/2015 68466 outpatient visit for the evaluation and management of an established patient, which Urinalysis,Complete Dennis Lyons 12/16/2015 50258 Office or other Jorge Aguilar 12/31/2015 13673 outpatient visit for the evaluation and management of an established patient, which APURVA Jiménez MD 12/31/2015 05462 and/or evaluation of patient utilization of an aerosol generator, nebulizer, metered d Office or other APURVA FAROOQ MD 12/31/2015 76488 outpatient visit for the evaluation and management of an established patient, which Needle Dennis Lyons 01/01/2016 45846 Biopsy,Prostate Echography,Prostate [facility] Dennis 01/01/2016 52188 Ultrasound Guidance Eloy Dennis 01/01/2016 35488 Therapeutic [facility] 01/01/2016 58564 Injection Garamycin Up To 80 Cho, Dennis 01/01/2016 J1580 Mg [id number] Bronchodilation [facility] 01/01/2016 32406 responsiveness[place] [address], pre- and post-bronchodilator administration Gas dilution or [facility] 01/01/2016 27129 washout for determination of lung volumes and, when performed, distribution of venti Diffusing capacity [facility] 01/01/2016 30107 (eg, carbon monoxide, membrane) (List separately in addition to code for primary Demonstration [facility] 01/14/2016 82012 and/or evaluation of patient utilization of an aerosol generator, nebulizer, metered d Office or other [facility] 01/14/2016 95191 outpatient visit for the evaluation and management of an established patient, which Bronchodilation [facility] 01/14/2016 43189 responsiveness[place] [address], pre- and post-bronchodilator administration Gas dilution or [facility] 01/14/2016 34061 washout for determination of lung volumes and, when performed, distribution of venti Diffusing capacity [facility] 01/14/2016 93782 (eg, carbon monoxide, membrane) (List separately in addition to code for primary Office or other Pending Sale To [facility] 01/24/2016 79422 outpatient visit for the evaluation and management of an established patient, which Office or other 01/31/2016 91827 outpatient visit for the evaluation and management of an established patient, which requires at least 2 of these 3 huber components: A detailed history; A detailed examination; Medical d Office or other [facility] 02/03/2016 57653 outpatient visit for the evaluation and management of an established patient, which Radiologic 02/20/2016 39855 examination, pelvis; 1 or 2 views Office or other 02/20/2016 outpatient visit for the evaluation and management of an established patient, which requires at least 2 of these 3 huber components: An expanded problem focused history; An expanded prob Office or other Pending [facility] To [facility] 02/25/2016 23909 outpatient visit for the evaluation and management of an established patient, which Demonstration [facility] 03/13/2016 43575 and/or evaluation of patient utilization of an aerosol generator, nebulizer, metered d Office or other [facility] 03/13/2016 97924 outpatient visit for the evaluation and management of an established patient, which Office or other 04/06/2016 69144 outpatient visit for the evaluation and management of an established patient, which requires at least 2 of these 3 huber components: A detailed history; A detailed examination; Medical d Conrad FAROOQ [facility] 04/07/2016 17050 and/or evaluation of patient utilization of an aerosol generator, nebulizer, metered d Office or other [facility] 04/07/2016 17796 outpatient visit for the evaluation and management of an established patient, which eBn Caballero 04/21/2016 29449 department visit for the evaluation and management of a patient, which requires these thre Conrad FAROOQ MD [facility] 04/22/2016 97792 and/or evaluation of patient utilization of an aerosol generator, nebulizer, metered d Office or other [facility] 04/22/2016 58038 outpatient visit for the evaluation and management of an established patient, which External 05/14/2016 09604 electrocardiographic recording up to 48 hours by continuous rhythm recording and storage; scanning analysis with report External 05/14/2016 95696 electrocardiographic recording up to 48 hours by continuous rhythm recording and storage; review and interpretation by a physician or other qualified health hospice spiritual care coordinator Office or other 05/20/2016 41587 outpatient visit for the evaluation and management of an established patient, which requires at least 2 of these 3 huber components: A detailed history; A detailed examination; Medical d Ben Caballero 05/27/2016 37738 department visit for the evaluation and management of a patient, which requires these thre [facility] 08/20/2016 36307 Management Services with the following required elements: Communication (direct contact, telephone, electronic) with the patient and/or caregiver within 2 business days of discharge APURVA Jiménez MD 09/02/2016 01566 and/or evaluation of patient utilization of an aerosol generator, nebulizer, metered d Office or APURVA Kimball MD 09/02/2016 92460 outpatient visit for the evaluation and management of an established patient, which Office or other 09/09/2016 86665 outpatient visit for the evaluation and management of an established patient, which requires at least 2 of these 3 huber components: A detailed history; A detailed examination; Medical d Office or other 09/17/2016 83610 outpatient visit for the evaluation and management of an established patient, which requires at least 2 of these 3 huber components: A detailed history; A detailed examination; Medical d Conrad FAROOQ [facility] 09/21/2016 09000 and/or evaluation of patient utilization of an aerosol generator, nebulizer, metered d Office or other [facility] 09/21/2016 99776 outpatient visit for the evaluation and management of an established patient, which Leopoldo FAROOQ MD [facility] 09/22/2016 75344 responsiveness[place] [address], pre- and post-bronchodilator administration Conrad FAROOQ [facility] 09/28/2016 46994 and/or evaluation of patient utilization of an aerosol generator, nebulizer, metered d Office or other [facility] 09/28/2016 10649 outpatient visit for the evaluation and management of an established patient, which Conrad FAROOQ MD [facility] 10/07/2016 92767 and/or evaluation of patient utilization of an aerosol generator, nebulizer, metered d Office or other [facility] 10/07/2016 24419 outpatient visit for the evaluation and management of an established patient, which Leopoldo FAROOQ MD [facility] 10/13/2016 56172 responsiveness[place] [address], pre- and post-bronchodilator administration Bronchodilpatricia FAROOQ MD [facility] 10/17/2016 06051 responsiveness[place] [address], pre- and post-bronchodilator administration Office or other 10/21/2016 38313 outpatient visit for the evaluation and management of an established patient, which requires at least 2 of these 3 huber components: A detailed history; A detailed examination; Medical d Conrad FAROOQ MD [facility] 10/22/2016 37795 and/or evaluation of patient utilization of an aerosol generator, nebulizer, metered d Office or radu FAROOQ MD [facility] 10/22/2016 33429 outpatient visit for the evaluation and management of an established patient, which Conrad FAROOQ MD [facility] 10/23/2016 21821 and/or evaluation of patient utilization of an aerosol generator, nebulizer, metered d Office or radu FAROOQ MD [facility] 10/23/2016 27692 outpatient visit for the evaluation and management of an established patient, which Bronchodilation APURVA FAROOQ MD 11/04/2016 80785 responsiveness[place] [address], pre- and post-bronchodilator administration Office or other 11/05/2016 40708 outpatient visit for the evaluation and management of an established patient, which requires at least 2 of these 3 huber components: An expanded problem focused history; An expanded prob Conrad FAROOQ [facility] 11/18/2016 43984 and/or evaluation of patient utilization of an aerosol generator, nebulizer, metered d Office or other [facility] 11/18/2016 62783 outpatient visit for the evaluation and management of an established patient, which Conrad FAROOQ MD [facility] 11/18/2016 93065 and/or evaluation of patient utilization of an aerosol generator, nebulizer, metered d Office or radu FAROOQ MD [facility] 11/18/2016 68160 outpatient visit for the evaluation and management of an established patient, which Office or other 11/26/2016 74627 outpatient visit for the evaluation and management of an established patient, which requires at least 2 of these 3 huber components: A detailed history; A detailed examination; Medical d Ultrasound For Dennis Lyons 12/02/2016 91973 Urine Capacity [facility] Dennis 12/02/2016 95462 Urinalysis,Chemistries Conrad FAROOQ MD [facility] 12/10/2016 10996 and/or evaluation of patient utilization of an aerosol generator, nebulizer, metered d Office or APURVA Kimball MD 12/10/2016 07867 outpatient visit for the evaluation and management of an established patient, which Conrad FAROOQ [facility] 12/20/2016 06328 and/or evaluation of patient utilization of an aerosol generator, nebulizer, metered d Office or radu FAROOQ MD [facility] 12/20/2016 53442 outpatient visit for the evaluation and management of an established patient, which Office or other 12/23/2016 85427 outpatient visit for the evaluation and management of an established patient, which requires at least 2 of these 3 huber components: A detailed history; A detailed examination; Medical d Radiologic 03/30/2017 83878 examination, chest, 2 views, frontal and lateral; Conrad FAROOQ [facility] 04/12/2017 00411 and/or evaluation of patient utilization of an aerosol generator, nebulizer, metered d Rebecca FAROOQ MD, [facility] 04/12/2017 46423 pulse oximetry for oxygen saturation; single determination Rebecca FAROOQ MD, [facility] 04/12/2017 38376 pulse oximetry for oxygen saturation; multiple determinations (eg, during exercis Office or other [facility] 04/12/2017 15633 outpatient visit for the evaluation and management of a new patient, which requires Office or other [facility] 04/12/2017 62825 outpatient visit for the evaluation and management of an established patient, which Office consultation [facility] 04/12/2017 20787 for a new or established patient, which requires these 3 huber components: A compr Bronchodilation [facility] 04/12/2017 76785 responsiveness[place] [address], pre- and post-bronchodilator administration Demonstration [facility] 04/12/2017 67361 and/or evaluation of patient utilization of an aerosol generator, nebulizer, metered d Gas dilution or [facility] 04/12/2017 89932 washout for determination of lung volumes and, when performed, distribution of venti Diffusing capacity [facility] 04/12/2017 88626 (eg, carbon monoxide, membrane) (List separately in addition to code for primary Rebecca FAROOQ [facility] 04/12/2017 36384 pulse oximetry for oxygen saturation; multiple determinations (eg, during exercis Office or radu FAROOQ [facility] 04/12/2017 08784 outpatient visit for the evaluation and management of an established patient, which Bronchodilpatricia FAROOQ MD[facility] 04/12/2017 31836 responsiveness[place] [address], pre- and post-bronchodilator administration Demonstration [facility] 04/12/2017 76902 and/or evaluation of patient utilization of an aerosol generator, nebulizer, metered d Office or radu FAROOQ MD[facility] 04/12/2017 89655 outpatient visit for the evaluation and management of an established patient, which Bronchodilpatricia FAROOQ [facility] 04/12/2017 69223 responsiveness[place] [id number], pre- and post-bronchodilator administration Demonstration AP[facility] FAROOQ MD 04/12/2017 00766 and/or evaluation of patient utilization of an aerosol generator, nebulizer, metered d Gas dilution or APURVA FAROOQ MD 04/12/2017 91835 washout for determination of lung volumes and, when performed, distribution of venti Diffusing capacity APURVA FAROOQ MD 04/12/2017 23188 (eg, carbon monoxide, membrane) (List separately in addition to code for primary Office or other APURVA FAROOQ MD 04/12/2017 68158 outpatient visit for the evaluation and management of an established patient, which Bronchodilation APURVA FAROOQ MD 04/12/2017 16732 responsiveness[place] [address], pre- and post-bronchodilator administration Demonstration APURVA FAROOQ MD 04/12/2017 88931 and/or evaluation of patient utilization of an aerosol generator, nebulizer, metered d Office or other APURVA FAROOQ MD 04/12/2017 89724 outpatient visit for the evaluation and management of an established patient, which EVALUATION OF 09/27/2017 90872 WHEE[facility]I Results Test Result Range BB Specimen to Hold - 03/30/16 15:38 BB Specimen to Hold NA CBC With Platelet No Differential - 03/30/16 15:50 HCT 28.8 % 42.0-52.0 HGB 9.9 g/dL 14.0-18.0 MCH 35.1 pg 27.0-32.0 MCHC 34.4 g/dL 32.0-36.0 MCV 102.1 fL 82.0-99.0 MPV 8.6 fL 9.4-12.3 Platelet Count 162 K/uL 150-400 RBC 2.82 10*6/uL 4.60-6.20 RDW 13.9 % 11.5-14.5 WBC 6.3 K/uL 4.8-10.8 Lactic Acid Venous - 03/30/16 15:50 Lactic Acid Venous 3.8 mEq/L 0.5-2.2 Basic Metabolic Panel (BMP) - 03/30/16 15:50 Anion Gap 12 NA 3-20 BUN 15 mg/dL 4-20 Calcium 8.5 mg/dL 8.6-10.0 Chloride 104 mEq/L 99-109 CO2 21 mEq/L 22-32 Creatinine 1.44 mg/dL 0.64-1.27 Glucose 92 mg/dL 70-100 Potassium 3.8 mEq/L 3.6-5.1 Sodium 137 mEq/L 136-144 Alcohol, Blood - 03/30/16 15:50 Alcohol, Blood 74 mg/dL eGFR - 03/30/16 15:50 eGFR 47 NA >60 Lactic Acid Venous - 03/30/16 18:29 Lactic Acid Venous 2.3 mEq/L 0.5-2.2 CBC With Platelet and Differential - 05/20/16 09:12 Absolute Basophils 0.01 10*3 0.00-0.20 Absolute Eosinophils 0.09 10*3 0.00-0.50 Absolute Lymphocytes 0.57 10*3 0.80-3.30 Absolute Monocytes 0.85 10*3 0.30-1.00 Absolute Neutrophils 6.32 10*3 1.90-7.00 Basophils 0 % 0-2 Eosinophils 1 % 0-4 HCT 35.4 % 42.0-52.0 HGB 12.3 g/dL 14.0-18.0 Immature Granulocytes 0.1 % 0.0-1.0 Lymphocytes 7 % 20-46 MCH 35.3 pg 27.0-32.0 MCHC 34.7 g/dL 32.0-36.0 MCV 101.7 fL 82.0-99.0 Monocytes 11 % 4-11 MPV 10.0 fL 8.8-14.8 Neutrophils 81 % 51-75 Platelet Count 172 K/uL 150-400 RBC 3.48 10*6/uL 4.60-6.20 RDW 13.4 % 11.5-14.5 WBC 7.8 K/uL 4.8-10.8 Comprehensive Metabolic Panel (CMP) - 05/20/16 09:12 Albumin 3.7 g/dL 3.4-4.8 Alkaline Phosphatase 100 U/L 40-150 ALT (SGPT) 56 U/L 0-55 Anion Gap 8 NA 3-20 AST (SGOT) 62 U/L 5-34 Bilirubin Total 1.1 mg/dL 0.2-1.2 BUN 11 mg/dL 8-26 Calcium 9.5 mg/dL 8.9-10.5 Chloride 102 mEq/L 99-111 CO2 27 mEq/L 23-31 Creatinine 0.85 mg/dL 0.72-1.25 Globulin 2.9 g/dL 1.8-4.0 Glucose 109 mg/dL 70-99 Potassium 4.5 mEq/L 3.5-5.2 Protein 6.6 g/dL 6.0-7.6 Sodium 137 mEq/L 135-144 eGFR - 05/20/16 09:12 eGFR >60 mL/min >60 M110.0195 - 07/15/16 14:04 ANTI-D NO GROWTH AFTER 5 DAYS L100.0050 - 07/15/16 14:04 WBC - WHITE BLOOD COUNT 5.2 T/MM3 4.5-11.0 RED BLOOD COUNT 3.48 M/MM3 4.50-5.90 HGB - HEMOGLOBIN 12.0 GM/DL 13.5-17.5 HCT - HEMATOCRIT 34.3 % 41-53 MEAN CORPUSCULAR VOLUME 98.6 UM3 80-100 MEAN CORPUSCULAR HGB 34.5 UUG 26-34 MEAN CORPUSCULAR HGB CONC(MCHC 35.0 GM/DL 31-37 RDW STANDARD DEVIATION 43.5 FL 36.9-50.2 PLT - PLATELET COUNT 168 T/MM3 130-400 MEAN PLATELET VOLUME 8.8 UM3 9.4-12.4 NEUTROPHILS % (AUTO) 78.5 % 33-66 LYMPHOCYTES % (AUTO) 12.2 % 23-45 MONOCYTES % (AUTO) 7.6 % 0-9.0 EOSINOPHILS % (AUTO) 1.5 % 0-4 BASOPHILS % (AUTO) 0.2 % 0-2 IMMATURE GRANULOCYTE % (AUTO) 0.0 % 0.0-0.5 NEUTROPHILS # (AUTO) 4.1 T/MM3 1.8-7.7 LYMPHOCYTES # (AUTO) 0.6 T/MM3 1-4.8 MONOCYTES # (AUTO) 0.4 T/MM3 0-0.8 EOSINOPHILS # (AUTO) 0.1 T/MM3 0-0.5 BASOPHILS # (AUTO) 0.0 T/MM3 0-0.2 IMMATURE GRANULOCYTE # (AUTO) 0.00 T/MM3 0.00-0.03 L200.002 - 07/15/16 14:04 ICTERUS < 2 0-7 HEMOLYSIS < 15 0-25 TURBIDITY < 20 0-20 SODIUM 134 MEQ/L 134-144 POTASSIUM 3.9 MEQ/L 3.6-5 CHLORIDE 94 MEQ/L 98-107 CO2 - CARBON DIOXIDE 31 MEQ/L 22-30 ANION GAP 9 MEQ/L 5-15 BLOOD UREA NITROGEN 21.0 MG/DL 9-20 CREATININE 1.4 MG/DL 0.8-1.5 BUN/CREATININE RATIO 15 RATIO 6-26 GLOMERULAR FILTRATION RATE 49 GLUCOSE 114 MG/DL 75-110 OSMOLALITY,CALCULATED 262 MOSM/KG 261-280 CALCIUM 9.8 MG/DL 8.4-10.2 BILIRUBIN,TOTAL 1.00 MG/DL 0.20-1.30 ALKALINE PHOSPHATASE 105 U/L 38-126 TOTAL PROTEIN 7.6 G/DL 6.3-8.2 ALBUMIN 3.8 G/DL 3.5-5.0 GLOBULIN 3.8 G/DL 2.4-3.6 ALBUMIN/GLOBULIN RATIO 1.0 RATIO 1.1-2.2 AST (SGOT) 87 U/L 17-59 ALT (SGPT) 73 U/L 21-72 L200.2066 - 07/15/16 14:04 LACTATE - LACTIC ACID, VENOUS 1.2 MMOL/L 0.6-2.2 L200.1847 - 07/15/16 14:04 TROPONIN I 0.016 ng/ml 0-0.12 L200.2067 - 07/15/16 14:04 PROCALCITONIN 0.12 NG/ML L200.188 - 07/15/16 14:04 PROBNP 556 PG/ML 0-175 L200.385 - 07/15/16 14:04 THYROID STIM HORMONE-TSH 1.19 MIU/L 0.47-4.68 L200.19 - 07/16/16 04:37 ICTERUS < 2 0-7 HEMOLYSIS < 15 0-25 TURBIDITY < 20 0-20 SODIUM 134 MEQ/L 134-144 POTASSIUM 3.2 MEQ/L 3.6-5 CHLORIDE 93 MEQ/L 98-107 CO2 - CARBON DIOXIDE 31 MEQ/L 22-30 ANION GAP 10 MEQ/L 5-15 BLOOD UREA NITROGEN 23.0 MG/DL 9-20 CREATININE 1.3 MG/DL 0.8-1.5 BUN/CREATININE RATIO 18 RATIO 6-26 GLOMERULAR FILTRATION RATE 53 GLUCOSE 109 MG/DL 75-110 OSMOLALITY,CALCULATED 263 MOSM/KG 261-280 CALCIUM 9.1 MG/DL 8.4-10.2 BILIRUBIN,TOTAL 0.70 MG/DL 0.20-1.30 ALKALINE PHOSPHATASE 77 U/L 38-126 TOTAL PROTEIN 6.1 G/DL 6.3-8.2 ALBUMIN 3.0 G/DL 3.5-5.0 GLOBULIN 3.1 G/DL 2.4-3.6 ALBUMIN/GLOBULIN RATIO 1.0 RATIO 1.1-2.2 AST (SGOT) 81 U/L 17-59 ALT (SGPT) 61 U/L 21-72 L200.4150 - 07/16/16 04:37 PREALBUMIN 12.3 MG/DL 17.6-36.0 L100.0050 - 07/16/16 04:37 WBC - WHITE BLOOD COUNT 5.6 T/MM3 4.5-11.0 RED BLOOD COUNT 2.95 M/MM3 4.50-5.90 HGB - HEMOGLOBIN 9.9 GM/DL 13.5-17.5 HCT - HEMATOCRIT 29.2 % 41-53 MEAN CORPUSCULAR VOLUME 99.0 UM3 80-100 MEAN CORPUSCULAR HGB 33.6 UUG 26-34 MEAN CORPUSCULAR HGB CONC(MCHC 33.9 GM/DL 31-37 RDW STANDARD DEVIATION 42.3 FL 36.9-50.2 PLT - PLATELET COUNT 165 T/MM3 130-400 MEAN PLATELET VOLUME 9.2 UM3 9.4-12.4 NEUTROPHILS % (AUTO) 81.2 % 33-66 LYMPHOCYTES % (AUTO) 8.0 % 23-45 MONOCYTES % (AUTO) 8.3 % 0-9.0 EOSINOPHILS % (AUTO) 2.1 % 0-4 BASOPHILS % (AUTO) 0.2 % 0-2 IMMATURE GRANULOCYTE % (AUTO) 0.2 % 0.0-0.5 NEUTROPHILS # (AUTO) 4.6 T/MM3 1.8-7.7 LYMPHOCYTES # (AUTO) 0.5 T/MM3 1-4.8 MONOCYTES # (AUTO) 0.5 T/MM3 0-0.8 EOSINOPHILS # (AUTO) 0.1 T/MM3 0-0.5 BASOPHILS # (AUTO) 0.0 T/MM3 0-0.2 IMMATURE GRANULOCYTE # (AUTO) 0.01 T/MM3 0.00-0.03 L200.1999 - 07/16/16 04:37 MAGNESIUM 1.5 MG/DL 1.6-2.3 L100.0298 - 07/16/16 13:38 HGB - HEMOGLOBIN 10.8 GM/DL 13.5-17.5 L100.0050 - 07/17/16 04:45 WBC - WHITE BLOOD COUNT 4.6 T/MM3 4.5-11.0 RED BLOOD COUNT 2.92 M/MM3 4.50-5.90 HGB - HEMOGLOBIN 9.7 GM/DL 13.5-17.5 HCT - HEMATOCRIT 29.1 % 41-53 MEAN CORPUSCULAR VOLUME 99.7 UM3 80-100 MEAN CORPUSCULAR HGB 33.2 UUG 26-34 MEAN CORPUSCULAR HGB CONC(MCHC 33.3 GM/DL 31-37 RDW STANDARD DEVIATION 44.0 FL 36.9-50.2 PLT - PLATELET COUNT 150 T/MM3 130-400 MEAN PLATELET VOLUME 8.6 UM3 9.4-12.4 NEUTROPHILS % (AUTO) 78.2 % 33-66 LYMPHOCYTES % (AUTO) 8.2 % 23-45 MONOCYTES % (AUTO) 10.4 % 0-9.0 EOSINOPHILS % (AUTO) 2.8 % 0-4 BASOPHILS % (AUTO) 0.2 % 0-2 IMMATURE GRANULOCYTE % (AUTO) 0.2 % 0.0-0.5 NEUTROPHILS # (AUTO) 3.6 T/MM3 1.8-7.7 LYMPHOCYTES # (AUTO) 0.4 T/MM3 1-4.8 MONOCYTES # (AUTO) 0.5 T/MM3 0-0.8 EOSINOPHILS # (AUTO) 0.1 T/MM3 0-0.5 BASOPHILS # (AUTO) 0.0 T/MM3 0-0.2 IMMATURE GRANULOCYTE # (AUTO) 0.01 T/MM3 0.00-0.03 L200.005 - 07/17/16 04:45 ICTERUS < 2 0-7 HEMOLYSIS < 15 0-25 TURBIDITY < 20 0-20 SODIUM 135 MEQ/L 134-144 POTASSIUM 3.4 MEQ/L 3.6-5 CREATININE 1.1 MG/DL 0.8-1.5 BUN/CREATININE RATIO 17 RATIO 6-26 GLOMERULAR FILTRATION RATE 64 GLUCOSE 109 MG/DL 75-110 OSMOLALITY,CALCULATED 263 MOSM/KG 261-280 CALCIUM 9.1 MG/DL 8.4-10.2 L200.1000 - 07/17/16 04:45 TOTAL PROTEIN 6.1 G/DL 6.3-8.2 L200.1855 - 07/17/16 04:45 LDH 321 U/L 313-618 L160.010 - 07/17/16 09:14 INR 1.02 0.76-1.04 L200.215 - 07/17/16 09:28 IRON 45 UG/DL 49-181 L200.236 - 07/17/16 09:28 VITAMIN B12 343 PG/ML 239-931 L200.2364 - 07/17/16 09:28 FOLATE 3.4 NG/ML 2.76-20 M110.0401 - 07/17/16 15:36 GRAM STAIN W BF - REPORTABLE BODY FLUID CULTURE NO GROWTH AFTER 5 DAYS L750.152 - 07/17/16 15:36 FLUID TYPE [facility] AMYLASE, FLUID 26 U/L L500.199907/17/16 15:36 COLOR, BODY FLUID RED TURBIDITY, BODY FLUID CLOUDY WBC-TOTAL NUCLEATED CELLS, BF 1396 /MM3 RED BLOOD CELL, BODY FLUID 194302 /MM3 NEUTROPHILS,BODY FLUID 3 % LYMPHOCYTES,BODY FLUID 84 % MONOCYTES,BODY FLUID 11 % EOSINOPHILS,BODY FLUID 2 % BASOPHILS,BODY FLUID 0 % OTHER CELLS, BF 0 % BODY FLUID TYPE THORACENTESIS FLUID L700.2490 - 07/17/16 15:36 CYTOLOGY SEND OUT L500.27507/17/16 15:36 PH, BODY FLUID 7.71 L750.4450 - 07/17/16 15:36 GLUCOSE, FLUID 102 mg/dL L750.5990 - 07/17/16 15:36 LDH, FLUID 200 U/L L750.7700 - 07/17/16 15:36 PROTEIN, FLUID 3.9 g/dL M130.0101 - 07/17/16 18:42 SODIUM SPUTUM CULTURE L100.0050 - 07/19/16 04:42 WBC - WHITE BLOOD COUNT 5.3 T/MM3 4.5-11.0 RED BLOOD COUNT 2.96 M/MM3 4.50-5.90 HGB - HEMOGLOBIN 9.9 GM/DL 13.5-17.5 HCT - HEMATOCRIT 29.5 % 41-53 MEAN CORPUSCULAR VOLUME 99.7 UM3 80-100 MEAN CORPUSCULAR HGB 33.4 UUG 26-34 MEAN CORPUSCULAR HGB CONC(MCHC 33.6 GM/DL 31-37 RDW STANDARD DEVIATION 43.1 FL 36.9-50.2 PLT - PLATELET COUNT 147 T/MM3 130-400 MEAN PLATELET VOLUME 9.3 UM3 9.4-12.4 NEUTROPHILS % (AUTO) 76.2 % 33-66 LYMPHOCYTES % (AUTO) 10.3 % 23-45 MONOCYTES % (AUTO) 9.7 % 0-9.0 EOSINOPHILS % (AUTO) 3.2 % 0-4 BASOPHILS % (AUTO) 0.2 % 0-2 IMMATURE GRANULOCYTE % (AUTO) 0.4 % 0.0-0.5 NEUTROPHILS # (AUTO) 4.0 T/MM3 1.8-7.7 LYMPHOCYTES # (AUTO) 0.5 T/MM3 1-4.8 MONOCYTES # (AUTO) 0.5 T/MM3 0-0.8 EOSINOPHILS # (AUTO) 0.2 T/MM3 0-0.5 BASOPHILS # (AUTO) 0.0 T/MM3 0-0.2 IMMATURE GRANULOCYTE # (AUTO) 0.02 T/MM3 0.00-0.03 L200.0050 - 07/19/16 04:42 ICTERUS < 2 0-7 HEMOLYSIS < 15 0-25 TURBIDITY < 20 0-20 SODIUM 132 MEQ/L 134-144 POTASSIUM 3.8 MEQ/L 3.6-5 CHLORIDE 98 MEQ/L 98-107 CO2 - CARBON DIOXIDE 29 MEQ/L 22-30 ANION GAP 5 MEQ/L 5-15 BLOOD UREA NITROGEN 16.0 MG/DL 9-20 CREATININE 0.9 MG/DL 0.8-1.5 BUN/CREATININE RATIO 18 RATIO 6-26 GLOMERULAR FILTRATION RATE 81 GLUCOSE 104 MG/DL 75-110 OSMOLALITY,CALCULATED 256 MOSM/KG 261-280 CALCIUM 9.4 MG/DL 8.4-10.2 L200.1999 - 07/19/16 04:42 MAGNESIUM 1.7 MG/DL 1.6-2.3 L200.1847 - 07/19/16 04:42 HEMOLYSIS < 15 0-25 TROPONIN I 0.027 ng/ml 0-0.12 L100.0050 - 07/20/16 04:50 WBC - WHITE BLOOD COUNT 4.9 T/MM3 4.5-11.0 RED BLOOD COUNT 2.99 M/MM3 4.50-5.90 HGB - HEMOGLOBIN 10.0 GM/DL 13.5-17.5 HCT - HEMATOCRIT 29.9 % 41-53 MEAN CORPUSCULAR VOLUME 100.0 UM3 80-100 MEAN CORPUSCULAR HGB 33.4 UUG 26-34 MEAN CORPUSCULAR HGB CONC(MCHC 33.4 GM/DL 31-37 RDW STANDARD DEVIATION 43.4 FL 36.9-50.2 PLT - PLATELET COUNT 155 T/MM3 130-400 MEAN PLATELET VOLUME 9.8 UM3 9.4-12.4 NEUTROPHILS % (AUTO) 74.1 % 33-66 LYMPHOCYTES % (AUTO) 10.5 % 23-45 MONOCYTES % (AUTO) 10.9 % 0-9.0 EOSINOPHILS % (AUTO) 3.9 % 0-4 BASOPHILS % (AUTO) 0.4 % 0-2 IMMATURE GRANULOCYTE % (AUTO) 0.2 % 0.0-0.5 NEUTROPHILS # (AUTO) 3.6 T/MM3 1.8-7.7 LYMPHOCYTES # (AUTO) 0.5 T/MM3 1-4.8 MONOCYTES # (AUTO) 0.5 T/MM3 0-0.8 EOSINOPHILS # (AUTO) 0.2 T/MM3 0-0.5 BASOPHILS # (AUTO) 0.0 T/MM3 0-0.2 IMMATURE GRANULOCYTE # (AUTO) 0.01 T/MM3 0.00-0.03 L200.49 - 07/20/16 04:50 ICTERUS < 2 0-7 HEMOLYSIS < 15 0-25 TURBIDITY < 20 0-20 SODIUM 134 MEQ/L 134-144 POTASSIUM 4.4 MEQ/L 3.6-5 CHLORIDE 98 MEQ/L 98-107 CO2 - CARBON DIOXIDE 29 MEQ/L 22-30 ANION GAP 7 MEQ/L 5-15 BLOOD UREA NITROGEN 13.0 MG/DL 9-20 CREATININE 0.9 MG/DL 0.8-1.5 BUN/CREATININE RATIO 14 RATIO 6-26 GLOMERULAR FILTRATION RATE 81 GLUCOSE 102 MG/DL 75-110 OSMOLALITY,CALCULATED 258 MOSM/KG 261-280 CALCIUM 9.3 MG/DL 8.4-10.2 L200 - 07/20/16 04:50 MAGNESIUM 1.7 MG/DL 1.6-2.3 L100.49 - 07/21/16 04:40 WBC - WHITE BLOOD COUNT 4.9 T/MM3 4.5-11.0 RED BLOOD COUNT 2.76 M/MM3 4.50-5.90 HGB - HEMOGLOBIN 9.4 GM/DL 13.5-17.5 HCT - HEMATOCRIT 27.9 % 41-53 MEAN CORPUSCULAR VOLUME 101.1 UM3 80-100 MEAN CORPUSCULAR HGB 34.1 UUG 26-34 MEAN CORPUSCULAR HGB CONC(MCHC 33.7 GM/DL 31-37 RDW STANDARD DEVIATION 44.1 FL 36.9-50.2 PLT - PLATELET COUNT 161 T/MM3 130-400 MEAN PLATELET VOLUME 9.8 UM3 9.4-12.4 NEUTROPHILS % (AUTO) 75.5 % 33-66 LYMPHOCYTES % (AUTO) 10.5 % 23-45 MONOCYTES % (AUTO) 10.1 % 0-9.0 EOSINOPHILS % (AUTO) 3.5 % 0-4 BASOPHILS % (AUTO) 0.2 % 0-2 IMMATURE GRANULOCYTE % (AUTO) 0.2 % 0.0-0.5 NEUTROPHILS # (AUTO) 3.7 T/MM3 1.8-7.7 LYMPHOCYTES # (AUTO) 0.5 T/MM3 1-4.8 MONOCYTES # (AUTO) 0.5 T/MM3 0-0.8 EOSINOPHILS # (AUTO) 0.2 T/MM3 0-0.5 BASOPHILS # (AUTO) 0.0 T/MM3 0-0.2 IMMATURE GRANULOCYTE # (AUTO) 0.01 T/MM3 0.00-0.03 L200.0050 - 07/21/16 04:40 ICTERUS < 2 0-7 HEMOLYSIS < 15 0-25 TURBIDITY < 20 0-20 SODIUM 132 MEQ/L 134-144 POTASSIUM 4.3 MEQ/L 3.6-5 CHLORIDE 99 MEQ/L 98-107 CO2 - CARBON DIOXIDE 27 MEQ/L 22-30 ANION GAP 6 MEQ/L 5-15 BLOOD UREA NITROGEN 13.0 MG/DL 9-20 CREATININE 0.9 MG/DL 0.8-1.5 BUN/CREATININE RATIO 14 RATIO 6-26 GLOMERULAR FILTRATION RATE 81 GLUCOSE 95 MG/DL 75-110 OSMOLALITY,CALCULATED 255 MOSM/KG 261-280 CALCIUM 9.0 MG/DL 8.4-10.2 L100.49 - 07/23/16 05:39 WBC - WHITE BLOOD COUNT 4.2 T/MM3 4.5-11.0 RED BLOOD COUNT 2.73 M/MM3 4.50-5.90 HGB - HEMOGLOBIN 9.0 GM/DL 13.5-17.5 HCT - HEMATOCRIT 27.4 % 41-53 MEAN CORPUSCULAR VOLUME 100.4 UM3 80-100 MEAN CORPUSCULAR HGB 33.0 UUG 26-34 MEAN CORPUSCULAR HGB CONC(MCHC 32.8 GM/DL 31-37 RDW STANDARD DEVIATION 42.5 FL 36.9-50.2 PLT - PLATELET COUNT 170 T/MM3 130-400 MEAN PLATELET VOLUME 9.2 UM3 9.4-12.4 NEUTROPHILS % (AUTO) 71.1 % 33-66 LYMPHOCYTES % (AUTO) 15.6 % 23-45 MONOCYTES % (AUTO) 9.3 % 0-9.0 EOSINOPHILS % (AUTO) 3.6 % 0-4 BASOPHILS % (AUTO) 0.2 % 0-2 IMMATURE GRANULOCYTE % (AUTO) 0.2 % 0.0-0.5 NEUTROPHILS # (AUTO) 3.0 T/MM3 1.8-7.7 LYMPHOCYTES # (AUTO) 0.7 T/MM3 1-4.8 MONOCYTES # (AUTO) 0.4 T/MM3 0-0.8 EOSINOPHILS # (AUTO) 0.2 T/MM3 0-0.5 BASOPHILS # (AUTO) 0.0 T/MM3 0-0.2 IMMATURE GRANULOCYTE # (AUTO) 0.01 T/MM3 0.00-0.03 L200.002 - 07/23/16 05:39 ICTERUS < 2 0-7 HEMOLYSIS < 15 0-25 TURBIDITY < 20 0-20 SODIUM 134 MEQ/L 134-144 POTASSIUM 4.1 MEQ/L 3.6-5 CHLORIDE 101 MEQ/L 98-107 CO2 - CARBON DIOXIDE 26 MEQ/L 22-30 ANION GAP 7 MEQ/L 5-15 BLOOD UREA NITROGEN 13.0 MG/DL 9-20 CREATININE 1.0 MG/DL 0.8-1.5 BUN/CREATININE RATIO 13 RATIO 6-26 GLOMERULAR FILTRATION RATE 72 GLUCOSE 95 MG/DL 75-110 OSMOLALITY,CALCULATED 258 MOSM/KG 261-280 CALCIUM 9.4 MG/DL 8.4-10.2 BILIRUBIN,TOTAL 0.60 MG/DL 0.20-1.30 ALKALINE PHOSPHATASE 75 U/L 38-126 TOTAL PROTEIN 6.0 G/DL 6.3-8.2 ALBUMIN 2.9 G/DL 3.5-5.0 GLOBULIN 3.1 G/DL 2.4-3.6 ALBUMIN/GLOBULIN RATIO 0.9 RATIO 1.1-2.2 AST (SGOT) 44 U/L 17-59 ALT (SGPT) 48 U/L 21-72 L200.005 - 07/24/16 08:16 ICTERUS < 2 0-7 HEMOLYSIS < 15 0-25 TURBIDITY < 20 0-20 SODIUM 137 MEQ/L 134-144 POTASSIUM 4.0 MEQ/L 3.6-5 CHLORIDE 104 MEQ/L 98-107 CO2 - CARBON DIOXIDE 25 MEQ/L 22-30 ANION GAP 8 MEQ/L 5-15 BLOOD UREA NITROGEN 11.0 MG/DL 9-20 CREATININE 0.9 MG/DL 0.8-1.5 BUN/CREATININE RATIO 12 RATIO 6-26 GLOMERULAR FILTRATION RATE 81 GLUCOSE 102 MG/DL 75-110 OSMOLALITY,CALCULATED 263 MOSM/KG 261-280 CALCIUM 9.2 MG/DL 8.4-10.2 L100.0050 - 07/24/16 08:16 WBC - WHITE BLOOD COUNT 3.5 T/MM3 4.5-11.0 RED BLOOD COUNT 3.01 M/MM3 4.50-5.90 HGB - HEMOGLOBIN 10.0 GM/DL 13.5-17.5 HCT - HEMATOCRIT 30.0 % 41-53 MEAN CORPUSCULAR VOLUME 99.7 UM3 80-100 MEAN CORPUSCULAR HGB 33.2 UUG 26-34 MEAN CORPUSCULAR HGB CONC(MCHC 33.3 GM/DL 31-37 RDW STANDARD DEVIATION 42.9 FL 36.9-50.2 PLT - PLATELET COUNT 165 T/MM3 130-400 MEAN PLATELET VOLUME 8.4 UM3 9.4-12.4 NEUTROPHILS % (AUTO) 69.4 % 33-66 LYMPHOCYTES % (AUTO) 19.0 % 23-45 MONOCYTES % (AUTO) 7.8 % 0-9.0 EOSINOPHILS % (AUTO) 3.2 % 0-4 BASOPHILS % (AUTO) 0.3 % 0-2 IMMATURE GRANULOCYTE % (AUTO) 0.3 % 0.0-0.5 NEUTROPHILS # (AUTO) 2.4 T/MM3 1.8-7.7 LYMPHOCYTES # (AUTO) 0.7 T/MM3 1-4.8 MONOCYTES # (AUTO) 0.3 T/MM3 0-0.8 EOSINOPHILS # (AUTO) 0.1 T/MM3 0-0.5 BASOPHILS # (AUTO) 0.0 T/MM3 0-0.2 IMMATURE GRANULOCYTE # (AUTO) 0.01 T/MM3 0.00-0.03 L750.2985 - 07/24/16 08:16 LCORTA-A 11 ug/dL 3-20 L100.0050 - 07/28/16 04:36 WBC - WHITE BLOOD COUNT 6.4 T/MM3 4.5-11.0 RED BLOOD COUNT 2.71 M/MM3 4.50-5.90 HGB - HEMOGLOBIN 9.0 GM/DL 13.5-17.5 HCT - HEMATOCRIT 27.2 % 41-53 MEAN CORPUSCULAR VOLUME 100.4 UM3 80-100 MEAN CORPUSCULAR HGB 33.2 UUG 26-34 MEAN CORPUSCULAR HGB CONC(MCHC 33.1 GM/DL 31-37 RDW STANDARD DEVIATION 42.7 FL 36.9-50.2 PLT - PLATELET COUNT 234 T/MM3 130-400 MEAN PLATELET VOLUME 9.2 UM3 9.4-12.4 NEUTROPHILS % (AUTO) 82.5 % 33-66 LYMPHOCYTES % (AUTO) 10.5 % 23-45 MONOCYTES % (AUTO) 6.3 % 0-9.0 EOSINOPHILS % (AUTO) 0.2 % 0-4 BASOPHILS % (AUTO) 0.0 % 0-2 IMMATURE GRANULOCYTE % (AUTO) 0.5 % 0.0-0.5 NEUTROPHILS # (AUTO) 5.3 T/MM3 1.8-7.7 LYMPHOCYTES # (AUTO) 0.7 T/MM3 1-4.8 MONOCYTES # (AUTO) 0.4 T/MM3 0-0.8 EOSINOPHILS # (AUTO) 0.0 T/MM3 0-0.5 BASOPHILS # (AUTO) 0.0 T/MM3 0-0.2 IMMATURE GRANULOCYTE # (AUTO) 0.03 T/MM3 0.00-0.03 L200.0050 - 07/28/16 04:36 ICTERUS < 2 0-7 HEMOLYSIS < 15 0-25 TURBIDITY < 20 0-20 SODIUM 139 MEQ/L 134-144 POTASSIUM 4.0 MEQ/L 3.6-5 CHLORIDE 106 MEQ/L 98-107 CO2 - CARBON DIOXIDE 25 MEQ/L 22-30 ANION GAP 8 MEQ/L 5-15 BLOOD UREA NITROGEN 12.0 MG/DL 9-20 CREATININE 0.8 MG/DL 0.8-1.5 BUN/CREATININE RATIO 15 RATIO 6-26 GLOMERULAR FILTRATION RATE 93 GLUCOSE 105 MG/DL 75-110 OSMOLALITY,CALCULATED 268 MOSM/KG 261-280 CALCIUM 9.1 MG/DL 8.4-10.2 L575.0960 - 07/29/16 12:19 ADENOVIRUS NEGATIVE NEGATIVE CORONAVIRUS 229E NEGATIVE NEGATIVE CORONAVIRUS HKU1 NEGATIVE NEGATIVE CORONAVIRUS NL63 NEGATIVE NEGATIVE CORONAVIRUS OC43 NEGATIVE NEGATIVE HUMAN METAPNEUMOVIRUS NEGATIVE NEGATIVE HUMAN RHINO/ENTEROVIRUS NEGATIVE NEGATIVE INFLUENZA A NEGATIVE NEGATIVE INFLUENZA B NEGATIVE NEGATIVE PARAINFLUENZA 1 NEGATIVE NEGATIVE PARAINFLUENZA 2 NEGATIVE NEGATIVE PARAINFLUENZA 3 NEGATIVE NEGATIVE PARAINFLUENZA 4 NEGATIVE NEGATIVE RESPIRATORY SYNCYTIAL VIRUS NEGATIVE NEGATIVE BORDETELLA PERTUSSIS NEGATIVE NEGATIVE CHLAMYDOPHILA PNEUMONIAE NEGATIVE NEGATIVE MYCOPLASMA PNEUMONIAE NEGATIVE NEGATIVE L100.0050 - 07/30/16 05:02 WBC - WHITE BLOOD COUNT 7.4 T/MM3 4.5-11.0 RED BLOOD COUNT 2.75 M/MM3 4.50-5.90 HGB - HEMOGLOBIN 9.1 GM/DL 13.5-17.5 HCT - HEMATOCRIT 27.8 % 41-53 MEAN CORPUSCULAR VOLUME 101.1 UM3 80-100 MEAN CORPUSCULAR HGB 33.1 UUG 26-34 MEAN CORPUSCULAR HGB CONC(MCHC 32.7 GM/DL 31-37 RDW STANDARD DEVIATION 44.9 FL 36.9-50.2 PLT - PLATELET COUNT 259 T/MM3 130-400 MEAN PLATELET VOLUME 9.1 UM3 9.4-12.4 NEUTROPHILS % (AUTO) 82.6 % 33-66 LYMPHOCYTES % (AUTO) 11.1 % 23-45 MONOCYTES % (AUTO) 5.8 % 0-9.0 EOSINOPHILS % (AUTO) 0.1 % 0-4 BASOPHILS % (AUTO) 0.0 % 0-2 IMMATURE GRANULOCYTE % (AUTO) 0.4 % 0.0-0.5 NEUTROPHILS # (AUTO) 6.1 T/MM3 1.8-7.7 LYMPHOCYTES # (AUTO) 0.8 T/MM3 1-4.8 MONOCYTES # (AUTO) 0.4 T/MM3 0-0.8 EOSINOPHILS # (AUTO) 0.0 T/MM3 0-0.5 BASOPHILS # (AUTO) 0.0 T/MM3 0-0.2 IMMATURE GRANULOCYTE # (AUTO) 0.03 T/MM3 0.00-0.03 L200.0050 - 07/30/16 05:02 ICTERUS < 2 0-7 HEMOLYSIS < 15 0-25 TURBIDITY < 20 0-20 SODIUM 141 MEQ/L 134-144 POTASSIUM 3.8 MEQ/L 3.6-5 CHLORIDE 106 MEQ/L 98-107 CO2 - CARBON DIOXIDE 26 MEQ/L 22-30 ANION GAP 9 MEQ/L 5-15 BLOOD UREA NITROGEN 15.0 MG/DL 9-20 CREATININE 0.9 MG/DL 0.8-1.5 BUN/CREATININE RATIO 17 RATIO 6-26 GLOMERULAR FILTRATION RATE 81 GLUCOSE 109 MG/DL 75-110 OSMOLALITY,CALCULATED 273 MOSM/KG 261-280 CALCIUM 9.1 MG/DL 8.4-10.2 Comprehensive Metabolic Panel (CMP) - 03/30/17 10:10 Albumin 3.9 g/dL 3.4-4.8 Alkaline Phosphatase 99 U/L 40-150 ALT (SGPT) 40 U/L 0-55 Anion Gap 8 mEq/L 3-20 AST (SGOT) 54 U/L 5-34 Bilirubin Total 0.9 mg/dL 0.2-1.2 BUN 17 mg/dL 8-26 Calcium 9.4 mg/dL 8.4-10.2 Chloride 104 mEq/L 99-111 CO2 29 mEq/L 23-31 Creatinine 1.05 mg/dL 0.72-1.25 Globulin 2.8 g/dL 1.8-4.0 Glucose 85 mg/dL 70-99 Potassium 3.8 mEq/L 3.5-5.2 Protein 6.7 g/dL 6.0-7.6 Sodium 141 mEq/L 135-144 Lipid Panel - 03/30/17 10:10 Cardiac Risk 2.2 0.0-5.7 Cholesterol 167 mg/dL 0-199 HDL Cholesterol 76 mg/dL 40-84 LDL Cholesterol 72 mg/dL 0-130 Triglycerides 95 mg/dL 0-149 VLDL Cholesterol 19 mg/dL 0-28 eGFR - 03/30/17 10:10 eGFR >60 mL/min >60 Encounters ACCT No. Visit Discharge Status Pt. Type Provider Facility Loc./Unit Complaint Date/Time [id number] 09/07/2013 09/07/2013 CLS Outpatie 09:39:00 23:59:59 nt [id number] 09/01/2013 09/01/2013 CLS Outpatie 09:53:00 23:59:59 nt [id number] 08/18/2013 08/18/2013 CLS Outpatie 10:12:00 23:59:59 nt [id number] 07/24/2013 07/24/2013 CLS Outpatie 09:59:00 23:59:59 nt [id number] 06/13/2013 06/13/2013 CLS Outpatie 13:03:00 23:59:59 nt [id number] 05/09/2013 05/09/2013 CLS Outpatie 10:03:00 23:59:59 nt [id number] 08/01/2016 11/27/2016 DIS Jose G TORREZ 0244 00:00:00 00:00:00 nt ANNETTA COLE [id number] 07/20/2016 07/31/2016 DIS Inhernán VALERO MD, [facility] 5750 16:38:00 13:20:00 [facility] [id number] 07/15/2016 07/20/2016 DIS Maritza SCHAFER MD, [facility] MED 6932 15:15:00 16:38:00 [facility] [id number] 07/22/2015 01/16/2016 ELVIS LINO MD, [facility] CARD 8310 09:22:00 00:00:00 [facility] [id number] 10/14/2017 Document [id number] 17:59:00 Registra tion [id number] 07/31/2016 GILBERT [facility] 0035 15:54:00 , [facility] ANNETTA Zamudio Gary [id number] 09/18/2016 09/18/2016 DIS Outpatie Oseas,, [address] [facility] Diag Lung Nodule 5508 10:06:00 23:59:00 nt [facility] [id number] 03/30/2016 03/30/2016 DIS Emergenc Jarrell,, [address] [facility] ED Level 1 [id number] 15:35:00 19:28:00 y [facility] on Fall [place] [id number] 03/05/2016 03/05/2016 DIS Outpatie Farooq,, [address] [facility] Diag cough 3782 08:40:00 23:59:00 [facility] [place] [id number] 10/22/2015 10/22/2015 DIS Outpatisatya Farooq MD, Via [address] [facility] OTHER 3832 10:22:00 23:59:00 [facility] Scan DISORDERS [place] OF LUNG [id number] 05/20/2015 05/30/2015 DIS Inpatien Unruly [address] [facility] F4SW R06.02 5937 07:50:00 18:45:00 t , [facility] [place] [id number] 02/22/2015 02/22/2015 DIS Outpatisatya Farooq MD, Via [facility] Dia shortness 9388 09:35:00 23:59:00 [facility] Rad of breath [facility] [id number] 09/18/2016 Document [id number] 05:16:23 Registra tion [id number]/10/2016 Document [id number] 05:16:30 Registra tion [id number] 04/07/2016 Document [id number] 05:16:51 Registra tion [id number]/31/2016 Document [id number] 05:18:02 Registra tion [id number]/09/2015 Document [id number] 05:15:47 Registra tion [id number]/27/2015 Document [id number] 05:16:59 Registra tion [id number]/14/2015 Document [id number] 05:17:07 Registra tion [id number]/31/2015 Document [id number] 05:16:40 Registra tion [id number]/31/2015 Document [id number] 05:16:39 Registra tion [id number]/30/2015 Document [id number] 05:16:44 Registra tion [id number]/29/2015 Document [id number] 05:16:39 Registra tion [id number]/28/2015 Document [id number] 05:17:15 Registra tion [id number]/26/2015 Document [id number] 05:15:43 Registra tion [id number]/25/2015 Document [id number] 05:16:30 Registra tion [id number]/24/2015 Document [id number] 05:16:39 Registra tion 2015052205/22/2015 Document [id number] 05:16:19 Registra tion 2015052105/21/2015 Document [id number] 05:17:35 Registra tion [id number]/01/2015 Document [id number] 13:51:20 Registra tion 2015050105/01/2015 Document [id number] 13:43:37 Registra tion 2015050105/01/2015 Document [id number] 13:20:32 Registra tion 2015050105/01/2015 Document [id number] 12:36:27 Registra tion 2015050105/01/2015 Document [id number] 12:29:14 Registra tion 2015050105/01/2015 Document [id number] 12:15:17 Registra tion 2015050105/01/2015 Document [id number] 11:54:35 Registra tion 2015050105/01/2015 Document [id number] 11:48:10 Registra tion 2015050105/01/2015 Document [id number] 11:09:56 Registra tion 2015050105/01/2015 Document [id number] 10:50:12 Registra tion 2015050105/01/2015 Document [id number] 10:39:50 Registra tion 2015050105/01/2015 Document [id number] 10:27:06 Registra tion 2015050105/01/2015 Document [id number] 09:58:49 Registra tion 2015050105/01/2015 Document [id number] 09:49:04 Registra tion 2015050105/01/2015 Document [id number] 09:27:44 Registra tion 2015050105/01/2015 Document [id number] 09:19:46 Registra tion 2015050105/01/2015 Document [id number] 09:09:57 Registra tion 2015050105/01/2015 Document [id number] 08:59:42 Registra tion [id number] 04/12/2017 04/12/2017 TOSHIA FAROOQ MD, 17:38:00 23:59:59 nt [facility] [id number] 08/01/2016 11/27/2016 DIS Pash[place]atya TORREZ 0244 00:00:00 00:00:00 [place] [id number] 09/27/2017 09/27/2017 CLS Outpatie CYPRESS 08:55:00 23:59:59 nt LOCATION [id number] 09/27/2017 09/27/2017 CLS Outpatie Amol, [place] 08:55:00 23:59:59 nt Domo N LOCATION 64319 09/27/2017 09/27/2017 CLS Outpatie OSEAS COLE, [place] 08:54:00 23:59:59 nt SON LOCATION 71542 09/27/2017 Document 12:20:00 Registra tion [id number] 03/31/2017 03/31/2017 DIS Outpatie Ney, [facility] FM CDM DYSLIP 0223 09:21:00 23:59:00 nt [facility] HTN [id number] 03/30/2017 03/30/2017 DIS Outpatie Oseas, [facility] New radiology 2228 10:37:00 23:59:00 nt [facility] Rad [id number] 03/30/2017 03/30/2017 DIS Outpatie Ney, [facility] LAB 1748 09:57:00 23:59:00 nt [facility] Lab [id number] 12/23/2016 12/23/2016 DIS Outpatie Ney, [facility] cdm dyslip 2877 09:26:00 23:59:00 nt [facility] htn [id number] 11/26/2016 11/26/2016 DIS Outpatie Ney, [facility] LEFT ELBOW 4109 10:13:00 23:59:00 nt [facility] PAIN, EAR TROUBLE, WANTS PSA [id number] 11/05/2016 11/05/2016 DIS Outpatie Leighton, [facility] FM SWOLLEN 2092 09:23:00 23:59:00 nt Leisa Jason [facility] ELBOW [id number] 10/21/2016 10/21/2016 DIS Outpatie Ney, [facility] CDM DYSLIP 7145 09:35:00 23:59:00 nt [facility] HTN [id number] 09/17/2016 09/17/2016 DIS Outpatie Ney, [facility] CDM DYSLIP 9767 09:52:00 23:59:00 nt [facility] HTN [id number] 09/09/2016 09/09/2016 DIS Outpatie Ney, [facility] cough 0266 10:01:00 23:59:00 nt [facility] congestion [id number] 08/20/2016 08/20/2016 DIS Outpatie Ney, [facility] 3 month 0649 10:19:00 23:59:00 nt [facility] return [id number] 05/20/2016 05/20/2016 DIS Outpatie Ney, [facility] Shortness 4273 08:30:00 23:59:00 nt [facility] of breath [id number] 05/14/2016 05/14/2016 DIS [facility] 0897 00:01:00 23:59:00 nt Bartolome Contreras [facility] Card SYNCOPE LEIGHTON [id number] 04/06/2016 04/06/2016 DIS Outpatie Leighton, [facility] after er 1049 08:28:00 23:59:00 nt Leisa Jason [facility] trip for passing out [id number] 02/20/2016 02/20/2016 DIS Outpatisatya Torrez, [facility] TCPA hip 6607 10:09:00 23:59:00 nt [facility] and pelvis pain [id number] 01/31/2016 01/31/2016 DIS Outvincent Torrez, [facility] 3 month ck 4309 08:55:00 23:59:00 nt [facility] [id number] 11/01/2015 11/01/2015 DIS Outvincent Torrez, [facility] 1 month ck 2881 09:59:00 23:59:00 nt [facility] [id number] 09/26/2015 09/26/2015 DIS Outpatisatya Torrez, [facility] 2 month ck 6269 08:39:00 23:59:00 nt [facility] [id number] 08/29/2015 08/29/2015 DIS Outvincent Torrez, [facility] blood 9167 14:20:00 23:59:00 nt [facility] pressure issues [id number] 07/15/2015 07/15/2015 DIS Outvincent Torrez, [facility] 1 month ck 5916 09:40:00 23:59:00 nt [facility] [id number] 06/13/2015 06/13/2015 DIS Outpatie Ney, [facility] after 4952 14:52:00 23:59:00 nt [facility] bypass surgery [id number] 05/02/2015 05/02/2015 DIS Outpatie Ney, [facility] 1 WK F/U 2746 10:09:00 23:59:00 [facility] MED CHK [id number] 04/25/2015 04/25/2015 DIS Outpatie Ney, [facility] soa was in 0542 11:14:00 23:59:00 nt [facility] [place] and ER at [place] [id number] 03/19/2015 03/19/2015 DIS Outpatie Ney, [facility] htn 5623 08:05:00 23:59:00 [facility] [id number] 02/13/2015 02/13/2015 DIS Outpatie Ney, [facility] 3 MO DM HTN 7572 09:49:00 23:59:00 nt [facility] [id number] 09/27/2014 09/27/2014 DIS Outpatie Ney, [facility] increased 7917 11:09:00 23:59:00 nt [facility] soa [id number] 08/16/2014 08/16/2014 DIS Outpatie Ney, [facility] 1 MO 7909 10:13:00 23:59:00 nt [facility] RECHECK [id number] 07/16/2014 07/16/2014 DIS Outpatie Ney, [facility] 2 WK 1461 14:10:00 23:59:00 nt [facility] RECHECK/HOS P [id number] 07/02/2014 07/02/2014 DIS Outpatie Ney, [facility] after hosp 8611 10:00:00 23:59:00 nt [facility] [id number] 06/06/2014 06/06/2014 DIS Outpatie Ney, [facility] 3 MO 3484 13:37:00 23:59:00 [facility] DYSIP/HTN [id number] 03/30/2016 Document [id number] 15:35:00 Registra tion [id number] 12/14/2014 Document [id number] 09:54:00 Registra tion [id number] 11/30/2014 Document [id number] 09:29:00 Registra tion [id number] 11/23/2014 Document [id number] 09:28:00 Registra tion [id number] 11/13/2014 Document [id number] 10:10:00 Registra tion [id number] 10/24/2014 Document [id number] 09:33:00 Registra tion [id number] 10/10/2014 Document [id number] 05:33:00 Registra tion [id number] 09/27/2014 Document [id number] 08:42:00 Registra tion [id number] 04/21/2016 04/21/2016 CLS Jose G Cheek, 2701 08:58:31 23:59:59 Ben Amezquita [id number] 01/29/2017 ACT Agustina Gandara 115 01:33:32 [facility] [id number] 01/28/2017 Document 16:37:25 Registra tion [id number] 01/03/2016 Agustina Mcnulty 115 02:57:21 [facility] [id number] 12/14/2015 ACT Agustina Gandara 115 15:37:10 [facility]
--- NOTE | 2017-10-14 18:12 | Emergency Department Report ---
Asthma HPI - General Stated Complaint: Difficluty breathing Time Seen by Provider: 10/14/17 17:59 Source: patient, EMS Mode of arrival: EMS Limitations: no limitations - History of Present Illness HPI Narrative: Patient worked out in the yard approximately 5 days ago, and since that time he has had worsening shortness of breath especially with exertion. Patient has not changed his inhaler use at home, nor has he increased his oxygen use from his baseline 4 L. Patient called today because he felt his shortness of breath was worsening. Patient declined breathing treatments in route, stating that he would rather be evaluated by a physician before any treatment was offered. Patient has a history of coronary artery disease with bypass, hypertension, waxes Mo atrial fibrillation, congestive heart failure, COPD, GERD, fibromyalgia , and depression with anxiety. - Related Data Home Medications Medication Instructions Recorded Confirmed Esomeprazole Magnesium [Nexium] 40 mg PO DAILY #0 07/15/09 10/14/17 Ferrous Sulfate 325 mg PO DAILY #0 07/15/16 10/14/17 Tiotropium [place] [Spiriva] 1 cap ORAL INH DAILY #0 07/15/16 10/14/17 Atorvastatin Calcium [Atorvastatin 10 mg PO DAILY 10/14/17 10/14/17 Calcium] Cholecalciferol (Vitamin D3) 2,000 unit PO DAILY 10/14/17 10/14/17 [Vitamin D3] Finasteride [Proscar] 5 mg PO DAILY 10/14/17 10/14/17 Fluticasone/Vilanterol [Breo 1 puff INH DAILY 10/14/17 10/14/17 Ellipta 200-25 Mcg Inhaler] Furosemide [Lasix 40 mg Tab] 40 mg PO DAILY 10/14/17 10/14/17 Metoprolol Tartrate [Lopressor] 12.5 mg PO NOON 10/14/17 10/14/17 Metoprolol Tartrate [Lopressor] 25 mg PO QAM 10/14/17 10/14/17 Potassium Chloride [Potassium 20 meq PO DAILY 10/14/17 10/14/17 Chloride] Sertraline [Zoloft] 100 mg PO DAILY 10/14/17 10/14/17 Allergies Allergy/AdvReac Type Severity Reaction Status Date / Time ammonium alum Allergy Intermediate Swelling Verified 10/14/17 18:13 camphor Allergy Intermediate Swelling Verified 10/14/17 18:13 menthol Allergy Intermediate FACE Verified 10/14/17 18:11 SWELLING phenol Allergy Intermediate FACE Verified 10/14/17 18:11 SWELLING salicylic acid Allergy Intermediate FACE Verified 10/14/17 18:11 SWELLING Penicillins Allergy Mild RASH Verified 10/14/17 18:11 Review of Systems All systems: reviewed and negative except as stated PFSH Patient Stated Medical History Cardiac Arrhythmia Yes Congestive Heart Failure Yes Coronary Artery Disease Yes Chronic Obstructive Pulmonary Yes Disease (COPD) CAD Hypertension Paroxysmal atrial fibrillation, cardioversion 2014 CHF Hypercholesterolemia COPD GERD BPH Fibromyalgia Depression, anxiety Former tobacco and alcohol user Surgical History: 2 vessel CABG 2014. Prostate "microwaved". Cystoscopy. Cataracts. Right inguinal hernia repair - Social History Substance use type: does not use Alcohol intake frequency: former alcohol drinker Physical Exam - Limitations Limitations: no limitations - General General appearance: alert - Normal Exams: Head:: Normocephalic without trauma Eyes:: Pupils are PERRLA w/ EOMI, No scleral icterus, irritation, or foreign bodies noted ENMT:: No facial trauma, nasal exudates, pharyngeal erythema, or exudates are noted Cardiovascular:: Regular rate and rhythm, without murmur or gallop, Pulses 2+ all extremities, capillary refill, <2 seconds all extremities Abdomen:: Bowel sounds positive, soft, non-tender, non-distended, no hepatosplenomegaly, masses or bruits noted Lymphatic:: No lymphadenopathy, or lymphedema noted Musculoskeletal:: No tenderness, or deformity noted, good range of motion, all extremities Integumentary:: No rashes, hives, or bruising noted, hair and nails, without abnormality Neurological:: Patient is alert, and oriented, cranial nerves, motor/sensory/ cerebellar, exams w/o gross deficits, to observation Psychiatric:: Patient exhibits, appropriate attention, emotion and affect - Neck Neck exam: Present: normal inspection, full ROM, trachea midline. Absent: tenderness - Chest Chest inspection: Present: normal inspection, symmetric chest wall rise. Absent : tenderness, rash, abscess - Respiratory Respiratory exam: Present: wheezes, prolonged expiratory phase. Absent: normal lung sounds bilaterally (mild coarse wheezes on end expiration.), respiratory distress, stridor, accessory muscle use Course Vital Signs Temperature 99.2 F 10/14/17 17:55 Pulse Rate 87 10/14/17 17:55 Respiratory Rate 24 10/14/17 17:55 Blood Pressure 144/62 H 10/14/17 17:55 Pulse Oximetry 94 10/14/17 17:55 Temperature 99.2 F 10/14/17 17:55 Pulse Rate 125 H 10/14/17 19:32 Respiratory Rate 15 10/14/17 19:32 Blood Pressure 129/79 10/14/17 19:32 Pulse Oximetry 84 L 10/14/17 19:32 Dyspnea - MDM Narrative Medical decision making narrative: Vital signs are stable, O2 saturation is 98-99% on 4 L, the patient's routine. Patient has no significant peripheral edema. Denies weight gain. Patient is given 2 DuoNeb's in ER - patient states he feels no different EKG shows atrial fibrillation with normal ventricular rate of 83, no obvious acute ischemia or other ectopy CBC -n CMP - n Troponin - n Pro BNP - mild elevation at 1300 On ambulation patient desaturates into the low 80s, and has significant lightheadedness with tachycardia. In discussing the case with Dr. García, we will approach the patient from the perspective of COPD with pneumonia, and admit inpatient for continued therapy with antibiotics, minimal fluid resuscitation, and breathing treatments. - Lab Data Result diagrams: 10/14/17 18:10 10/14/17 18:10 Lab Results 10/14/17 10/14/17 Range/Units 18:10 18:10 WBC 8.7 (4.5-11.0) T/MM3 RBC 3.30 L (4.50-5.90) M/MM3 Hgb 11.6 L (13.5-17.5) GM/DL Hct 33.2 L (41-53) % MCV 100.6 H (80-100) UM3 MCH 35.2 H (26-34) UUG MCHC 34.9 (31-37) GM/DL RDW Std Deviation 45.8 (36.9-50.2) FL Plt Count 168 (130-400) T/MM3 MPV 9.0 L (9.4-12.4) UM3 Immature Gran % (Auto) 0.2 (0.0-0.5) % Neut % (Auto) 77.3 H (33-66) % Lymph % (Auto) 10.3 L (23-45) % Hartley % (Auto) 10.5 H (0-9.0) % Eos % (Auto) 1.6 (0-4) % Baso % (Auto) 0.1 (0-2) % Neut # (Auto) 6.7 (1.8-7.7) T/MM3 Lymph # (Auto) 0.9 L (1-4.8) T/MM3 Hartley # (Auto) 0.9 H (0-0.8) T/MM3 Eos # (Auto) 0.1 (0-0.5) T/MM3 Baso # (Auto) 0.0 (0-0.2) T/MM3 Abs Immat Gran (auto) 0.02 (0.00-0.03) T/MM3 Turbidity < 20 (0-20) Sodium 139 (134-144) MEQ/L Potassium 3.7 (3.6-5) MEQ/L Chloride 101 (98-107) MEQ/L Carbon Dioxide 26 (22-30) MEQ/L Anion Gap 12 (5-15) MEQ/L BUN 16.0 (9-20) MG/DL Creatinine 1.1 (0.8-1.5) mg/dL GFR Calculation 64 BUN/Creatinine Ratio 15 (6-26) RATIO Glucose 120 H (75-110) MG/DL Calculated Osmolality 270 (261-280) MOSM/KG Calcium 9.7 (8.4-10.2) MG/DL Total Bilirubin 1.30 (0.20-1.30) MG/DL Conjugated Bilirubin 0.00 (0.00-0.30) mg/dL Unconjugated Bilirubin 0.70 (0.00-1.1) mg/dL Icterus Index < 2 (0-7) AST 27 (17-59) U/L ALT 20 (1-50) U/L Alkaline Phosphatase 89 (38-126) U/L Troponin I < 0.012 (0-0.12) ng/ml NT-Pro-B Natriuret Pep 1360 H (0-175) pg/mL Total Protein 6.8 (6.3-8.2) g/dL Albumin 4.0 (3.5-5.0) g/dL Globulin 2.8 (2.4-3.6) G/DL Albumin/Globulin Ratio 1.4 (1.1-2.2) RATIO Plasma Lactate 1.7 (0.6-2.2) MMOL/L Specimen Hemolysis < 15 (0-25) Disposition Clinical Impression: COPD exacerbation Pneumonia Qualifiers: Pneumonia type: due to unspecified organism Laterality: right Lung location: middle lobe of lung Qualified Code(s): J18.1 - Lobar pneumonia, unspecified organism [place]: 02 [place] [facility] [place] Condition: Stable Prescriptions: No Action Ferrous Sulfate 325 mg PO DAILY #0 Metoprolol Tartrate [Lopressor] 12.5 mg PO NOON Atorvastatin Calcium [Atorvastatin Calcium] 10 mg PO DAILY Potassium Chloride [Potassium Chloride] 20 meq PO DAILY Metoprolol Tartrate [Lopressor] 25 mg PO QAM Finasteride [Proscar] 5 mg PO DAILY Sertraline [Zoloft] 100 mg PO DAILY Fluticasone/Vilanterol [Breo Ellipta 200-25 Mcg Inhaler] 1 puff INH DAILY Esomeprazole Magnesium [Nexium] 40 mg PO DAILY #0 Tiotropium [place] [Spiriva] 1 cap ORAL INH DAILY #0 Cholecalciferol (Vitamin D3) [Vitamin D3] 2,000 unit PO DAILY Furosemide [Lasix 40 mg Tab] 40 mg PO DAILY Referrals: Juan Luis Brewster MD [Family Provider] - - Seen By: physician
[2017-10-14] MEDS: SALINE FLUSH 10ml SYRINGE IVF PRN (18:34)
[2017-10-14] MEDS ORDERED: METHYLPREDNISOLONE SOD SUCC 125mg/2ml INJECTION IVP ONE (19:45)
[2017-10-14] MEDS: LEVOFLOXACIN PB 750 MG/150 ML BAG IV SCH (20:23)
[2017-10-14] MEDS ORDERED: ACETAMINOPHEN 325 MG TABLET PO PRN (20:31)
[2017-10-14] MEDS ORDERED: POLYETHYL GLYCOL 3350 17gm PACKET PO PRN (20:31)
[2017-10-14] MEDS ORDERED: INFLUENZA VAC High Dose 2017-18 (Fluzone HD*) (>=65yo) 0.5ml IM ONE (21:04)
[2017-10-14 21:05] VITALS: BMI 27.3
[2017-10-14] MEDS ORDERED: ALBUTEROL/IPRATROPIUM 2.5mg-0.5mg/3ml NEB AEROSOL PRN (21:55)
[2017-10-14] MEDS ORDERED: HYDROCODONE/CHLORPHENIRAMINE ER ORAL LIQ 5ml PO PRN (22:00)
--- NOTE | 2017-10-14 22:07 | History & Physical Report ---
History of Present Illness Date: 10/15/17 Chief complaint: SOA, wes w/ exertion HPI: 82 y/o patient w/ h/o COPD, CHF, AFib, CAD s/p CABG and chronic hypoxic respiratory failure on 4 L/min O2 continuously at home who presents to ED at [facility] w/ 4 day h/o worsening cough and shortness of breath, particularly w/ exertion. Patient states he did not have an increase in O2 requirement, but noted the PARNELL was getting worse. Also has had some wheezing as well following yardwork about 4 days ago. Patient denies CP, FITZPATRICK, n/v and f/c/s and denies change in bowel/bladder function. In ED, patient had CXR which showed some possible consolidation in the Right middle and lower lobe, though no significant pleural effusion and no significant findings of fluid overload upon preliminary read. Patient's WBC was 8.7 and BNP = 1360, troponin was < 0.012. Patient was given SoluMedrol 125mg IV x one, and neb treatment as well. Also given 500cc IVF NS bolus x one then SLIV. EKG showed Afib w/ rate of 83. Patient admitted to the Hospitalist service for further evaluation and management. Review of Systems All systems PM: 10-point ROS was reviewed, no additional remarkable complaints except Past Medical History Medical History Updates: Patient has h/o CHF, CAD s/p CABG x 2 vessels, COPD on chronic O2 at 4 L/min per NC, Anxiety, Depression, BPH, GERD, HLD, AFIb s/p cardioversion and was in NSR for a period of time however back in AFib. Surgical History: 2 vessel CABG 2014. Prostate "microwaved". Cystoscopy. Cataracts. Right inguinal hernia repair Family History: No Significant Family History - Social History Smoking status: Former smoker Medications Home Medications Medication Instructions Recorded Confirmed Type Esomeprazole Magnesium [Nexium] 40 mg PO DAILY #0 07/15/09 10/14/17 History Ferrous Sulfate 325 mg PO DAILY #0 07/15/16 10/14/17 History Tiotropium [place] [Spiriva] 1 cap ORAL INH DAILY #0 07/15/16 10/14/17 History Atorvastatin Calcium [Atorvastatin 10 mg PO DAILY 10/14/17 10/14/17 History Calcium] Cholecalciferol (Vitamin D3) 2,000 unit PO DAILY 10/14/17 10/14/17 History [Vitamin D3] Finasteride [Proscar] 5 mg PO DAILY 10/14/17 10/14/17 History Fluticasone/Vilanterol [Breo 1 puff INH DAILY 10/14/17 10/14/17 History Ellipta 200-25 Mcg Inhaler] Furosemide [Lasix 40 mg Tab] 40 mg PO DAILY 10/14/17 10/14/17 History Metoprolol Tartrate [Lopressor] 12.5 mg PO NOON 10/14/17 10/14/17 History Metoprolol Tartrate [Lopressor] 25 mg PO QAM 10/14/17 10/14/17 History Potassium Chloride [Potassium 20 meq PO DAILY 10/14/17 10/14/17 History Chloride] Sertraline [Zoloft] 100 mg PO DAILY 10/14/17 10/14/17 History Allergies Allergy/AdvReac Type Severity Reaction Status Date / Time ammonium alum Allergy Intermediate Swelling Verified 10/14/17 18:13 camphor Allergy Intermediate Swelling Verified 10/14/17 18:13 menthol Allergy Intermediate FACE Verified 10/14/17 18:11 SWELLING phenol Allergy Intermediate FACE Verified 10/14/17 18:11 SWELLING salicylic acid Allergy Intermediate FACE Verified 10/14/17 18:11 SWELLING Penicillins Allergy Mild RASH Verified 10/14/17 18:11 Exam Vital Signs: Temperature 100.4 F 10/14/17 21:18 Pulse Rate 99 10/14/17 21:18 Respiratory Rate 18 10/14/17 21:18 Blood Pressure 119/69 10/14/17 21:18 Pulse Oximetry 96 10/14/17 21:18 Height/Weight/BMI: Height 1.83 m Weight 91.5 kg Body Mass Index 27.3 - Constitutional Present: no acute distress, well nourished, well developed, cooperative - Routine HEENT Exam Head: Present: normocephalic, atraumatic Eye: Present: EOMI, PERRL - Routine Neck Exam Present: supple, full ROM. Absent: JVD - Routine Respiratory Exam Present: prolonged expiratory phase, rales, wheezes. Absent: accessory muscle use, dyspnea, respiratory distress, rhonchi, stridor - Routine Cardiovascular Exam Present: irregular rhythm - Routine Abdominal Exam Present: soft, normoactive bowel sounds, non distended, non tender - Routine Extremities Exam Absent: cyanosis, clubbing, edema - Routine Skin Exam Present: intact - Routine Neurological Exam Present: alert, oriented X3 - Routine Psychiatric Exam Present: normal affect, normal thought process Results - Labs CBC & Chem 7: 10/15/17 04:10 10/15/17 04:10 Assessment and Plan Assessment and Plan: Assessment: 1) Acute COPD Exacerbation w/ SOA, cough and PARNELL - possible consolidation RML/ LL 2) Acute on Chronic Hypoxic Respiratory Failure 3) CHF - slight elevation in BNP compared to prior one but no obvious fluid overload noted on Xray 4) AFib 5) CAD s/p CABG 6) HLD 7) GERD 8) Anxiety/Depression 9) BPH Plan: Admit to Hospitalist service Levaquin 750mg IV q 24 hours RT consult DuoNeb TID scheduled and prn per RT SoluMedrol 125mg IV q 8 hours SLIV Heart Healthy diet Telemetry SCDs Tussionex 5mL po q 12hours prn Home meds restarted May consider Cardiology consultation re: AFib - not on anticoagulation currently Labs including troponin in the AM Blood cultures pending I discussed the plan of care with the patient and he verbalized understanding and agreement DVT Prophylaxis: SCD's GI Prophylaxis: other (Nexium) Resuscitation Status: Full Code - Physician Narrative Physician: Aby Lowe MD Narrative: Date: 10/15/17 Time: 1440 Please see note dictated 10/15 for additional comments. Hospital Course Summary Disclaimer: The visit summary below is not to be considered part of the above Progress Note.
[2017-10-15] MEDS: METHYLPREDNISOLONE SOD SUCC 125mg/2ml INJECTION IVP SCH ×3 (00:57→16:18)
[2017-10-15] MEDS: BUDESONIDE INH.SOLN 0.5mg/2ml NEB AEROSOL SCH ×2 (07:37→19:53)
[2017-10-15] MEDS: ALBUTEROL/IPRATROPIUM 2.5mg-0.5mg/3ml NEB AEROSOL SCH ×3 (07:37→19:53)
--- NOTE | 2017-10-15 08:13 | XRay Report ---
INDICATION: off, congestion, exertional dyspnea PROCEDURE: CHEST 2-VIEWS UPRIGHT (PA & LAT) Encounter: Initial COMPARISON: July 24, 2016 and June 18, 2014 FINDINGS: Bilateral basilar airspace consolidation with interstitial prominence and small pleural effusions. The appearance is improved from more recent comparisons, but worsened from older comparison studies. Mild emphysema. No pneumothorax. Heart size and mediastinal contours are stable. CABG. Impression: Moderate pulmonary edema. Superimposed pneumonia or aspiration cannot be excluded in the lower lobes. .
--- NOTE | 2017-10-15 08:29 | XRay Report ---
INDICATION: RLL/ML infiltrate vs atelectasis; COPD, h/o CHF PROCEDURE: CHEST 2-VIEWS UPRIGHT (PA & LAT) Encounter: Initial COMPARISON: October 14, 2017 FINDINGS: Lungs are stable in appearance with bilateral basilar predominant airspace disease and small effusions. Pulmonary vascularity is indistinct. No pneumothorax. Heart size and mediastinal contours are stable. Impression: No change. .
[2017-10-15] MEDS: PANTOPRAZOLE 40 MG TABLET PO SCH (09:12)
[2017-10-15] MEDS: FERROUS SULFATE 324 MG TABLET PO SCH (09:50)
[2017-10-15] MEDS: FINASTERIDE 5 MG TABLET PO SCH (09:50)
[2017-10-15] MEDS: FUROSEMIDE 40 MG TABLET PO SCH (09:50)
[2017-10-15] MEDS: SALINE FLUSH 10ml SYRINGE IVF PRN ×3 (09:51→20:44)
[2017-10-15] MEDS: SERTRALINE 100 MG TABLET PO SCH (09:51)
[2017-10-15] MEDS: FLUTICASONE PO SCH (10:59)
[2017-10-15] MEDS: VILANTEROL PO SCH (10:59)
--- NOTE | 2017-10-15 13:36 | Cardiology Consult Note ---
History of Present Illness Consult reason: atrial fibrillation, congestive heart failure, known to you Chief complaint: worsening dyspnea History of present illness: Mr. Carrizales is a pleasant 82-year-old male well-known to me who presented to [facility] emergency department with a two-week history of for sending dyspnea on exertion. About 5 days ago he was able to plan simply doesn' t his backyard that is being gradually getting more short of breath to the point he couldn't take few steps without getting winded and running " out of gas ". He says his oxygen saturation been running and 79-84% on occasions despite being compliant with his continuous home oxygen 4 L/m. He did not increase his oxygen or change the frequency of his albuterol inhaler. Evaluation emergency room report him being back in atrial fibrillation and there was a questionable early CHF on the chest x-ray so was asked to consult for further management. Patient does have a history atrial fibrillation required a cardioversion post CABG, he also had as a pre-CABG, and I believe he had a [place] procedure at the time of his CABG 2 in May 2015 at [facility]. He denies any palpitations, he has intermittent occasional lightheadedness upon changing position but denies syncope or presyncope has suffered a fall this past Wednesday evening on a curb lost his balance and scratches knee. He denies any other falls in the past few months. He is to be on the results of and was taken off due to frequent falls as well as severe anemia at some point. He denies any lower extremity edema orthopnea or PND he appears to be very compliant with low sodium diet and he reads the labels. He denies any upper respiratory tract infection symptoms fever chills or phlegm production. He sees Dr. Dev Farooq for COPD has very significant smoking history as noted below. When asked about chest pain he endorsed low substernal mild pressure that happens happens about daily symptoms to be more when his active up and about and improves quickly after resting or going to sleep, total duration about 10- 15 minutes at times but never severe and he has never tried taking any nitroglycerin for it. No radiation of the chest pressure and no change recently with that. He does complain of some neck pain radiates across his shoulders posteriorly worse when he slumpes over or bends his neck down. Also complains of some itching but no pain in his left posterior shoulder area over the scapula. Was last seen in my office 08/31/2016 and list at that time included amiodarone 100 mg daily metoprolol 25 mg twice a midodrin 5 mg daily. Patient lives at home and takes care of his own medications he does not appear to be familiar with amiodarone and unclear if he still taking it. He does not bring medication list with him or his bottles does not seem to keep a good mental note of that either. Apparently there have been some concern from his family about living alone and perhaps alf placement but the patient has been resistant. He tells me" I am doing fine ,memory is good ,you see I recognize you" Last echocardiogram in the system shows normal LV size and systolic function left atrial dilatation. No significant Valvular dysfunction ,severe pulmonary hypertension with normal RV size and contractility Review of Systems All systems PM: 10-point ROS was reviewed, no additional remarkable complaints except - Cardiovascular Cardiovascular: Present: dyspnea on exertion. Absent: palpitations, syncope, edema - Gastrointestinal Gastrointestinal: Present: other (mildly decreased appetite recently without weight loss). Absent: change in bowel habits, hematemesis, hematochezia - Neurological Neurological: Present: other (no strokelike symptoms or history of the same or TIA) PFSH Patient Stated Medical History Hearing Loss Yes Cardiac Arrhythmia Yes Congestive Heart Failure Yes Coronary Artery Disease Yes Chronic Obstructive Pulmonary Yes Disease (COPD) Medical History Updates: Patient has h/o CHF, CAD s/p CABG x 2 vessels, COPD on chronic O2 at 4 L/min per NC, Anxiety, Depression, BPH, GERD, HLD, AFIb s/p cardioversion and was in NSR for a period of time however back in AFib. Surgical History: 2 vessel CABG 2014. Prostate "microwaved". Cystoscopy. Cataracts. Right inguinal hernia repair Family History: Negative - Social History Smoking status: Former smoker (up to 3 packs a day between ages 14 and 47) Substance use type: does not use Alcohol intake frequency: former alcohol drinker Medications Home Medications Medication Instructions Recorded Confirmed Type Esomeprazole Magnesium [Nexium] 40 mg PO DAILY #0 07/15/09 10/14/17 History Ferrous Sulfate 325 mg PO DAILY #0 07/15/16 10/14/17 History Tiotropium [place] [Spiriva] 1 cap ORAL INH DAILY #0 07/15/16 10/14/17 History Atorvastatin Calcium [Atorvastatin 10 mg PO DAILY 10/14/17 10/14/17 History Calcium] Cholecalciferol (Vitamin D3) 2,000 unit PO DAILY 10/14/17 10/14/17 History [Vitamin D3] Finasteride [Proscar] 5 mg PO DAILY 10/14/17 10/14/17 History Fluticasone/Vilanterol [Breo 1 puff INH DAILY 10/14/17 10/14/17 History Ellipta 200-25 Mcg Inhaler] Furosemide [Lasix 40 mg Tab] 40 mg PO DAILY 10/14/17 10/14/17 History Metoprolol Tartrate [Lopressor] 12.5 mg PO NOON 10/14/17 10/14/17 History Metoprolol Tartrate [Lopressor] 25 mg PO QAM 10/14/17 10/14/17 History Potassium Chloride [Potassium 20 meq PO DAILY 10/14/17 10/14/17 History Chloride] Sertraline [Zoloft] 100 mg PO DAILY 10/14/17 10/14/17 History Allergies Allergy/AdvReac Type Severity Reaction Status Date / Time ammonium alum Allergy Intermediate Swelling Verified 10/14/17 18:13 camphor Allergy Intermediate Swelling Verified 10/14/17 18:13 menthol Allergy Intermediate FACE Verified 10/14/17 18:11 SWELLING phenol Allergy Intermediate FACE Verified 10/14/17 18:11 SWELLING salicylic acid Allergy Intermediate FACE Verified 10/14/17 18:11 SWELLING Penicillins Allergy Mild RASH Verified 10/14/17 18:11 Exam Vital signs: Temperature 97.7 F 10/15/17 11:45 Pulse Rate 76 10/15/17 11:45 Respiratory Rate 22 10/15/17 12:40 Blood Pressure 125/68 10/15/17 11:45 Pulse Oximetry 99 10/15/17 12:40 - Constitutional no acute distress, cooperative, other (chronically ill) - Routine HEENT Exam Head: Present: normocephalic, atraumatic Eye: Present: EOMI, PERRL ENT: Present: mucous membranes moist Nose: moist mucous membranes - Routine Neck Exam Present: normal carotid upstroke. Absent: JVD, carotid bruit, lymphadenopathy, thyromegaly - Routine Cardiovascular Exam Present: S1 (decreased decreased), S2 (decreased), irregular rhythm. Absent: no murmur, S3, S4, click, bradycardia, tachycardia - Routine Abdominal Exam Present: soft, normoactive bowel sounds, non distended, non tender. Absent: organomegaly, mass - Routine Extremities Exam Present: no edema, normal capillary refill. Absent: cyanosis, clubbing, calf tenderness - Routine Skin Exam Present: intact, dry. Absent: cyanosis, erythema - Routine Neurological Exam Present: alert, oriented X3, CN II-XII intact, moving all extremities, vision grossly intact, normal speech. Absent: motor deficit, hearing grossly intact, hemineglect, facial asymmetry - Routine Psychiatric Exam Present: normal affect, normal thought process, cooperative. Absent: depressed Results 10/15/17 04:10 10/15/17 04:10 Cardiac Enzymes 10/15/17 Range/Units 04:10 Troponin I < 0.012 (0-0.12) ng/ml CBC 10/15/17 Range/Units 04:10 WBC 4.9 D (4.5-11.0) T/MM3 RBC 3.28 L (4.50-5.90) M/MM3 Hgb 11.6 L (13.5-17.5) GM/DL Hct 33.1 L (41-53) % Plt Count 162 (130-400) T/MM3 Neut # (Auto) Not performed Lymph # (Auto) Not performed [place] # (Auto) Not performed Eos # (Auto) Not performed Baso # (Auto) Not performed Comprehensive Metabolic Panel 10/15/17 Range/Units 04:10 Sodium 142 (134-144) MEQ/L Potassium 4.1 (3.6-5) MEQ/L Chloride 103 (98-107) MEQ/L Carbon Dioxide 27 (22-30) MEQ/L BUN 16.0 (9-20) MG/DL Creatinine 1.0 (0.8-1.5) mg/dL Glucose 200 H (75-110) MG/DL Calcium 9.6 (8.4-10.2) MG/DL Intake and Output 10/14/17 10/15/17 10/15/17 22:59 06:59 14:59 Intake Total 650.000 / 650.000 Output Total 700 / 700 Balance 650.000 / 650.000 -700 / -700 Intake: IV 650.000 / 650.000 Levofloxacin Pb 750 mg In 150 150.000 / 150.000 ml @ 100 mls/hr IV Q24H [facility] Rx# :[id number] NS 500ml 500 ml @ 999.9 mls/hr 500.00 / 500.00 IV .Q30M [facility] Rx#:[id number] Output: Urine 700 / 700 Other: Urine Appearance Clear Clear Urine Color Dark Yellow Yellow Urine Odor Normal # Voids 1 Weight 91.5 kg 91.4 kg Patient Weight 10/16/17 06:59 Weight 91.4 kg - Imaging and Cardiology Imaging & Cardiology Narrative: 10/15/17 13:50 chest x-ray reviewed shows a COPD with chronic looking interstitial changes no convincing evidence of significant CHF - EKG Interpretation EKG: sinus rhythm (frequent PACs), no acute changes EKG shows: sinus rhythm (frequent PACs. All telemetry strips available to my review shows frequent PACs and did not see any evidence of atrial fibrillation from this admission) EKG interpretations - Dysrhythmias Sinus rhythms and dysrhythmias: sinus rhythm Supraventricular dysrhythmia: atrial premature complexes (frequent) Assessment and Plan - Assessment and Plan Chronic exertional chest pressure x 6 months suggestive of stable angina pectoris Worsening dyspnea on exertion without clinical or radiological evidence of CHF decompensation Sinus rhythm with frequent PACs, but no atrial fibrillation this admission Persistent atrial fibrillation that predated his CABG and subsequently cardioverted to sinus rhythm and remained there. CAD status post CABG 2 via [facility] May 2015 Chronic diastolic heart failure compensated COPD Severe pulmonary hypertension History of alcoholism History of falls History of severe anemia Chronic respiratory failure on home O2 History of orthostatic hypotension History of noncompliance with meds Concur with your management Agree with orthostatic blood pressure readings If positive orthostasis consider lowering or stopping his by mouth Lasix and possibly NICO hose. Outpatient pharmacological stress nuclear scan regarding his exertional chest pressure and history of CABG No evidence of A. fib or CHF contribution to his current dyspnea No additional diuresis is recommended Would keep him off amiodarone Appropriate to keep him off beta blockers for the time being due to reported wheezing admission per ER physician We'll follow them as previously scheduled office appointment next month, after getting his outpatient stress nuclear scan Thank you Dr. Lowe for your consultation Hospital Course Summary Disclaimer: The visit summary below is not to be considered part of the above Progress Note.
--- NOTE | 2017-10-15 15:16 | History & Physical Report ---
- History and Physical History and Physical: Dr. García's note reviewed. Mr. Licnoa interviewed and examined. CC: Exertional dyspnea HPI: Mr. Mccarthy is an 82-year-old male with chronic heart and lung disease who presents with approximate 2 week history of increasing dyspnea particularly notable over the past 4-5 days. He has a chronic minor cough which really hasn't changed and has had no sputum production. He has been wheezing somewhat, primarily with activities. He denies fevers or chills, denies weight change or increasing edema in the lower extremities, and has not had orthopnea or PND. He describes increased fatigue during the same time. He is chronically on 4 L of supplemental oxygen and has continued using 4 L but occasionally after walking out to get the mail he will use 4 L wearing both oxygen connected to his concentrator and his portable unit so he can recover from the brief walk more effectively. He denies chest pain or palpitations. He saw his power tool repairer (Dr. Boone Farooq) within the past month and was started on Breo in addition to Spiriva. He does not utilize any rescue inhalers or have a nebulizer at home. Chest x-ray in the emergency room revealed changes at the right base suggestive of pneumonia and BNP was elevated. Treatment was initiated for COPD exacerbation with steroids and DuoNeb; he was started on levofloxacin for probable infiltrate and admitted. PH/SH/FH: agree with that recorded overnight by Dr. García with additional history of a solitary pulmonary nodule being followed as an outpatient by Dr. Farooq and history of secondary pulmonary hypertension. Surgical history as previously noted. SH positive for heavy tobacco use in the past discontinued approximately 35 years ago, about 2 alcoholic drinks daily with heavier use in the past, and no illicit drug use. Patient is retired from railroad work with [employer] and is from his . DPOA for healthcare is assigned to his daughter's Toya Lopez and Clara Odonnell. Patient is a full code. FH positive for brother with coronary disease and prior bypass surgery, sister with colon cancer, one son who of melanoma, and longevity with both parents living into their 90s, 2 grandparents who at age 96 and an aunt who lived to 106. ROS: 10 point review positive for mild lightheadedness when he stands ( previously on Midodrine 5 mg/day), hearing loss, mild visual loss on the left associated with past posterior orbit problem requiring surgery-patient doesn't believe it was a retinal detachment; and occasional gait unsteadiness with past history of falls although recently he has only had 1 fall which occurred 6 days ago when he tripped on a curb resulting in abrasions to his right knee and injured/sprained his right wrist. Remainder of multisystem review was negative or as per history of present illness. EXAM: General-NAD, alert, talkative; 97.7, 76, 16-99% on 4 L HEENT-PERRL, EOMI without nystagmus, conjunctiva clear, sclera anicteric, conjugate gaze, facial structures symmetric, oropharynx clear, neck supple and without adenopathy Lungs-respirations nonlabored, decreased breath sounds throughout with slightly coarse breath sounds at the bases bilaterally, no wheezing appreciated Cardiac-regular rhythm with frequent ectopy, distant heart tones, no murmur appreciated Abd-soft, nontender, without palpable mass, bowel sounds present although diminished Ext-without edema Skin-hyperpigmentation present upper extremities, superficial abrasions on the knees with scabs; no generalized rash Neuro-cranial nerves 3-12 intact, motor tone/power within normal limits, no tremors, sensation intact to light touch 4 extremities Psych-calm, cooperative, pleasant DATA: Hemoglobin 11.6, MCV 100.9; electrolytes unremarkable, creatinine 1.0, glucose 120 on admission increasing to 200 this morning after initiation of steroids. Liver enzymes normal. Magnesium 1.5. Troponin 0.0122, proBNP <1360 EKG reviewed by myself in conjunction with Dr. Acuña-underlying sinus rhythm with frequent PACs, low voltage in the limb leads, diffuse T-wave flattening, no acute changes. Chest x-rays reviewed by myself compared to prior films-diffuse increased markings greatest at the right base where there is a small pleural effusion; right lower lobe changes appear to be chronic. A/P: COPD with acute exacerbation Exertional dyspnea Elevated BNP Hypomagnesemia hx atrial fibrillation CAD Pulmonary hypertension Diastolic CHF, chronic Chronic hypoxic respiratory failure Orthostatic hypotension GERD Anxiety/depression BPH Hyperlipidemia Macrocytic anemia Hyperglycemia, steroid induced Patient hospitalized with exertional dyspnea and radiographic changes which largely appear to be chronic by review of multiple x-rays and per report of x- ray done last fall at [facility]. Respiratory viral panel to be obtained, no overt infectious symptoms described to suggest pneumonia or decompensation due to viral process. Continue steroids (although Solu-Medrol dose will be decreased somewhat) and rescue medications in conjunction with Spiriva and Breo. Continue antibiotics pending cultures. I am concerned the patient may be developing chronic fibrotic changes in his lungs-previously on amiodarone but not taking currently and Dr. Acuña has recommended that it not be resumed. No acute cardiac symptoms and enzymes unremarkable. On a orthostatic blood pressures; PT/OT consults. B-12 low normal in the past-reassess. Magnesium being replaced IV today. Discussed with Dr. Acuña, outpatient and old records reviewed.
[2017-10-15] MEDS: MAGNESIUM SULFATE 1gm PREMIX 1 GM/100 ML BAG IV SCH ×2 (16:18→17:37)
[2017-10-15] MEDS ORDERED: NS FLUSH BAG 500ml IV PRN (18:53)
[2017-10-15] MEDS: ATORVASTATIN 10 MG TABLET PO SCH (20:44)
[2017-10-15] MEDS: LEVOFLOXACIN PB 750 MG/150 ML BAG IV SCH (20:45)
[2017-10-15] MEDS: INSULIN ASPART 100unit/ml INJECTION SQ PRN (20:45)
[2017-10-16] MEDS: METHYLPREDNISOLONE SOD SUCC 125mg/2ml INJECTION IVP SCH ×3 (01:50→17:30)
[2017-10-16] MEDS: SALINE FLUSH 10ml SYRINGE IVF PRN (01:50)
[2017-10-16] MEDS: PANTOPRAZOLE 40 MG TABLET PO SCH (05:50)
[2017-10-16] MEDS: BUDESONIDE INH.SOLN 0.5mg/2ml NEB AEROSOL SCH ×2 (07:05→19:53)
[2017-10-16] MEDS: ALBUTEROL/IPRATROPIUM 2.5mg-0.5mg/3ml NEB AEROSOL SCH ×3 (07:05→19:53)
[2017-10-16] MEDS: FLUTICASONE PO SCH (08:53)
[2017-10-16] MEDS: VILANTEROL PO SCH (08:53)
[2017-10-16] MEDS: FUROSEMIDE 40 MG TABLET PO SCH (09:21)
[2017-10-16] MEDS: FINASTERIDE 5 MG TABLET PO SCH (09:21)
[2017-10-16] MEDS: FERROUS SULFATE 324 MG TABLET PO SCH (09:21)
[2017-10-16] MEDS: SERTRALINE 100 MG TABLET PO SCH (09:22)
[2017-10-16] MEDS: INSULIN ASPART 100unit/ml INJECTION SQ PRN (10:24)
--- NOTE | 2017-10-16 16:16 | Progress Note ---
- Date 10/16/17 Subjective: Mr. Licona states that as long as he has at rest, his breathing feels fine. However, with activity he becomes short of breath. He doesn't have much of a cough, but states he has a little bit of sinus drainage. He denies feeling weak or dizzy. He denies any appetite changes, however, is bloated and constipated. Objective Vital signs: Temperature 96.2 F L 10/16/17 15:46 Pulse Rate 68 10/16/17 15:46 Respiratory Rate 13 10/16/17 15:46 Blood Pressure 121/68 10/16/17 15:46 Pulse Oximetry 96 10/16/17 15:46 Height/Weight/BMI: Height 1.83 m Weight 90.8 kg Body Mass Index 27.3 - Constitutional Present: no acute distress, well nourished, well developed - Routine HEENT Exam Head: Present: normocephalic Eye: Present: PERRL. Absent: conjunctival icterus, scleral injection - Routine Respiratory Exam Present: decreased breath sounds, CTA bilaterally - Routine Cardiovascular Exam Present: RRR, S1, S2, irregular rhythm - Routine Abdominal Exam Present: soft, normoactive bowel sounds, non tender, distended (mild distention) - Routine Extremities Exam Present: no edema, pulses intact - Routine Skin Exam Present: intact, dry, warm - Routine Neurological Exam Present: alert, oriented X3, normal speech - Routine Psychiatric Exam Present: normal affect, normal thought process, cooperative Results - Labs CBC & Chem 7: 10/16/17 05:03 10/16/17 05:03 Microbiology Results: Microbiology 10/15/17 20:57 Sputum, Expectorated Gram Stain - Final 10/15/17 20:57 Sputum, Expectorated Sputum Culture - Final Assessment and Plan Assessment and Plan: A/P: COPD with acute exacerbation Exertional dyspnea Elevated BNP Hypomagnesemia hx atrial fibrillation CAD Pulmonary hypertension Diastolic CHF, chronic Chronic hypoxic respiratory failure Orthostatic hypotension GERD Anxiety/depression BPH Hyperlipidemia Macrocytic anemia Hyperglycemia, steroid induced Discussed with Dr. Lowe: Overnight oximetry tonight. DC IV steroids after next dose. Start prednisone 40 mg tomorrow morning. Sputum culture was contaminated with epithelial cells. He has not had any significant increase in sputum production, has been afebrile, and was admitted with a normal white count. DC Levaquin. [facility] for constipation. Start senna plus. Magnesium level corrected. Possible discharge home soon. DVT Prophylaxis: SCD's GI Prophylaxis: Protonix Resuscitation Status: Full Code - Physician Narrative Physician: Aby Lowe MD Narrative: Date: 10/16/17 Time: 1800 I have independently evaluated and examined this patient. I reviewed the chart, the patient's history, and the HEATER INSTALLER/PA's documented findings as above. We discussed and formulated the assessment and plan as above with additions as below: Mr. Licona reports that dyspnea has improved and has minimal cough or sputum production. He is not wheezing as much. His only concern is minor chronic headache which he associates with chronic sinus congestion/drainage. In retrospect he reports respiratory symptoms began after he rota-tilled a friend' s yard last weekend. NAD, alert Respirations nonlabored, good airflow, breath sounds clear Oxygen has been titrated from 4 L which patient reports using at home to 1 L with stable oxygen saturations at rest; ambulatory oximetry to be obtained. Will also check overnight oximetry initiating study on 1 L and titrate if needed. Patient has nebulized medications at home for "rescue" but does not use them. RT has offered to send him home with face masks to use with nebulizer which he prefers and feels he would use at home. Anticipate discharge tomorrow. Hospital Course Summary Disclaimer: The visit summary below is not to be considered part of the above Progress Note. Hospital Course: 10/15/17 Patient hospitalized with exertional dyspnea and radiographic changes which largely appear to be chronic by review of multiple x-rays and per report of x- ray done last fall at [facility]. Respiratory viral panel to be obtained, no overt infectious symptoms described to suggest pneumonia or decompensation due to viral process. Continue steroids (although Solu-Medrol dose will be decreased somewhat) and rescue medications in conjunction with Spiriva and Breo. Continue antibiotics pending cultures. I am concerned the patient may be developing chronic fibrotic changes in his lungs-previously on amiodarone but not taking currently and Dr. Acuña has recommended that it not be resumed. No acute cardiac symptoms and enzymes unremarkable. On a orthostatic blood pressures; PT/OT consults. B-12 low normal in the past-reassess. Magnesium being replaced IV today. Discussed with Dr. Acuña, outpatient and old records reviewed. 10/16/[address] Lowe: Overnight oximetry tonight. DC IV steroids after next dose. Start prednisone 40 mg tomorrow morning. Sputum culture was contaminated with epithelial cells. He has not had any significant increase in sputum production, has been afebrile, and was admitted with a normal white count. DC Levaquin. [facility] for constipation. Start senna plus. Magnesium level corrected. Possible discharge home soon.
[2017-10-16] MEDS: SENNA + DOCUSATE TABLET PO SCH (21:46)
[2017-10-16] MEDS: ATORVASTATIN 10 MG TABLET PO SCH (21:46)
[2017-10-17] MEDS: PANTOPRAZOLE 40 MG TABLET PO SCH (06:22)
[2017-10-17] MEDS: BUDESONIDE INH.SOLN 0.5mg/2ml NEB AEROSOL SCH ×2 (07:23→19:34)
[2017-10-17] MEDS: ALBUTEROL/IPRATROPIUM 2.5mg-0.5mg/3ml NEB AEROSOL SCH ×3 (07:23→19:34)
[2017-10-17] MEDS: VILANTEROL PO SCH (09:12)
[2017-10-17] MEDS: FLUTICASONE PO SCH (09:12)
[2017-10-17] MEDS: PredniSONE 20 MG TABLET PO SCH (09:59)
[2017-10-17] MEDS: FINASTERIDE 5 MG TABLET PO SCH (09:59)
[2017-10-17] MEDS: FERROUS SULFATE 324 MG TABLET PO SCH (09:59)
[2017-10-17] MEDS: FUROSEMIDE 40 MG TABLET PO SCH (10:00)
[2017-10-17] MEDS: SENNA + DOCUSATE TABLET PO SCH ×2 (10:01→20:26)
[2017-10-17] MEDS: SERTRALINE 100 MG TABLET PO SCH (10:03)
--- NOTE | 2017-10-17 12:41 | Progress Note ---
- Date 10/17/17 Subjective: The patient was seen early this afternoon in his room. He stated he was feeling okay today. Has a mild hoarse voice. He has had some intermittent atrial fibrillation this morning. He has not noticed any palpitations, shortness of breath or chest discomfort. He did walk with respiratory therapy today and requires 3 L of oxygen to keep his saturations above 90% with activity. At rest while awake oxygen saturations are in the 90s on 1 L. He did have an overnight oximetry and for 44 minutes of time oxygen saturation was below 90% while he was on 1 L. We can repeat it tonight on 3 L. He does have some constipation but is taking miralax and senna. He denies any difficulties with urination. Objective Vital signs: Temperature 96.0 F L 10/17/17 07:50 Pulse Rate 74 10/17/17 10:53 Respiratory Rate 18 10/17/17 09:12 Blood Pressure 125/66 10/17/17 10:53 Pulse Oximetry 99 10/17/17 10:53 Height/Weight/BMI: Height 1.83 m Weight 93.1 kg Body Mass Index 27.3 Comments: No fevers Orthostatics today show a blood pressure of 123/65 with heart rate of 88 lying, blood pressure 130/62 with heart rate of 84 sitting, blood pressure 105/65 with heart rate of 77 standing. GEN-alert, oriented, no acute distress CV-irregular rhythm with normal rate. On telemetry he appears to be in sinus with frequent PACs and PVCs. CHEST-decreased breath sounds throughout, no wheezes or rhonchi ABD-soft, nontender with positive bowel sounds -no Dum[place] EXT-no edema NEURO-no focal deficits SKIN-warm and dry Results - Labs CBC & Chem 7: 10/17/17 04:41 10/17/17 04:41 Microbiology Results: Microbiology 10/15/17 20:57 Sputum, Expectorated Gram Stain - Final 10/15/17 20:57 Sputum, Expectorated Sputum Culture - Final - Impressions EKG reveals atrial flutter/tachycardia with aberrant conduction or VPCs- reviewed with Dr. Acuña, and he agrees. Assessment and Plan Assessment and Plan: Impression COPD with acute exacerbation Exertional dyspnea Intermittent atrial fibrillation -the patient is not a candidate for anticoagulation due to severe anemia while anticoagulated in the past and frequent falls. He is also not a candidate for amiodarone because of pulmonary changes on chest x-ray/CT scan Elevated BNP Hypomagnesemia hx atrial fibrillation CAD Pulmonary hypertension Diastolic CHF, chronic Chronic hypoxic respiratory failure Orthostatic hypotension GERD Anxiety/depression BPH Hyperlipidemia Macrocytic anemia Hyperglycemia, steroid induced Plan Discussed intermittent atrial fibrillation/flutter with Dr. Acuña. He stated he is not a good candidate for amiodarone because of pulmonary changes. He also states that the patient was anticoagulated in the past and had severe anemia associated with anticoagulation and also had frequent falls. The patient is not on an aspirin due to allergy with facial swelling. Discussed mild orthostasis with Dr. Acuña and he recommended changing his metoprolol to 12.5 mg by mouth twice a day and decreasing Lasix to 20 mg daily instead of 40 mg daily. The patient did have hypoxia for 44 minutes of the night on 1 L oxygen last night. We'll change to 3 L at night and repeat nocturnal oximetry. At this time , the patient needs 1 L during the day while awake and at least 3 L with activity. The patient states he always feels short of breath with activity despite 3-4 L of oxygen. Continue laxatives for constipation Possible home tomorrow. Oral steroids started today. DVT Prophylaxis: SCD's Resuscitation Status: Full Code - Time spent with patient Time with patient PN: 30 minutes - Physician Narrative Physician: Keturah Wiggins MD Narrative: Date: 10/17/17 Time: 1238 Hospital Course Summary Disclaimer: The visit summary below is not to be considered part of the above Progress Note. Hospital Course: 10/15/17 Patient hospitalized with exertional dyspnea and radiographic changes which largely appear to be chronic by review of multiple x-rays and per report of x- ray done last fall at [facility]. Respiratory viral panel to be obtained, no overt infectious symptoms described to suggest pneumonia or decompensation due to viral process. Continue steroids (although Solu-Medrol dose will be decreased somewhat) and rescue medications in conjunction with Spiriva and Breo. Continue antibiotics pending cultures. I am concerned the patient may be developing chronic fibrotic changes in his lungs-previously on amiodarone but not taking currently and Dr. Acuña has recommended that it not be resumed. No acute cardiac symptoms and enzymes unremarkable. On a orthostatic blood pressures; PT/OT consults. B-12 low normal in the past-reassess. Magnesium being replaced IV today. Discussed with Dr. Acuña, outpatient and old records reviewed. 10/16/[address] Lowe: Overnight oximetry tonight. DC IV steroids after next dose. Start prednisone 40 mg tomorrow morning. Sputum culture was contaminated with epithelial cells. He has not had any significant increase in sputum production, has been afebrile, and was admitted with a normal white count. DC Levaquin. MOM for constipation. Start senna plus. Magnesium level corrected. Possible discharge home soon. 10/17/2017 Plan Discussed intermittent atrial fibrillation/flutter with Dr. Acuña. He stated he is not a good candidate for amiodarone because of pulmonary changes. He also states that the patient was anticoagulated in the past and had severe anemia associated with anticoagulation and also had frequent falls. The patient is not on an aspirin due to allergy with facial swelling. Discussed mild orthostasis with Dr. Acuña and he recommended changing his metoprolol to 12.5 mg by mouth twice a day and decreasing Lasix to 20 mg daily instead of 40 mg daily. The patient did have hypoxia for 44 minutes of the night on 1 L oxygen last night. We'll change to 3 L at night and repeat nocturnal oximetry. At this time , the patient needs 1 L during the day while awake and at least 3 L with activity. The patient states he always feels short of breath with activity despite 3-4 L of oxygen. Continue laxatives for constipation Possible home tomorrow. Oral steroids started today.
[2017-10-17] MEDS: ATORVASTATIN 10 MG TABLET PO SCH (20:26)
[2017-10-18] MEDS: PANTOPRAZOLE 40 MG TABLET PO SCH (06:34)
[2017-10-18] MEDS: PredniSONE 20 MG TABLET PO SCH (08:27)
[2017-10-18] MEDS: FINASTERIDE 5 MG TABLET PO SCH (08:28)
[2017-10-18] MEDS: FUROSEMIDE 20 MG TABLET PO SCH (08:28)
[2017-10-18] MEDS: FERROUS SULFATE 324 MG TABLET PO SCH (08:29)
[2017-10-18] MEDS: SERTRALINE 100 MG TABLET PO SCH (08:30)
[2017-10-18] MEDS: SENNA + DOCUSATE TABLET PO SCH ×2 (08:31→20:44)
[2017-10-18] MEDS: ALBUTEROL/IPRATROPIUM 2.5mg-0.5mg/3ml NEB AEROSOL SCH ×3 (10:00→19:31)
[2017-10-18] MEDS: BUDESONIDE INH.SOLN 0.5mg/2ml NEB AEROSOL SCH ×2 (10:00→19:31)
[2017-10-18] MEDS: FLUTICASONE PO SCH (11:50)
[2017-10-18] MEDS: VILANTEROL PO SCH (11:50)
--- NOTE | 2017-10-18 12:46 | Progress Note ---
- Date 10/18/17 Subjective: Mr. Licona is feeling better, but is still more short of breath with exertion compared to baseline. He is also orthostatic and complains of lightheadedness. He denies abdominal pain or nausea. His appetite has been good ; he's not as bloated today. Objective Vital signs: Temperature 95.2 F L 10/18/17 10:57 Pulse Rate 55 L 10/18/17 10:57 Respiratory Rate 20 10/18/17 11:50 Blood Pressure 143/71 H 10/18/17 10:57 Pulse Oximetry 97 10/18/17 10:57 Height/Weight/BMI: Height 1.83 m Weight 93.8 kg Body Mass Index 27.3 - Constitutional Present: no acute distress, well nourished, well developed - Routine HEENT Exam Head: Present: normocephalic Eye: Present: PERRL. Absent: conjunctival icterus, scleral injection - Routine Respiratory Exam Present: decreased breath sounds - Routine Cardiovascular Exam Present: irregularly irregular - Routine Abdominal Exam Present: soft, normoactive bowel sounds, non distended, non tender - Routine Extremities Exam Present: no edema - Routine Skin Exam Present: intact, dry, warm - Routine Neurological Exam Present: alert, oriented X3, normal speech - Routine Psychiatric Exam Present: normal affect, normal thought process, cooperative Results - Labs CBC & Chem 7: 10/17/17 04:41 10/18/17 05:04 Microbiology Results: Microbiology 10/15/17 20:57 Sputum, Expectorated Gram Stain - Final 10/15/17 20:57 Sputum, Expectorated Sputum Culture - Final Assessment and Plan Assessment and Plan: Impression COPD with acute exacerbation Exertional dyspnea Intermittent atrial fibrillation -the patient is not a candidate for anticoagulation due to severe anemia while anticoagulated in the past and frequent falls. He is also not a candidate for amiodarone because of pulmonary changes on chest x-ray/CT scan Elevated BNP Hypomagnesemia hx atrial fibrillation CAD Pulmonary hypertension Diastolic CHF, chronic Chronic hypoxic respiratory failure Orthostatic hypotension GERD Anxiety/depression BPH Hyperlipidemia Macrocytic anemia Hyperglycemia, steroid induced Plan Remains orthostatic despite decreasing dose of metoprolol and Lasix. Breathing continues to improve and maintained saturations during ambulation on 3L. Continue Prednisone and breathing treatments. Labs stable. Start daily MiraLAX and add MOM PRN. Discussed with Dr. Wiggins -- Dr. Acuña to evaluate today. 10/18/2017-1 PM-I reviewed this chart, the patient history, and the [employer]'s/PA's documented findings as above. We discussed and formulated the assessment and plan as above with the additions below.-Dr. Wiggins Patient was seen in his room earlier today. He stated he was feeling lightheaded when he would stand up or walk. He complains of dyspnea only with exertion, but this is chronic. He is eating and drinking okay. He denies any pain. On exam he is alert and in no acute distress. Chest reveals prolonged expiratory phase but no wheezes or rhonchi. Cardiovascular reveals a regular rate and rhythm. Abdomen is soft and nontender. Extremities are free of edema This morning, blood pressure lying was 151/79 with heart rate of 48. Standing blood pressure was 120/69 with heart rate of 68. Impression and plan COPD exacerbation-improving, tolerating change from IV steroids to oral prednisone The patient has some continued orthostasis despite decrease in metoprolol and Lasix. I did discuss the patient today with Dr. Acuña and he will evaluate the patient later today. Continue breathing treatments for now. Intermittent atrial fibrillation-patient is not on anticoagulation because of history of bleeding on anticoagulation in the past. He is not on aspirin because of reported allergy. He is not on amiodarone because of pulmonary changes seen on CT/chest x-ray GI Prophylaxis: Protonix Resuscitation Status: Full Code - Physician Narrative Narrative: Date: 10/18/17 Time: 1243 Hospital Course Summary Disclaimer: The visit summary below is not to be considered part of the above Progress Note. Hospital Course: 10/15/17 Patient hospitalized with exertional dyspnea and radiographic changes which largely appear to be chronic by review of multiple x-rays and per report of x- ray done last fall at [facility]. Respiratory viral panel to be obtained, no overt infectious symptoms described to suggest pneumonia or decompensation due to viral process. Continue steroids (although Solu-Medrol dose will be decreased somewhat) and rescue medications in conjunction with Spiriva and Breo. Continue antibiotics pending cultures. I am concerned the patient may be developing chronic fibrotic changes in his lungs-previously on amiodarone but not taking currently and Dr. Acuña has recommended that it not be resumed. No acute cardiac symptoms and enzymes unremarkable. On a orthostatic blood pressures; PT/OT consults. B-12 low normal in the past-reassess. Magnesium being replaced IV today. Discussed with Dr. Acuña, outpatient and old records reviewed. 10/16/[address] Lowe: Overnight oximetry tonight. DC IV steroids after next dose. Start prednisone 40 mg tomorrow morning. Sputum culture was contaminated with epithelial cells. He has not had any significant increase in sputum production, has been afebrile, and was admitted with a normal white count. DC Levaquin. MOM for constipation. Start senna plus. Magnesium level corrected. Possible discharge home soon. 10/17/2017 Plan Discussed intermittent atrial fibrillation/flutter with Dr. Acuña. He stated he is not a good candidate for amiodarone because of pulmonary changes. He also states that the patient was anticoagulated in the past and had severe anemia associated with anticoagulation and also had frequent falls. The patient is not on an aspirin due to allergy with facial swelling. Discussed mild orthostasis with Dr. Acuña and he recommended changing his metoprolol to 12.5 mg by mouth twice a day and decreasing Lasix to 20 mg daily instead of 40 mg daily. The patient did have hypoxia for 44 minutes of the night on 1 L oxygen last night. We'll change to 3 L at night and repeat nocturnal oximetry. At this time , the patient needs 1 L during the day while awake and at least 3 L with activity. The patient states he always feels short of breath with activity despite 3-4 L of oxygen. Continue laxatives for constipation Possible home tomorrow. Oral steroids started today. 10/18/17 Remains orthostatic despite decreasing dose of metoprolol and Lasix. Breathing continues to improve and maintained saturations during ambulation on 3L. Continue Prednisone and breathing treatments. Start daily MiraLAX and add MOM PRN. Discussed with Dr. Wiggins -- Dr. Acuña to evaluate today.
[2017-10-18] MEDS: POLYETHYL GLYCOL 3350 17gm PACKET PO SCH (13:37)
--- NOTE | 2017-10-18 17:05 | Cardiology Progress Note ---
Subjective Interval history: Sincere c/o some dyspnea on exertion. he walked 400 feet, first 300 feet w/o stopping before getting soa and had to get his o2 turned up he says. no angina no palpitations.Did go in atrial tachycardia/flutter rate controlled yesterday, he felt no difference. then converted back to SR tele SR pvc's /pac's ekg reviewed w Dr Gonzalez no acute changes orthostatic BP showed a mild drop and his Lasix and metoprolol were lowered. Exam Vital signs: Temperature 96.3 F L 10/18/17 15:16 Pulse Rate 57 L 10/18/17 16:00 Respiratory Rate 18 10/18/17 15:16 Blood Pressure 95/60 10/18/17 15:16 Pulse Oximetry 99 10/18/17 15:16 Inpatient Medications: Generic Name Dose Route Start Last Admin Trade Name Freq PRN Reason Stop Dose Admin Acetaminophen 650 mg 10/14/17 20:31 10/16/17 01:54 Tylenol PO 650 mg Q5H PRN Administration Discomfort Albuterol/Ipratropium 3 ml 10/14/17 21:55 Duoneb AEROSOL RTQID PRN Shortness of air/wheezing Albuterol/Ipratropium 3 ml 10/15/17 07:00 10/18/17 13:21 Duoneb AEROSOL 3 ml RTTID ESSENCE Administration Atorvastatin Calcium 10 mg 10/15/17 21:00 10/17/17 20:26 Lipitor PO 10 mg HS ESSENCE Administration Budesonide 0.5 mg 10/15/17 07:00 10/18/17 10:00 Pulmicort Inhalation AEROSOL 0.5 mg RTBID ESSENCE Administration Chlorphenir/Hydrocodone Polistirex 5 ml 10/14/17 22:00 Tussionex PO Q12H PRN Cough Cholecalciferol 2,000 unit 10/15/17 09:00 10/18/17 08:27 Vit. D-3 PO 2,000 unit DAILY ESSENCE Administration Clopidogrel Bisulfate 75 mg 10/19/17 09:00 Plavix PO DAILY ESSENCE Ferrous Sulfate 324 mg 10/15/17 08:00 10/18/17 08:29 Feosol PO 324 mg WB ESSENCE Administration Finasteride 5 mg 10/15/17 09:00 10/18/17 08:28 Proscar PO 5 mg DAILY ESSENCE Administration Furosemide 20 mg 10/18/17 09:00 10/18/17 08:28 Lasix 20 Mg Tab PO 20 mg DAILY ESSENCE Administration Insulin Aspart 1 - 5 unit 10/15/17 15:13 10/16/17 10:24 Novolog SQ 2 unit SS PRN Administration Hyperglycemia Protocol Magnesium Hydroxide 30 ml 10/18/17 12:51 Mom PO DAILY PRN Constipation Metoprolol Tartrate 12.5 mg 10/17/17 17:30 10/18/17 08:29 Lopressor PO 12.5 mg BIDWM ESSENCE Administration --Pom--Fluticasone/ 1 puff 10/15/17 09:00 10/18/17 11:50 Vilanterol [Breo PO 1 puff Ellipta 200-25 Mcg DAILY ESSENCE Administration Inha Pantoprazole Sodium 40 mg 10/15/17 07:30 10/18/17 06:34 Protonix Tab PO 40 mg ACB ESSENCE Administration Polyethylene Glycol 17 gm 10/18/17 12:51 10/18/17 13:37 Miralax PO 17 gm DAILY SESENCE Administration Potassium Chloride 20 meq 10/15/17 09:00 10/18/17 08:28 K-Dur 20 Meq Tablet PO 20 meq DAILY ESSENCE Administration Prednisone 40 mg 10/17/17 08:00 10/18/17 08:27 Deltasone 20 Mg PO 40 mg WB ESSENCE Administration Senna/Docusate Sodium 1 tab 10/16/17 21:00 10/18/17 08:31 Senna Plus Tablet PO 1 tab BID ESSENCE Administration Sertraline HCl 100 mg 10/15/17 09:00 10/18/17 08:30 Zoloft PO 100 mg DAILY ESSENCE Administration Sodium Chloride 10 - 80 ml 10/14/17 18:07 10/16/17 01:50 Iv Flush IVF 10 ml PRN PRN Administration Flushing Sodium Chloride 500 ml 10/15/17 18:53 10/15/17 20:46 Normal Saline IV 500 ml PRN PRN Administration Discontinued Medications Generic Name Dose Route Start Last Admin Trade Name Freq PRN Reason Stop Dose Admin Albuterol/Ipratropium 3 ml 10/14/17 18:08 10/14/17 18:32 Duoneb AEROSOL 10/14/17 18:09 3 ml O ONE Administration Albuterol/Ipratropium 3 ml 10/14/17 18:08 10/14/17 18:32 Duoneb AEROSOL 10/14/17 18:09 3 ml O ONE Administration Furosemide 40 mg 10/15/17 09:00 10/17/17 10:00 Lasix 40 Mg Tab PO 40 mg DAILY ESSENCE Administration Levofloxacin/Dextrose 750 mg in 150 mls @ 100 mls/hr 10/14/17 19:45 10/15/17 22:19 Levaquin Premix IV Infused Q24H ESSENCE Infusion Sodium Chloride 500 mls @ 999.9 mls/hr 10/14/17 19:45 10/15/17 00:20 Normal Saline IV Not Given .Q30M ESSENCE Magnesium Sulfate/Dextrose 1 gm in 100 mls @ 100 mls/hr 10/15/17 15:15 18:37 Mag Sulf 1gm Premix IV 10/15/17 17:14 Infused Q1H ESSENCE Infusion Influenza Virus Vaccine 0.5 ml 10/14/17 21:04 10/15/17 09:48 Fluzone Hd Vac IM 10/14/17 21:05 Not Given .ONCE ONE Magnesium Hydroxide 30 ml 10/16/17 16:14 10/16/17 17:30 Mom PO 10/16/17 16:15 30 ml DAILY ONE Administration Methylprednisolone Sodium Succinate 125 mg 10/14/17 19:45 10/14/17 20:23 Solu-Medrol IVP 10/14/17 19:46 125 mg O ONE Administration Methylprednisolone Sodium Succinate 125 mg 10/15/17 01:00 10/15/17 09:51 Solu-Medrol IVP 125 mg Q8HR ESSENCE Administration Methylprednisolone Sodium Succinate 62.5 mg 10/15/17 17:00 10/16/17 17:30 Solu-Medrol IVP 10/16/17 20:00 62.5 mg Q8HR ESSENCE Administration Metoprolol Tartrate 12.5 mg 10/15/17 12:00 10/17/17 13:06 Lopressor PO Not Given NOON ESSENCE Metoprolol Tartrate 25 mg 10/15/17 09:00 10/17/17 10:06 Lopressor PO Not Given QAM ESSENCE Polyethylene Glycol 17 gm 10/14/17 20:31 10/17/17 10:09 Miralax PO 17 gm DAILY PRN Administration Constipation - Constitutional no acute distress, other (chronically ill) - Routine HEENT Exam Head: Present: normocephalic Eye: Present: EOMI, PERRL ENT: Present: mucous membranes moist - Routine Neck Exam Present: normal carotid upstroke. Absent: JVD, carotid bruit, lymphadenopathy, thyromegaly - Routine Respiratory Exam Present: CTA bilaterally - Routine Cardiovascular Exam Present: RRR, murmur (stystolic 2/6 ADA) - Routine Abdominal Exam Present: soft, normoactive bowel sounds. Absent: non tender, organomegaly - Routine Extremities Exam Present: no edema. Absent: cyanosis, clubbing - Routine Skin Exam Present: intact, dry. Absent: cyanosis, erythema - Routine Neurological Exam Present: alert, oriented X3, CN II-XII intact, moving all extremities, vision grossly intact, hearing grossly intact, normal speech. Absent: motor deficit, hemineglect, facial asymmetry - Routine Psychiatric Exam Present: normal affect, normal thought process, cooperative Results 10/17/17 04:41 10/18/17 05:04 Comprehensive Metabolic Panel 10/18/17 Range/Units 05:04 Sodium 143 (134-144) MEQ/L Potassium 4.1 (3.6-5) MEQ/L Chloride 106 (98-107) MEQ/L Carbon Dioxide 30 (22-30) MEQ/L BUN 26.0 H (9-20) MG/DL Creatinine 1.0 (0.8-1.5) mg/dL Glucose 120 H (75-110) MG/DL Calcium 9.5 (8.4-10.2) MG/DL Albumin 3.1 L (3.5-5.0) g/dL Intake and Output 10/18/17 10/18/17 10/18/17 06:59 14:59 22:59 Intake Total 0 / 0 1030 / 1030 Output Total 675 / 675 225 / 225 Balance -675 / -675 1030 / 1030 -225 / -225 Intake: Oral 0 / 0 1030 / 1030 Output: Urine 675 / 675 225 / 225 Other: Urine Appearance Clear Clear Urine Color Dark Yellow Dark Hazel Weight 93.8 kg Patient Weight 10/19/17 06:59 Weight 93.8 kg Assessment and Plan - Assessment and Plan Chronic exertional chest pressure x 6 months suggestive of stable angina pectoris Worsening dyspnea on exertion without clinical or radiological evidence of CHF decompensation paroxysmal atrial fibrillation/flutter documented 10/17/17 Persistent atrial fibrillation that predated his CABG and subsequently cardioverted to sinus rhythm and remained there. CAD status post CABG 2 via [facility] May 2015 Chronic diastolic heart failure compensated COPD Severe pulmonary hypertension History of alcoholism History of falls History of severe anemia Chronic respiratory failure on home O2 History of orthostatic hypotension History of noncompliance with meds as in HPI and discussion w Dr Zapata poor candidate for anticoagulation d/t falls and h/o severe anemia , allergic to ASA , so will start Plavix Lasix dose lowered , if symptomatic or significant orthostasis continues ,then may consider putting him back on Midodrin 2.5 mg TID. Hospital Course Summary Disclaimer: The visit summary below is not to be considered part of the above Progress Note. Hospital Course: 10/15/17 Patient hospitalized with exertional dyspnea and radiographic changes which largely appear to be chronic by review of multiple x-rays and per report of x- ray done last fall at [facility]. Respiratory viral panel to be obtained, no overt infectious symptoms described to suggest pneumonia or decompensation due to viral process. Continue steroids (although Solu-Medrol dose will be decreased somewhat) and rescue medications in conjunction with Spiriva and Breo. Continue antibiotics pending cultures. I am concerned the patient may be developing chronic fibrotic changes in his lungs-previously on amiodarone but not taking currently and Dr. Acuña has recommended that it not be resumed. No acute cardiac symptoms and enzymes unremarkable. On a orthostatic blood pressures; PT/OT consults. B-12 low normal in the past-reassess. Magnesium being replaced IV today. Discussed with Dr. Acuña, outpatient and old records reviewed. 10/16/[address] Lowe: Overnight oximetry tonight. DC IV steroids after next dose. Start prednisone 40 mg tomorrow morning. Sputum culture was contaminated with epithelial cells. He has not had any significant increase in sputum production, has been afebrile, and was admitted with a normal white count. DC Levaquin. MOM for constipation. Start senna plus. Magnesium level corrected. Possible discharge home soon. 10/17/2017 Plan Discussed intermittent atrial fibrillation/flutter with Dr. Acuña. He stated he is not a good candidate for amiodarone because of pulmonary changes. He also states that the patient was anticoagulated in the past and had severe anemia associated with anticoagulation and also had frequent falls. The patient is not on an aspirin due to allergy with facial swelling. Discussed mild orthostasis with Dr. Acuña and he recommended changing his metoprolol to 12.5 mg by mouth twice a day and decreasing Lasix to 20 mg daily instead of 40 mg daily. The patient did have hypoxia for 44 minutes of the night on 1 L oxygen last night. We'll change to 3 L at night and repeat nocturnal oximetry. At this time , the patient needs 1 L during the day while awake and at least 3 L with activity. The patient states he always feels short of breath with activity despite 3-4 L of oxygen. Continue laxatives for constipation Possible home tomorrow. Oral steroids started today. 10/18/17 Remains orthostatic despite decreasing dose of metoprolol and Lasix. Breathing continues to improve and maintained saturations during ambulation on 3L. Continue Prednisone and breathing treatments. Start daily MiraLAX and add MOM PRN. Discussed with Dr. Wiggins -- Dr. Acuña to evaluate today.
[2017-10-18] MEDS: ATORVASTATIN 10 MG TABLET PO SCH (20:44)
[2017-10-19] MEDS: PANTOPRAZOLE 40 MG TABLET PO SCH (06:11)
[2017-10-19] MEDS: BUDESONIDE INH.SOLN 0.5mg/2ml NEB AEROSOL SCH (07:34)
[2017-10-19] MEDS: ALBUTEROL/IPRATROPIUM 2.5mg-0.5mg/3ml NEB AEROSOL SCH ×2 (07:34→13:55)
[2017-10-19] MEDS ORDERED: CYANOCOBALAMIN (B-12) 1,000mcg/ml INJECTION IM SCH (09:00)
[2017-10-19] MEDS ORDERED: CLOPIDOGREL 75 MG TABLET PO SCH (09:00)
[2017-10-19] MEDS: POLYETHYL GLYCOL 3350 17gm PACKET PO SCH (09:14)
[2017-10-19] MEDS: SENNA + DOCUSATE TABLET PO SCH (09:14)
[2017-10-19] MEDS: FINASTERIDE 5 MG TABLET PO SCH (09:15)
[2017-10-19] MEDS: SERTRALINE 100 MG TABLET PO SCH (09:15)
[2017-10-19] MEDS: FUROSEMIDE 20 MG TABLET PO SCH (09:15)
[2017-10-19] MEDS: FERROUS SULFATE 324 MG TABLET PO SCH (09:15)
[2017-10-19] MEDS: PredniSONE 20 MG TABLET PO SCH (09:15)
[2017-10-19] MEDS: VILANTEROL PO SCH (10:43)
[2017-10-19] MEDS: FLUTICASONE PO SCH (10:43)
--- NOTE | 2017-10-19 13:01 | Progress Note ---
- Date 10/19/17 Subjective: F/U: COPD exacerbation, exertional dyspnea, a-fib. Sincere is seen this morning while sitting up in his recliner, watching TV. He reports that he is feeling better and denies any complaints or concerns. No chest pain, abdominal pain, nausea, vomiting or diarrhea. He does complain of some exertional dyspnea, but states it is improved. He also continues to have some orthostasis. He was seen and evaluated by Dr. Acuña who recommended starting Midodrine 2.5mg TID if continued significant symptoms with orthostasis persist. Labs remains stable and overall he appears to be doing better. Currently at baseline oxygen demands. Objective Vital signs: Temperature 97.0 F 10/19/17 11:49 Pulse Rate 54 L 10/19/17 11:49 Respiratory Rate 18 10/19/17 11:49 Blood Pressure 134/67 10/19/17 11:49 Pulse Oximetry 94 10/19/17 11:49 Rhythm: Normal Sinus Rhythm Height/Weight/BMI: Height 6 ft Weight 205 lb 7.533 oz Body Mass Index 27.3 Comments: Sitting in recliner; breathing easily on 3L NC; no cough or dyspnea. - Constitutional Present: no acute distress, well nourished, well developed, cooperative - Routine HEENT Exam Head: Present: normocephalic, atraumatic Eye: Present: PERRL. Absent: conjunctival icterus ENT: Present: mucous membranes moist - Routine Respiratory Exam Absent: respiratory distress, rhonchi, wheezes Comments: Diminished breath sounds bilaterally; no conversational dyspnea. - Routine Cardiovascular Exam Present: RRR, S1, S2 - Routine Abdominal Exam Present: soft, normoactive bowel sounds, non tender - Routine Extremities Exam Present: edema (trace), pulses intact - Routine Back/Spine/Pelvis Exam Back/Spine: Present: full ROM. Absent: vertebral tenderness - Routine Musculoskeletal Exam Musculoskeletal: Present: moving extremities well - Routine Skin Exam Present: dry, warm. Absent: jaundice Comments: afebrile - Routine Neurological Exam Present: alert, moving all extremities, hearing grossly intact, normal speech - Routine Lymphatic Exam Lymphatic: Absent: lymphedema - Routine Psychiatric Exam Present: normal affect, cooperative Results - Labs CBC & Chem 7: 10/19/17 06:04 10/19/17 06:04 Microbiology Results: Microbiology 10/15/17 20:57 Sputum, Expectorated Gram Stain - Final 10/15/17 20:57 Sputum, Expectorated Sputum Culture - Final Assessment and Plan Assessment and Plan: Impression COPD with acute exacerbation Exertional dyspnea Intermittent atrial fibrillation -the patient is not a candidate for anticoagulation due to severe anemia while anticoagulated in the past and frequent falls. He is also not a candidate for amiodarone because of pulmonary changes on chest x-ray/CT scan Elevated BNP Hypomagnesemia hx atrial fibrillation CAD Pulmonary hypertension Diastolic CHF, chronic Chronic hypoxic respiratory failure Orthostatic hypotension GERD Anxiety/depression BPH Hyperlipidemia Macrocytic anemia Low vitamin B-12 level Hyperglycemia, steroid induced Plan - 10/19/17: Overall, Sincere continues to make slow gains. Breathing continues to improve. Continue breathing treatments, oral steroids and respiratory cares, weaning oxygen as able. Remains orthostatic despite decreasing dose of metoprolol and Lasix. Continue to monitor closely. High risk for falls. Dr. Acuña recommended if significant orthostasis continues, consider initiation of Midodrine 2.5mg TID. Continue to monitor closely on telemetry - currently sinus rhythm. No anticoagulation because of history of bleeding on anticoagulation in the past. No aspirin because of reported allergy. No amiodarone because of pulmonary changes seen on prior CT/chest x-ray. B12 low (292) on 10/16/17. Will start B12 IM x 1-2 weeks and oral B12 daily there after. Recommend follow up as outpatient. Anticipate discharge in near future. DVT Prophylaxis: SCD's GI Prophylaxis: Protonix Resuscitation Status: Full Code - Time spent with patient Time with patient PN: 30 minutes - Physician Narrative Physician: Aby Lowe MD Narrative: Date: 10/19/17 Time: 1849 I have independently evaluated and examined this patient. I reviewed the chart, the patient's history, and the [employer] NET [employer]ER/PA's documented findings as above. We discussed and formulated the assessment and plan as above with additions as below: 1 Mr. Licona reports baseline exertional dyspnea and a cough. Overall he feels better than he did on admission but he is frustrated that he can't walk further than he did in the past. Overnight oximetry indicated need for 3 L oxygen with activity as dated ambulatory oximetry. At rest oxygen saturations have been maintained well on 1 L supplemental oxygen. Patient is alert and breathing comfortably while resting. Respirations are nonlabored with decreased airflow throughout; no wheezing or crackles present. Regular rhythm, S1-S2 Plans discussed with Dr. Acuña-no recurrent atrial flutter; resume low-dose metoprolol. Dr. Antonio initiated assessment for outpatient pulmonary rehabilitation prior to discharge. Stable for discharge with plans to follow-up at pulmonary rehabilitation and follow-up with Dr. Brewster, Dr. Farooq, and Dr. Acuña in the near future. Hospital Course Summary Disclaimer: The visit summary below is not to be considered part of the above Progress Note. Hospital Course: 10/15/17 Patient hospitalized with exertional dyspnea and radiographic changes which largely appear to be chronic by review of multiple x-rays and per report of x- ray done last fall at [facility]. Respiratory viral panel to be obtained, no overt infectious symptoms described to suggest pneumonia or decompensation due to viral process. Continue steroids (although Solu-Medrol dose will be decreased somewhat) and rescue medications in conjunction with Spiriva and Breo. Continue antibiotics pending cultures. I am concerned the patient may be developing chronic fibrotic changes in his lungs-previously on amiodarone but not taking currently and Dr. Acuña has recommended that it not be resumed. No acute cardiac symptoms and enzymes unremarkable. On a orthostatic blood pressures; PT/OT consults. B-12 low normal in the past-reassess. Magnesium being replaced IV today. Discussed with Dr. Acuña, outpatient and old records reviewed. 10/16/[address] Lowe: Overnight oximetry tonight. DC IV steroids after next dose. Start prednisone 40 mg tomorrow morning. Sputum culture was contaminated with epithelial cells. He has not had any significant increase in sputum production, has been afebrile, and was admitted with a normal white count. DC Levaquin. MOM for constipation. Start senna plus. Magnesium level corrected. Possible discharge home soon. 10/17/2017 Plan Discussed intermittent atrial fibrillation/flutter with Dr. Acuña. He stated he is not a good candidate for amiodarone because of pulmonary changes. He also states that the patient was anticoagulated in the past and had severe anemia associated with anticoagulation and also had frequent falls. The patient is not on an aspirin due to allergy with facial swelling. Discussed mild orthostasis with Dr. Acuña and he recommended changing his metoprolol to 12.5 mg by mouth twice a day and decreasing Lasix to 20 mg daily instead of 40 mg daily. The patient did have hypoxia for 44 minutes of the night on 1 L oxygen last night. We'll change to 3 L at night and repeat nocturnal oximetry. At this time , the patient needs 1 L during the day while awake and at least 3 L with activity. The patient states he always feels short of breath with activity despite 3-4 L of oxygen. Continue laxatives for constipation Possible home tomorrow. Oral steroids started today. 10/18/17 Remains orthostatic despite decreasing dose of metoprolol and Lasix. Breathing continues to improve and maintained saturations during ambulation on 3L. Continue Prednisone and breathing treatments. Start daily MiraLAX and add MOM PRN. Discussed with Dr. Wiggins -- Dr. Acuña to evaluate today. Plan - 10/19/17: Overall, Sincere continues to make slow gains. Breathing continues to improve. Continue breathing treatments, oral steroids and respiratory cares, weaning oxygen as able. Remains orthostatic despite decreasing dose of metoprolol and Lasix. Continue to monitor closely. High risk for falls. Dr. Acuña recommended if significant orthostasis continues, consider initiation of Midodrine 2.5mg TID. Continue to monitor closely on telemetry - currently sinus rhythm. No anticoagulation because of history of bleeding on anticoagulation in the past. No aspirin because of reported allergy. No amiodarone because of pulmonary changes seen on prior CT/chest x-ray. B12 low (292) on 10/16/17. Will start B12 IM x 1-2 weeks and oral B12 daily there after. Recommend follow up as outpatient. Evaluated by Dr. Antonio to initiate outpatient pulmonary rehabilitation. Stable for discharge.
--- NOTE | 2017-10-19 14:27 | Cardiology Progress Note ---
Subjective Interval history: Sincere feels better today. walked down the [place]pherd and feels less soa. contemplating pulmonary rehab. no cough no angina no palpitations. denies any dizziness or lightheadedness unless he stood too fast, he says. hasn't been getting metorpolol consistently d/t BP 100-110's and one time P [address] wiggins suggested h/o ASA allergy so was satrted on Plavix. questioning pt, he adamantly denies any ASA allergy . He says he was taken off ASA ,because of taking Xarelto/or Pradaxa at that time. tele SR 60-70's pac's orthostatic BP showed a mild drop (and his Lasix and metoprolol were lowered.) Exam Vital signs: Temperature 97.0 F 10/19/17 14:01 Pulse Rate 61 10/19/17 14:01 Respiratory Rate 20 10/19/17 14:01 Blood Pressure 134/67 10/19/17 11:49 Pulse Oximetry 100 10/19/17 14:01 Inpatient Medications: Generic Name Dose Route Start Last Admin Trade Name Freq PRN Reason Stop Dose Admin Acetaminophen 650 mg 10/14/17 20:31 10/16/17 01:54 Tylenol PO 650 mg Q5H PRN Administration Discomfort Albuterol/Ipratropium 3 ml 10/14/17 21:55 Duoneb AEROSOL RTQID PRN Shortness of air/wheezing Albuterol/Ipratropium 3 ml 10/15/17 07:00 10/19/17 13:55 Duoneb AEROSOL 3 ml RTTID ESSENCE Administration Atorvastatin Calcium 10 mg 10/15/17 21:00 10/18/17 20:44 Lipitor PO 10 mg HS ESSENCE Administration Budesonide 0.5 mg 10/15/17 07:00 10/19/17 07:34 Pulmicort Inhalation AEROSOL 0.5 mg RTBID ESSENCE Administration Chlorphenir/Hydrocodone Polistirex 5 ml 10/14/17 22:00 Tussionex PO Q12H PRN Cough Cholecalciferol 2,000 unit 10/15/17 09:00 10/19/17 09:14 Vit. D-3 PO 2,000 unit DAILY ESSENCE Administration Clopidogrel Bisulfate 75 mg 10/19/17 09:00 10/19/17 09:14 Plavix PO 75 mg DAILY ESSENCE Administration Cyanocobalamin 1,000 mcg 10/19/17 09:00 10/19/17 09:24 Vit. B-12 IM 10/26/17 23:59 1,000 mcg DAILY ESSENCE Administration Ferrous Sulfate 324 mg 10/15/17 08:00 10/19/17 09:15 Feosol PO 324 mg WB ESSENCE Administration Finasteride 5 mg 10/15/17 09:00 10/19/17 09:15 Proscar PO 5 mg DAILY ESSENCE Administration Furosemide 20 mg 10/18/17 09:00 10/19/17 09:15 Lasix 20 Mg Tab PO 20 mg DAILY ESSENCE Administration Insulin Aspart 1 - 5 unit 10/15/17 15:13 10/16/17 10:24 Novolog SQ 2 unit SS PRN Administration Hyperglycemia Protocol Magnesium Hydroxide 30 ml 10/18/17 12:51 Mom PO DAILY PRN Constipation Metoprolol Tartrate 12.5 mg 10/17/17 17:30 10/19/17 09:15 Lopressor PO Not Given BIDWM ESSENCE --Pom--Fluticasone/ 1 puff 10/15/17 09:00 10/19/17 10:43 Vilanterol [Breo PO 1 puff Ellipta 200-25 Mcg DAILY ESSENCE Administration Inha Pantoprazole Sodium 40 mg 10/15/17 07:30 10/19/17 06:11 Protonix Tab PO 40 mg ACB ESSENCE Administration Polyethylene Glycol 17 gm 10/18/17 12:51 10/19/17 09:14 Miralax PO 17 gm DAILY ESSENCE Administration Potassium Chloride 20 meq 10/15/17 09:00 10/19/17 09:14 K-Dur 20 Meq Tablet PO 20 meq DAILY ESSENCE Administration Prednisone 40 mg 10/17/17 08:00 10/19/17 09:15 Deltasone 20 Mg PO 40 mg WB ESSENCE Administration Senna/Docusate Sodium 1 tab 10/16/17 21:00 10/19/17 09:14 Senna Plus Tablet PO 1 tab BID ESSENCE Administration Sertraline HCl 100 mg 10/15/17 09:00 10/19/17 09:15 Zoloft PO 100 mg DAILY ESSENCE Administration Sodium Chloride 10 - 80 ml 10/14/17 18:07 10/16/17 01:50 Iv Flush IVF 10 ml PRN PRN Administration Flushing Sodium Chloride 500 ml 10/15/17 18:53 10/15/17 20:46 Normal Saline IV 500 ml PRN PRN Administration Discontinued Medications Generic Name Dose Route Start Last Admin Trade Name Dionne PRN Reason Stop Dose Admin Albuterol/Ipratropium 3 ml 10/14/17 18:08 10/14/17 18:32 Duoneb AEROSOL 10/14/17 18:09 3 ml O ONE Administration Albuterol/Ipratropium 3 ml 10/14/17 18:08 10/14/17 18:32 Duoneb AEROSOL 10/14/17 18:09 3 ml O ONE Administration Furosemide 40 mg 10/15/17 09:00 10/17/17 10:00 Lasix 40 Mg Tab PO 40 mg DAILY ESSENCE Administration Levofloxacin/Dextrose 750 mg in 150 mls @ 100 mls/hr 10/14/17 19:45 10/15/17 22:19 Levaquin Premix IV Infused Q24H ESSENCE Infusion Sodium Chloride 500 mls @ 999.9 mls/hr 10/14/17 19:45 10/15/17 00:20 Normal Saline IV Not Given .Q30M ESSENCE Magnesium Sulfate/Dextrose 1 gm in 100 mls @ 100 mls/hr 10/15/17 15:15 18:37 Mag Sulf 1gm Premix IV 10/15/17 17:14 Infused Q1H ESSENCE Infusion Influenza Virus Vaccine 0.5 ml 10/14/17 21:04 10/15/17 09:48 Fluzone Hd Vac IM 10/14/17 21:05 Not Given .ONCE ONE Magnesium Hydroxide 30 ml 10/16/17 16:14 10/16/17 17:30 Mom PO 10/16/17 16:15 30 ml DAILY ONE Administration Methylprednisolone Sodium Succinate 125 mg 10/14/17 19:45 10/14/17 20:23 Solu-Medrol IVP 10/14/17 19:46 125 mg O ONE Administration Methylprednisolone Sodium Succinate 125 mg 10/15/17 01:00 10/15/17 09:51 Solu-Medrol IVP 125 mg Q8HR ESSENCE Administration Methylprednisolone Sodium Succinate 62.5 mg 10/15/17 17:00 10/16/17 17:30 Solu-Medrol IVP 10/16/17 20:00 62.5 mg Q8HR ESSENCE Administration Metoprolol Tartrate 12.5 mg 10/15/17 12:00 10/17/17 13:06 Lopressor PO Not Given NOON ESSENCE Metoprolol Tartrate 25 mg 10/15/17 09:00 10/17/17 10:06 Lopressor PO Not Given QAM ESSENCE Polyethylene Glycol 17 gm 10/14/17 20:31 10/17/17 10:09 Miralax PO 17 gm DAILY PRN Administration Constipation - Constitutional no acute distress, average body habitus, cooperative, other (chronically ill) - Routine HEENT Exam Head: Present: normocephalic, atraumatic Eye: Present: EOMI, PERRL ENT: Present: mucous membranes moist - Routine Neck Exam Present: normal carotid upstroke. Absent: JVD, carotid bruit, lymphadenopathy, thyromegaly - Routine Respiratory Exam Present: CTA bilaterally - Routine Cardiovascular Exam Present: RRR, S1 (distant), S2 (distant), murmur (2-3/6 ADA) - Routine Abdominal Exam Present: soft, normoactive bowel sounds, non distended, non tender. Absent: organomegaly - Routine Extremities Exam Present: no edema. Absent: cyanosis, clubbing - Routine Neurological Exam Present: alert, oriented X3, CN II-XII intact, moving all extremities, vision grossly intact, hearing grossly intact, normal speech. Absent: motor deficit, facial asymmetry - Routine Psychiatric Exam Present: normal affect, normal thought process, cooperative Results 10/19/17 06:04 10/19/17 06:04 CBC 10/19/17 Range/Units 06:04 WBC 8.9 (4.5-11.0) T/MM3 RBC 3.29 L (4.50-5.90) M/MM3 Hgb 11.5 L (13.5-17.5) GM/DL Hct 33.8 L (41-53) % Plt Count 207 (130-400) T/MM3 Neut # (Auto) 7.3 (1.8-7.7) T/MM3 Lymph # (Auto) 0.9 L (1-4.8) T/MM3 Dodge # (Auto) 0.6 (0-0.8) T/MM3 Eos # (Auto) 0.1 (0-0.5) T/MM3 Baso # (Auto) 0.0 (0-0.2) T/MM3 Comprehensive Metabolic Panel 10/19/17 Range/Units 06:04 Sodium 143 (134-144) MEQ/L Potassium 4.3 (3.6-5) MEQ/L Chloride 105 (98-107) MEQ/L Carbon Dioxide 30 (22-30) MEQ/L BUN 23.0 H (9-20) MG/DL Creatinine 0.8 D (0.8-1.5) mg/dL Glucose 117 H (75-110) MG/DL Calcium 9.9 (8.4-10.2) MG/DL Intake and Output 10/18/17 10/19/17 10/19/17 22:59 06:59 14:59 Intake Total 320 / 320 450 / 450 1360 / 1360 Output Total 1295 / 1295 1475 / 1475 600 / 600 Balance -975 / -975 -1025 / -1025 760 / 760 Intake: Oral 320 / 320 450 / 450 1360 / 1360 Output: Urine 1295 / 1295 1475 / 1475 600 / 600 Other: Urine Appearance Clear Clear Clear Urine Color Yellow Yellow Straw # Bowel Movements 1 Weight 93.2 kg Patient Weight 10/20/17 06:59 Weight 93.2 kg - EKG Interpretation EKG: sinus rhythm Assessment and Plan - Assessment and Plan onic exertional chest pressure x 6 months suggestive of stable angina pectoris Worsening dyspnea on exertion without clinical or radiological evidence of CHF decompensation paroxysmal atrial fibrillation/flutter documented 10/17/17 Persistent atrial fibrillation that predated his CABG and subsequently cardioverted to sinus rhythm and remained there. CAD status post CABG 2 via [facility] May 2015 Chronic diastolic heart failure compensated COPD Severe pulmonary hypertension History of alcoholism History of falls History of severe anemia Chronic respiratory failure on home O2 History of orthostatic hypotension History of noncompliance with meds pt denies ASA allergy , will substitute for Plavix , dose 81 mg daily carries less GI toxicity risk. metoprolol 12.5 mg daily unlikely to alter BP much and should be helpful for cad and atrial flutter no Midodrine yet , as he appears mostly asymptomatic with stable BP agree with d/c and outpt pharm stress nuclear scan at [facility] [place] then f/u in 1 mo with me. Hospital Course Summary Disclaimer: The visit summary below is not to be considered part of the above Progress Note. Hospital Course: 10/15/17 Patient hospitalized with exertional dyspnea and radiographic changes which largely appear to be chronic by review of multiple x-rays and per report of x- ray done last fall at [facility]. Respiratory viral panel to be obtained, no overt infectious symptoms described to suggest pneumonia or decompensation due to viral process. Continue steroids (although Solu-Medrol dose will be decreased somewhat) and rescue medications in conjunction with Spiriva and Breo. Continue antibiotics pending cultures. I am concerned the patient may be developing chronic fibrotic changes in his lungs-previously on amiodarone but not taking currently and Dr. Acuña has recommended that it not be resumed. No acute cardiac symptoms and enzymes unremarkable. On a orthostatic blood pressures; PT/OT consults. B-12 low normal in the past-reassess. Magnesium being replaced IV today. Discussed with Dr. Acuña, outpatient and old records reviewed. 10/16/[address] Lowe: Overnight oximetry tonight. DC IV steroids after next dose. Start prednisone 40 mg tomorrow morning. Sputum culture was contaminated with epithelial cells. He has not had any significant increase in sputum production, has been afebrile, and was admitted with a normal white count. DC Levaquin. MOM for constipation. Start senna plus. Magnesium level corrected. Possible discharge home soon. 10/17/2017 Plan Discussed intermittent atrial fibrillation/flutter with Dr. Acuña. He stated he is not a good candidate for amiodarone because of pulmonary changes. He also states that the patient was anticoagulated in the past and had severe anemia associated with anticoagulation and also had frequent falls. The patient is not on an aspirin due to allergy with facial swelling. Discussed mild orthostasis with Dr. Acuña and he recommended changing his metoprolol to 12.5 mg by mouth twice a day and decreasing Lasix to 20 mg daily instead of 40 mg daily. The patient did have hypoxia for 44 minutes of the night on 1 L oxygen last night. We'll change to 3 L at night and repeat nocturnal oximetry. At this time , the patient needs 1 L during the day while awake and at least 3 L with activity. The patient states he always feels short of breath with activity despite 3-4 L of oxygen. Continue laxatives for constipation Possible home tomorrow. Oral steroids started today. 10/18/17 Remains orthostatic despite decreasing dose of metoprolol and Lasix. Breathing continues to improve and maintained saturations during ambulation on 3L. Continue Prednisone and breathing treatments. Start daily MiraLAX and add MOM PRN. Discussed with Dr. Wiggins -- Dr. Acuña to evaluate today. Plan - 10/19/17: Overall, Sincere continues to make slow gains. Breathing continues to improve. Continue breathing treatments, oral steroids and respiratory cares, weaning oxygen as able. Remains orthostatic despite decreasing dose of metoprolol and Lasix. Continue to monitor closely. High risk for falls. Dr. Acuña recommended if significant orthostasis continues, consider initiation of Midodrine 2.5mg TID. Continue to monitor closely on telemetry - currently sinus rhythm. No anticoagulation because of history of bleeding on anticoagulation in the past. No aspirin because of reported allergy. No amiodarone because of pulmonary changes seen on prior CT/chest x-ray. B12 low (292) on 10/16/17. Will start B12 IM x 1-2 weeks and oral B12 daily there after. Recommend follow up as outpatient. Anticipate discharge in near future.
[2017-10-19 15:29] VITALS: PULSE 62
[2017-10-19 15:56] VITALS: BP 137/71; RESP 18; TEMP 95.6; O2SAT 93
--- NOTE | 2017-10-19 16:50 | Pulmonology Consult Note ---
History of Present Illness Consult date: 10/19/17 Reason for consult: COPD Chief complaint: shortness of breath History of present illness: HPI: 82 year old with history of COPD. Presumable it is severe. He is on O2 at home at 4 lpm and takes "triple therapy" with Breo once daily, Spiriva once daily and albuterol by nebulizer TID as needed. He also has history of extensive asbestos exposure and does have history of an abnormal CT chest that may be related. He has not had lung biopsy. He states that for the past 2-3 weeks he has increasing shortness of breath and worsening hypoxemia with exertion, in spite of using O2. He monitors his O2 sats at home. He also has history of a CHF, AFib, CAD s/p CABG and chronic hypoxic respiratory failure on 4 L/min O2 continuously at home. He presents to ED at [facility] w/ 4 day h/o worsening cough and shortness of breath, particularly w/ exertion. He has had some wheezing as well following yardwork about 4 days ago. Patient denies CP, FITZPATRICK, n/v and f/c/s and denies change in bowel/bladder function. In ED, patient had CXR which showed some possible consolidation in the Right middle and lower lobe, though no significant pleural effusion and no significant findings of fluid overload upon preliminary read. Patient's WBC was 8.7 and BNP = 1360, troponin was < 0.012. Patient was given SoluMedrol 125mg IV x one, and neb treatment as well. Also given 500cc IVF NS bolus x one then SLIV. EKG showed Afib w/ rate of 83. Patient admitted to the Hospitalist service for further evaluation and management. Review of Systems All systems PM: Full 10 point ROS was conducted and is negative except for the above symptoms Past Medical History Medical History Updates: Patient has h/o CHF, CAD s/p CABG x 2 vessels, COPD on chronic O2 at 4 L/min per NC, Anxiety, Depression, BPH, GERD, HLD, AFIb s/p cardioversion and was in NSR for a period of time however back in AFib. Surgical History: 2 vessel CABG 2014. Prostate "microwaved". Cystoscopy. Cataracts. Right inguinal hernia repair Family History: No Significant Family History - Social History Smoking status: Former smoker [facility] Patient Stated Medical History Hearing Loss Yes Cardiac Arrhythmia Yes Congestive Heart Failure Yes Coronary Artery Disease Yes Chronic Obstructive Pulmonary Yes Disease (COPD) Medical History Updates: Patient has h/o CHF, CAD s/p CABG x 2 vessels, COPD on chronic O2 at 4 L/min per NC, Anxiety, Depression, BPH, GERD, HLD, AFIb s/p cardioversion and was in NSR for a period of time however back in AFib. Surgical History: 2 vessel CABG 2014. Prostate "microwaved". Cystoscopy. Cataracts. Right inguinal hernia repair Family History: Family History (Last Updated 10/15/17 @ 15:21 by Aby Lowe MD) Son Melanoma Brother CAD (coronary artery disease) Sister Cancer of colon - Social History Smoking status: Former smoker Substance use type: does not use Alcohol intake frequency: former alcohol drinker Current residence: Apartment/Private Home Medications Home Medications Medication Instructions Recorded Confirmed Type Esomeprazole Magnesium [Nexium] 40 mg PO DAILY #0 07/15/09 10/14/17 History Ferrous Sulfate 325 mg PO DAILY #0 07/15/16 10/14/17 History Tiotropium [place] [Spiriva] 1 cap ORAL INH DAILY #0 07/15/16 10/14/17 History Atorvastatin Calcium 10 mg PO DAILY 10/14/17 10/14/17 History Cholecalciferol (Vitamin D3) 2,000 unit PO DAILY 10/14/17 10/14/17 History [Vitamin D3] Finasteride [Proscar] 5 mg PO DAILY 10/14/17 10/14/17 History Fluticasone/Vilanterol [Breo 1 puff INH DAILY 10/14/17 10/14/17 History Ellipta 200-25 Mcg Inhaler] Potassium Chloride 20 meq PO DAILY 10/14/17 10/14/17 History Sertraline [Zoloft] 100 mg PO DAILY 10/14/17 10/14/17 History Albuterol Neb (0.083%) [Proventil 2.5 mg AEROSOL TID #100 vial 10/19/17 Rx Neb (0.083%)] Aspirin *EC* [Ecotrin] 81 mg PO DAILY tab 10/19/17 Rx Cyanocobalamin (B-12) [Vit. B-12] 500 mcg PO DAILY #30 tab 10/19/17 Rx Furosemide [Lasix 40 mg Tab] 20 mg PO DAILY #0 10/19/17 10/14/17 Rx Metoprolol Tartrate [Lopressor] 12.5 mg PO BIDWM tab 10/19/17 Rx PredniSONE [Deltasone 20 mg] 40 mg PO WB #12 tab 10/19/17 Rx Allergies Allergy/AdvReac Type Severity Reaction Status Date / Time ammonium alum Allergy Intermediate Swelling Verified 10/14/17 18:13 camphor Allergy Intermediate Swelling Verified 10/14/17 18:13 menthol Allergy Intermediate FACE Verified 10/14/17 18:11 SWELLING phenol Allergy Intermediate FACE Verified 10/14/17 18:11 SWELLING Penicillins Allergy Mild RASH Verified 10/14/17 18:11 Exam Vital signs: Temperature 95.6 F L 10/19/17 15:55 Pulse Rate 62 10/19/17 15:55 Respiratory Rate 18 10/19/17 15:55 Blood Pressure 137/71 10/19/17 15:55 Pulse Oximetry 93 10/19/17 15:55 - Constitutional no acute distress, well nourished, well developed - Routine HEENT Exam Head: Present: normocephalic, atraumatic Eye: Present: EOMI. Absent: conjunctival icterus ENT: Present: mucous membranes moist - Routine Neck Exam Present: supple, JVD - Routine Respiratory Exam Present: decreased breath sounds, crackles. Absent: accessory muscle use - Routine Cardiovascular Exam Present: RRR - Routine Abdominal Exam Present: soft. Absent: guarding - Routine Extremities Exam Absent: cyanosis, clubbing - Routine Skin Exam Absent: cyanosis, rash - Routine Neurological Exam Present: alert, oriented X3 Results - Laboratory Findings CBC and BMP: 10/19/17 06:04 10/19/17 06:04 Abnormal lab findings: Abnormal Labs 10/15/17 10/15/17 10/16/17 04:10 04:10 05:03 WBC 12.9 H D RBC 3.28 L 3.09 L Hgb 11.6 L 11.1 L Hct 33.1 L 31.2 L MCV 100.9 H 101.0 H MCH 35.4 H 35.9 H Immature Gran % (Auto) Neut % (Auto) Lymph % (Auto) Lymph # (Auto) Abs Immat Gran (auto) Neutrophils % (Manual) 92.0 H 88.0 H Lymphocytes % (Manual) 2.0 L 3.0 L Neutrophils # (Manual) 11.4 H Lymphocytes # (Manual) 0.1 L 0.4 L BUN BUN/Creatinine Ratio Glucose 200 H Calculated Osmolality Magnesium 1.5 L Albumin 10/16/17 10/17/17 10/17/17 05:03 04:41 04:41 WBC 12.0 H RBC 3.10 L Hgb 10.8 L Hct 31.7 L MCV 102.3 H MCH 34.8 H Immature Gran % (Auto) Neut % (Auto) Lymph % (Auto) Lymph # (Auto) Abs Immat Gran (auto) Neutrophils % (Manual) 88.0 H Lymphocytes % (Manual) 5.0 L Neutrophils # (Manual) 10.6 H Lymphocytes # (Manual) 0.6 L BUN 25.0 H D 28.0 H BUN/Creatinine Ratio 28 H 31 H Glucose 162 H 159 H Calculated Osmolality 282 H Magnesium Albumin 10/18/17 10/19/17 10/19/17 05:04 06:04 06:04 WBC RBC 3.29 L Hgb 11.5 L Hct 33.8 L MCV 102.7 H MCH 35.0 H Immature Gran % (Auto) 0.9 H Neut % (Auto) 82.1 H Lymph % (Auto) 9.6 L Lymph # (Auto) 0.9 L Abs Immat Gran (auto) 0.08 H Neutrophils % (Manual) Lymphocytes % (Manual) Neutrophils # (Manual) Lymphocytes # (Manual) BUN 26.0 H 23.0 H BUN/Creatinine Ratio 29 H Glucose 120 H 117 H Calculated Osmolality 281 H Magnesium Albumin 3.1 L - Diagnostic Findings Chest x-ray: report reviewed, image reviewed CT scan - chest: report reviewed, image reviewed Assessment and Plan (1) Asbestos-induced pleural plaque Status: Acute Assessment and plan: Pleural plaques noted by CT chest July 2016. 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 has rales on exam and significant hypoxemia. No biopsy has been done. Repeat CT may be helpful due to persistently abnormal CXR Current Visit: Yes (3) COPD exacerbation Status: Acute Assessment and plan: severe disease, unknown GOLD stage. Currently on Triple Therapy with Breo, Spiriva. Uses O2 at 4 lpm to keep sat >90%. Recommend exercise oximetry with titration prior to dismissal Recommend pulmonary rehab. We will need to get PFT testing updated prior to initiation. I would be happy to follow as an outpatient if needed Current Visit: Yes - Time Spent With Patient Total time spent is greater than 50% in coordination of care (as documented) at patient's floor/unit and/or counseling patient: 25 - 35 minutes
--- NOTE | 2017-10-19 19:53 | Discharge Summary ---
Discharge Information Date of admission: 10/14/17 20:04 Anticipated date of discharge: 10/19/17 Attending Physician: Aby Lowe MD Primary care physician: Juan Luis Torrez MD Consults: Consulting Provider: Danya Acuña Reason For Exam: atrial fibrillation, recurrent Consulting Provider: Lobo Antonio Reason For Exam: COPD - Discharge Diagnosis (1) COPD exacerbation Status: Acute COPD with acute exacerbation Exertional dyspnea Paroxysmal atrial fibrillation Elevated BNP Hypomagnesemia hx atrial fibrillation CAD Pulmonary hypertension Asbestos pneumoconiosis/pleural plaques Diastolic CHF, chronic Chronic hypoxic respiratory failure Orthostatic hypotension GERD Anxiety/depression BPH Hyperlipidemia Macrocytic anemia Low vitamin B-12 level Hyperglycemia, steroid induced - Procedures Procedures: Ambulatory oximetry on 10/17/17: Room air saturation 95% at rest on 1 L, saturation dropped to 85% after walking 100 feet; oxygen increased to 2 L but saturation remained 87-88%. After oxygen was increased to 3 L saturation stabilized 90-92%. Overnight oximetry 10/16/17-10/17/17 on 1 L supplemental oxygen with 44 minutes oxygen levels below 89% and lowest oxygen level reached 62%. Overnight oximetry 10/17/17-10/18/17 on 3 L supplemental oxygen demonstrated only 16 seconds with oxygen level below 89%. - Laboratory Labs: On admission 10/14/17: WBC 8.7, hemoglobin 11.6, chemistries unremarkable, creatinine 1.1, liver enzymes normal, proBNP 1360 Respiratory viral panel negative on 10/15/17 Vitamin B-12 292 on 10/16/17 10/19/17 06:04 10/19/17 06:04 - Radiology Radiology: Chest x-ray on 10/14/17 demonstrated bibasilar airspace consolidation and small bilateral pleural effusions which was improved from recent comparison films. Mild emphysema. Chest x-ray on 10/15/17 was unchanged. History of Present Illness HPI: Mr. Mccarthy is an 82-year-old male with chronic heart and lung disease who presents with approximate 2 week history of increasing dyspnea particularly notable over the past 4-5 days. He has a chronic minor cough which really hasn' t changed and has had no sputum production. He has been wheezing somewhat, primarily with activities. He denies fevers or chills, denies weight change or increasing edema in the lower extremities, and has not had orthopnea or PND. He describes increased fatigue during the same time. He is chronically on 4 L of supplemental oxygen and has continued using 4 L but occasionally after walking out to get the mail he will use 4 L wearing both oxygen connected to his concentrator and his portable unit so he can recover from the brief walk more effectively. He denies chest pain or palpitations. 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 Boone Farooq) within the past month and was started on Breo in addition to Spiriva. He does not utilize any rescue inhalers. Chest x-ray in the emergency room revealed changes at the right base suggestive of pneumonia and BNP was elevated. Treatment was initiated for COPD exacerbation with steroids and DuoNeb ; he was started on levofloxacin for probable infiltrate and admitted. Objective Vital signs: Temperature 95.6 F L 10/19/17 15:55 Pulse Rate 62 10/19/17 15:55 Respiratory Rate 18 10/19/17 15:55 Blood Pressure 137/71 10/19/17 15:55 Pulse Oximetry 93 10/19/17 15:55 NAD, alert Respirations nonlabored, decreased airflow throughout, breath sounds clear Regular rhythm, S1-S2 Rhythm: Normal Sinus Rhythm Height/Weight/BMI: Height 1.83 m Weight 93.2 kg Body Mass Index 27.3 Hospital Course This is a general summary of the patient's hospital course. For more details refer to the complete medical record. Hospital course: 10/15/17 Patient hospitalized with exertional dyspnea and radiographic changes which largely appear to be chronic by review of multiple x-rays and per report of x- ray done last fall at [facility]. Respiratory viral panel negative for viral pathogens and no overt infectious symptoms described to suggest pneumonia or decompensation due to viral process. Continue steroids (although Solu-Medrol dose will be decreased somewhat); add rescue medications in conjunction with Spiriva and Breo. Continue antibiotics pending cultures. I am concerned the patient may be developing chronic fibrotic changes in his lungs-previously on amiodarone but not taking currently and Dr. Acuña has recommended that it not be resumed. No acute cardiac symptoms and enzymes unremarkable. Monitor orthostatic blood pressures; PT/OT consults. B-12 low normal in the past-reassess. Magnesium replaced IV today. 10/16/17 Overnight oximetry tonight. DC IV steroids after next dose. Start prednisone 40 mg tomorrow morning. Sputum culture was contaminated with epithelial cells. He has not had any significant increase in sputum production, has been afebrile, and was admitted with a normal white count. DC Levaqjenny. MOM for constipation. Start senna plus. Magnesium level corrected. 10/17/2017 Patient developed atrial flutter briefly; previously in sinus rhythm with frequent atrial ectopic beats. Discussed intermittent atrial fibrillation/flutter with Dr. Acuña. He stated he is not a good candidate for amiodarone because of pulmonary changes. He also states that the patient was anticoagulated in the past and had severe anemia associated with anticoagulation and also had frequent falls. Discussed mild orthostasis with Dr. Acuña and he recommended changing his metoprolol to 12.5 mg by mouth twice a day and decreasing Lasix to 20 mg daily instead of 40 mg daily. The patient did have hypoxia for 44 minutes of the night on 1 L oxygen last night. Increase oxygen to 3 L at night and repeat nocturnal oximetry. At this time, the patient needs 1 L during the day while awake and at least 3 L with activity. The patient states he always feels short of breath with activity despite 3-4 L of oxygen. Oral steroids started today. 10/18/17 Remains mildly orthostatic despite decreasing dose of metoprolol and Lasix. Breathing continues to improve and maintained saturations during ambulation on 3L. Continue Prednisone and breathing treatments. Repeat overnight oximetry demonstrated well-maintained oxygen saturation with sleep on 3 L oxygen. Start daily MiraLAX and add MOM PRN. 10/19/17 Overall, Sincere continues to make slow gains and is stable for discharge. He has persistent stent mild exertional dyspnea which he reports is baseline. Recommended consideration of outpatient pulmonary rehabilitation and he was subsequently seen by Dr. Antonio to initiate rehabilitation. Breathing continues to improve slowly. Will discharge on combined regimen of Spiriva, Breo, and scheduled/when necessary nebulized albuterol. Remains slightly orthostatic with supine blood pressure 121/65 and standing pressure 103/[address] Acuña recommended consider initiation of Midodrine 2.5mg TID if ongoing symptomatic orthostasis. Remains in sinus rhythm, continue metoprolol at 12.5 mg twice a day. No anticoagulation because of history of bleeding on anticoagulation in the past. No aspirin because of reported allergy. No amiodarone because of pulmonary changes seen on prior CT/chest x-ray. B12 low (292) on 10/16/17. Received 1 mg B-12 IM today and will start oral B-12 replacement. Outpatient follow-up recommended. Blood sugars were minimally elevated after conversion from IV to oral steroids and will not require monitoring as an outpatient. Stable for discharge. Patient asked to follow up with Dr. Torrez in 1 week, Dr. Acuña in one month, and Dr. Farooq as previously scheduled. Outpatient pulmonary rehabilitation at [facility] can be scheduled if the patient wishes to proceed with it. Time spent with patient: greater than 35 minutes Resuscitation Status: Full Code Discharge Plan - Discharge Disposition Discharge Date: 10/19/17 Disposition: 86 Home Health Service *Condition: Stable Reason For Visit (Visit label in EMR): SOA, Cough,COPD exacerbation, h/o CHF - Discharge Medications *Discharge Medications: New Albuterol Neb (0.083%) [Proventil Neb (0.083%)] 2.5 mg AEROSOL TID #100 vial Aspirin *EC* [Ecotrin] 81 mg PO DAILY tab Cyanocobalamin (B-12) [Vit. B-12] 500 mcg PO DAILY #30 tab Metoprolol Tartrate [Lopressor] 12.5 mg PO BIDWM tab PredniSONE [Deltasone 20 mg] 40 mg PO WB #12 tab Continue Ferrous Sulfate 325 mg PO DAILY #0 Atorvastatin Calcium 10 mg PO DAILY Potassium Chloride 20 meq PO DAILY Finasteride [Proscar] 5 mg PO DAILY Sertraline [Zoloft] 100 mg PO DAILY Fluticasone/Vilanterol [Breo Ellipta 200-25 Mcg Inhaler] 1 puff INH DAILY Esomeprazole Magnesium [Nexium] 40 mg PO DAILY #[address] [place] [Spiriva] 1 cap ORAL INH DAILY #0 Cholecalciferol (Vitamin D3) [Vitamin D3] 2,000 unit PO DAILY Changed Furosemide [Lasix 40 mg Tab] 20 mg PO DAILY #0 Discontinued Metoprolol Tartrate [Lopressor] 12.5 mg PO NOON Metoprolol Tartrate [Lopressor] 25 mg PO QAM - Discharge Packet/Instructions *Diet: Regular, minimize sodium to avoid fluid retention *Activity: As tolerate-increase oxygen to 3 L with activity *Pain Management/Treatment: Tylenol per package instructions if something needed for pain *Wound Care: Not applicable Additional Instructions: -1 L oxygen is adequate when you are resting but you should wear 3 L of oxygen with activities and at night. -Take 40 mg of prednisone (2-20 mg tablets) for the next 2 days then decrease to 1 tablet or 20 mg daily for 5 days. You can discontinue prednisone after a week unless Dr. Torrez instructs you to continue it longer. You will have a few extra tablets if needed. -Decrease metoprolol to 12.5 mg twice a day (1/2 tablet twice daily) . -Decrease furosemide to 20 mg daily (1/2 of a 40 mg tablet). -Continue Spiriva once daily and Brio Ellipta inhaler twice daily as previously prescribed by Dr. Farooq. -Begin using breathing treatments with nebulizer 3 times a day and every 4 hours as needed if you are short of breath. I believe the medication you have to use with your nebulizer is albuterol. -Finally begin taking a B-12 supplement because your B-12 level was low; prescription sent to your pharmacy. Dr. Torrez can recheck B-12 level to make sure pills are adequate to replace and that you will not need shots long-term. -Consider pulmonary rehabilitation to improve breathing with activity. Would need an initial evaluation with Dr. Antonio at his office to set up rehabilitation program for you. His number is provided below if you wish to proceed. *Expected Signs/Symptoms: Shortness of breath with activities *Notify Physician if: increase difficulty breathing *During Business Hours Contact: *After Business Hours Contact: and have hospital page physician *Pending Lab/Results: No Pending Lab - Referrals/Follow Up *Referrals/Follow Up: Lobo Antonio MD [Physician] - (Schedule appointment if you wish to proceed with pulmonary rehabilitation-let them know you're interested in pulmonary rehabilitation evaluation APPOINTMENT WITH DR. ANTONIO ON 11/04/2017, CHECK IN AT 9:45 AM FOR 10:00 AM APPOINTMENT, BRING ALL INSURANCE CARDS.) Juan Luis Torrez MD [Primary Care Provider] - 1 Week (FOLLOW UP WITH DR. TORREZ ON 10/28/2017 AT 11:00 AM OFFICE NUMBER [phone]) - Patient Handouts Patient Handouts: COPD (Chronic Obstructive Pulmonary Disease) (GEN) - Dismissal Complete Discharge Instructions are:: Complete Physician Narrative - Narrative Attestation Narrative: Date: 10/19/17 Time: 1942
[2017-10-20] MEDS ORDERED: ASPIRIN *EC* 81 MG TABLET PO SCH (09:00)
--- NOTE | 2017-10-20 13:33 | Right on Track Program ---
Right on Track Program Date of Discharge: 10/19/17 Home Medications: Home Medications Medication Instructions Recorded Confirmed Esomeprazole Magnesium [Nexium] 40 mg PO DAILY #0 07/15/09 10/14/17 Ferrous Sulfate 325 mg PO DAILY #0 07/15/16 10/14/17 Tiotropium [place] [Spiriva] 1 cap ORAL INH DAILY #0 07/15/16 10/14/17 Atorvastatin Calcium 10 mg PO DAILY 10/14/17 10/14/17 Cholecalciferol (Vitamin D3) 2,000 unit PO DAILY 10/14/17 10/14/17 [Vitamin D3] Finasteride [Proscar] 5 mg PO DAILY 10/14/17 10/14/17 Fluticasone/Vilanterol [Breo 1 puff INH DAILY 10/14/17 10/14/17 Ellipta 200-25 Mcg Inhaler] Potassium Chloride 20 meq PO DAILY 10/14/17 10/14/17 Sertraline [Zoloft] 100 mg PO DAILY 10/14/17 10/14/17 Previous Rx's Medication Instructions Recorded Albuterol Neb (0.083%) [Proventil 2.5 mg AEROSOL TID #100 vial 10/19/17 Neb (0.083%)] Aspirin *EC* [Ecotrin] 81 mg PO DAILY tab 10/19/17 Cyanocobalamin (B-12) [Vit. B-12] 500 mcg PO DAILY #30 tab 10/19/17 Furosemide [Lasix 40 mg Tab] 20 mg PO DAILY #0 10/19/17 Metoprolol Tartrate [Lopressor] 12.5 mg PO BIDWM tab 10/19/17 PredniSONE [Deltasone 20 mg] 40 mg PO WB #12 tab 10/19/17 - Right on Track Program Phone call Date: 10/20/17 Right on Track Program: 24 Hour Follow-Up Discharge Summary Received: Yes Care Plan Received: Yes Follow Up: Follow Up Appointment Scheduled (With Dr. Brewster on 10/[address] Antonio on 11/04) Education: Diagnosis Education Reviewed Referral: Primary Care Physician Comments: I spoke with Mr. Licona on 10/20/17. He feels like he's doing fairly well , though added he hasn't done much yet today. He is preparing to go to the pharmacy to pick up and delivery driver his new Rx. We discussed medication changes as listed below. He had no questions on his discharge instructions except for when to f/u with Dr. Acuña, which should be in a month. He agreed to a home transitional visit on 10/27. Recommendations For Follow-up: Assessment COPD with acute exacerbation, Pulmonary hypertension, Asbestos pneumoconiosis/ pleural plaques, Chronic hypoxic respiratory failure Paroxysmal atrial fibrillation, CAD, Diastolic CHF, chronic, Orthostatic hypotension Low vitamin B-12 level Hyperglycemia, steroid induced Ambulatory oximetry on 10/17/17: Room air saturation 95% at rest on 1 L, saturation dropped to 85% after walking 100 feet; oxygen increased to 2 L but saturation remained 87-88%. After oxygen was increased to 3 L saturation stabilized 90-92%. Overnight oximetry 10/16/17-10/17/17 on 1 L supplemental oxygen with 44 minutes oxygen levels below 89% and lowest oxygen level reached 62%. Overnight oximetry 10/17/17-10/18/17 on 3 L supplemental oxygen demonstrated only 16 seconds with oxygen level below 89%. Plan Discharge Instructions: -1 L oxygen is adequate when you are resting but you should wear 3 L of oxygen with activities and at night. -Take 40 mg of prednisone (2-20 mg tablets) for the next 2 days then decrease to 1 tablet or 20 mg daily for 5 days. You can discontinue prednisone after a week unless Dr. Brewster instructs you to continue it longer. You will have a few extra tablets if needed. -Decrease metoprolol to 12.5 mg twice a day (1/2 tablet twice daily) . -Decrease furosemide to 20 mg daily (1/2 of a 40 mg tablet). -Continue Spiriva once daily and Brio Ellipta inhaler twice daily as previously prescribed by Dr. Farooq. -Begin using breathing treatments with nebulizer 3 times a day and every 4 hours as needed if you are short of breath. I believe the medication you have to use with your nebulizer is albuterol. -Finally begin taking a B-12 supplement because your B-12 level was low; prescription sent to your pharmacy. Dr. Brewster can recheck B-12 level to make sure pills are adequate to replace and that you will not need shots long-term. -Consider pulmonary rehabilitation to improve breathing with activity. Dr. Acuña recommended consider initiation of Midodrine 2.5mg TID if ongoing symptomatic orthostasis. Home visit on 10/27/17. Appointments have been scheduled with PCP and pulm. Recommend to contact Dr. Acuña's office to make appointment. [id number] visit Date: 10/27/17 Right on Track Program: 7-14 Day [id number] Discharge Summary Received: Yes Care Plan Received: Yes Follow Up: Follow Up Appointment Scheduled Education: Diagnosis Education Reviewed Community Paramedicine Fall Intervention: No Referral: Primary Care Physician, Home Health Comments: I visited Mr. Licona at his home in [place] on 10/27/17. He was just finishing up with PT. While he didnt desaturate with activity today on 4L, once he sat down to rest his oxygen saturation dropped to 85%. It took about 1- 1.5 minutes to recover. Overall, he feels like things are going about as expected. His breathing isnt quite as good as it was before he was hospitalized, and he thinks it may take another month or longer for it to feel back to normal. However, he also knows that he has a progressive disease, and as he gets older hes noticed that he becomes more short of breath. He is still able to care for himself well, with the exception of housekeeping, for which hes going to hire a scoop filler (as he stated, old men arent good housekeepers). He is independent in ADLs and IADLs. He takes care of all of his cooking, minding sodium intake. He recently had corned beef and cabbage, and tonight plans to make fish with vegetables. He has a garden and enjoys spending time there tending to the various vegetables ( potatoes, peas, okra, beets, etc.). He also spends his time reading the paper or books. He doesnt watch much television. He tries to get out of the house occasionally and will go to [id number] for example to walk around. He lives alone and doesnt have much local support. When he needs something or has a concern, he calls [facility]. He has been from his for 17-18 years, though they are still in contact and he worries about her because she has end-stage lung cancer and is not expected to live much longer. Out of 5 children, 4 are living but they all live in [place] or [place]. His son at age 44 of melanoma. His oldest daughter is his DPOA. He also has a living will. His 4 daughters make sure that he has anything he might need. He also is financially secure from spending 42 years at [employer], and has no difficulties affording his medical necessities and medications. PHQ-2 screen was positive. He feels down, depressed, and/or hopeless about 2-3 days per week, but this has been his ongoing for quite some time and he feels like his symptoms are fairly well controlled on sertraline. Medications were reviewed with him. He is taking the appropriate doses of furosemide and metoprolol, which were decreased at time of discharge. He has 1 more day of Prednisone. He has a good grasp on medication indications, only struggling with indication for his statin. He takes his statin in the morning, and hes done this for several years. He has some difficulty with swallowing KDur, and breaks them in half. He also has a pill cutter for the furosemide and metoprolol. He gets his medications via mail order. He has a system to take his medications, which is working well for him. Hes tried using a pill organizer in the past but didnt care for it. He tracks his blood pressures and weights. He has not had any orthostasis. His blood pressures have been stable. His weights have ranged from 199-203. The amount of swelling in his legs has remained stable. He has not fallen for over a year. He has follow up appointments scheduled with Dr. Brewster on 10/28/17, with Dr. Acuña and Dr. Farooq (pulmonology) in the beginning of November, and with Dr. Antonio to discuss pulmonary rehab (though adds hes not interested in doing the recumbent bike or treadmill). EXAM Gen: Pleasant, cooperative, NAD, A&O x3 HEENT: PERRL, sclera anicteric and clear, no thrush seen, dentures in place. He is hard of hearing even with his hearing aids in place. Neuro: Facial structures symmetric, moves all extremities equally. Lungs: Diminished throughout but clear Cardiac: Irregularly irregular. Abdomen: soft, nontender with positive bowel sounds Extremities: 1-2+ edema BLE Recommendations For Follow-up: ASSESSMENT COPD with acute exacerbation, Pulmonary hypertension, Asbestos pneumoconiosis/ pleural plaques, Chronic hypoxic respiratory failure Paroxysmal atrial fibrillation, CAD, Diastolic CHF, chronic, Orthostatic hypotension Low vitamin B-12 level [292] Overall, doing well as of 10/27. PLAN Review blood pressures with Dr. Acuña to determine if further adjustments in antiHTN should be made F/U with Dr. Brewster; may need further discussion on depressive symptoms. Will also need f/u at some point on low Vitamin B12 level. F/U with Dr. Henriquez, as planned. Continue home health.
== END 2017-10-19 18:45 | disposition home health service (06) | DRG 190 ==
LOC: ED 17:50 → SUATTDRO 20:04 → MED 20:04
PROVIDERS: ADMIT Internal Medicine; ATTEND Internal Medicine